=== PATIENT | male | born 1945 | race Caucasian/White ===

== ENCOUNTER → 2016-11-30 | Outpatient (CLI) | payer BC ==
[~2016-11-30] MED LIST: AMIT10TA6 PO; AMLO2.5T PO; AMOX875T PO; AMT10 PO; ASPI81TA21 PO; ASPI81TA28 PO; CIPR-255 PO; CRFL PO; CYCL10TA6 PO; DICL1GEL12 TP; FINA5TAB PO; FINA5TAB4 PO; LISI-729 PO; LISI2.5T5 PO; MELO15TA4 PO; MELO7.5T5 PO; METR-163 PO; METR500T PO; MULTTAB58 PO; NTRGSL/4 UT; NXM/40 PO; ONDA4TAB10 SL; OXYC1TAB3 PO; PSYL0.524; PSYL0.524 PO; RANO500T PO; RIZA10TA18 PO; RNXER500 PO; ROSU20TA PO; SERT50TA PO; SILO8CAP PO; SOLI5TAB2 PO; SUCR5SUS PO; renexa PO
--- NOTE | 2016-11-30 18:00 | DIAGNOSTIC IMAGING REPORT ---
CT pelvis PELVIS NO IV/ORAL CONT (CT) CLINICAL HISTORY: DIVERTICULITIS pain TECHNIQUE: Transaxial acquisition without contrast enhancement COMPARISON STUDY: None FINDINGS: Nonobstructive bowel pattern. Normal appendix. Chronic sigmoid diverticulosis. No evidence for acute diverticulitis. No significant pericolonic infiltrative change. No evidence for abscess collection or obstructive change. Bladder is midline. There are no contained calcifications. No acute abnormality of the osseous structures IMPRESSION: Chronic sigmoid diverticulosis. No evidence for acute diverticulitis. Otherwise negative study Electronically signed by: Matt Charles M.D. 11/30/2016 5:59 PM Dictated Date/Time: 11/30/2016 5:57 PM
== END | disposition home or self-care (01) ==
LOC: C.CTS 17:29
PROVIDERS: ATTEND Family Medicine
DX: K57.30 Diverticulosis of large intestine without perforation or abscess without bleeding (principal)

== ENCOUNTER 2016-12-24 11:34 | Emergency (ER) | payer BC ==
[~2016-12-24] VITALS: Ht 172.7 cm; Wt 90.2 kg
[~2016-12-24 11:34] MED LIST changes: -AMOX875T PO; -AMT10 PO; -ASPI81TA28 PO; -CIPR-255 PO; -CRFL PO; -DICL1GEL12 TP; -FINA5TAB PO; -LISI-729 PO; -MELO15TA4 PO; -METR-163 PO; -METR500T PO; -ONDA4TAB10 SL; -OXYC1TAB3 PO; -PSYL0.524 PO; -RANO500T PO; -RNXER500 PO
[2016-12-24 11:37] VITALS: TEMP 36.4; Ht 172.7 cm; Wt 90.2 kg
[2016-12-24] MEDS ORDERED: RANO500T PO (12:19)
--- NOTE | 2016-12-24 12:33 | EMERGENCY ROOM VISIT NOTE ---
History Report prepared by Ky: Paola Baum Under the Supervision of: Dr. John Edwards M.D. First contact with patient: 12:24 Chief Complaint: ABDOMINAL PAIN Stated Complaint: LOWER ABD. PAIN Nursing Triage Summary: "I've had this abdominal pain off and on for maybe a month. Twice I saw the walk in at [place]. I received a cat scan. I've had this lower abdominal pain. Yesterday it was all day and even to urinate it was bad. I called my doctors office and they sent me here.". Pain has moved from the right to the center of the abdomen. History of Present Illness The patient is a 71 year old male who presents to the Emergency Room with complaints of persistent mid abdominal pain that began one month ago. He currently rates his discomfort as a 9/10 in severity. The patient states that he had a normal CT scan one month ago. He states that his pain has persisted and notes that he is scheduled for a colonoscopy next Wednesday. The patient states that his pain intensified last evening. He states that he had loose stools on Wednesday, but denies any diarrhea. The patient additionally notes chills, but denies any fever, vomiting, rash, leg swelling, or urinary symptoms. The patient notes a history of diverticulitis several years ago. Source of History: patient Onset: one month ago Position: abdomen (mid) Symptom Intensity: 9/10 Timing: other (persistent) Associated Symptoms: + chills, No diarrhea, No fevers, No rash, No urinary symptoms, No vomiting Note: Associated Symptoms: loose stools. Review of Systems See HPI for pertinent positives & negatives. A total of 10 systems reviewed and were otherwise negative. Past Medical & Surgical Medical Problems: (1) Liriano's esophagus (2) Cardiac catheterization (3) Coronary artery disease (4) Gastroesophageal reflux disease (5) Heart disease (6) History of migraine (7) Hyperlipidemia Surgical Problems: (1) History of hemorrhoids Family History Diabetes mellitus FHx: cancer FHx: heart disease Social History Smoking Status: Never Smoker Alcohol Use: none Drug Use: none Marital Status: Housing Status: lives with family Occupation Status: retired Current/Historical Medications Scheduled Amitriptyline Hcl (Elavil), 20 MG PO HS Amlodipine (Norvasc), 2.5 MG PO DAILY Ciprofloxacin Hcl (Cipro), 500 MG PO BID Esomeprazole Magnesium (Nexium), 40 MG PO BID Finasteride (Proscar), 5 MG PO QPM Lisinopril (Lisinopril), 5 MG PO DAILY Meloxicam (Mobic), 15 MG PO DAILY Metronidazole (Flagyl), 500 MG PO TID Nitroglycerin (Nitrostat), 0.4 MG UT PRN Psyllium (Metamucil), DAILY Ranolazine (Ranexa), 1 TAB PO BID Rosuvastatin Calcium (Crestor), 20 MG PO HS Sertraline (Zoloft), 50 MG PO DAILY Silodosin (Rapaflo), 8 MG PO QPM Scheduled PRN Aspirin Enteric Coated (Ecotrin Or Generic), 81 MG PO DAILY PRN Cyclobenzaprine Hcl (Flexeril), 1 TAB PO TID PRN for Muscle Spasms Oxycodone Immediate Rel Tab (Roxicodone Ir), 1-2 TAB PO Q4H PRN for Severe Pain Rizatriptan Benzoate (Maxalt), 10 MG PO DAILY PRN Sucralfate (Carafate), 1 GM PO Q6H PRN Allergies Coded Allergies: Omeprazole (Verified Allergy, Unknown, unsure, 03/15/15) Pantoprazole (Verified Adverse Reaction, Unknown, HALLUCINATIONS, 03/15/15) Physical Exam Vital Signs Date Time Temp Pulse Resp B/P Pulse Ox O2 Delivery O2 Flow Rate FiO2 12/24/16 13:56 61 16 134/77 95 Room Air 12/24/16 11:37 36.4 78 20 138/90 96 Room Air Physical Exam GENERAL: Patient is uncomfortable appearing and in moderate distress. HEENT: No acute trauma, normocephalic atraumatic, mucous membranes moist, no nasal congestion, no scleral icterus. NECK: No stridor, no adenopathy, no meningismus, trachea is midline. LUNGS: No dyspnea. Clear to auscultation and equal bilaterally. No wheeze, no rhonchi. HEART: Regular rate and rhythm. No murmurs, rubs, gallops appreciated. ABDOMEN: Suprapubic tenderness to palpation. Soft, bowel sounds positive, no masses appreciated, no peritonitis. BACK: No midline tenderness, no CVA tenderness EXTREMITIES: Normal motion all extremities, no cyanosis, no edema. NEUROLOGIC: Alert and oriented, no acute motor or sensory deficits, no focal weakness, cranial nerves grossly intact. SKIN: No rash, no jaundice, no diaphoresis. Medical Decision & Procedures ER Provider Diagnostic Interpretation: Radiology results and stated below per my review and radiologist interpretation: CT ABD/PELVIS IV CONTRAST ONLY CLINICAL HISTORY: Lower abdominal and periumbilical pain. COMPARISON STUDY: CT scan the pelvis dated 11/30/2016 TECHNIQUE: Following the IV administration of 92 mL of Optiray-320, CT scan of the abdomen and pelvis was performed from the lung bases to the proximal femurs. Images are reviewed in the axial, sagittal, and coronal planes. IV contrast was administered without complication. CT DOSE: 695.75 mGy.cm FINDINGS: Lower chest: There is a moderate hiatal hernia. There are coronary artery calcifications. Liver: There is hepatic steatosis. No focal masses are visualized. The portal vein is patent. Gallbladder: Unremarkable. Spleen: Normal in size and attenuation. Pancreas: Unremarkable. Adrenal glands: Unremarkable. Kidneys: There is symmetric renal cortical enhancement. The kidneys are normal in size without hydronephrosis. Bowel: There are no transition zone to indicate bowel obstruction. The appendix is normal. There is extensive sigmoid diverticulosis. There is sigmoid wall thickening likely secondary to peridiverticular muscular hypertrophy. Minimal peridiverticular inflammatory changes cannot be excluded.. Peritoneum: There is no intraperitoneal free air or abdominal ascites. Vasculature: The abdominal aorta is normal in course and caliber. Adenopathy: None. Pelvic viscera: The bladder, and pelvic viscera are unremarkable. There are small fat-containing umbilical hernias versus lipomatous inguinal canals Skeletal structures: No destructive osseous lesions are seen. IMPRESSION: 1. No evidence of bowel obstruction. No evidence of free air 2. Normal appendix 3. Extensive sigmoid diverticulosis with equivocal minimal peridiverticular inflammatory change 4. Hiatal hernia 5. Hepatic steatosis Electronically signed by: Agustín Carbajal M.D. 12/24/2016 2:06 PM Dictated Date/Time: 12/24/2016 1:56 PM Laboratory Results 12/24/16 11:49 Red Blood Count 4.98, Mean Corpuscular Volume 85.5, Mean Corpuscular Hemoglobin 29.5, Mean Corpuscular Hemoglobin Concent 34.5, Mean Platelet Volume 9.2, Neutrophils (%) (Auto) 63.1, Lymphocytes (%) (Auto) 21.3, Monocytes (%) (Auto) 9.0, Eosinophils (%) (Auto) 5.8, Basophils (%) (Auto) 0.5, Neutrophils # (Auto) 5.51, Lymphocytes # (Auto) 1.86, Monocytes # (Auto) 0.79, Eosinophils # (Auto) 0.51, Basophils # (Auto) 0.04 12/24/16 11:49 Test 12/24/16 11:47 12/24/16 11:49 Urine Color YELLOW Urine Appearance CLEAR (CLEAR) Urine pH 6.5 (4.5-7.5) Urine Specific Norman 1.008 (1.000-1.030) Urine Protein NEG (NEG) Urine Glucose (UA) NEG (NEG) Urine Ketones NEG (NEG) Urine Occult Blood NEG (NEG) Urine Nitrite NEG (NEG) Urine Bilirubin NEG (NEG) Urine Urobilinogen NEG (NEG) Urine Leukocyte Esterase NEG (NEG) Urine WBC (Auto) 0 /hpf (0-5) Urine RBC (Auto) 0-4 /hpf (0-4) Urine Hyaline Casts (Auto) 0 /lpf (0-5) Urine Epithelial Cells (Auto) 0-5 /lpf (0-5) Urine Bacteria (Auto) NEG (NEG) White Blood Count 8.74 K/uL (4.8-10.8) Red Blood Count 4.98 M/uL (4.7-6.1) Hemoglobin 14.7 g/dL (14.0-18.0) Hematocrit 42.6 % (42-52) Mean Corpuscular Volume 85.5 fL (80-100) Mean Corpuscular Hemoglobin 29.5 pg (25-34) Mean Corpuscular Hemoglobin Concent 34.5 g/dl (32-36) Platelet Count 315 K/uL (130-400) Mean Platelet Volume 9.2 fL (7.4-10.4) Neutrophils (%) (Auto) 63.1 % Lymphocytes (%) (Auto) 21.3 % Monocytes (%) (Auto) 9.0 % Eosinophils (%) (Auto) 5.8 % Basophils (%) (Auto) 0.5 % Neutrophils # (Auto) 5.51 K/uL (1.4-6.5) Lymphocytes # (Auto) 1.86 K/uL (1.2-3.4) Monocytes # (Auto) 0.79 K/uL (0.11-0.59) Eosinophils # (Auto) 0.51 K/uL (0-0.5) Basophils # (Auto) 0.04 K/uL (0-0.2) RDW Standard Deviation 40.0 fL (36.4-46.3) RDW Coefficient of Variation 13.0 % (11.5-14.5) Immature Granulocyte % (Auto) 0.3 % Immature Granulocyte # (Auto) 0.03 K/uL (0.00-0.02) Anion Gap 7.0 mmol/L (3-11) Est Creatinine Clear Calc Drug Dose 85.2 ml/min Estimated GFR () 100.9 Estimated GFR (Non- 87.0 BUN/Creatinine Ratio 16.6 (10-20) Calcium Level 9.0 mg/dl (8.5-10.1) Total Bilirubin 0.5 mg/dl (0.2-1) Direct Bilirubin 0.1 mg/dl (0-0.2) Aspartate Amino Transf (AST/SGOT) 23 U/L (15-37) Alanine Aminotransferase (ALT/SGPT) 39 U/L (12-78) Alkaline Phosphatase 121 U/L (45-117) Total Protein 7.4 gm/dl (6.4-8.2) Albumin 3.8 gm/dl (3.4-5.0) Lipase 268 U/L (73-393) Laboratory results as reviewed by me. Medications Administered Medications (Trade) Dose Ordered Sig/Pushpa Route Start Time Stop Time Status Last Admin Dose Admin Sodium Chloride (Nss 1000ml) 1,000 ml @ 999 mls/hr Q1H1M STAT IV 12/24/16 12:34 12/24/16 13:34 DC 12/24/16 12:44 999 MLS/HR Fentanyl Citrate (Fentanyl Inj) 50 mcg NOW STAT IV 12/24/16 12:34 12/24/16 12:35 DC 12/24/16 12:45 50 MCG Metronidazole (Flagyl Tab) 500 mg NOW STAT PO 12/24/16 14:30 12/24/16 14:31 DC 12/24/16 14:37 500 MG Ciprofloxacin (Cipro Tab) 500 mg NOW STAT PO 12/24/16 14:30 12/24/16 14:31 DC 12/24/16 14:38 500 MG ED Course 1227: The patient was evaluated in room B7. A complete history and physical exam was performed. 1234: Ordered Fentanyl Citrate 50 mcg IV, Sodium Chloride 1000 ml @ 999 mls/hr IV. 1423: I reevaluated the patient and he is feeling much better. He states that he will contact GI tomorrow to determine if his colonoscopy should be postponed. He states that he has been on Cipro and flagyl several years ago, but was on Augmentin last month for his symptoms. I discussed all the exam findings with him and I discussed the treatment plan. He verbalized complete understanding and agreement. He is ready to go home. 1430: Ordered Cipro Tab 500 mg PO, Flagyl Tab 500 mg PO. Medical Decision Differential: Appendicitis, Diverticulitis, PUD/Gastritis, Biliary Pathology, UTI, Pyelonephritis, Renal Colic, Bowel Obstruction, Aortic Pathology, Acute Coronary Syndrome, amongst other pathologies entertained. 71 yr old male arrives with suprapubic pain ongoing for the last month gradually worsening last day or so. Previous CT normal though had been on augmentin afterwards. Labs look good but given amount of pain patient in went ahead with repeat CT. Mild diverticulitis suspected and with history/exam suspect this is cause of pain. Given Cipro/Flagyl which he has tolerated well years past. Has GI follow up on Wednesday though I noted they may not be willing to do colonoscopy while under active treatment. Discussed symptoms requiring return. Impression Primary Impression: Diverticulitis Scribe Attestation The scribe's documentation has been prepared under my direction and personally reviewed by me in its entirety. I confirm that the note above accurately reflects all work, treatment, procedures, and medical decision making performed by me. Departure Information Dispostion Home / Self-Care Prescriptions Oxycodone Immediate Rel Tab (ROXICODONE IR) 5 Mg Tab 1-2 TAB PO Q4H Y for Severe Pain, #15 TAB Prov: John Edwards M.D. 12/24/16 Metronidazole (Flagyl) 500 Mg Tab 500 MG PO TID for 10 Days, #30 TAB Prov: John Edwards M.D. 12/24/16 Ciprofloxacin Hcl (CIPRO) 500 Mg Tab 500 MG PO BID, #20 TAB Prov: John Edwards M.D. 12/24/16 Referrals Celestino Vazquez D.O. (PCP) Forms HOME CARE DOCUMENTATION FORM, IMPORTANT VISIT INFORMATION Patient Instructions ED Diverticulitis, [facility] [place] Additional Instructions You have received a narcotic pain medication prescription. These medications may cause drowsiness and should not be used with other sedative medications. Do not drive, drink alcohol, perform dangerous activities, nor make important decisions after taking these medications. fabric pattern grader use or inappropriate use may lead to addiction. It is important to call your primary care provider and tutoring clinician to make them aware. Problem Qualifiers Primary Impression: Diverticulitis Diverticulitis site: large intestine Diverticulitis bleeding: without bleeding Diverticulitis complication: without perforation or abscess Qualified Codes: K57.32 - Diverticulitis of large intestine without perforation or abscess without bleeding
[2016-12-24] MEDS ORDERED: FENTANYL CITRATE INJ 50 MCG/1 ML 2 ML VIAL IV STA (12:34)
[2016-12-24] MEDS ORDERED: SODIUM CHLORIDE 0.9% 1000ML 1,000 ML IV STA (12:34)
[2016-12-24 12:43] LABS: BASO % 0.5 %; BASO ABS # 0.04 K/uL (0-0.2); COMPLETE YES; EOS % 5.8 %; HEMATOCRIT 42.6 % (42-52); IG% 0.3 %; LYMPH % 21.3 %; LYMPH ABS # 1.86 K/uL (1.2-3.4); MEAN CELL VOLUME 85.5 fL (80-100); MEAN CORPUSCULAR HEMOGLOBIN 29.5 pg (25-34); MEAN CORPUSCULAR HGB CONC 34.5 g/dl (32-36); MEAN PLATELET VOLUME 9.2 fL (7.4-10.4); NEUT % 63.1 %; PLATELET COUNT 315 K/uL (130-400); RED BLOOD COUNT 4.98 M/uL (4.7-6.1); WHITE BLOOD COUNT 8.74 K/uL (4.8-10.8)
[2016-12-24] MEDS ORDERED: OPTIRAY 320 IV PRN (12:45)
[2016-12-24 12:49] LABS: URINE APPEARANCE CLEAR (CLEAR); URINE BILIRUBIN NEG (NEG); URINE COLOR YELLOW; URINE EPITHELIAL CELL AUTO 0-5 /lpf (0-5); URINE NITRITE NEG (NEG); URINE PH 6.5 (4.5-7.5); URINE SPECIFIC GRAVITY 1.008 (1.000-1.030); UROBILINOGEN NEG (NEG); ZZUR CULT IF INDIC CLEAN CATCH NO
[2016-12-24 12:51] LABS: MANUAL MICROSCOPIC REQUIRED? NO; REVIEW REQ? NO
[2016-12-24 12:51] LABS: BUN/CREATININE RATIO 16.6 (10-20); CREATININE 0.88 mg/dl (0.60-1.40); POTASSIUM 3.9 mmol/L (3.5-5.1)
[2016-12-24 13:56] VITALS: BP 134/77; PULSE 61; O2SAT 95
--- NOTE | 2016-12-24 14:08 | DIAGNOSTIC IMAGING REPORT ---
CT ABD/PELVIS IV CONTRAST ONLY CLINICAL HISTORY: Lower abdominal and periumbilical pain. COMPARISON STUDY: CT scan the pelvis dated 11/30/2016 TECHNIQUE: Following the IV administration of 92 mL of Optiray-320, CT scan of the abdomen and pelvis was performed from the lung bases to the proximal femurs. Images are reviewed in the axial, sagittal, and coronal planes. IV contrast was administered without complication. CT DOSE: 695.75 mGy.cm FINDINGS: Lower chest: There is a moderate hiatal hernia. There are coronary artery calcifications. Liver: There is hepatic steatosis. No focal masses are visualized. The portal vein is patent. Gallbladder: Unremarkable. Spleen: Normal in size and attenuation. Pancreas: Unremarkable. Adrenal glands: Unremarkable. Kidneys: There is symmetric renal cortical enhancement. The kidneys are normal in size without hydronephrosis. Bowel: There are no transition zone to indicate bowel obstruction. The appendix is normal. There is extensive sigmoid diverticulosis. There is sigmoid wall thickening likely secondary to peridiverticular muscular hypertrophy. Minimal peridiverticular inflammatory changes cannot be excluded.. Peritoneum: There is no intraperitoneal free air or abdominal ascites. Vasculature: The abdominal aorta is normal in course and caliber. Adenopathy: None. Pelvic viscera: The bladder, and pelvic viscera are unremarkable. There are small fat-containing umbilical hernias versus lipomatous inguinal canals Skeletal structures: No destructive osseous lesions are seen. IMPRESSION: 1. No evidence of bowel obstruction. No evidence of free air 2. Normal appendix 3. Extensive sigmoid diverticulosis with equivocal minimal peridiverticular inflammatory change 4. Hiatal hernia 5. Hepatic steatosis Electronically signed by: Agustín Carbajal M.D. 12/24/2016 2:06 PM Dictated Date/Time: 12/24/2016 1:56 PM
[2016-12-24] MEDS ORDERED: METRONIDAZOLE 250 MG TAB PO STA (14:30)
[2016-12-24] MEDS ORDERED: CIPROFLOXACIN 500 MG TAB PO STA (14:30)
[2016-12-24] MEDS ORDERED: METR-163 PO (14:33)
[2016-12-24] MEDS ORDERED: CIPR-255 PO (14:33)
[2016-12-24] MEDS ORDERED: OXYC1TAB3 PO (14:33)
== END 2016-12-24 14:52 | disposition home or self-care (01) ==
LOC: C.EDB 11:36
DX: K57.92 Diverticulitis of intestine, part unspecified, without perforation or abscess without bleeding (principal); E78.5 Hyperlipidemia, unspecified; I25.10 Atherosclerotic heart disease of native coronary artery without angina pectoris; I51.9 Heart disease, unspecified; K21.9 Gastro-esophageal reflux disease without esophagitis; K22.70 Barrett's esophagus without dysplasia; Z79.899 Other long term (current) drug therapy; Z88.8 Allergy status to other drugs, medicaments and biological substances; Z83.3 Family history of diabetes mellitus; Z80.9 Family history of malignant neoplasm, unspecified; Z82.49 Family history of ischemic heart disease and other diseases of the circulatory system

== ENCOUNTER 2017-01-23 13:27 | Emergency (ER) | payer BC ==
[~2017-01-23] VITALS: Ht 172.7 cm; Wt 89.3 kg
[~2017-01-23 13:27] MED LIST changes: +CIPR-255 PO; -MULTTAB58 PO; +OXYC1TAB3 PO; +RANO500T PO; -SOLI5TAB2 PO; -renexa PO
[2017-01-23 13:31] VITALS: Ht 172.7 cm; Wt 89.3 kg
[2017-01-23] MEDS ORDERED: SODIUM CHLORIDE 0.9% 1000ML 1,000 ML IV STA (13:41)
[2017-01-23] MEDS ORDERED: HYDROmorphone INJ 1 MG/ML SYR IV PRN (14:00)
[2017-01-23] MEDS ORDERED: ONDANSETRON 8 MG/54 ML D5W IV STA (14:00)
[2017-01-23 14:09] LABS: BASO % 0.3 %; BASO ABS # 0.02 K/uL (0-0.2); COMPLETE YES; EOS % 4.1 %; HEMATOCRIT 41.8 % (42-52); IG% 0.4 %; LYMPH % 23.8 %; LYMPH ABS # 1.79 K/uL (1.2-3.4); MEAN CELL VOLUME 84.8 fL (80-100); MEAN CORPUSCULAR HEMOGLOBIN 28.6 pg (25-34); MEAN CORPUSCULAR HGB CONC 33.7 g/dl (32-36); MEAN PLATELET VOLUME 9.1 fL (7.4-10.4); MONO % 10.8 %; NEUT % 60.6 %; PLATELET COUNT 279 K/uL (130-400); RED BLOOD COUNT 4.93 M/uL (4.7-6.1); WHITE BLOOD COUNT 7.51 K/uL (4.8-10.8)
[2017-01-23 14:14] LABS: URINE APPEARANCE CLEAR (CLEAR); URINE BILIRUBIN NEG (NEG); URINE COLOR YELLOW; URINE NITRITE NEG (NEG); URINE SPECIFIC GRAVITY 1.008 (1.000-1.030); UROBILINOGEN NEG (NEG); ZZUR CULT IF INDIC CLEAN CATCH NO
[2017-01-23 14:16] LABS: MANUAL MICROSCOPIC REQUIRED? NO; REVIEW REQ? NO
[2017-01-23 14:25] LABS: BUN/CREATININE RATIO 15.8 (10-20); CALCIUM 8.9 mg/dl (8.5-10.1); CREATININE 0.72 mg/dl (0.60-1.40)
[2017-01-23] MEDS ORDERED: RIZA10TA18 PO (14:48)
[2017-01-23] MEDS ORDERED: NXM/40 PO (14:48)
[2017-01-23] MEDS ORDERED: PSYL0.524 PO (14:48)
[2017-01-23] MEDS ORDERED: DICL1GEL12 TP (14:48)
[2017-01-23] MEDS ORDERED: SERT50TA PO (14:48)
[2017-01-23] MEDS ORDERED: LISI-729 PO (14:48)
[2017-01-23] MEDS ORDERED: RNXER500 PO (14:48)
[2017-01-23] MEDS ORDERED: CRFL PO (14:48)
[2017-01-23] MEDS ORDERED: FINA5TAB PO (14:48)
[2017-01-23] MEDS ORDERED: ROSU20TA PO (14:48)
[2017-01-23] MEDS ORDERED: MELO15TA4 PO (14:48)
[2017-01-23] MEDS ORDERED: AMLO2.5T PO (14:48)
[2017-01-23] MEDS ORDERED: ASPI81TA28 PO (14:48)
[2017-01-23] MEDS ORDERED: SILO8CAP PO (14:48)
[2017-01-23] MEDS ORDERED: AMT10 PO (14:48)
[2017-01-23] MEDS ORDERED: OPTIRAY 320 IV PRN (17:00)
--- NOTE | 2017-01-23 17:34 | DIAGNOSTIC IMAGING REPORT ---
ABDOMEN AND PELVIS CT WITH IV AND ORAL CONTRAST CT DOSE: 838.90 mGy.cm HISTORY: Low pelvic pain lower abd pain, recent treatment for diverticulitis TECHNIQUE: Multiaxial CT images of the abdomen and pelvis were performed following the use of intravenous and oral contrast. COMPARISON STUDY: 12/24/2016 FINDINGS: Lung bases are clear. Mild fatty infiltration of liver. Gallbladder is negative for distention. Kidneys enhance uniformly. There is minimal cortical scarring of both kidneys. Pancreas is uniform. Spleen enhances appropriately. Bowel pattern within the abdomen is nonobstructive. The appendix is normal. Evaluation of the low pelvis demonstrates chronic sigmoid diverticulosis. There is no significant pericolonic infiltrative change. There is mild wall thickening. Bladder is midline. There is no free fluid within the pelvic cul-de-sac. The appendix is normal. IMPRESSION: 1. Chronic sigmoid diverticulosis. 2. No evidence for acute diverticulitis. 3. Mild fatty infiltration of the liver. 4. Fixed hiatal hernia. Electronically signed by: Matt Charles M.D. 01/23/2017 5:33 PM Dictated Date/Time: 01/23/2017 5:28 PM
[2017-01-23] MEDS ORDERED: AMOXICILLIN/CLAVULANATE TAB 875 MG TAB PO STA (17:49)
[2017-01-23] MEDS ORDERED: AMOX875T PO (17:52)
--- NOTE | 2017-01-23 18:04 | EMERGENCY ROOM VISIT NOTE ---
History Report prepared by Ky: Micheal Whiting Under the Supervision of: Dr. Cesar Atkins M.D. First contact with patient: 13:40 Chief Complaint: ABDOMINAL PAIN Stated Complaint: LOWER ABDOMINAL PAIN Nursing Triage Summary: Pt c/o abdominal pain. States hx diverticulitis. Last BM today, clear and jelly like. States abd pain in mid low abdomen. History of Present Illness The patient is a 71 year old male who presents to the Emergency Room with complaints of lower mid abdominal pain that began two days ago. He rates his pain a 10/10 in severity. He diagnosed with diverticulosis and mild diverticulitis recently and was placed on a Cipro regimen. He notes to have felt better after that. He is feeling similar to his last episode. When he had a bowel movement today, he states that it was "white jelly." His pain worsens with lying down. He is also nauseated. Patient denies LOC, headache, fevers, chills, diaphoresis, visual changes, neck pain, chest pain, breathing difficulties, vomiting, back pain, melena, hematochezia, urinary symptoms, numbness, weakness, lymphadenopathy, rash, or other complaints. His next colonoscopy is scheduled for February of this year. He still has his appendix. Source of History: patient Onset: two days ago Position: abdomen Symptom Intensity: 10/10 Quality: sharp Timing: constant Modifying Factors (Worsening): rest Associated Symptoms: + nausea Note: He had a white jelly-like bowel movement. Review of Systems See HPI for pertinent positives and negatives. A total of ten systems were reviewed and were otherwise negative. Past Medical & Surgical Medical Problems: (1) Liriano's esophagus (2) Cardiac catheterization (3) Coronary artery disease (4) Gastroesophageal reflux disease (5) Heart disease (6) History of migraine (7) Hyperlipidemia Surgical Problems: (1) History of hemorrhoids Family History Diabetes mellitus FHx: cancer FHx: heart disease Social History Smoking Status: Never Smoker Smokeless Tobacco Use: No Alcohol Use: none Drug Use: none Marital Status: Housing Status: lives with family Occupation Status: retired Current/Historical Medications Scheduled Amitriptyline HCl (Amitriptyline HCl), 20 MG PO HS Amlodipine (Norvasc), 2.5 MG PO DAILY Amoxicillin & Pot Clavulanate (Augmentin 875-125 mg), 875 MG PO BID Aspirin (Aspirin Ec), 81 MG PO DAILY Esomeprazole Magnesium (Nexium), 40 MG PO DAILY Finasteride (Proscar), 5 MG PO DAILY Lisinopril (Zestril), 5 MG PO DAILY Nitroglycerin (Nitrostat), 0.4 MG UT PRN Psyllium (Metamucil), 3.4 PO DAILY Ranolazine (Ranexa), 500 MG PO BID Rosuvastatin Calcium (Crestor), 20 MG PO DAILY Sertraline (Zoloft), 50 MG PO DAILY Silodosin (Rapaflo), 1 CAP PO DAILY Sucralfate (Carafate), 10 ML PO HS Scheduled PRN Diclofenac Sodium (Topical) (Voltaren 1% Top Gel), 1 APPLN TP UD PRN for Pain Meloxicam (Mobic), 15 MG PO DAILY PRN for Pain Rizatriptan Benzoate (Maxalt), 10 MG PO DAILY PRN for Migraine Allergies Coded Allergies: Omeprazole (Verified Allergy, Unknown, unsure, 03/15/15) Pantoprazole (Verified Adverse Reaction, Unknown, HALLUCINATIONS, 03/15/15) Physical Exam Vital Signs Date Time Temp Pulse Resp B/P Pulse Ox O2 Delivery O2 Flow Rate FiO2 01/23/17 17:30 61 14 123/72 95 Room Air 01/23/17 14:34 61 14 151/87 95 Room Air 01/23/17 13:31 36.3 69 18 147/78 98 Physical Exam GENERAL: Awake, alert, well-appearing, in no distress HENT: Normocephalic, atraumatic. Oropharynx unremarkable. EYES: Normal conjunctiva. Sclera non-icteric. NECK: Supple. No nuchal rigidity. FROM. No JVD. RESPIRATORY: Clear to auscultation. CARDIAC: Regular rate, normal rhythm. Extremities warm and well perfused. Pulses equal. ABDOMEN: Soft, non-distended. Mild tenderness to palpation of the RLQ, moderate tenderness to palpation in the suprapubic and LLQ. No rebound or guarding. No masses. RECTAL: Deferred. MUSCULOSKELETAL: Chest examination reveals no tenderness. The back is symmetrical on inspection without obvious abnormality. There is no CVA tenderness to palpation. No joint edema. LOWER EXTREMITIES: Calves are equal size bilaterally and non-tender. No edema. No discoloration. NEURO: Normal sensorium. No sensory or motor deficits noted. SKIN: No rash or jaundice noted. Medical Decision & Procedures ER Provider Diagnostic Interpretation: Radiology results as stated below per my review and radiologist interpretation: ABDOMEN AND PELVIS CT WITH IV AND ORAL CONTRAST CT DOSE: 838.90 mGy.cm HISTORY: Low pelvic pain lower abd pain, recent treatment for diverticulitis TECHNIQUE: Multiaxial CT images of the abdomen and pelvis were performed following the use of intravenous and oral contrast. COMPARISON STUDY: 12/24/2016 FINDINGS: Lung bases are clear. Mild fatty infiltration of liver. Gallbladder is negative for distention. Kidneys enhance uniformly. There is minimal cortical scarring of both kidneys. Pancreas is uniform. Spleen enhances appropriately. Bowel pattern within the abdomen is nonobstructive. The appendix is normal. Evaluation of the low pelvis demonstrates chronic sigmoid diverticulosis. There is no significant pericolonic infiltrative change. There is mild wall thickening. Bladder is midline. There is no free fluid within the pelvic cul-de-sac. The appendix is normal. IMPRESSION: 1. Chronic sigmoid diverticulosis. 2. No evidence for acute diverticulitis. 3. Mild fatty infiltration of the liver. 4. Fixed hiatal hernia. Electronically signed by: Matt Charles M.D. 01/23/2017 5:33 PM Dictated Date/Time: 01/23/2017 5:28 PM Laboratory Results 01/23/17 13:50 Red Blood Count 4.93, Mean Corpuscular Volume 84.8, Mean Corpuscular Hemoglobin 28.6, Mean Corpuscular Hemoglobin Concent 33.7, Mean Platelet Volume 9.1, Neutrophils (%) (Auto) 60.6, Lymphocytes (%) (Auto) 23.8, Monocytes (%) (Auto) 10.8, Eosinophils (%) (Auto) 4.1, Basophils (%) (Auto) 0.3, Neutrophils # (Auto ) 4.55, Lymphocytes # (Auto) 1.79, Monocytes # (Auto) 0.81, Eosinophils # (Auto ) 0.31, Basophils # (Auto) 0.02 01/23/17 13:50 Test 01/23/17 13:50 01/23/17 13:58 White Blood Count 7.51 K/uL (4.8-10.8) Red Blood Count 4.93 M/uL (4.7-6.1) Hemoglobin 14.1 g/dL (14.0-18.0) Hematocrit 41.8 % (42-52) Mean Corpuscular Volume 84.8 fL (80-100) Mean Corpuscular Hemoglobin 28.6 pg (25-34) Mean Corpuscular Hemoglobin Concent 33.7 g/dl (32-36) Platelet Count 279 K/uL (130-400) Mean Platelet Volume 9.1 fL (7.4-10.4) Neutrophils (%) (Auto) 60.6 % Lymphocytes (%) (Auto) 23.8 % Monocytes (%) (Auto) 10.8 % Eosinophils (%) (Auto) 4.1 % Basophils (%) (Auto) 0.3 % Neutrophils # (Auto) 4.55 K/uL (1.4-6.5) Lymphocytes # (Auto) 1.79 K/uL (1.2-3.4) Monocytes # (Auto) 0.81 K/uL (0.11-0.59) Eosinophils # (Auto) 0.31 K/uL (0-0.5) Basophils # (Auto) 0.02 K/uL (0-0.2) RDW Standard Deviation 39.2 fL (36.4-46.3) RDW Coefficient of Variation 12.9 % (11.5-14.5) Immature Granulocyte % (Auto) 0.4 % Immature Granulocyte # (Auto) 0.03 K/uL (0.00-0.02) Anion Gap 7.0 mmol/L (3-11) Est Creatinine Clear Calc Drug Dose 103.6 ml/min Estimated GFR () 109.5 Estimated GFR (Non- 94.5 BUN/Creatinine Ratio 15.8 (10-20) Calcium Level 8.9 mg/dl (8.5-10.1) Total Bilirubin 0.4 mg/dl (0.2-1) Direct Bilirubin 0.1 mg/dl (0-0.2) Aspartate Amino Transf (AST/SGOT) 24 U/L (15-37) Alanine Aminotransferase (ALT/SGPT) 41 U/L (12-78) Alkaline Phosphatase 107 U/L (45-117) Total Protein 7.0 gm/dl (6.4-8.2) Albumin 3.8 gm/dl (3.4-5.0) Lipase 236 U/L (73-393) Urine Color YELLOW Urine Appearance CLEAR (CLEAR) Urine pH 7.0 (4.5-7.5) Urine Specific [place] 1.008 (1.000-1.030) Urine Protein NEG (NEG) Urine Glucose (UA) NEG (NEG) Urine Ketones NEG (NEG) Urine Occult Blood NEG (NEG) Urine Nitrite NEG (NEG) Urine Bilirubin NEG (NEG) Urine Urobilinogen NEG (NEG) Urine Leukocyte Esterase NEG (NEG) Laboratory results reviewed by me Medications Administered Medications (Trade) Dose Ordered Sig/Pushpa Route Start Time Stop Time Status Last Admin Dose Admin Sodium Chloride (Nss 1000ml) 1,000 ml @ 125 mls/hr Q8H STAT IV 01/23/17 13:41 01/23/17 21:40 01/23/17 14:30 125 MLS/HR Ondansetron HCl (Zofran 8mg Iv) 8 mg NOW STAT IV 01/23/17 14:00 01/23/17 14:02 DC 01/23/17 14:28 8 MG Hydromorphone HCl (Dilaudid Inj) 0.5 mg Q15M PRN IV 01/23/17 14:00 02/06/17 13:59 01/23/17 14:29 0.5 MG Amoxicillin/ Clavulanate Potassium (Augmentin Tab) 875 mg NOW STAT PO 01/23/17 17:49 01/23/17 17:50 DC 01/23/17 17:55 875 MG ED Course 1340: The patient was evaluated in room B9. A complete history and physical exam was performed. 1341: Ordered Sodium Chloride 1000 ml @ 125 mls/hr IV 1400: Ordered Dilaudid Inj 0.5 mg IV, Ondansetron HCl 8 mg IV 1610: At this time, the patient is feeling better. 1747: After reevaluation, the patient remains well. 1749: Ordered Augmentin Tab 875 mg PO 1800: I reevaluated the patient. Discussed results and discharge instructions: He verbalized understanding and agreement. The patient is ready for discharge. Medical Decision Triage Nursing notes reviewed. The patient's presentation and history were concerning for lower abdominal pain and recent diverticulitis. Etiologies such as appendicitis, diverticulitis, obstruction, inflammatory bowel disease, renal colic, PUD, biliary pathology, pancreatitis, mesenteric ischemia, aortic pathology, infections, genitourinary, UTI, perforated viscus, as well as others were entertained. The patient was evaluated. He was uncomfortable. He was hydrated with normal saline. He was given Zofran and Dilaudid. On reassessment he was feeling much better. His blood work was unremarkable. No leukocytosis. Urinalysis was unremarkable as well. The patient was prepped for a CT. He underwent full CT imaging. There is no evidence of perforation or abscess. He has significant diverticulosis but no obvious diverticulitis. He notes mucousy stools and pain similar to his last episode. He may have mild diverticulitis that is not showing on his CT given his extensive diverticulosis and history. I discussed treating him conservatively with Augmentin and close outpatient follow-up. The patient feels very comfortable with this. If he worsens in any way he will be back. The patient states that he does have some oxycodone at home and I told him to use this sparingly. He will use Tylenol. He will use oxycodone if he has any breakthrough pain. I gave my usual and customary discussion regarding this issue. By The evaluation outlined above other emergent etiologies such as those listed in the differential, as well as others, were deemed relatively unlikely. The patient and for informed about the findings as listed above. All questions were answered and they were pleased with the treatment. Return instructions were outlined and the patient was discharged in stable condition. The patient was referred to his PCP for follow-up first thing this week for a recheck of the current condition. The chart was completed utilizing [employer] Speech voice recognition software. Grammatical errors, random word insertions, pronoun errors, and incomplete sentences are an occasional consequence of this system due to software limitations, ambient noise, and hardware issues. Any formal questions or concerns about the content, text, or information contained within the body of this dictation should be directly addressed to the physician for clarification. Impression Primary Impression: Lower abdominal pain Scribe Attestation The scribe's documentation has been prepared under my direction and personally reviewed by me in its entirety. I confirm that the note above accurately reflects all work, treatment, procedures, and medical decision making performed by me. Departure Information Dispostion Home / Self-Care Prescriptions Amoxicillin & Pot Clavulanate (Augmentin 875-125 mg) 1 Tab Tab 875 MG PO BID for 9 Days, #18 TAB Prov: Cesar Atkins MD 01/23/17 Referrals Celestino Vazquez D.O. (PCP) Forms HOME CARE DOCUMENTATION FORM, IMPORTANT VISIT INFORMATION Patient Instructions [facility] Additional Instructions DO NOT drive, drink alcohol, operate machinery, or perform dangerous activities today. You were given medications in the ER that can affect your ability to safely function or operate a vehicle. Amoxicillin Clavulanate (Augmentin) 875mg: Take one pill twice daily for 10 days for your bowel infection. All antibiotics can cause diarrhea. If this occurs and you feel worse or it does not resolve in 1-2 days follow up with your doctor or return to the Emergency Department as this could be signs of serious underlying problems. Any medication can cause an allergic reaction, stop the pills immediately and return to the ER for rash, hives, breathing difficulties, or swelling. Use your Oxycodone (OxyIR) 5mg: Take 1 pills every four hours for breakthrough pain. Avoid alcohol, operating machinery or dangerous equipment, working on ladders or roofs, DRIVING, or situations where being under the influence may be dangerous. It is recommended to use an [id number] stool softener such as Colace, 100mg twice daily while taking this medication to avoid constipation. Acetaminophen(Tylenol) may be used for fever or pain. Use 1000mg every six hours as needed. Avoid using more than 4000mg in a 24 hour period. Rest and drink plenty of fluids as tolerated. Slow sips of water or sports drinks are recommended instead of large amounts all at once. Continue current medications. Return to the ER immediately for worsening or persistent abdominal pain, vomiting, fevers, chest pains, difficulty breathing, black or bloody stools, worsening of your condition, or as needed. Follow up with your primary physician in 2-3 days for a recheck of your current condition.
[2017-01-23 18:27] VITALS: BP 129/83; PULSE 56; TEMP 36.3; O2SAT 96
== END 2017-01-23 18:28 | disposition home or self-care (01) ==
LOC: C.EDB 13:28
DX: R10.30 Lower abdominal pain, unspecified (principal); E78.5 Hyperlipidemia, unspecified; I25.10 Atherosclerotic heart disease of native coronary artery without angina pectoris; K21.9 Gastro-esophageal reflux disease without esophagitis; I51.9 Heart disease, unspecified; K22.70 Barrett's esophagus without dysplasia; Z79.82 Long term (current) use of aspirin; Z79.899 Other long term (current) drug therapy; Z88.8 Allergy status to other drugs, medicaments and biological substances; Z83.3 Family history of diabetes mellitus; Z80.9 Family history of malignant neoplasm, unspecified; Z82.49 Family history of ischemic heart disease and other diseases of the circulatory system

== ENCOUNTER 2017-06-08 13:25 | Emergency (ER) | payer BC ==
[~2017-06-08] VITALS: Ht 172.7 cm; Wt 82.0 kg
[~2017-06-08 13:25] MED LIST changes: -AMIT10TA6 PO; +AMT10 PO; -ASPI81TA21 PO; +ASPI81TA28 PO; -CIPR-255 PO; +CRFL PO; -CYCL10TA6 PO; +DICL1GEL12 TP; +FINA5TAB PO; -FINA5TAB4 PO; +LISI-729 PO; -LISI2.5T5 PO; +MELO15TA4 PO; -MELO7.5T5 PO; -OXYC1TAB3 PO; -PSYL0.524; +PSYL0.524 PO; -RANO500T PO; +RNXER500 PO; -SUCR5SUS PO
[2017-06-08 13:28] VITALS: Ht 172.7 cm; Wt 82.0 kg
[2017-06-08] MEDS ORDERED: ONDANSETRON INJ 2 MG/ML 2 ML VIAL IV STA ×2 (14:28→17:40)
[2017-06-08] MEDS ORDERED: SODIUM CHLORIDE 0.9% 1000ML 1,000 ML IV STA (14:28)
--- NOTE | 2017-06-08 14:31 | EMERGENCY ROOM VISIT NOTE ---
History Report prepared by Ky: Juan Hanson Under the Supervision of: Dr. Milind Pete M.D. First contact with patient: 14:01 Chief Complaint: CONSTIPATION Stated Complaint: CONSTIPATION History of Present Illness The patient is a 71 year old white male with a past medical history of hemorrhoids, hemorrhoid surgery, HLD, GERD, CAD, Heart disease, and a cardiac stent placement who presents to the ED with a cc of persistent constipation beginning two days ago. Positive nausea, and urinary retention since 10 this morning. Negative chest pain, shortness of breath, and history of heart failure. He states that he had a BM recently, and he had a fleet enema this morning. He takes aspirin and Crestor, and he states that he drinks alcohol occasionally. Source of History: patient Onset: two days ago Position: other (global) Quality: other (constipation) Timing: constant Associated Symptoms: + nausea, No chest pain, No SOB Review of Systems See HPI for pertinent positives and negatives. A total of ten systems were reviewed and were otherwise negative. Past Medical & Surgical Medical Problems: (1) Liriano's esophagus (2) Cardiac catheterization (3) Coronary artery disease (4) Gastroesophageal reflux disease (5) Heart disease (6) History of migraine (7) Hyperlipidemia Surgical Problems: (1) History of hemorrhoids Family History Diabetes mellitus FHx: cancer FHx: heart disease Social History Smoking Status: Never Smoker Alcohol Use: none Drug Use: none Marital Status: Housing Status: lives with family Occupation Status: retired Current/Historical Medications Scheduled Amitriptyline HCl (Amitriptyline HCl), 20 MG PO HS Amlodipine (Norvasc), 2.5 MG PO DAILY Aspirin (Aspirin Ec), 81 MG PO DAILY Ciprofloxacin Hcl (Cipro), 500 MG PO BID Esomeprazole Magnesium (Nexium), 40 MG PO DAILY Finasteride (Proscar), 5 MG PO DAILY Lisinopril (Zestril), 5 MG PO DAILY Metronidazole (Flagyl), 500 MG PO TID Nitroglycerin (Nitrostat), 0.4 MG UT PRN Ondasetron Odt (Zofran Odt), 4 MG SL Q6H Psyllium (Metamucil), 3.4 PO DAILY Ranolazine (Ranexa), 500 MG PO BID Rosuvastatin Calcium (Crestor), 20 MG PO DAILY Sertraline (Zoloft), 50 MG PO DAILY Silodosin (Rapaflo), 1 CAP PO DAILY Sucralfate (Carafate), 10 ML PO HS Scheduled PRN Rizatriptan Benzoate (Maxalt), 10 MG PO DAILY PRN for Migraine Allergies Coded Allergies: Beta Adrenergic Blockers (Unverified Allergy, Severe, "SHOOK UP FEELING", 06/08/17) Omeprazole (Verified Allergy, Unknown, unsure, 06/08/17) Pantoprazole (Verified Adverse Reaction, Unknown, HALLUCINATIONS, 06/08/17) Physical Exam Vital Signs Date Time Temp Pulse Resp B/P (MAP) Pulse Ox O2 Delivery O2 Flow Rate FiO2 06/08/17 19:54 81 18 120/84 96 06/08/17 18:25 83 17 124/93 95 06/08/17 17:37 36.6 79 16 158/88 96 Room Air 06/08/17 16:02 77 18 154/85 98 Room Air 06/08/17 15:05 70 16 133/73 100 Room Air 06/08/17 14:55 72 135/90 97 06/08/17 14:25 68 22 99 06/08/17 14:23 70 06/08/17 14:20 140/78 06/08/17 13:28 36.4 85 20 130/80 100 Room Air Physical Exam GENERAL: Awake, alert, well-appearing, NAD HENT: Normocephalic, atraumatic. EYES: Normal conjunctiva. Sclera non-icteric. NECK: Supple. No nuchal rigidity. FROM. RESPIRATORY: CTAB, no rhonchi, wheezing, crackles CARDIAC: RRR, no MRG ABDOMEN: Soft, NTND, BS+ MSK: No chest wall TTP, no LE edema NEURO: GCS 15, CN 2-12 intact, moves all 4s on command SKIN: No rash or jaundice noted. Medical Decision & Procedures ER Provider Diagnostic Interpretation: Radiology results as stated below per my review and radiologist interpretation: PA CHEST WITH ABDOMINAL SERIES CLINICAL HISTORY: Generalized abdominal pain. Constipation. FINDINGS: A PA chest radiograph is compared to study dated 01/21/2013. The cardiomediastinal silhouette is unremarkable. A large hiatal hernia is identified. Chronic interstitial thickening is similar to previous. There is bibasilar atelectasis. No airspace consolidation is seen typical for pneumonia and there is no pleural effusion. No pneumothorax is seen. The skeletal structures are osteopenic. The bony thorax is grossly intact. Supine and erect abdominal radiographs are correlated with abdominal CT dated 01/23/2017. Enteric contrast is present within the stomach and small bowel. There is moderate colonic fecal retention. There is no clear radiographic evidence of bowel obstruction. No evidence of intraperitoneal free air is seen. There are no abnormal abdominal calcifications. The lumbosacral spine and bony pelvis appear intact. IMPRESSION: 1. No active disease in the chest. 2. There is no definitive radiographic evidence of bowel obstruction. Moderate constipation is observed. 3. Large hiatal hernia. Electronically signed by: Oscar Isbell M.D. 06/08/2017 3:57 PM Dictated Date/Time: 06/08/2017 3:[address] OF THE ABDOMEN AND PELVIS WITH CONTRAST CLINICAL HISTORY: Constipation, abdominal pain, nausea and leukocytosis. COMPARISON STUDY: CT of the abdomen and pelvis January 23, 2017 and abdominal series performed earlier today. TECHNIQUE: Following IV administration of 116 mL of Optiray-320, axial images of the abdomen and pelvis were obtained from the lung bases to the proximal femurs. Images were reviewed in the axial, sagittal, and coronal planes. IV contrast was administered without complication. A dose lowering technique was utilized adhering to the principles of ALARA. Oral contrast was administered. CT DOSE: 799.02 mGy.cm FINDINGS: A moderate sized hiatal hernia is noted. There is probable fatty infiltration of the liver. The spleen, adrenal glands, kidneys and pancreas are normal. No pneumatosis, free air or portal venous gas is present. There is no abdominal or pelvic lymphadenopathy. No suspicious osseous lesions are present. Mild bladder wall thickening is noted. This extensive sigmoid diverticulosis without evidence for acute diverticulitis. The appendix is normal. Note is made of moderate rectal wall thickening with moderate perirectal infiltration. There is no free air or abscess. This finding is new since exam of January 23, 2017. IMPRESSION: 1. Moderate rectal wall thickening and perirectal infiltration consistent with proctitis. No free air or abscess. A follow-up colonoscopy, if not recently performed, once symptoms resolve is recommended to exclude the unlikely possibility of an underlying mass. 2. Extensive sigmoid diverticulosis without evidence for acute diverticulitis. 3. Moderate amount of stool within the descending colon and transverse colon. No bowel obstruction. Electronically signed by: Last Hughes M.D. 06/08/2017 6:00 PM Dictated Date/Time: 06/08/2017 5:49 PM Laboratory Results 06/08/17 14:56 Red Blood Count 4.85, Mean Corpuscular Volume 82.1, Mean Corpuscular Hemoglobin 27.4, Mean Corpuscular Hemoglobin Concent 33.4, Mean Platelet Volume 9.2, Neutrophils (%) (Auto) 89.6, Lymphocytes (%) (Auto) 4.7, Monocytes (%) (Auto) 4.9, Eosinophils (%) (Auto) 0.2, Basophils (%) (Auto) 0.1, Neutrophils # (Auto) 19.46, Lymphocytes # (Auto) 1.02, Monocytes # (Auto) 1.06, Eosinophils # (Auto) 0.04, Basophils # (Auto) 0.02 06/08/17 14:56 Test 06/08/17 14:56 06/08/17 15:03 06/08/17 15:23 White Blood Count 21.71 K/uL (4.8-10.8) Red Blood Count 4.85 M/uL (4.7-6.1) Hemoglobin 13.3 g/dL (14.0-18.0) Hematocrit 39.8 % (42-52) Mean Corpuscular Volume 82.1 fL (80-100) Mean Corpuscular Hemoglobin 27.4 pg (25-34) Mean Corpuscular Hemoglobin Concent 33.4 g/dl (32-36) Platelet Count 318 K/uL (130-400) Mean Platelet Volume 9.2 fL (7.4-10.4) Neutrophils (%) (Auto) 89.6 % Lymphocytes (%) (Auto) 4.7 % Monocytes (%) (Auto) 4.9 % Eosinophils (%) (Auto) 0.2 % Basophils (%) (Auto) 0.1 % Neutrophils # (Auto) 19.46 K/uL (1.4-6.5) Lymphocytes # (Auto) 1.02 K/uL (1.2-3.4) Monocytes # (Auto) 1.06 K/uL (0.11-0.59) Eosinophils # (Auto) 0.04 K/uL (0-0.5) Basophils # (Auto) 0.02 K/uL (0-0.2) RDW Standard Deviation 40.3 fL (36.4-46.3) RDW Coefficient of Variation 13.5 % (11.5-14.5) Immature Granulocyte % (Auto) 0.5 % Immature Granulocyte # (Auto) 0.11 K/uL (0.00-0.02) Anion Gap 12.0 mmol/L (3-11) Est Creatinine Clear Calc Drug Dose 81.1 ml/min Estimated GFR () 103.8 Estimated GFR (Non- 89.6 BUN/Creatinine Ratio 18.9 (10-20) Calcium Level 9.2 mg/dl (8.5-10.1) Total Bilirubin 0.4 mg/dl (0.2-1) Direct Bilirubin 0.1 mg/dl (0-0.2) Aspartate Amino Transf (AST/SGOT) 27 U/L (15-37) Alanine Aminotransferase (ALT/SGPT) 41 U/L (12-78) Alkaline Phosphatase 121 U/L (45-117) Total Protein 7.4 gm/dl (6.4-8.2) Albumin 3.5 gm/dl (3.4-5.0) Lipase 192 U/L (73-393) Bedside Troponin I < 0.030 ng/ml (0-0.045) Urine Color DK YELLOW Urine Appearance CLEAR (CLEAR) Urine pH 7.0 (4.5-7.5) Urine Specific [place] 1.021 (1.000-1.030) Urine Protein NEG (NEG) Urine Glucose (UA) NEG (NEG) Urine Ketones 1+ (NEG) Urine Occult Blood NEG (NEG) Urine Nitrite NEG (NEG) Urine Bilirubin NEG (NEG) Urine Urobilinogen NEG (NEG) Urine Leukocyte Esterase TRACE (NEG) Urine WBC (Auto) 1-5 /hpf (0-5) Urine RBC (Auto) 0-4 /hpf (0-4) Urine Hyaline Casts (Auto) 0 /lpf (0-5) Urine Epithelial Cells (Auto) 5-10 /lpf (0-5) Urine Bacteria (Auto) NEG (NEG) Laboratory results reviewed by me Medications Administered Medications (Trade) Dose Ordered Sig/Pushpa Route Start Time Stop Time Status Last Admin Dose Admin Sodium Chloride 1,000 ml @ 999 mls/hr Q1H1M STAT IV 06/08/17 14:28 06/08/17 15:28 DC 06/08/17 15:01 999 MLS/HR Ondansetron HCl (Zofran Inj) 4 mg NOW STAT IV 06/08/17 14:28 06/08/17 14:30 DC 06/08/17 15:01 4 MG Morphine Sulfate (MoRPHine SULFATE INJ) 4 mg NOW STAT IV 06/08/17 17:40 06/08/17 17:41 DC 06/08/17 17:59 4 MG Ondansetron HCl (Zofran Inj) 4 mg NOW STAT IV 06/08/17 17:40 06/08/17 17:41 DC 06/08/17 17:59 4 MG Ciprofloxacin (Cipro Tab) 500 mg NOW STAT PO 06/08/17 18:19 06/08/17 18:21 DC 06/08/17 18:27 500 MG Metronidazole (Flagyl Tab) 500 mg BID PO 06/08/17 21:00 06/08/17 21:00 DC 06/08/17 18:30 500 MG Miscellaneous (Soap Suds Enema) 1 ea ONE STAT VT 06/08/17 18:19 06/08/17 18:21 DC 06/08/17 18:19 1 EA Lactulose (Chronulac Syrup) 30 gm NOW STAT PO 06/08/17 18:19 06/08/17 18:21 DC 06/08/17 18:26 30 GM Ciprofloxacin (Cipro 500MG Home Pack) 1 homepack UD ONCE PO 06/08/17 19:45 06/08/17 19:46 DC 06/08/17 19:45 1 HOMEPACK Ondansetron HCl (ZOFRAN ODT 4MG Home Pack) 1 homepack UD ONCE PO 06/08/17 19:45 06/08/17 19:46 DC 06/08/17 19:45 1 HOMEPACK ECG Indication: other (constipation) Rate (beats per minute): 68 Rhythm: normal sinus Findings: no ectopy, other (Normal intervals, normal axis, T-wave flattening in lead 3. No STS changes or TWI) ED Course 1405: The patient was evaluated in room A4. A complete history and physical exam was performed. 1620: I reevaluated the patient, and he was doing well. 183: I reevaluated the patient. Discussed results and discharge instructions: He verbalized understanding and agreement. The patient is ready for discharge. Medical Decision The patient is a 71 year old white male with a past medical history of hemorrhoids, hemorrhoid surgery, HLD, GERD, CAD, Heart disease, and a cardiac stent placement who presents to the ED with a cc of persistent constipation beginning two days ago. Positive nausea, and urinary retention since 10 this morning. Negative chest pain, shortness of breath, and history of heart failure. Triage Nursing notes reviewed. The patient's presentation and history were concerning for appendicitis, diverticulitis, PUD, biliary pathology, UTI, pancreatitis, obstruction, mesenteric ischemia, aortic pathology, infections, inflammatory bowel disease, renal colic, as well as others were entertained. Patient was seen and evaluated the bedside. Patient had been complaining of some constipation beginning Wednesday. Patient had tried a fleets enema and self disimpaction without much relief. Patient did have bowel movement prior to being seen at the bedside. Patient has complained of some nausea without any chest pain or shortness of breath. Patient does have a history of CAD and stent placement. EKG unchanged and trop unremarkable. Patient did have a recent colonoscopy that was completed within the last year as he has a family history of colon cancer. Patient states that this study was negative at this time. Patient also has a history of hemorrhoids. Patient did have blood work completed. Patient was also complaining of some urinary retention had a bladder scan which showed that he had one 20 mL in the bladder. Patient was given IV fluids. Patient was able to void. UA neg. Patient's white count concerning for greater than 21,000. A CT scan of the abdomen pelvis ordered. CT scan did show proctitis with some mild wall thickening. It was recommended to further evaluate with a colonoscopy. 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 Patient was treated with antibiotics, and given lactulose in an enema. Patient did have another bowel movement. Patient was feeling well enough to go home. Patient was told to continue stool softeners as well as a high-fiber and beefy green diet. Patient was told to increase his hydration as well. Patient was told he may continue to try things like lactulose as well as enemas. She was given strict follow-up, discharge, and return precautions. Patient agreed with plan of care patient was safely discharged home. Medication Reconcilliation Current Medication List: was personally reviewed by me Blood Pressure Screening Patient's blood pressure: Normal blood pressure Impression Primary Impression: Constipation Additional Impressions: Nausea Abdominal pain Proctitis Scribe Attestation The scribe's documentation has been prepared under my direction and personally reviewed by me in its entirety. I confirm that the note above accurately reflects all work, treatment, procedures, and medical decision making performed by me. Departure Information Dispostion Home / Self-Care Prescriptions Ondasetron Odt (ZOFRAN ODT) 4 Mg Tab 4 MG SL Q6H for Nausea, #6 TAB Prov: Milind Pete M.D. 06/08/17 Metronidazole (FLAGYL) 500 Mg Tab 500 MG PO TID for 7 Days, #21 TAB Prov: Milind Pete M.D. 06/08/17 Ciprofloxacin Hcl (CIPRO) 500 Mg Tab 500 MG PO BID for 7 Days, #14 TAB Prov: Milind Pete M.D. 06/08/17 Referrals Celestino Vazquez D.O. (PCP) Forms HOME CARE DOCUMENTATION FORM, IMPORTANT VISIT INFORMATION Patient Instructions My [facility] Additional Instructions Please return to the emergency department if you have worsening or recurrent symptoms not amenable to at-home treatment. Please call for a follow-up appointment with her primary care physician. Please take your medications as prescribed. If you have other concerns and/or complaints please feel free to also call your primary care physician's office or return the ED for further evaluation, management, and treatment. You received narcotic or benzodiazepene medication while in the emergency room today. This is an addictive medication that may cause drowziness as well as constipation. Do not drive, operate heavy machinery, or drink alcohol under the influence of this medication. Avoid benadryl or narcotic medications. Consider stool softeners like docusate and senna. Also consider leafy greens, high fiber diet, and increase hydration. You may continue w/ enemas and suppositories as well. Take antibiotics as prescribed. Avoid alcohol while taking them. You have been examined and treated today on an emergency basis only. This is not a substitute for, or an effort to provide, complete comprehensive medical care. It is impossible to recognize and treat all injuries or illnesses in a single emergency department visit. It is therefore important that you follow up closely with [facility]. Call as soon as possible for an appointment. Thank you for your time and consideration. I look forward to speaking with you again soon. Please don't hesitate to call us if you have any questions. Problem Qualifiers Primary Impression: Constipation Constipation type: unspecified constipation type Qualified Codes: K59.00 - Constipation, unspecified Additional Impressions: Abdominal pain Abdominal location: unspecified location Qualified Codes: R10.9 - Unspecified abdominal pain
[2017-06-08 15:10] LABS: BASO % 0.1 %; BASO ABS # 0.02 K/uL (0-0.2); COMPLETE YES; EOS % 0.2 %; HEMATOCRIT 39.8 % (42-52); IG% 0.5 %; LYMPH % 4.7 %; LYMPH ABS # 1.02 K/uL (1.2-3.4); MEAN CELL VOLUME 82.1 fL (80-100); MEAN CORPUSCULAR HEMOGLOBIN 27.4 pg (25-34); MEAN CORPUSCULAR HGB CONC 33.4 g/dl (32-36); MEAN PLATELET VOLUME 9.2 fL (7.4-10.4); MONO % 4.9 %; NEUT % 89.6 %; PLATELET COUNT 318 K/uL (130-400); RED BLOOD COUNT 4.85 M/uL (4.7-6.1); WHITE BLOOD COUNT 21.71 K/uL (4.8-10.8)
[2017-06-08] MEDS ORDERED: OPTIRAY 320 IV PRN (15:30)
[2017-06-08 15:42] LABS: URINE APPEARANCE CLEAR (CLEAR); URINE BILIRUBIN NEG (NEG); URINE COLOR DK YELLOW; URINE NITRITE NEG (NEG); URINE SPECIFIC GRAVITY 1.021 (1.000-1.030); UROBILINOGEN NEG (NEG); ZZUR CULT IF INDIC CLEAN CATCH NO
[2017-06-08 15:49] LABS: BUN/CREATININE RATIO 18.9 (10-20); CALCIUM 9.2 mg/dl (8.5-10.1); CREATININE 0.82 mg/dl (0.60-1.40)
[2017-06-08 15:51] LABS: MANUAL MICROSCOPIC REQUIRED? NO; REVIEW REQ? NO
[2017-06-08 15:56] LABS: POTASSIUM 3.6 mmol/L (3.5-5.1)
--- NOTE | 2017-06-08 15:58 | DIAGNOSTIC IMAGING REPORT ---
PA CHEST WITH ABDOMINAL SERIES CLINICAL HISTORY: Generalized abdominal pain. Constipation. FINDINGS: A PA chest radiograph is compared to study dated 01/21/2013. The cardiomediastinal silhouette is unremarkable. A large hiatal hernia is identified. Chronic interstitial thickening is similar to previous. There is bibasilar atelectasis. No airspace consolidation is seen typical for pneumonia and there is no pleural effusion. No pneumothorax is seen. The skeletal structures are osteopenic. The bony thorax is grossly intact. Supine and erect abdominal radiographs are correlated with abdominal CT dated 01/23/2017. Enteric contrast is present within the stomach and small bowel. There is moderate colonic fecal retention. There is no clear radiographic evidence of bowel obstruction. No evidence of intraperitoneal free air is seen. There are no abnormal abdominal calcifications. The lumbosacral spine and bony pelvis appear intact. IMPRESSION: 1. No active disease in the chest. 2. There is no definitive radiographic evidence of bowel obstruction. Moderate constipation is observed. 3. Large hiatal hernia. Electronically signed by: Oscar Isbell M.D. 06/08/2017 3:57 PM Dictated Date/Time: 06/08/2017 3:54 PM
[2017-06-08 17:37] VITALS: TEMP 36.6
[2017-06-08] MEDS ORDERED: MoRPHine SULFATE 4 MG/ML 1 ML CARP\\VIAL IV STA (17:40)
--- NOTE | 2017-06-08 18:01 | DIAGNOSTIC IMAGING REPORT ---
CT OF THE ABDOMEN AND PELVIS WITH CONTRAST CLINICAL HISTORY: Constipation, abdominal pain, nausea and leukocytosis. COMPARISON STUDY: CT of the abdomen and pelvis January 23, 2017 and abdominal series performed earlier today. TECHNIQUE: Following IV administration of 116 mL of Optiray-320, axial images of the abdomen and pelvis were obtained from the lung bases to the proximal femurs. Images were reviewed in the axial, sagittal, and coronal planes. IV contrast was administered without complication. A dose lowering technique was utilized adhering to the principles of ALARA. Oral contrast was administered. CT DOSE: 799.02 mGy.cm FINDINGS: A moderate sized hiatal hernia is noted. There is probable fatty infiltration of the liver. The spleen, adrenal glands, kidneys and pancreas are normal. No pneumatosis, free air or portal venous gas is present. There is no abdominal or pelvic lymphadenopathy. No suspicious osseous lesions are present. Mild bladder wall thickening is noted. This extensive sigmoid diverticulosis without evidence for acute diverticulitis. The appendix is normal. Note is made of moderate rectal wall thickening with moderate perirectal infiltration. There is no free air or abscess. This finding is new since exam of January 23, 2017. IMPRESSION: 1. Moderate rectal wall thickening and perirectal infiltration consistent with proctitis. No free air or abscess. A follow-up colonoscopy, if not recently performed, once symptoms resolve is recommended to exclude the unlikely possibility of an underlying mass. 2. Extensive sigmoid diverticulosis without evidence for acute diverticulitis. 3. Moderate amount of stool within the descending colon and transverse colon. No bowel obstruction. Electronically signed by: Last Hughes M.D. 06/08/2017 6:00 PM Dictated Date/Time: 06/08/2017 5:49 PM
[2017-06-08] MEDS ORDERED: CIPROFLOXACIN 500 MG TAB PO STA (18:19)
[2017-06-08] MEDS ORDERED: SOAP SUDS ENEMA PR STA (18:19)
[2017-06-08] MEDS ORDERED: LACTULOSE SYRUP 20 GM/30 ML UDC PO STA (18:19)
[2017-06-08] MEDS ORDERED: METRONIDAZOLE 250 MG TAB ONE (18:29)
[2017-06-08] MEDS ORDERED: ONDA4TAB10 SL (19:34)
[2017-06-08] MEDS ORDERED: CIPR-255 PO (19:34)
[2017-06-08] MEDS ORDERED: METR500T PO (19:34)
[2017-06-08] MEDS ORDERED: ONDANSETRON HOME PACK 4MG OD TAB PO ONE (19:45)
[2017-06-08] MEDS ORDERED: CIPROFLOXACIN 500MG HOME PACK PO ONE (19:45)
[2017-06-08 19:54] VITALS: BP 120/84; PULSE 81; O2SAT 96
[2017-06-08] MEDS ORDERED: METRONIDAZOLE 500 MG TAB PO SCH (21:00)
== END 2017-06-08 19:54 | disposition home or self-care (01) ==
LOC: C.EDB 13:27 → C.EDA 19:54
DX: K59.00 Constipation, unspecified (principal); R11.0 Nausea; K62.89 Other specified diseases of anus and rectum; K21.9 Gastro-esophageal reflux disease without esophagitis; I25.10 Atherosclerotic heart disease of native coronary artery without angina pectoris; Z95.5 Presence of coronary angioplasty implant and graft; Z79.82 Long term (current) use of aspirin; Z79.899 Other long term (current) drug therapy; K22.70 Barrett's esophagus without dysplasia; E78.5 Hyperlipidemia, unspecified; Z83.3 Family history of diabetes mellitus; Z80.0 Family history of malignant neoplasm of digestive organs

== ENCOUNTER 2018-03-12 10:15 | Observation (INO) | payer BC ==
[~2018-03-12] VITALS: Ht 172.7 cm; Wt 86.7 kg
[~2018-03-12 10:15] MED LIST changes: +CIPR-255 PO; -DICL1GEL12 TP; -MELO15TA4 PO
[2018-03-12] MEDS ORDERED: SODIUM CHLORIDE 0.9% 500ML 500 ML IV STA (11:18)
[2018-03-12 11:32] LABS: ALBUMIN 3.2 gm/dl (3.4-5.0); CALCIUM 8.9 mg/dl (8.5-10.1); CREATININE 0.9 mg/dl (0.60-1.40); POTASSIUM 3.1 mmol/L (3.5-5.1); TOTAL PROTEIN 7.6 gm/dl (6.4-8.2)
[2018-03-12 11:34] LABS: BASO % 0.1 %; BASO ABS # 0.01 K/uL (0-0.2); EOS % 2.7 %; EOS ABS # 0.26 K/uL (0-0.5); HEMOGLOBIN 12.5 g/dL (14.0-18.0); IG# 0.03 K/uL (0.00-0.02); LYMPH % 9.9 %; LYMPH ABS # 0.97 K/uL (1.2-3.4); MEAN CELL VOLUME 77.4 fL (80-100); MEAN CORPUSCULAR HEMOGLOBIN 26.2 pg (25-34); MEAN CORPUSCULAR HGB CONC 33.8 g/dl (32-36); MEAN PLATELET VOLUME 9.2 fL (7.4-10.4); MONO ABS # 0.78 K/uL (0.11-0.59); NEUT ABS # 7.74 K/uL (1.4-6.5); PLATELET COUNT 303 K/uL (130-400); RED CELL DISTRIBUTION WIDTH CV 15.5 % (11.5-14.5); RED CELL DISTRIBUTION WIDTH SD 43.5 fL (36.4-46.3); WHITE BLOOD COUNT 9.79 K/uL (4.8-10.8)
[2018-03-12 11:40] LABS: INR 1.1 (0.9-1.1); PTT PATIENT 38.4 SECONDS (21.0-31.0)
--- NOTE | 2018-03-12 12:13 | DIAGNOSTIC IMAGING REPORT ---
PA CHEST WITH ABDOMINAL SERIES CLINICAL HISTORY: Generalized abdominal pain. FINDINGS: A PA chest radiograph is compared to study dated 06/08/2017. The examination is degraded by patient rotation. The cardiomediastinal silhouette is unremarkable. There is a small hiatal hernia. Chronic interstitial thickening and mild elevation of the right hemidiaphragm are similar to previous. There is bibasilar atelectasis. No airspace consolidation is seen typical for pneumonia and there is no pleural effusion. No pneumothorax is seen. The skeletal structures are osteopenic. The bony thorax is grossly intact. Supine and erect abdominal radiographs are compared to abdominal radiographs and CT dated 06/08/2017. There is no radiographic evidence of bowel obstruction. There is moderate colonic fecal retention. Scattered air-fluid levels are noted. No evidence of intraperitoneal free air is seen. There are no abnormal abdominal calcifications. The lumbosacral spine and bony pelvis appear intact. IMPRESSION: 1. No active disease in the chest. 2. There is no radiographic evidence of bowel obstruction. Moderate constipation is observed. 3. Scattered air-fluid levels are noted throughout the small bowel on the upright view. This is nonspecific and can be seen in the setting of an enteritis. Clinical correlation will be required. Electronically signed by: Oscar Isbell M.D. 03/12/2018 12:12 PM Dictated Date/Time: 03/12/2018 12:08 PM
[2018-03-12] MEDS ORDERED: ONDANSETRON INJ 2 MG/ML 2 ML VIAL IV STA (12:23)
[2018-03-12] MEDS ORDERED: FENTANYL CITRATE INJ 50 MCG/1 ML 2 ML VIAL IV STA (12:23)
[2018-03-12] MEDS ORDERED: DICY10CA55 PO (12:35)
[2018-03-12] MEDS ORDERED: SOLI5TAB2 PO (12:35)
[2018-03-12] MEDS ORDERED: METFTAB PO (12:35)
[2018-03-12] MEDS ORDERED: FERR1TAB62 PO (12:35)
[2018-03-12] MEDS ORDERED: PNT500 PO (12:35)
--- NOTE | 2018-03-12 13:07 | DIAGNOSTIC IMAGING REPORT ---
ULTRASOUND RIGHT UPPER QUADRANT ABDOMEN CLINICAL HISTORY: Right upper quadrant abdominal pain. COMPARISON STUDY: Abdominal CT dated 06/08/2017. Abdominal radiographs dated 03/12/2018. TECHNIQUE: Real-time, grayscale, and color flow sonography of the right upper quadrant of the abdomen was performed. Images are reviewed in the transverse and longitudinal planes. FINDINGS: Liver: The liver is normal in size and demonstrates heterogeneously increased echotexture indicating steatosis. There is no intrahepatic biliary ductal dilatation. The main portal vein is patent. Gallbladder: The gallbladder appears distended but is otherwise normal in appearance. No gallstones are identified. There is no gallbladder wall thickening or pericholecystic fluid. A sonographic Quintanilla's sign is reportedly absent. The common bile duct measures up to 0.6 cm in diameter. Pancreas: Visualized portions of the pancreatic head and body are normal in appearance. The splenic vein is patent. Right kidney: Survey images of the right kidney demonstrate normal size and echotexture. There is no hydronephrosis. Ascites: None. IMPRESSION: 1. The gallbladder appears distended but is otherwise normal in appearance. No shadowing gallstones are seen and there is no sonographic evidence of acute cholecystitis. 2. Hepatic steatosis. Electronically signed by: Oscar Isbell M.D. 03/12/2018 1:06 PM Dictated Date/Time: 03/12/2018 1:04 PM
[2018-03-12 13:17] VITALS: O2SAT 98; Ht 172.7 cm; Wt 86.7 kg
[2018-03-12] MEDS ORDERED: POLYETHYLENE (MIRALAX) 17 GM PACK PO PRN (14:45)
[2018-03-12] MEDS ORDERED: NITROGLYCERIN 0.4 MG SL PER TAB CHARGE SL PRN (14:45)
[2018-03-12] MEDS ORDERED: ONDANSETRON INJ 2 MG/ML 2 ML VIAL IV PRN (14:45)
[2018-03-12] MEDS ORDERED: ACETAMINOPHEN 325 MG TAB PO PRN (14:45)
[2018-03-12] MEDS ORDERED: MoRPHine SULFATE 4 MG/ML 1 ML CARP\\VIAL IV PRN (14:45)
[2018-03-12] MEDS ORDERED: ALUMINUM/MAGNESIUM/SIMETH (MAALOX MAX) 30 ML UDC PO PRN (14:45)
[2018-03-12] MEDS ORDERED: MAGNESIUM HYDROXIDE SUSP 30 ML UDC PO PRN (14:45)
[2018-03-12] MEDS ORDERED: LISI-1116 PO (14:58)
[2018-03-12] MEDS ORDERED: MESA1TAB4 PO (15:06)
[2018-03-12] MEDS ORDERED: DICYCLOMINE HCL 10 MG CAP PO PRN (15:15)
[2018-03-12] MEDS ORDERED: GLUCOSE 40% GEL 15 GM TUBE PO PRN (15:15)
[2018-03-12] MEDS ORDERED: CARBOHYDRATES FOR HYPOGLYCEMIA PO PRN (15:15)
[2018-03-12] MEDS ORDERED: GLUCOSE 10 TABS/TUBE PO PRN (15:15)
[2018-03-12] MEDS ORDERED: DEXTROSE 50% 50 ML SYR IV PRN (15:15)
[2018-03-12] MEDS ORDERED: GLUCAGON FOR INJ 1 MG VIAL SQ PRN (15:15)
--- NOTE | 2018-03-12 15:26 | History and Physical ---
History & Physical Date & Time of Service: Mar 12, 2018 at 14:59 Chief Complaint: Chills, Pain, Lose Of Leg Movement And More Primary Care Physician: Celestino Vazquez D.O. History of Present Illness Source: patient, spouse, clinic records, hospital records This is a 72 y/o male with a history of CAD s/p stent 2011, angina, HTN, HLD, DM II, Liriano's esophagus, BPH, and migraines who presented to the ED on 03/12 with chest pain, weakness, fatigue, nausea, and vomiting. The patient presents with several non-specific complaints. He states he has been very weak and fatigued for the last month. He denies shortness of breath at rest but states he has wheezing at times. The patient reports dyspnea on exertion. He states he has an intermittent pressure over his left chest for the last week, which has been concerning for him. He denies associated symptoms with that pain. The patient has also had intermittent chills, but denies fevers or sweats. He has had intermittent nausea, vomiting and diarrhea for the last month. He was evaluated by Dr. Whaley with a sigmoidoscopy and EGD about 2 weeks ago. The patient is unsure what the findings were, but he was started on mesalamine at that time. The patient currently denies diarrhea, however, as he took an Imodium on Wednesday and has not had a BM since. He denies abdominal pain currently, but notes that his belly was tender when palpated by the ED physician. The patient denies fevers, sweats, palpitations, claudication, cough , dysuria, hematuria, urinary retention, paralysis, focal motor weakness, numbness and tingling. Past Medical/Surgical History Medical Problems: (1) Abdominal pain (2) Liriano's esophagus (3) Cardiac catheterization (4) Chest pain (5) Constipation (6) Coronary artery disease (7) Diverticulitis (8) Gastroesophageal reflux disease (9) Gastrointestinal distress (10) Heart disease (11) History of migraine (12) Hyperlipidemia (13) Lower abdominal pain (14) Nausea (15) Proctitis Surgical Problems: (1) History of hemorrhoids CAD s/p stent to LAD 2011 Angina HTN HLD DM II Liriano's esophagus BPH Migraines Surgical history: Hemorrhoidectomy 2013 Remote h/o foot surgery Family History Diabetes mellitus FHx: cancer (liver, esophagus, colon) FHx: heart disease Stroke Social History Smoking Status: Never Smoker Smokeless Tobacco Use: No Alcohol Use: occasionally (rarely beer) Drug Use: none Marital Status: Housing status: lives with significant other Occupational Status: retired Immunizations History of Influenza Vaccine: Yes Influenza Vaccine Date: May 18, 2012 History of Tetanus Vaccine?: Yes Tetanus Immunization Date: Nov 06, 2007 History of Pneumococcal: Yes Pneumococcal Date: Nov 14, 2010 History of Hepatitis B Vaccine: No Allergies Coded Allergies: Beta Adrenergic Blockers (Unverified Allergy, Severe, "SHOOK UP FEELING", 03/12/18) Omeprazole (Verified Allergy, Unknown, unsure, 03/12/18) Pantoprazole (Verified Adverse Reaction, Unknown, HALLUCINATIONS, 03/12/18) Home Medications Scheduled Amitriptyline HCl (Amitriptyline HCl), 20 MG PO HS Amlodipine (Norvasc), 2.5 MG PO DAILY Aspirin (Aspirin Ec), 81 MG PO DAILY Esomeprazole Magnesium (Nexium), 40 MG PO BID Ferrous Sulfate (Ferrous Sulfate), 325 MG PO BID Finasteride (Proscar), 5 MG PO DAILY Lisinopril (Lisinopril), 1 TAB PO DAILY Mesalamine (Asacol Hd), 1,600 MG PO BID Metformin Ext Rel (Glucophage Ext Rel), 500 MG PO DAILY Nitroglycerin (Nitrostat), 0.4 MG UT PRN Psyllium (Metamucil), 3.4 PO DAILY Ranolazine (Ranexa), 500 MG PO BID Rosuvastatin Calcium (Crestor), 20 MG PO DAILY Sertraline (Zoloft), 50 MG PO DAILY Silodosin (Rapaflo), 1 CAP PO DAILY Solifenacin Succinate (Vesicare), 5 MG PO Q2D Scheduled PRN Dicyclomine Hcl (Bentyl), 10 MG PO DAILY PRN for abdominal cramping Rizatriptan Benzoate (Maxalt), 10 MG PO DAILY PRN for Migraine Review of Systems Constitutional: +Generalized weakness, fatigue, chills. No fever, No sweats Eyes: No worsening of vision, No eye pain, No diplopia ENT: No hearing loss, No nasal symptoms, No trouble swallowing Respiratory: +Intermittent wheezing. No cough, No shortness of breath at rest Cardiovascular: +Left chest pressure, MENDOZA. No claudication, No palpitations Abdomen: +Intermittent nausea, vomiting, diarrhea. No pain Musculoskeletal: No joint pain, No muscle pain, No swelling Genitourinary - Male: No dysuria, No urinary retention, No hematuria Neurologic: No paralysis, No weakness, No numbness/tingling Integumentary: No rash, No itch, No color change Physical Exam Vital Signs Date Time Temp Pulse Resp B/P (MAP) Pulse Ox O2 Delivery O2 Flow Rate FiO2 03/12/18 14:41 71 18 108/72 98 Room Air 03/12/18 13:17 98 Room Air 03/12/18 12:35 75 18 112/62 98 Room Air 03/12/18 12:01 73 18 118/68 100 Room Air 03/12/18 11:38 75 03/12/18 11:34 98 Room Air 03/12/18 10:18 36.8 54 18 101/65 99 Room Air General appearance: Well-developed, well-nourished, no apparent distress Head: Normocephalic, atraumatic Eyes: Normal inspection, PERRL, EOMI ENT: +Dry oral mucosa. Normal ENT inspection, hearing grossly normal, pharynx normal Neck: Supple, no JVD, trachea midline Respiratory/Chest: Lungs clear to auscultation, normal breath sounds, no respiratory distress Cardiovascular: Regular rate & rhythm, no gallop, no murmur Abdomen/GI: +RUQ TTP. Normal bowel sounds, soft Extremities/Musculoskeletal: Normal inspection, no calf tenderness, no pedal edema Neurological/Psych: Alert, normal mood/affect, oriented x 3 Skin: Normal color, warm/dry, no rash Diagnostics Laboratory Results Results Past 24 Hours Test 03/12/18 10:40 03/12/18 11:24 03/12/18 14:42 Range/Units White Blood Count 9.79 4.8-10.8 K/uL Red Blood Count 4.78 4.7-6.1 M/uL Hemoglobin 12.5 14.0-18.0 g/dL Hematocrit 37.0 42-52 % Mean Corpuscular Volume 77.4 80-100 fL Mean Corpuscular Hemoglobin 26.2 25-34 pg Mean Corpuscular Hemoglobin Concent 33.8 32-36 g/dl Platelet Count 303 130-400 K/uL Mean Platelet Volume 9.2 7.4-10.4 fL Neutrophils (%) (Auto) 79.0 % Lymphocytes (%) (Auto) 9.9 % Monocytes (%) (Auto) 8.0 % Eosinophils (%) (Auto) 2.7 % Basophils (%) (Auto) 0.1 % Neutrophils # (Auto) 7.74 1.4-6.5 K/uL Lymphocytes # (Auto) 0.97 1.2-3.4 K/uL Monocytes # (Auto) 0.78 0.11-0.59 K/uL Eosinophils # (Auto) 0.26 0-0.5 K/uL Basophils # (Auto) 0.01 0-0.2 K/uL RDW Standard Deviation 43.5 36.4-46.3 fL RDW Coefficient of Variation 15.5 11.5-14.5 % Immature Granulocyte % (Auto) 0.3 % Immature Granulocyte # (Auto) 0.03 0.00-0.02 K/uL Prothrombin Time 11.3 9.0-12.0 SECONDS Prothromb Time International Ratio 1.1 0.9-1.1 Activated Partial Thromboplast Time 38.4 21.0-31.0 SECONDS Partial Thromboplastin Ratio 1.5 Sodium Level 128 136-145 mmol/L Potassium Level 3.1 3.5-5.1 mmol/L Chloride Level 92 98-107 mmol/L Carbon Dioxide Level 27 21-32 mmol/L Anion Gap 9.0 3-11 mmol/L Blood Urea Nitrogen 9 7-18 mg/dl Creatinine 0.90 0.60-1.40 mg/dl Est Creatinine Clear Calc Drug Dose 80.4 ml/min Estimated GFR () 99.2 Estimated GFR (Non- 85.6 BUN/Creatinine Ratio 9.9 10-20 Random Glucose 142 70-99 mg/dl Calcium Level 8.9 8.5-10.1 mg/dl Total Bilirubin 0.8 0.2-1 mg/dl Direct Bilirubin 0.3 0-0.2 mg/dl Aspartate Amino Transf (AST/SGOT) 146 15-37 U/L Alanine Aminotransferase (ALT/SGPT) 142 12-78 U/L Alkaline Phosphatase 82 45-117 U/L Troponin I 0.595 0-0.045 ng/ml Total Protein 7.6 6.4-8.2 gm/dl Albumin 3.2 3.4-5.0 gm/dl Lipase 312 73-393 U/L Urine Color DK YELLOW Urine Appearance CLEAR CLEAR Urine pH 6.5 4.5-7.5 Urine Specific [place] 1.021 1.000-1.030 Urine Protein TRACE NEG Urine Glucose (UA) NEG NEG Urine Ketones 2+ NEG Urine Occult Blood NEG NEG Urine Nitrite NEG NEG Urine Bilirubin NEG NEG Urine Urobilinogen NEG NEG Urine Leukocyte Esterase TRACE NEG Urine WBC (Auto) 1-5 0-5 /hpf Urine RBC (Auto) 5-10 0-4 /hpf Urine Hyaline Casts (Auto) 0 0-5 /lpf Urine Epithelial Cells (Auto) 10-20 0-5 /lpf Urine Bacteria (Auto) NEG NEG Microbiology Results 03/12/18 Blood Culture, Received Pending 03/12/18 Blood Culture, Received Pending 03/12/18 Urine Culture, Received Pending Diagnostic Radiology Reviewed the following studies and agree with interpretation as follows: PA CHEST WITH ABDOMINAL SERIES CLINICAL HISTORY: Generalized abdominal pain. FINDINGS: A PA chest radiograph is compared to study dated 06/08/2017. The examination is degraded by patient rotation. The cardiomediastinal silhouette is unremarkable. There is a small hiatal hernia. Chronic interstitial thickening and mild elevation of the right hemidiaphragm are similar to previous. There is bibasilar atelectasis. No airspace consolidation is seen typical for pneumonia and there is no pleural effusion. No pneumothorax is seen. The skeletal structures are osteopenic. The bony thorax is grossly intact. Supine and erect abdominal radiographs are compared to abdominal radiographs and CT dated 06/08/2017. There is no radiographic evidence of bowel obstruction. There is moderate colonic fecal retention. Scattered air-fluid levels are noted. No evidence of intraperitoneal free air is seen. There are no abnormal abdominal calcifications. The lumbosacral spine and bony pelvis appear intact. IMPRESSION: 1. No active disease in the chest. 2. There is no radiographic evidence of bowel obstruction. Moderate constipation is observed. 3. Scattered air-fluid levels are noted throughout the small bowel on the upright view. This is nonspecific and can be seen in the setting of an enteritis. Clinical correlation will be required. ULTRASOUND RIGHT UPPER QUADRANT ABDOMEN CLINICAL HISTORY: Right upper quadrant abdominal pain. COMPARISON STUDY: Abdominal CT dated 06/08/2017. Abdominal radiographs dated 03/12/2018. TECHNIQUE: Real-time, grayscale, and color flow sonography of the right upper quadrant of the abdomen was performed. Images are reviewed in the transverse and longitudinal planes. FINDINGS: Liver: The liver is normal in size and demonstrates heterogeneously increased echotexture indicating steatosis. There is no intrahepatic biliary ductal dilatation. The main portal vein is patent. Gallbladder: The gallbladder appears distended but is otherwise normal in appearance. No gallstones are identified. There is no gallbladder wall thickening or pericholecystic fluid. A sonographic Quintanilla's sign is reportedly absent. The common bile duct measures up to 0.6 cm in diameter. Pancreas: Visualized portions of the pancreatic head and body are normal in appearance. The splenic vein is patent. Right kidney: Survey images of the right kidney demonstrate normal size and echotexture. There is no hydronephrosis. Ascites: None. IMPRESSION: 1. The gallbladder appears distended but is otherwise normal in appearance. No shadowing gallstones are seen and there is no sonographic evidence of acute cholecystitis. 2. Hepatic steatosis. EKG Reviewed EKG and agree with interpretation as follows: 75 bpm, NSR Impression Assessment and Plan 72 y/o male with a history of CAD s/p stent 2011, angina, HTN, HLD, DM II, Liriano's esophagus, BPH, migraines, anxiety and depression who presented to the ED on 03/12 with chest pain, weakness, fatigue, nausea, and vomiting. Pt afebrile, VSS on arrival. Chest/abdomen x-ray shows moderate constipation and air fluid levels in small bowel. Gall bladder ultrasound shows distended gallbladder, but appearance otherwise unremarkable and no gallstones or acute cholecystitis. Does show hepatic steatosis. EKG no acute ischemic changes. Troponin elevated at 0.595. Chest pain, ACS r/o -Admit to telemetry for observation -Trend cardiac enzymes q8h x 3 sets -Obtain echocardiogram -Nitro SL prn -Morphine prn chest pain -EKG q am and prn chest pain -Consult cardiology, appreciate recs Elevated LFTs--unclear etiology -Continue to monitor -Check hepatitis panel Dehydration--appears clinically dry, renal function WNL -NSS + 20 mEq KCl at 100 cc/hr x 2L, encourage oral intake Fatigue, weakness -Check CK for possible rhabdo -Check TSH -Unclear if related to possible underlying GI disease Intermittent N/V/D--last several ED visits GI related, may have underlying GI disease but does not appear to have formal diagnosis -Consult GI, appreciate recs. Pt would like to see Dr. Whaley while admitted if possible -Continue mesalamine 1600 mg PO BID and Bentyl 10 mg PO qd prn -Check stool cultures -Check lactic acid -Blood and urine cultures pending, no clear evidence of acute infection so will hold off abx for now CAD s/p stent, HTN, HLD, angina--BP stable -Continue ASA, Norvasc 2.5 mg PO qd, lisinopril 2.5 mg PO qd, Ranexa 500 mg PO BID, Crestor 20 mg PO qd DM II--unknown A1c -Hold metformin -Insulin sliding scale -Check BSGs q ac and qhs -Check HgbA1c Liriano's esophagus, family h/o esophageal cancer -Continue Nexium 40 mg PO BID. Pt can bring from home, does not tolerate Protonix or Prilosec BPH -Continue Proscar 5 mg PO qd, Rapaflo 8 mg PO qd, and Vesicare 5 mg PO q2d Migraines -Continue amitriptyline 20 mg PO hs Anxiety/depression -Continue Zoloft 50 mg PO qd DVT prophylaxis -Enoxaparin 40 mg SC q24h -DECLAN Keenes Code Status -Level V, DO NOT RESUSCITATE Advanced Directives Existing Living Will: Yes Existing Power of Content Specialist: Yes Resuscitation Status VTE Prophylaxis Will order VTE Prophylaxis: Yes Reviewed: Pt Seen/Exam by Me History Physician Supervision Note: I interviewed and examined the patient. Discussed with BARTOLO Wagner and agree with findings and plan as documented in the note. Any exceptions or clarifications are listed here: Patient presents with nonspecific nausea vomiting diarrhea, chills and sweats off and on for a month, along with progressive generalized weakness. He started mesalamine about a month ago for nonspecific colitis. Also with intermittent left-sided chest pressure at rest and with exertion, along with shortness of breath for the last week. He had a positive troponin in the ER. ECG without ischemic changes. Vitals reviewed Gen: AAOx3, NAD HEENT: anicteric sclerae, EOMI CV: RRR no mgr nl S1S2 Pulm: CTAB no wcr Abd: +BS soft NT ND no masses or hernias Ext: no edema, 2+ DP pulses Skin: no rashes, warm/dry Neuro: full strength throughout This patient is a 72-year-old male with history as above here with multiple vague systemic symptoms, along with elevated LFTs, positive troponin, and intermittent left-sided chest pain 1 week. -Suspect could be drug reaction to mesalamine-we will hold and follow LFTs, see if symptoms improve -Trend troponins, check echocardiogram, admit to telemetry -Given history of CAD and possible unstable angina, consult cardiology in case of need for further ischemic evaluation -Continue aspirin, hold statin for elevated LFTs, not on beta-bridgett presumably for sinus bradycardia -If troponin trended upward, would start heparin drip Documented By: Ryanne Mejia
[2018-03-12] MEDS ORDERED: IV FLUIDS COMPLETED PRN (15:45)
[2018-03-12 16:05] LABS: HEP C IGG 13 YRS+OLDER_RFLX NEG (NEG)
[2018-03-12] MEDS ORDERED: POTASSIUM CHLORIDE 10 MEQ TABCR PO ONE (16:30)
--- NOTE | 2018-03-12 17:02 | Gastrointestinal Consultation ---
Gastrointestinal Consultation Date of Consultation: Mar 12, 2018 Attending Physician: DR Ryanne Mejia Consulting Physician: Dr Neftali Thorpe Reason for Consultation: n/v, diarrhea, weakness History of Present Illness CC n/v, diarrhea, weakness. HPI with patient for H and P. Reviewed [facility] EMR in additon to [facility] EMR. Pt sees DR Whaley in the office. He had EGD for f/u Barretts and diarrhea. EGD showed Barretts with path Barretts, random bx of 2nd duod blunting and increased epithelial lymphs but TTG nl in setting of normal IGA level. Pt states had full colo about 3 months ago I did not look for. Most recent exam of colon 02/04/18 was Flex sig to 40 cm with normal mucosa noted but nonspecific inflammation seen. Pt was complaining as outpt on intermittent diarrhea alternating with no BMs 2-3 day and lower abd pain. Dr Whaley at 02/04/18 started patient on trial of mesalamin 800 mg bid then 1600 mg bid after one week. Pt since that OV has been having intermittent n /v, intermittent chills, weakness, fatigue, inability to move extremities. Also noted on admit is elevated LFTS and these were normal 06/2017. Pt also had CP and troponins elevated. NO stools for several days and Abd series showed fecal retention and air fluid levels in SB. Some abd pain on exam in ER otherwise no complaint of that at present. GB u/s in ER GB distension. NO N/v for few days. He has some anemia with low normal Fe sat as outpt and started on Fe for that. Past Medical/Surgical History Medical Problems: (1) Abdominal pain Status: Acute (2) Constipation Status: Acute (3) Diverticulitis Status: Acute (4) Lower abdominal pain Status: Acute (5) Nausea Status: Acute (6) Proctitis Status: Acute Family History Diabetes mellitus FHx: cancer (liver, esophagus, colon) FHx: heart disease Stroke Social History Smoking Status: Never Smoker Alcohol Use: none Drug Use: none Marital Status: Housing Status: lives with family Occupation Status: retired Allergies Coded Allergies: Beta Adrenergic Blockers (Unverified Allergy, Severe, "SHOOK UP FEELING", 03/12/18) Omeprazole (Verified Allergy, Unknown, unsure, 03/12/18) Pantoprazole (Verified Adverse Reaction, Unknown, HALLUCINATIONS, 03/12/18) Current Medications Home Meds and Scripts Medications Dose Route/Sig Max Daily Dose Days Date Category Dose Instructions Asacol Hd (Mesalamine) 800 Mg Tab 1,600 Mg PO BID 03/12/18 Reported Lisinopril 2.5 Mg Tab 1 Tab PO DAILY 30 03/12/18 Reported Glucophage Ext Rel (Metformin HCl) 500 Mg Tab 500 Mg PO DAILY 03/12/18 Reported Bentyl (Dicyclomine Hcl) 10 Mg Cap 10 Mg PO DAILY PRN 03/12/18 Reported Vesicare (Solifenacin Succinate) 5 Mg Tab 5 Mg PO Q2D 03/12/18 Reported Ferrous Sulfate 325 Mg Tab 325 Mg PO BID 03/12/18 Reported Zoloft (Sertraline HCl) 50 Mg Tab 50 Mg PO DAILY 01/23/17 Reported Ranexa (Ranolazine) 500 Mg Tabcr 500 Mg PO BID 01/23/17 Reported Rapaflo (Silodosin) 8 Mg Cap 1 Cap PO DAILY 01/23/17 Reported Proscar (Finasteride) 5 Mg Tab 5 Mg PO DAILY 01/23/17 Reported Nexium (Esomeprazole Magnesium) 40 Mg Capcr 40 Mg PO BID 01/23/17 Reported Metamucil (Psyllium) 0.52 Gm Cap 3.4 PO DAILY 01/23/17 Reported Maxalt (Rizatriptan Benzoate) 10 Mg Tab 10 Mg PO DAILY PRN 01/23/17 Reported Crestor (Rosuvastatin Calcium) 20 Mg Tab 20 Mg PO DAILY 01/23/17 Reported Aspirin Ec (Aspirin) 81 Mg Tab 81 Mg PO DAILY 01/23/17 Reported Norvasc (Amlodipine Besylate) 2.5 Mg Tab 2.5 Mg PO DAILY 01/23/17 Reported Amitriptyline HCl 10 Mg Tab 20 Mg PO HS 01/23/17 Reported Nitrostat (Nitroglycerin) 0.4 Mg Tab 0.4 Mg UT PRN 01/21/13 Reported NEEDED FOR CHEST PAIN. ONE TABLET UNDER THE TONGUE EVERY FIVE MINUTES UP TO 3 DOSES. Review of Systems see HPI, Otherwise 10 ROS negative. Physical Exam Date Time Temp Pulse Resp B/P (MAP) Pulse Ox O2 Delivery O2 Flow Rate FiO2 03/12/18 15:57 75 16 103/86 98 Room Air 03/12/18 14:41 71 18 108/72 98 Room Air 03/12/18 13:17 98 Room Air 03/12/18 12:35 75 18 112/62 98 Room Air 03/12/18 12:01 73 18 118/68 100 Room Air 03/12/18 11:38 75 03/12/18 11:34 98 Room Air 03/12/18 10:18 36.8 54 18 101/65 99 Room Air General Appearance: WD/WN, no apparent distress Eyes: normal inspection, PERRL ENT: hearing grossly normal, pharynx normal Neck: supple, trachea midline Respiratory/Chest: lungs clear, no respiratory distress Cardiovascular: regular rate, rhythm, no edema Abdomen: normal bowel sounds, non tender, soft, no organomegaly Extremities: normal range of motion Neurologic/Psych: see wheeler II-XII nml as tested, normal mood/affect, oriented x 3 Skin: normal color, no jaundice Laboratory Results Last 24 Hours Test 03/12/18 10:40 03/12/18 11:24 03/12/18 15:36 White Blood Count 9.79 K/uL Red Blood Count 4.78 M/uL Hemoglobin 12.5 g/dL Hematocrit 37.0 % Mean Corpuscular Volume 77.4 fL Mean Corpuscular Hemoglobin 26.2 pg Mean Corpuscular Hemoglobin Concent 33.8 g/dl Platelet Count 303 K/uL Mean Platelet Volume 9.2 fL Neutrophils (%) (Auto) 79.0 % Lymphocytes (%) (Auto) 9.9 % Monocytes (%) (Auto) 8.0 % Eosinophils (%) (Auto) 2.7 % Basophils (%) (Auto) 0.1 % Neutrophils # (Auto) 7.74 K/uL Lymphocytes # (Auto) 0.97 K/uL Monocytes # (Auto) 0.78 K/uL Eosinophils # (Auto) 0.26 K/uL Basophils # (Auto) 0.01 K/uL RDW Standard Deviation 43.5 fL RDW Coefficient of Variation 15.5 % Immature Granulocyte % (Auto) 0.3 % Immature Granulocyte # (Auto) 0.03 K/uL Prothrombin Time 11.3 SECONDS Prothromb Time International Ratio 1.1 Activated Partial Thromboplast Time 38.4 SECONDS Partial Thromboplastin Ratio 1.5 Sodium Level 128 mmol/L Potassium Level 3.1 mmol/L Chloride Level 92 mmol/L Carbon Dioxide Level 27 mmol/L Anion Gap 9.0 mmol/L Blood Urea Nitrogen 9 mg/dl Creatinine 0.90 mg/dl Est Creatinine Clear Calc Drug Dose 80.4 ml/min Estimated GFR () 99.2 Estimated GFR (Non- 85.6 BUN/Creatinine Ratio 9.9 Random Glucose 142 mg/dl Calcium Level 8.9 mg/dl Magnesium Level 1.9 mg/dl Total Bilirubin 0.8 mg/dl Direct Bilirubin 0.3 mg/dl Aspartate Amino Transf (AST/SGOT) 146 U/L Alanine Aminotransferase (ALT/SGPT) 142 U/L Alkaline Phosphatase 82 U/L Total Creatine Kinase 217 U/L Troponin I 0.595 ng/ml Total Protein 7.6 gm/dl Albumin 3.2 gm/dl Lipase 312 U/L Thyroid Stimulating Hormone (TSH) 2.050 uIu/ml Hepatitis B Surface Antigen NEG Hepatitis B Surface Antibody NEG Hepatitis C Antibody NEG Urine Color DK YELLOW Urine Appearance CLEAR Urine pH 6.5 Urine Specific [place] 1.021 Urine Protein TRACE Urine Glucose (UA) NEG Urine Ketones 2+ Urine Occult Blood NEG Urine Nitrite NEG Urine Bilirubin NEG Urine Urobilinogen NEG Urine Leukocyte Esterase TRACE Urine WBC (Auto) 1-5 /hpf Urine RBC (Auto) 5-10 /hpf Urine Hyaline Casts (Auto) 0 /lpf Urine Epithelial Cells (Auto) 10-20 /lpf Urine Bacteria (Auto) NEG Lactic Acid Level 1.0 mmol/L Impression n/v--started coincident with mesalamine start so may be side effect and I am stopping it intermittent diarrhea--from my standpoint this seems to alternate with constipation so more consistent with irritable bowel syndrome. NO difference on mesalamine lower abd pain--intermittent--no difference on mesalamine chills--may be side effect of mesalamine so stop weakness--could be side effect of mesalamine so stop that and see if improves. elevated LFTS--acute hep panel pending but can be side effect of mesalamine so stop it elevated troponins per hospitalist Maria Luisa--nothing acute to do, continue PPI.
--- NOTE | 2018-03-12 17:15 | EMERGENCY ROOM VISIT NOTE ---
History Report prepared by Timibcody: Cinda Canada Under the Supervision of: Dr. Derrick John M.D. First contact with patient: 11:00 Chief Complaint: ILLNESS Stated Complaint: CHILLS, PAIN, LOSE OF LEG MOVEMENT AND MORE History of Present Illness The patient is a 72 year old male who presents to the Emergency Room with complaints of a persistent illness. He describes feeling "sluggish" and weak for the past 1 month. Last week, he was on vacation in [place], [place], but states "I wasn't very much fun". 2 days ago, he started experiencing "mobility issues" and complains of difficulty moving his legs. He denies any fevers but complains of intermittent chills, nausea, vomiting and diarrhea for the past 1 month. He has a history of Liriano's Esophagus and states he had an endoscopy [address] Whaley of [facility], but no known etiology was found. 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 He last vomited 2 days ago. He denies any abdominal distension but admits to some lower abdominal pain, but states that he has had abdominal pain for about a month as well. He admits to dark colored urine for the past 1 week. He complains of upper chest pain for the past 1 week that feels like "pressure". He has experienced intermittent shortness of breath. The patient has 1 cardiac stent that was placed in 2011. He does take a daily Aspirin and took it this morning. He also complains of a non-productive cough for the past 1 week as well as congestion. He denies any pain or swelling in his legs. He has been trying to keep up with his fluids. He states the chest pain has been coming and going but seems to have been constant since yesterday. 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 A total of 10 systems reviewed and were otherwise negative. Past Medical & Surgical Medical Problems: (1) Liriano's esophagus (2) Cardiac catheterization (3) Chest pain (4) Coronary artery disease (5) Gastroesophageal reflux disease (6) Gastrointestinal distress (7) Heart disease (8) History of migraine (9) Hyperlipidemia Surgical Problems: (1) History of hemorrhoids Family History Diabetes mellitus FHx: cancer FHx: heart disease Social History Smoking Status: Never Smoker Alcohol Use: none Drug Use: none Marital Status: Housing Status: lives with family Occupation Status: retired Current/Historical Medications Scheduled Amitriptyline HCl (Amitriptyline HCl), 20 MG PO HS Amlodipine (Norvasc), 2.5 MG PO DAILY Aspirin (Aspirin Ec), 81 MG PO DAILY Esomeprazole Magnesium (Nexium), 40 MG PO BID Ferrous Sulfate (Ferrous Sulfate), 325 MG PO BID Finasteride (Proscar), 5 MG PO DAILY Lisinopril (Lisinopril), 1 TAB PO DAILY Mesalamine (Asacol Hd), 1,600 MG PO BID Metformin Ext Rel (Glucophage Ext Rel), 500 MG PO DAILY Nitroglycerin (Nitrostat), 0.4 MG UT PRN Psyllium (Metamucil), 3.4 PO DAILY Ranolazine (Ranexa), 500 MG PO BID Rosuvastatin Calcium (Crestor), 20 MG PO DAILY Sertraline (Zoloft), 50 MG PO DAILY Silodosin (Rapaflo), 1 CAP PO DAILY Solifenacin Succinate (Vesicare), 5 MG PO Q2D Scheduled PRN Dicyclomine Hcl (Bentyl), 10 MG PO DAILY PRN for abdominal cramping Rizatriptan Benzoate (Maxalt), 10 MG PO DAILY PRN for Migraine Allergies Coded Allergies: Beta Adrenergic Blockers (Unverified Allergy, Severe, "SHOOK UP FEELING", 03/12/18) Omeprazole (Verified Allergy, Unknown, unsure, 03/12/18) Pantoprazole (Verified Adverse Reaction, Unknown, HALLUCINATIONS, 03/12/18) Physical Exam Vital Signs Date Time Temp Pulse Resp B/P (MAP) Pulse Ox O2 Delivery O2 Flow Rate FiO2 03/12/18 14:41 71 18 108/72 98 Room Air 03/12/18 13:17 98 Room Air 03/12/18 12:35 75 18 112/62 98 Room Air 03/12/18 12:01 73 18 118/68 100 Room Air 03/12/18 11:38 75 03/12/18 11:34 98 Room Air 03/12/18 10:18 36.8 54 18 101/65 99 Room Air Physical Exam Constitutional: Vital signs reviewed. Eyes: Pupils are equal round reactive to light. Conjunctiva are noninjected. ENT: Pharynx is clear without erythema or exudate. Mucous membranes are moist. Neck supple without meningeal signs. Respiratory: Clear to auscultation bilaterally. Breath sounds are equal bilaterally. Cardiovascular: Regular rate and rhythm. No rubs or gallops. GI: Soft, nondistended, some mild LLQ tenderness, no guarding. Bowel sounds are present. Musculoskeletal: No CVA tenderness. No peripheral edema. No lower extremity tenderness. Integumentary: No cyanosis. Neurological: The patient is awake and alert. No focal deficits. Psychiatric: Normal affect. Medical Decision & Procedures ER Provider Diagnostic Interpretation: Radiology results as stated below per my review and the radiologist's interpretation: PA CHEST WITH ABDOMINAL SERIES CLINICAL HISTORY: Generalized abdominal pain. FINDINGS: A PA chest radiograph is compared to study dated 06/08/2017. The examination is degraded by patient rotation. The cardiomediastinal silhouette is unremarkable. There is a small hiatal hernia. Chronic interstitial thickening and mild elevation of the right hemidiaphragm are similar to previous. There is bibasilar atelectasis. No airspace consolidation is seen typical for pneumonia and there is no pleural effusion. No pneumothorax is seen. The skeletal structures are osteopenic. The bony thorax is grossly intact. Supine and erect abdominal radiographs are compared to abdominal radiographs and CT dated 06/08/2017. There is no radiographic evidence of bowel obstruction. There is moderate colonic fecal retention. Scattered air-fluid levels are noted. No evidence of intraperitoneal free air is seen. There are no abnormal abdominal calcifications. The lumbosacral spine and bony pelvis appear intact. IMPRESSION: 1. No active disease in the chest. 2. There is no radiographic evidence of bowel obstruction. Moderate constipation is observed. 3. Scattered air-fluid levels are noted throughout the small bowel on the upright view. This is nonspecific and can be seen in the setting of an enteritis. Clinical correlation will be required. Electronically signed by: Oscar Isbell M.D. 03/12/2018 12:12 PM ULTRASOUND RIGHT UPPER QUADRANT ABDOMEN CLINICAL HISTORY: Right upper quadrant abdominal pain. COMPARISON STUDY: Abdominal CT dated 06/08/2017. Abdominal radiographs dated 03/12/2018. TECHNIQUE: Real-time, grayscale, and color flow sonography of the right upper quadrant of the abdomen was performed. Images are reviewed in the transverse and longitudinal planes. FINDINGS: Liver: The liver is normal in size and demonstrates heterogeneously increased echotexture indicating steatosis. There is no intrahepatic biliary ductal dilatation. The main portal vein is patent. Gallbladder: The gallbladder appears distended but is otherwise normal in appearance. No gallstones are identified. There is no gallbladder wall thickening or pericholecystic fluid. A sonographic Quintanilla's sign is reportedly absent. The common bile duct measures up to 0.6 cm in diameter. Pancreas: Visualized portions of the pancreatic head and body are normal in appearance. The splenic vein is patent. Right kidney: Survey images of the right kidney demonstrate normal size and echotexture. There is no hydronephrosis. Ascites: None. IMPRESSION: 1. The gallbladder appears distended but is otherwise normal in appearance. No shadowing gallstones are seen and there is no sonographic evidence of acute cholecystitis. 2. Hepatic steatosis. Electronically signed by: Oscar Isbell M.D. 03/12/2018 1:06 PM Laboratory Results 03/12/18 10:40 Red Blood Count 4.78, Mean Corpuscular Volume 77.4, Mean Corpuscular Hemoglobin 26.2, Mean Corpuscular Hemoglobin Concent 33.8, Mean Platelet Volume 9.2, Neutrophils (%) (Auto) 79.0, Lymphocytes (%) (Auto) 9.9, Monocytes (%) (Auto) 8.0, Eosinophils (%) (Auto) 2.7, Basophils (%) (Auto) 0.1, Neutrophils # (Auto) 7.74, Lymphocytes # (Auto) 0.97, Monocytes # (Auto) 0.78, Eosinophils # (Auto) 0.26, Basophils # (Auto) 0.01 03/12/18 10:40 Test 03/12/18 10:40 03/12/18 11:24 White Blood Count 9.79 K/uL (4.8-10.8) Red Blood Count 4.78 M/uL (4.7-6.1) Hemoglobin 12.5 g/dL (14.0-18.0) Hematocrit 37.0 % (42-52) Mean Corpuscular Volume 77.4 fL (80-100) Mean Corpuscular Hemoglobin 26.2 pg (25-34) Mean Corpuscular Hemoglobin Concent 33.8 g/dl (32-36) Platelet Count 303 K/uL (130-400) Mean Platelet Volume 9.2 fL (7.4-10.4) Neutrophils (%) (Auto) 79.0 % Lymphocytes (%) (Auto) 9.9 % Monocytes (%) (Auto) 8.0 % Eosinophils (%) (Auto) 2.7 % Basophils (%) (Auto) 0.1 % Neutrophils # (Auto) 7.74 K/uL (1.4-6.5) Lymphocytes # (Auto) 0.97 K/uL (1.2-3.4) Monocytes # (Auto) 0.78 K/uL (0.11-0.59) Eosinophils # (Auto) 0.26 K/uL (0-0.5) Basophils # (Auto) 0.01 K/uL (0-0.2) RDW Standard Deviation 43.5 fL (36.4-46.3) RDW Coefficient of Variation 15.5 % (11.5-14.5) Immature Granulocyte % (Auto) 0.3 % Immature Granulocyte # (Auto) 0.03 K/uL (0.00-0.02) Prothrombin Time 11.3 SECONDS (9.0-12.0) Prothromb Time International Ratio 1.1 (0.9-1.1) Activated Partial Thromboplast Time 38.4 SECONDS (21.0-31.0) Partial Thromboplastin Ratio 1.5 Anion Gap 9.0 mmol/L (3-11) Est Creatinine Clear Calc Drug Dose 80.4 ml/min Estimated GFR () 99.2 Estimated GFR (Non- 85.6 BUN/Creatinine Ratio 9.9 (10-20) Calcium Level 8.9 mg/dl (8.5-10.1) Magnesium Level 1.9 mg/dl (1.8-2.4) Total Bilirubin 0.8 mg/dl (0.2-1) Direct Bilirubin 0.3 mg/dl (0-0.2) Aspartate Amino Transf (AST/SGOT) 146 U/L (15-37) Alanine Aminotransferase (ALT/SGPT) 142 U/L (12-78) Alkaline Phosphatase 82 U/L (45-117) Total Creatine Kinase 217 U/L (39-308) Troponin I 0.595 ng/ml (0-0.045) Total Protein 7.6 gm/dl (6.4-8.2) Albumin 3.2 gm/dl (3.4-5.0) Lipase 312 U/L (73-393) Thyroid Stimulating Hormone (TSH) 2.050 uIu/ml (0.300-4.500) Hepatitis B Surface Antigen NEG (NEG) Hepatitis B Surface Antibody NEG Hepatitis C Antibody NEG (NEG) Urine Color DK YELLOW Urine Appearance CLEAR (CLEAR) Urine pH 6.5 (4.5-7.5) Urine Specific Souris 1.021 (1.000-1.030) Urine Protein TRACE (NEG) Urine Glucose (UA) NEG (NEG) Urine Ketones 2+ (NEG) Urine Occult Blood NEG (NEG) Urine Nitrite NEG (NEG) Urine Bilirubin NEG (NEG) Urine Urobilinogen NEG (NEG) Urine Leukocyte Esterase TRACE (NEG) Urine WBC (Auto) 1-5 /hpf (0-5) Urine RBC (Auto) 5-10 /hpf (0-4) Urine Hyaline Casts (Auto) 0 /lpf (0-5) Urine Epithelial Cells (Auto) 10-20 /lpf (0-5) Urine Bacteria (Auto) NEG (NEG) Laboratory results as reviewed by me. Medications Administered Medications (Trade) Dose Ordered Sig/Pushpa Route Start Time Stop Time Status Last Admin Dose Admin Sodium Chloride 500 ml @ 999 mls/hr Q31M STAT IV 03/12/18 11:18 03/12/18 11:48 DC 03/12/18 11:18 999 MLS/HR Fentanyl Citrate (Fentanyl Inj) 50 mcg NOW STAT IV 03/12/18 12:23 03/12/18 12:25 DC 03/12/18 12:36 50 MCG Ondansetron HCl (Zofran Inj) 4 mg NOW STAT IV 03/12/18 12:23 03/12/18 12:25 DC 03/12/18 12:37 4 MG ECG Per My Interpretation Indication: chest pain Rate (beats per minute): 75 Rhythm: normal sinus Findings: other (No PVC, no ST elevations) Change: 2nd EKG on 03/12/18: Normal sinus rhythm, rate of 75, no ST elevation, no PVC's ED Course 1101: The patient was evaluated in room A2. A complete history and physical exam was performed. 1118: NSS 500 ml @ 999 mls/hr IV. 1222: I reevaluated the patient. He states he doesn't have chest pain but feels a little bit of tightness. On reexamination he has tenderness in RUQ without Quintanilla's sign. He no longer has any LLQ tenderness. I discussed my recommendation he remain in the hospital for further evaluation and management and he verbalized complete understanding and agreement. 1223: Zofran 4 mg IV, Fentanyl 50 mcg IV. 1235: I discussed the patients case with Dr. Franco, [facility] Hospitalist. The patient will be further evaluated. 1315: I reevaluated the patient. He does not have any chest discomfort at this time. I discussed his test results and my recommendation he remain in the hospital for further evaluation and management. He is agreeable with the plan. Medical Decision This is a 72-year-old male who presents with malaise, cough, abdominal pain, vomiting and diarrhea and chest discomfort. Differential diagnosis includes unstable angina, [place], cholecystitis, gastroenteritis, foodborne illness, dehydration, pneumonia. I did perform a limited focused review of portions of the patient's old chart on the electronic medical record. The patient has had no recent pertinent visits to this hospital. I did evaluate the patient as noted above. The patient has multiple complaints today. Some of them have been going on for over a month. Symptoms started about a week ago. Most concerning on his list was the chest discomfort he described. He has a prior history of cardiac disease. He has been really fatigued over the past week as well while on vacation at [place]. IV access was established. The patient was placed on a continuous site monitor. I did order and personally review the patient's 12-lead EKG and chest and abdominal x-ray as described above. Patient does not have any acute ischemia on twelve-lead EKG. His x-rays do not show any evidence of pneumonia or obstruction. I did order and review the patient's blood work as noted in the electronic medical record. His troponin is elevated. He also has hyponatremia, hypokalemia and elevated LFTs. On reexamination the patient has tenderness in the right upper quadrant without a Quintanilla sign. He is also still having some chest discomfort for which he was given IV fentanyl and Zofran. He was also given normal saline IV. A repeat 12-lead EKG was obtained which did not show any acute ischemia. I did a right upper quadrant ultrasound. I did review the images myself as well as the radiology report as described above. There is no evidence of gallstones or acute abnormality. I did reassess the patient. He is no longer having any chest discomfort. I did discuss the test results with him. I did recommend hospitalization for further evaluation of his symptoms. I did discuss case with the hospitalist and director case. Medication Reconcilliation Current Medication List: was personally reviewed by me Blood Pressure Screening Patient's blood pressure: Normal blood pressure Blood pressure disposition: Did not require urgent referral Consults Time Called: 1220 Consulting Physician: Dr. Franco [facility] Hospitalist Returned Call: 1235 I discussed the patients case with Dr. Franco [facility] Hospitalist. The patient will be further evaluated. Impression Primary Impression: Precordial chest pain Additional Impressions: Elevated troponin Hyponatremia Hypokalemia Abnormal LFTs Scribe Attestation The scribe's documentation has been prepared under my direct and personally reviewed by me in its entirety. I confirm that the note above accurately reflects all work, treatment, procedures, and medical decision making performed by me. Departure Information Dispostion Being Evaluated By Hospitalist Referrals Celestino Vazquez D.O. (PCP) Patient Instructions My [facility] Problem Qualifiers
[2018-03-12] MEDS: NSS + 20MEQ KCL 1000ML 1,000 ML IV SCH (17:35)
[2018-03-12] MEDS: FERROUS SULFATE 325 MG TAB PO SCH (17:36)
[2018-03-12] MEDS: INSULIN ASPART 100 UNITS/ML 3 ML PEN SC SCH ×2 (17:41→22:23)
[2018-03-12 18:57] VITALS: BP 116/73; PULSE 77; TEMP 36.8; O2SAT 95
[2018-03-12 19:18] LABS: CKMB 2.5 ng/ml (0.5-3.6)
[2018-03-12] MEDS ORDERED: AMITRIPTYLINE HCL 10 MG TAB PO SCH (21:00)
[2018-03-12] MEDS ORDERED: MESALAMINE 400 MG CAPDR PO SCH (21:00)
[2018-03-12] MEDS ORDERED: ENOXAPARIN 40 MG/0.4 ML SYR SC SCH (21:00)
[2018-03-12] MEDS: RANOLAZINE 500 MG ER TAB PO SCH (22:07)
[2018-03-12 23:36] VITALS: BP 115/72; PULSE 91; TEMP 36.8; O2SAT 91
[2018-03-13 00:01] VITALS: O2SAT 95
[2018-03-13] MEDS: NSS + 20MEQ KCL 1000ML 1,000 ML IV SCH (02:27)
[2018-03-13 02:39] LABS: HEMATOCRIT 32.2 % (42-52); HEMOGLOBIN 10.5 g/dL (14.0-18.0); MEAN CELL VOLUME 78.2 fL (80-100); MEAN CORPUSCULAR HEMOGLOBIN 25.5 pg (25-34); MEAN CORPUSCULAR HGB CONC 32.6 g/dl (32-36); MEAN PLATELET VOLUME 8.4 fL (7.4-10.4); PLATELET COUNT 259 K/uL (130-400); RED CELL DISTRIBUTION WIDTH CV 15.5 % (11.5-14.5); RED CELL DISTRIBUTION WIDTH SD 44.7 fL (36.4-46.3); WHITE BLOOD COUNT 9.72 K/uL (4.8-10.8)
[2018-03-13 03:10] LABS: ALBUMIN 2.4 gm/dl (3.4-5.0); CALCIUM 7.4 mg/dl (8.5-10.1); CREATININE 0.76 mg/dl (0.60-1.40); POTASSIUM 3.5 mmol/L (3.5-5.1)
[2018-03-13 03:21] LABS: CKMB 2.1 ng/ml (0.5-3.6)
[2018-03-13 03:40] VITALS: O2SAT 95
[2018-03-13 03:50] VITALS: BP 133/78; PULSE 98; TEMP 37.1; O2SAT 95
[2018-03-13 07:08] VITALS: BP 109/68; PULSE 87; TEMP 37.3; O2SAT 95
[2018-03-13] MEDS ORDERED: PNEUMOCOCCAL POLYSACCHARIDES 25 MCG/0.5 ML VIAL/SYR IM. ONE (08:00)
[2018-03-13] MEDS ORDERED: PNEUMOCOCCAL ADMINISTRATION CHARGE ONE (08:00)
[2018-03-13] MEDS: RANOLAZINE 500 MG ER TAB PO SCH (08:40)
[2018-03-13] MEDS: FERROUS SULFATE 325 MG TAB PO SCH (08:40)
[2018-03-13] MEDS: INSULIN ASPART 100 UNITS/ML 3 ML PEN SC SCH ×2 (08:47→12:04)
[2018-03-13] MEDS ORDERED: PERFLUTREN LIPID MICROSPHERE (DEFINITY) IV ONE (08:48)
[2018-03-13] MEDS ORDERED: AMLODIPINE BESYLATE 5 MG TAB PO SCH (09:00)
[2018-03-13] MEDS ORDERED: ASPIRIN 81 MG ECTAB PO SCH (09:00)
[2018-03-13] MEDS ORDERED: SERTRALINE HCL 50 MG TAB PO SCH (09:00)
[2018-03-13] MEDS ORDERED: FINASTERIDE 5 MG TAB PO SCH (09:00)
[2018-03-13] MEDS ORDERED: ROSUVASTATIN CALCIUM 20 MG TAB PO SCH (09:00)
[2018-03-13] MEDS ORDERED: PSYLLIUM 58.6% PWD PACK PO SCH (09:00)
[2018-03-13] MEDS ORDERED: LISINOPRIL 2.5 MG TAB PO SCH (09:00)
--- NOTE | 2018-03-13 09:37 | ECHOCARDIOGRAM REPORT ---
*NOTICE TO RECEIVING LIBERTARIAN AGENCY This information is strictly Confidential and protected under [place] law. [place] law prohibits you from making any further disclosure of this information unless further disclosure is expressly permitted by the written consent of the person to whom it pertains or is authorized by law. A general authorization for the release of medical or other information is not sufficient for this purpose. Hospital accepts no responsibility if the information is made available to any other person, INCLUDING THE PATIENT. Interpretation Summary * Name: JEREMIAH ARTEAGA Study Date: 03/13/2018 06:47 AM BP: 109/68 mmHg * Patient Location: C.2T\S\S230\S\2 HR: 87 * : 1945 (M/d/yyy) Gender: Male Height: 68 in * Age: 72 yrs Ethnicity: CA Weight: 189 lb * Ordering Physician: Thelma Wagner * Performed By: Rosie Sequeira RDCS * * Reason For Study: CHEST PAIN * BSA: 2.0 m2 * -- Conclusions -- * Limited study even with definity echo contrast: * Normal LV size and fxn. * No obvious regional wall motion abnormalities. * LVEF 65% * Dilated RV with Hypokinesis of the RV Free Wall. * TAPSE 1.2 cm * Normal LA Pressures. Procedure Details * A complete two-dimensional transthoracic echocardiogram was performed (2D, M-mode, Doppler and color flow Doppler). * There were technical limitations due to patient'sPoor acoustic windows secondary to severe lung disease. * A contrast injection of Definity was performed to improve assessment of LV function. * Contrast was injected into an intravenous site in the right arm. * One vial of Definity ultrasound contrast was diluted in normal saline to a total volume of 10 ml. A total of '2' ml of solution was administered during imaging. * Lot # [id number] of Definity utilized for procedure. * Expiration date 01/22. * The attending nurse who injected the contrast agent was ABHAY TUBBS RN. Left Ventricle * Limited study even with definity echo contrast: Normal LV size and fxn. No obvious regional wall motion abnormalities. LVEF 65% Right Ventricle * Dilated RV with Hypokinesis of the RV Free Wall. TAPSE 1.2 cm Atria * The left atrial size is normal. * Right atrial size is normal. Mitral Valve * The mitral valve is grossly normal. * There is mild mitral regurgitation. Tricuspid Valve * The tricuspid valve is not well visualized, but is grossly normal. * There is trace tricuspid regurgitation. Aortic Valve * The aortic valve opens well. Pulmonic Valve * The pulmonic valve is not well visualized. Pericardium/Pleural * There is no pericardial effusion. Great Vessels * Normal inferior vena cava diameter and respiratory variation suggests normal central venous pressure. Left Ventricular Diastolic Function * Normal LA Pressures. MMode 2D Measurements and Calculations IVSd 0.75 cm IVSs 1.2 cm LVIDd 3.9 cm LVIDs 2.6 cm LVPWd 1.1 cm LVPWs 1.2 cm IVS/LVPW 0.69 FS 33.6 % EDV(Teich) 67.8 ml ESV(Teich) 25.1 ml EF(Teich) 63.0 % EDV(cubed) 61.5 ml ESV(cubed) 18.0 ml EF(cubed) 70.7 % % IVS thick 60.8 % % LVPW thick 11.2 % LV mass(C)d 109.6 grams LV mass(C)dI 54.9 grams/m\S\2 LV mass(C)s 91.0 grams LV mass(C)sI 45.6 grams/m\S\2 SV(Teich) 42.7 ml SI(Teich) 21.4 ml/m\S\2 SV(cubed) 43.5 ml SI(cubed) 21.8 ml/m\S\2 ACS 1.2 cm LVOT diam 1.5 cm LVOT area 1.7 cm\S\2 LVAd ap4 31.6 cm\S\2 LVLd ap4 8.5 cm EDV(MOD-sp4) 99.7 ml EDV(sp4-el) 99.9 ml LVAs ap4 15.9 cm\S\2 LVLs ap4 6.7 cm ESV(MOD-sp4) 31.5 ml ESV(sp4-el) 32.0 ml EF(MOD-sp4) 68.4 % EF(sp4-el) 68.0 % LVAd ap2 30.7 cm\S\2 LVLd ap2 8.5 cm EDV(MOD-sp2) 92.2 ml EDV(sp2-el) 94.4 ml LVAs ap2 17.5 cm\S\2 LVLs ap2 7.7 cm ESV(MOD-sp2) 32.7 ml ESV(sp2-el) 33.7 ml EF(MOD-sp2) 64.6 % EF(sp2-el) 64.3 % LVLd %diff -0.25 % EDV(MOD-bp) 95.7 ml LVLs %diff 13.2 % ESV(MOD-bp) 33.8 ml EF(MOD-bp) 64.7 % SV(MOD-sp4) 68.2 ml SI(MOD-sp4) 34.2 ml/m\S\2 SV(MOD-sp2) 59.6 ml SI(MOD-sp2) 29.9 ml/m\S\2 SV(MOD-bp) 61.9 ml SI(MOD-bp) 31.0 ml/m\S\2 SV(sp4-el) 67.9 ml SI(sp4-el) 34.0 ml/m\S\2 SV(sp2-el) 60.7 ml SI(sp2-el) 30.4 ml/m\S\2 Doppler Measurements and Calculations MV E max jean 83.4 cm/sec MV A max jean 83.8 cm/sec MV E/A 0.99 MV dec time 0.25 sec Ao V2 max 120.4 cm/sec Ao max PG 5.8 mmHg Ao max PG (full) 2.9 mmHg ECHO(V,A) 1.2 cm\S\2 ECHO(V,D) 1.2 cm\S\2 LV V1 max PG 2.9 mmHg LV V1 max 84.9 cm/sec MR max jean 435.4 cm/sec MR max PG 75.8 mmHg PA V2 max 58.8 cm/sec PA max PG 1.4 mmHg
[2018-03-13 11:17] VITALS: BP 113/73; PULSE 106; TEMP 36.8; O2SAT 94
[2018-03-13 11:47] LABS: SODIUM RANDOM URINE 16 mEq/L
[2018-03-13 11:56] LABS: OSMOLALITY,URINE 143 mOms/kg (500-800)
[2018-03-13] MEDS ORDERED: ALBUTEROL 0.083% NEBU SOLN 3 ML VIAL INH STA (13:37)
--- NOTE | 2018-03-13 14:08 | CARDIOLOGY CONSULTATION ---
DATE OF CONSULTATION: 03/13/2018 REQUESTING PHYSICIAN: Ryanne Mejia MD CHANGE MANAGEMENT: Trell Leyva D.O., [facility] Cardiology. REASON FOR CONSULTATION: Minimally elevated troponin. HISTORY OF PRESENT ILLNESS: Mr. Gena Gill is away last week. He notes he just did not feel well when they were at the beach in [place]. He had mobility issues with difficulty moving his legs. He has also had issues related to constipation and then loose stools. He has had intermittent chills and nausea and vomiting and diarrhea. He did undergo endoscopy [address] 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 He has had multiple episodes of diarrhea along with vomiting 2 days ago. He denies any abdominal distention. He denies any chest pain or chest pressure outside of what he felt in the Emergency Room. His notes that if he has chest pressure and he belches, it goes away. His daughter and son-in-law are here. They note a couple of weeks ago, he was shoveling mulch without any chest tightness or chest pressure. At home, he can climb a flight of stairs with some mild dyspnea, but denies any tightness, pressure or other cardiac symptoms. At about 25 feet to the mailbox, he is able to do that without any issues. He denies any palpitations, fluttering, skips, feeling his heart racing. Denies any lower extremity edema, bleeding, bruising, dark stools or black stools. He is feeling slightly better today. He was seen by [facility] gastroenterology who recommended to be continuing his mesalamine as it may have been causing many of his symptoms. PAST MEDICAL HISTORY: 1. Coronary artery disease, status post angioplasty and stenting 11/2011. 2. 50% lesion in the LAD just beyond the stent with a negative FFR at [facility] 05/13/2012. 3. 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 4. 30% lesion in the mid RCA. 5. Normal stress echo 12/2017 at 81% of maximal predicted heart rate. He did complain of 5/10 shortness of breath with no ischemic changes. 6. Liriano's esophagus. 7. GERD. 8. Hyperlipidemia. 9. Hypertension. 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 He is . Denies any tobacco or alcohol. ALLERGIES: OMEPRAZOLE AND PROTONIX AND BETA BLOCKERS WHICH CAUSED FATIGUE. MEDICATIONS: Reviewed in electronic medical record. FAMILY HISTORY: Noncontributory. PHYSICAL EXAMINATION: GENERAL: He is awake, alert, oriented x3. He is in no acute distress. He is a well-appearing male. He does appear anxious. VITAL SIGNS: Heart rate of 106, blood pressure of 113/73, respirations 18, his sats 94% on room air. HEENT: 2+ carotid upstrokes. No carotid bruits. Jugular venous pressure appeared normal. Sclerae is anicteric. Hearing is normal. LUNGS: Clear to auscultation bilateral. No rales, rhonchi or wheezing. HEART: Regular rate and rhythm. No appreciable murmurs, rubs or gallops. ABDOMEN: Soft, nontender, nondistended. Positive bowel sounds. EXTREMITIES: No clubbing, cyanosis or edema. PSYCHIATRIC: He appeared anxious. LABORATORY STUDIES: Hemoglobin 12.5, platelet count of 303. His troponin initially was 0.595 and has trended down to 0.432. Albumin is 2.4. His iron sat is low. Sodium 130, potassium 3.5, creatinine 0.76. DIAGNOSTIC STUDIES: EKG, normal sinus rhythm. Normal ECG. Echocardiogram: Normal LV size and function, EF 65%. The right ventricle appears dilated and RV free wall appears hypokinetic. IMPRESSION: 1. Constipation and diarrhea. 2. Chronic gastroesophageal reflux disease. 3. Chest discomfort, which sounds noncardiac in etiology. 4. Negative stress echo for ischemia, 12/2017 with associated 5/10 shortness of breath. 5. Normal echocardiogram and EKG. 6. Coronary artery disease, status post angioplasty and stenting of the LAD with additional disease as discussed above. From my standpoint, I think his troponin is related to demand ischemia, likely related to the effects of his recent medications and associated vomiting. 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 I do not believe that his symptoms are cardiac in etiology and I do not believe that his troponin elevation is related to an acute coronary syndrome. I reassured them he has chronic shortness of breath. I recommended he increase his level of activity. Some of his weakness may be related to hyponatremia and looking back in his past labs approximately a year ago, his sodium was 137. One may want to consider restricting his fluids to improve his sodium and closely following it as an outpatient. He has scheduled followup with me in the next 6 weeks or so. He can keep that appointment. I discussed if he has any worsening signs or symptoms that might be cardiac in etiology, to let us know. All this was discussed with Dr. Mejia.
[2018-03-13] MEDS ORDERED: CZR25 PO (14:48)
--- NOTE | 2018-03-13 14:52 | Discharge Instructions ---
Discharge Instructions Date of Service Mar 13, 2018. Admission Reason for Admission: Chest Pain,Gastrointestinal Distress Discharge Discharge Diagnosis / Problem: Chest pain, elevated troponin, elevated liver enzymes Discharge Goals Goal(s): Improve disease control, Diagnostic testing, Therapeutic intervention Activity Recommendations Activity Limitations: as noted below Exercise/Sports Limitations: gradually increase as tolerated Driving or Machine Use: No driving until after follow-up appointment . Instructions / Follow-Up Instructions / Follow-Up You admitted for chest pain and found to have an elevated cardiac marker called a troponin. This was mildly elevated and did not continue to increase and you did not have a heart attack. The ultrasound of your heart did not show any evidence of damage to the heart. The operations consultant thought that the chest pain was not related to your heart. Because of your chronic cough, your lisinopril was changed to losartan once daily. Because of your other symptoms you were having, along with your elevated liver enzymes, the intelligence applications suggested stopping your mesalamine. You should have your liver enzymes checked within the next week and follow-up with the intelligence applications within the next 1-2 weeks for your GI issues. Please do not take your rosuvastatin (Crestor) until your liver enzymes are back to normal. Please follow-up with your primary care physician within 1 week as well. Current Hospital Diet Patient's current hospital diet: AHA Diet (Heart Healthy), Diabetes Type 2 Diet Discharge Diet Recommended Diet: AHA Diet (Heart Healthy), Diabetes Type 2 Diet Procedures Procedures Performed: Echocardiogram Gallbladder ultrasound Chest x-ray and abdominal x-ray Pending Studies Studies pending at discharge: yes List of pending studies: Final blood cultures Laboratory Results Hemoglobin A1c Test 03/12/18 10:40 Range/Units Medical Emergencies . Who to Call and When: Medical Emergencies: If at any time you feel your situation is an emergency, please call 911 immediately. . Non-Emergent Contact Non-Emergency issues call your: Primary Care Provider, Tight Barrel Inspector, Dispatcher [employer] Trol[employer] Call Non-Emergent contact if: temperature is above 101, your pain is not controlled, your pain is worsening, your pain is unusual for you, your pain is concerning you, you have any medication questions . . "Provider Documentation" section prepared by Ryanne Mejia. .
--- NOTE | 2018-03-13 15:12 | Discharge Summary ---
Discharge Summary Date of Service Mar 13, 2018. Discharge Summary Admission Date: Mar 12, 2018 at 14:56 Discharge Date: Mar 13, 2018 Discharge Disposition: Home Principal Diagnosis: Chest pain, elevated troponin, elevated LFTs Problems/Secondary Diagnoses: Possible drug reaction to mesalamine Fatigue, generalized weakness Intermittent nausea/vomiting/diarrhea Suspected celiac disease Suspected colitis CAD s/p stent 2011 Chronic angina HTN HLD DM II not on long-term insulin GERD with Liriano's esophagus BPH Migraines Anxiety and depression Hepatic steatosis Myocardial demand ischemia Iron deficiency anemia Hyponatremia secondary to dehydration Chronic cough-suspected secondary to RAFAEL inhibitor use Immunizations: Have You Had Influenza Vaccine: Yes Influenza Vaccine Date: May 18, 2012 History of Tetanus Vaccine?: Yes Tetanus Immunization Date: Nov 06, 2007 History of Pneumococcal: Yes Pneumococcal Date: Nov 14, 2010 History of Hepatitis B Vaccine: No Procedures: Chest x-ray Abdomen x-ray Echocardiogram Gallbladder ultrasound Consultations: Cardiology Gastroenterology Medication Reconciliation New Medications: Losartan Potassium (Losartan Potassium) 25 Mg Tab 25 MG PO QAM for 30 Days, #30 TAB Continued Medications: Amitriptyline HCl (Amitriptyline HCl) 10 Mg Tab 20 MG PO HS Amlodipine (Norvasc) 2.5 Mg Tab 2.5 MG PO DAILY Aspirin (Aspirin Ec) 81 Mg Tab 81 MG PO DAILY Dicyclomine Hcl (Bentyl) 10 Mg Cap 10 MG PO DAILY PRN for abdominal cramping, CAP Esomeprazole Magnesium (Nexium) 40 Mg Capcr 40 MG PO BID Ferrous Sulfate (Ferrous Sulfate) 325 Mg Tab 325 MG PO BID Finasteride (Proscar) 5 Mg Tab 5 MG PO DAILY Metformin Ext Rel (Glucophage Ext Rel) 500 Mg Tab 500 MG PO DAILY, TAB Nitroglycerin (Nitrostat) 0.4 Mg Tab 0.4 MG UT PRN, BTL NEEDED FOR CHEST PAIN. ONE TABLET UNDER THE TONGUE EVERY FIVE MINUTES UP TO 3 DOSES. Psyllium (Metamucil) 0.52 Gm Cap 3.4 PO DAILY Ranolazine (Ranexa) 500 Mg Tabcr 500 MG PO BID Rizatriptan Benzoate (Maxalt) 10 Mg Tab 10 MG PO DAILY PRN for Migraine Sertraline (Zoloft) 50 Mg Tab 50 MG PO DAILY Silodosin (Rapaflo) 8 Mg Cap 1 CAP PO DAILY Solifenacin Succinate (Vesicare) 5 Mg Tab 5 MG PO Q2D, TAB Discontinued Medications: Lisinopril (Lisinopril) 2.5 Mg Tab 1 TAB PO DAILY for 30 Days, #30 TAB 5 Refills Mesalamine (Asacol Hd) 800 Mg Tab 1600 MG PO BID Rosuvastatin Calcium (Crestor) 20 Mg Tab 20 MG PO DAILY Discharge Exam Patient feeling much improved from admission. He feels stronger and is able to ambulate without difficulty. He denies any further chest pain. He still has not moved his bowels but feels like he is about to. No abdominal pain. No difficulty with his urine. Telemetry with normal sinus rhythm and PACs. He did feel little short of breath last night and his pulse ox was 91%-2 L nasal cannula oxygen was applied. Today the oxygen was removed and he ambulated and only dropped to 95% at the lowest. He has had a chronic cough his reports for several years and they are wondering if it is related to his lisinopril. I discussed the case with cardiology at length today. Vitals reviewed Gen: AAOx3, NAD HEENT: anicteric sclerae, EOMI CV: RRR no mgr nl S1S2 Pulm: CTAB no wcr Abd: +BS soft NT ND no masses or hernias Ext: no edema, 2+ DP pulses Skin: no rashes, warm/dry Neuro: full strength throughout Review of Systems: Constitutional: No fever, No chills Eyes: No problem reported ENT: No problem reported Respiratory: + cough Cardiovascular: No chest pain Abdomen: + constipation, No pain, No nausea, No vomiting, No diarrhea Musculoskeletal: No problem reported Genitourinary - Male: No problem reported Neurologic: No problem reported Psychiatric: No problem reported Endocrine: No problem reported Hematologic / Lymphatic: No problem reported Integumentary: No problem reported Hospital Course This patient is a 72 y/o male with a history of CAD s/p stent 2011, chronic angina, HTN, HLD, DM II, GERD with Liriano's esophagus, BPH, migraines, anxiety and depression who presented to the ED on 03/12 with chest pain, weakness, fatigue , nausea, and vomiting. He has been having intermittent nausea and vomiting along with diarrhea for over a month and has seen gastroenterology for this. He had a recent flexible sigmoidoscopy and EGD and a workup for possible colitis and celiac disease. He was started on mesalamine about a month ago and since that time, has developed chills, progressive weakness, and general malaise. He took Imodium 5 days prior to admission and had not had a bowel movement since. He then developed left-sided chest pain which brought him to the ER. Pt afebrile, VSS on arrival. Chest/abdomen x-ray shows moderate constipation and air fluid levels in small bowel. Gall bladder ultrasound shows distended gallbladder, but appearance otherwise unremarkable and no gallstones or acute cholecystitis. Does show hepatic steatosis. EKG no acute ischemic changes. Troponin elevated at 0.595 on admission Systemic symptoms of fatigue/generalized weakness/chills and elevated LFTs were thought to be due to a possible drug reaction to mesalamine as per GI consultation. -Stop mesalamine-he actually had improvement of the symptoms with holding the medication for over 24 hours -Needs follow-up on LFTs in 1 week with results sent to GI and PCP -Follow-up with GI for further treatment of your colitis Chest pain/elevated troponin-likely secondary to myocardial demand ischemia from stress of drug reaction? Troponins trended and remained mildly elevated but stable. Echocardiogram with no wall motion abnormalities noted Seen by cardiology and no further testing needed. Chest pain resolved Elevated LFTs--possibly due to mesalamine as above. Also with fatty liver but this is not likely to cause an acute elevation -Continue to monitor in 1 week as above -Check hepatitis panel-hep B and C negative, hep A pending at the time of discharge Dehydration/hyponatremia--appears clinically dry on admission possibly due to GI losses and improved with IV fluids, renal function WNL. Sodium improved 130 with administration normal saline. Had low urine sodium and urine osmolality which is appropriate Fatigue, weakness-TSH and CPK were normal. Likely due to mesalamine as above- improved at the time of discharge Intermittent N/V/D--follow-up as above with GI CAD s/p stent, HTN, HLD, chronic angina--blood pressures acceptable. Ruled out for ACS as above -Continue ASA, Norvasc 2.5 mg PO qd, Ranexa 500 mg PO BID -instructed to hold Crestor until LFTs improve -Stop lisinopril for possible chronic cough induced by RAFAEL inhibitor-replace with losartan 25 mg once daily DM II--unknown A1c, hemoglobin A1c pending at the time of discharge Resume metformin on discharge Liriano's esophagus, family h/o esophageal cancer -Continue Nexium 40 mill grams p.o. twice daily -Routine surveillance as an outpatient BPH-stable no acute issues -Continue Proscar 5 mg PO qd, Rapaflo 8 mg PO qd, and Vesicare 5 mg PO q2d Migraines-none while here -Continue amitriptyline 20 mg PO hs and Maxalt as needed Anxiety/depression-stay -Continue Zoloft 50 mg PO qd Iron deficiency anemia-hemoglobin actually mildly low here probably due to hemodilution. MCV is low. Iron studies here look more like a mixture of iron deficiency anemia plus anemia of chronic disease -Continue to follow-up with GI -Continue ferrous sulfate by mouth Had some occasional wheezing, chronic cough-with lung disease noted on report from the echocardiogram -Suggest PFTs as an outpatient -Chest x-ray here with chronic interstitial changes Stable for discharge to home Total Time Spent: Greater than 30 minutes This includes examination of the patient, discharge planning, medication reconciliation, and communication with other providers. Discharge Instructions Please refer to the electronic Patient Visit Report (Discharge Instructions) for additional information. Follow-Up With PCP within 1 week With GI within 2 weeks Additional Copies To Celestino Vazquez D.O.; Brent Whaley M.D.
[2018-03-13 15:18] VITALS: BP 113/73; PULSE 106; TEMP 36.8; O2SAT 94
[2018-03-14 06:11] LABS: HEMOGLOBIN A1C 6.7 % (4.5-5.6)
[2018-03-14] MEDS ORDERED: LOSARTAN POTASSIUM 25 MG TAB PO SCH (09:00)
== END 2018-03-13 15:46 | disposition home or self-care (01) ==
LOC: C.EDB 10:17 → C.2T 14:56 → ENRESERV 15:18
PROVIDERS: ADMIT Family Medicine; ATTEND Family Medicine
DX: R07.9 Chest pain, unspecified (principal); R79.89 Other specified abnormal findings of blood chemistry; R53.83 Other fatigue; R11.2 Nausea with vomiting, unspecified; R19.7 Diarrhea, unspecified; I25.119 Atherosclerotic heart disease of native coronary artery with unspecified angina pectoris; I10 Essential (primary) hypertension; E78.5 Hyperlipidemia, unspecified; E11.9 Type 2 diabetes mellitus without complications; K21.9 Gastro-esophageal reflux disease without esophagitis; K22.70 Barrett's esophagus without dysplasia; N40.0 Benign prostatic hyperplasia without lower urinary tract symptoms; G43.909 Migraine, unspecified, not intractable, without status migrainosus; F41.9 Anxiety disorder, unspecified; F32.9 Major depressive disorder, single episode, unspecified; K83.1 Obstruction of bile duct; D50.9 Iron deficiency anemia, unspecified; E87.1 Hypo-osmolality and hyponatremia; R05 Cough; Z79.82 Long term (current) use of aspirin; Z79.84 Long term (current) use of oral hypoglycemic drugs; Z79.899 Other long term (current) drug therapy

== ENCOUNTER → 2018-04-06 | Outpatient (CLI) | payer BC ==
[~2018-04-06] MED LIST changes: -CIPR-255 PO; -CRFL PO; +CZR25 PO; +DICY10CA55 PO; +FERR1TAB62 PO; -LISI-729 PO; +METFTAB PO; +OPTIRAY 320 IV PRN; -ROSU20TA PO; +SOLI5TAB2 PO
--- NOTE | 2018-04-06 09:19 | DIAGNOSTIC IMAGING REPORT ---
ABD/PELVIS COMBO CT DOSE: 1718.52 mGycm HISTORY: Pain. R35.0 Urinary [id number] [id number] VALID 7 TECHNIQUE: Multiaxial CT images of the abdomen and pelvis were performed pre and post intravenous contrast enhancement. A dose lowering technique was utilized adhering to the principles of ALARA. COMPARISON STUDY: 06/08/2017 FINDINGS: The lung bases are clear. The liver, spleen, gallbladder, pancreas, kidneys, and adrenal glands are within normal limits. No bowel wall thickening or obstruction. The pelvic organs are unremarkable. No suspicious lytic or blastic osseous lesions. There is a fixed lateral hernia. Kidneys enhance uniformly. The bowel pattern within the abdomen and pelvis is nonobstructive. Normal appendix. Chronic sigmoid diverticulosis. No evidence for acute diverticulitis. Perirectal and low pelvic infiltrative change on the prior study is no longer appreciated. IMPRESSION: 1. Chronic sigmoid diverticulosis. 2. No acute diverticulitis. 3. Improved previously described low pelvic infiltrative and pericolonic infiltrative change. The above report was generated using voice recognition software. It may contain grammatical, syntax or spelling errors. Electronically signed by: Matt Charles M.D. 04/06/2018 9:18 AM Dictated Date/Time: 04/06/2018 9:09 AM
== END | disposition home or self-care (01) ==
LOC: C.CTS 08:37
PROVIDERS: ATTEND Nurse Practitioner Family
DX: R35.0 Frequency of micturition (principal); R39.89 Other symptoms and signs involving the genitourinary system; K57.92 Diverticulitis of intestine, part unspecified, without perforation or abscess without bleeding

== ENCOUNTER 2021-08-30 15:42 | Inpatient (IN) ==
--- NOTE | 2021-08-30 15:50 | Emergency Department Note ---
Impression & Plan Sigmoid diverticulitis, Abdominal pain, lower, Nausea, Hyponatremia ED Provider Note Provider: Mesfin Alvares MD DATE OF SERVICE: 08/30/2021 CHIEF COMPLAINT: Abdominal pain, diverticulitis HISTORY OF PRESENT ILLNESS: Patient is a 76-year-old gentleman past medical history including Liriano's esophagus, gastroparesis, BPH, and hypertension presenting here today complaint of continued abdominal pain. Patient was seen here 3 days ago for similar complaints and found to have sigmoid diverticulitis was started on Augmentin. At that time additionally had some constipation with that was treated with an enema while here in the emergency department. States he has been taking his antibiotics in the "diverticulitis "pain seems to be improving. States he still having intermittent lower abdominal spasms as he describes them with some burning quality. Has been using some Tylenol 3 as well as heating pads at home without improvement. Discussed with his primary doctor yesterday and got some dicyclomine of which he is taken several doses without improvement. Has also been intermittently using some Reglan at home. States he has had some nausea and some episodes of vomiting but denies this currently. No chest pain, fevers, chills, or shortness of breath reported. No new trauma. Patient states has been urinating well and drinking fluids well. Patient states his lower abdominal pain has been present in some degree for several months. Has had extensive work-up with [facility] gastroenterology and is continue to follow with them. Had a recent gastric emptying study in the canceled due to his diverticulitis earlier this week. Patient states he has been having regular bowel movements not including this morning. Was feeling well this morning but after lunch since around 2:00 for the past 2 hours been having lower abdominal spasming discomfort. REVIEW OF SYSTEMS: A total of 10 review of systems was obtained and negative except as stated above in the HPI. PAST MEDICAL HISTORY: As noted above MEDICATIONS: Reviewed home medication list SOCIAL HISTORY: Non-smoker, PHYSICAL EXAM: GENERAL: alert and oriented in no acute distress on stretcher Head: normocephalic and atraumatic EYES: No injection, discharge or icterus. NECK: Trachea midline. LUNGS: Airway patent. No retractions. Breath sounds clear with good air entry bilaterally. HEART: Regular rate and rhythm. No chest wall tenderness ABDOMEN: Soft with no upper abdominal tenderness or peritonitis. Patient does report some lower abdominal tenderness to palpation without significant mass noted SKIN: Acyanotic, warm, dry, without rashes EXTREMITIES: Without swelling, tenderness or deformity NEUROLOGICAL: No focal deficits. No aphasia. No facial droop or slurred speech. Ambulatory. EK bpm sinus bradycardia. No PVC or PAC. No acute ST segment elevation or depression with a nonspecific T wave inversions noted. QTc 447. CONTINUOUS CARDIAC MONITORING: was ordered and showed a heart rate of 50s-70s bpm in normal sinus rhythm to sinus bradycardia Patient's laboratory studies and imaging reviewed. Differential includes Appendicitis, testicular torsion, infections, diverticulitis, UTI, obstruction, mesenteric ischemia, aortic pathology, inflammatory bowel disease, renal colic, PUD, pancreatitis, biliary pathology, hernia, volvulus, constipation, as well as other pathologies. IMPRESSION/MEDICAL DECISION MAKING: Patient with significant lower abdominal discomfort. Has been taking Augmentin at home. No fevers or chills reported. Has been using Tylenol #3 without significant effect for pain control at home. Not peritoneal take. White blood cell count is similar to previous. Some mild hyponatremia similar to previous is noted as well today. No significant renal dysfunction. Patient is afebrile and not hypotensive here. No evidence of acute hepatitis or pancreatitis based on labs. CT scan is completed today to look for change given recent diverticulitis. Per radiology report no evidence of perforation or abscess with continued sigmoid diverticulitis noted. No evidence of obstruction is noted per the report. Patient was given a small amount of morphine here for pain and some IV fluid. Some component of his symptoms probably are related to his underlying gastric emptying issues however, with continued pain with the diverticulitis findings persisting on the CT given a dose of Zosyn. Discussed further observation/care with IV antibiotics here at the hospital which the patient wished for. DIAGNOSIS: Diverticulitis, lower abdominal pain, hyponatremia DISPOSITION: Hospitalist will evaluate Patient was agreeable with this plan. Past Med/Surg History Medical History (Updated 08/30/21 @ 18:43 by Mesfin Alvares M.D.) Anemia Anxiety Barretts esophagus BPH (benign prostatic hyperplasia) Depression GERD (gastroesophageal reflux disease) Hearing deficit Hyperlipidemia Hypertension IBS (irritable bowel syndrome) Migraine Prediabetes Surgical History History of cardiac cath 11/2011 @ [facility], [place] [facility] [place] History of cataract extraction with lens replacement LEFT EYE, 01/03/19 History of colonoscopy History of esophagogastroduodenoscopy (EGD) History of flexible sigmoidoscopy History of foot surgery left History of heart artery stent 11/2011 x1 @ [facility] History of hemorrhoidectomy Family History Father Family history of esophageal cancer Mother Family hx of colon cancer Other No family history of adverse response to anesthesia Social History Smoking Status: Never smoker Second Hand Exposure: Yes (parents smoked); Hx Alcohol Use: Yes Alcohol type: beer Hx Substance Use: No Preferred Language: [place]ese Communication Ability: Effective Grain Drier Required: No Beliefs That Will Affect Care: None Current Living Situation: Spouse Feels Safe at Home: Yes Assistive Devices: Glasses and Hearing Aid - Bilateral Allergies Allergies Allergy/AdvReac Type Severity Reaction Status Date / Time Beta-Blockers Allergy Severe "SHOOK UP Verified 08/30/21 18:09 (Beta-Adrenergic Bloc FEELING" omeprazole Allergy Mild "made my Verified 08/30/21 18:09 head spin" levofloxacin Allergy Gastrointestinal Verified 08/30/21 18:09 Upset pantoprazole AdvReac Mild HALLUCINATI Verified 08/30/21 18:09 ONS Home Meds Home Medications Medication Instructions Recorded Confirmed amlodipine 2.5 mg tablet 2.5 mg PO QAM 11/23/18 08/30/21 esomeprazole magnesium 40 mg 40 mg PO BID 11/23/18 08/30/21 capsule,delayed release finasteride 5 mg tablet 5 mg PO HS 11/23/18 08/30/21 nitroglycerin 0.4 mg sublingual 1 dose SUBLINGUAL UD PRN 11/23/18 08/30/21 tablet nortriptyline 10 mg capsule 10 mg PO HS 11/23/18 08/30/21 ranolazine 500 mg tablet,extended 500 mg PO BID 11/23/18 08/30/21 release,12 hr (Ranexa) rosuvastatin 20 mg tablet (Crestor) 20 mg PO QPM 11/23/18 08/30/21 sertraline 50 mg tablet (Zoloft) 50 mg PO QAM 11/23/18 08/30/21 solifenacin 5 mg tablet (Vesicare) 5 mg PO HS 11/23/18 08/30/21 tamsulosin 0.4 mg capsule (Flomax) 0.4 mg PO PM 05/08/20 08/30/21 albuterol sulfate 90 mcg/actuation 2 puff INHALATION Q6H PRN 05/13/21 08/30/21 aerosol inhaler (Ventolin HFA) prucalopride 2 mg tablet 2 mg PO QAM 05/13/21 08/30/21 (Motegrity) carboxymethyl 0.5 %-glycerin 1 1 drp OPB BID 06/22/21 08/30/21 %-polysorb 80 0.5 %-PF eye dropperette (Refresh Optive Noman-3 (PF)) lifitegrast 5 % eye drops in a 1 drp OPB BID 06/22/21 08/30/21 dropperette (Xiidra) ondansetron HCl 4 mg tablet 4 mg PO Q6H PRN 06/22/21 08/30/21 (Zofran) polyethylene glycol 3350 17 gram 17 g PO BID PRN 08/30/21 08/30/21 oral powder packet Previous Rx's Medication Instructions Recorded umeclidinium 62.5 mcg-vilanterol 1 inh INHALATION DAILY 90 Days #90 05/13/21 25 mcg/actuation powdr for puff inhalation (Anoro Ellipta) dicyclomine 20 mg tablet 20 mg PO TID PRN #9 tab 06/22/21 lorazepam 0.5 mg tablet (Ativan) 0.5 mg PO TID PRN #20 tab 06/30/21 acetaminophen 300 mg-codeine 30 mg 1 tab PO BID PRN #6 tab 08/27/21 tablet amoxicillin 875 mg-potassium 1 tab PO TID 10 Days #30 tab 08/27/21 clavulanate 125 mg tablet (Augmentin) metoclopramide HCl 10 mg tablet 5 mg PO Q12H PRN #10 tab 08/27/21 (Reglan) Results & Data (ED) Vital Signs Vital Signs - 24 hr 08/30/21 15:44 08/30/21 16:04 08/30/21 16:18 Temperature 36.5 C Temperature Source Temporal Artery Scan Pulse Rate 70 98 H 59 L Pulse Rate from SpO2 Sensor 60 Respiratory Rate 18 20 16 Blood Pressure 112/70 Blood Pressure Mean 84 Blood Pressure Position Sitting Pulse Oximetry 100 96 98 Oxygen Delivery Method Room Air Room Air Sepsis Recent Fever Within 48 Hours No Sepsis New/Unexplained Change in Mental Status No Sepsis Action Taken by Nursing No Action Required 08/30/21 16:30 Temperature Temperature Source Pulse Rate 59 L Pulse Rate from SpO2 Sensor 60 Respiratory Rate 19 Blood Pressure 130/69 Blood Pressure Mean 89 Blood Pressure Position Pulse Oximetry 98 Oxygen Delivery Method Sepsis Recent Fever Within 48 Hours Sepsis New/Unexplained Change in Mental Status Sepsis Action Taken by Nursing Laboratory Data Result diagrams: 08/30/21 16:30 08/30/21 16:30 Lab Results 08/30/21 08/30/21 Range/Units 16:30 16:30 WBC 8.74 (4.8-10.8) K/uL RBC 4.42 L (4.7-6.1) M/uL Hgb 13.2 L (14.0-18.0) g/dL Hct 37.9 L (42-52) % MCV 85.7 (80-100) fL MCH 29.9 (25-34) pg MCHC 34.8 (32-36) g/dL RDW Std Deviation 41.3 (36.4-46.3) fL RDW Coeff of Mendoza 13.1 (11.5-14.5) % Plt Count 253 (130-400) K/uL MPV 8.3 (7.4-10.4) fL Immature Gran % (Auto) 0.2 % Neut % (Auto) 73.8 % Lymph % (Auto) 12.7 % Wilcox % (Auto) 10.0 % Eos % (Auto) 3.2 % Baso % (Auto) 0.1 % Neut # (Auto) 6.45 (1.4-6.5) K/uL Lymph # (Auto) 1.11 L (1.2-3.4) K/uL Wilcox # (Auto) 0.87 H (0.11-0.59) K/uL Eos # (Auto) 0.28 (0-0.5) K/uL Baso # (Auto) 0.01 (0-0.2) K/uL Immature Gran # (Auto) 0.02 (0.00-0.02) K/uL Sodium 130 L (136-145) mmol/L Potassium 3.7 (3.5-5.1) mmol/L Chloride 98 (98-107) mmol/L Carbon Dioxide 26 (21-32) mmol/L Anion Gap 6.0 (3-11) BUN 8 (7-18) mg/dl Creatinine 0.79 (0.6-1.4) mg/dl Est Cr Clr Drug Dosing 78.2 ml/min Est GFR ( Amer) 101.8 ml/min Est GFR (Non-Af Amer) 87.8 ml/min BUN/Creatinine Ratio 10.6 (10-20) Glucose 138 H (70-99) mg/dl Calcium 8.8 (8.5-10.1) mg/dl Total Bilirubin 0.7 (0.2-1) mg/dl AST 14 L (15-37) U/L ALT 16 (12-78) Alkaline Phosphatase 84 (45-117) U/L Troponin I < 0.015 (0-0.045) ng/ml Total Protein 6.7 (6.4-8.2) gm/dl Albumin 3.0 L (3.4-5.0) gm/dl Globulin 3.7 (2.5-4.0) gm/dl Albumin/Globulin Ratio 0.8 L (0.9-2) Lipase 86 (73-393) U/L Administered Medications Discontinued Medications Sodium Chloride (Nss) 500 mls @ 999 mls/hr IV .Q31M STA Stop: 08/30/21 16:33 Last Admin: 08/30/21 16:21 Dose: 999 mls/hr Documented by: [id number] Piperacillin Sod/Tazobactam Sod (Zosyn) 4.5 gm in 120 mls @ 240 mls/hr IV NOW ONE Stop: 08/30/21 18:08 Last Admin: 08/30/21 18:19 Dose: 240 mls/hr Documented by: [id number] Ioversol (Optiray 320 100ml) 94 ml IV ONCE ONE Stop: 08/30/21 17:07 Last Admin: 08/30/21 17:07 Dose: 94 ml Documented by: [id number] Morphine Sulfate (Morphine Sulfate 2 Mg/Ml Carp) 2 mg IV NOW STA Stop: 08/30/21 16:04 Last Admin: 08/30/21 16:21 Dose: 2 mg Documented by: [id number] Morphine Sulfate (Morphine Sulfate 2 Mg/Ml Carp) 2 mg IV NOW STA Stop: 08/30/21 17:46 Last Admin: 08/30/21 18:19 Dose: 2 mg Documented by: [id number] Imaging Data Radiologist's Impression: Abdomen/Pelvis CT 08/30/21 16:03 CT abd pelvis IV con only CLINICAL HISTORY: lower abdominal pain, nausea, recent diverticuliti TECHNIQUE: Helical axial images of the abdomen and pelvis were obtained and displayed. Automated dose lowering techniques and/or adjustment according to patient size were utilized for this exam. This exam was performed with intravenous contrast. COMPARISON: Comparison is made to CT abdomen pelvis 08/27/2021 FINDINGS: Lower chest: No acute abnormality Liver: Unremarkable. No focal lesions are seen. Gallbladder and biliary tree: The gallbladder is distended. No wall thickening or pericholecystic fluid is seen. No intra- or extrahepatic biliary ductal dilation. Pancreas: Unremarkable, no focal lesions. Spleen: Splenule is incidentally noted. Adrenals: Unremarkable. Kidneys and ureters: Unremarkable. Bladder: Unremarkable. Reproductive organs: Unremarkable. Bowel: Diverticulosis is again seen. There is continued fat stranding and wall thickening in the sigmoid colon. No adjacent fluid collections are seen. Copious solid and liquid stool is noted. Lymph nodes Retroperitoneal: Unremarkable. Mesenteric: Unremarkable. Pelvic: Unremarkable. Peritoneum: Normal Vessels: Unremarkable. Abdominal wall: A fat-containing umbilical hernia is seen. A fat-containing right inguinal hernia is seen. Bones: Unremarkable. IMPRESSION: Continued fat stranding and sigmoid bowel thickening compatible with acute diverticulitis. No evidence of perforation or abscess. Large solid and liquid stool burden. ACT 112: Negative or not required by law. Electronically signed by: Srini Caldera M.D. 08/30/2021 5:31 PM Discharge Plan Visit Data Chief Complaint: Illness Stated Complaint: DIVERTICULITIS,PAIN ED Provider: Mesfin Alvares Discharge Problem: Sigmoid diverticulitis, Abdominal pain, lower, Nausea, Hyponatremia Patient Disposition: Being Evaluated by Hospitalist Forms [facility] Prescriptions: No Action tamsulosin [Flomax] 0.4 mg capsule 0.4 mg PO PM RF: 0 Motegrity 2 mg tablet 2 mg PO QAM RF: 0 albuterol sulfate [Ventolin HFA] 90 mcg/actuation HFA aerosol inhaler 2 puff inhalation Q6H PRN (Reason: Shortness Of Breath Or Wheezing) RF: 0 Anoro Ellipta 62.5-25 mcg/actuation blister with device 1 inh inhalation DAILY 90 Days Qty: 90 RF: 3 nortriptyline 10 mg Capsule 10 mg PO HS RF: 0 rosuvastatin [Crestor] 20 mg Tablet 20 mg PO QPM RF: 0 amlodipine 2.5 mg Tablet 2.5 mg PO QAM RF: 0 esomeprazole magnesium 40 mg Capsule,Delayed Release(Dr/Ec) 40 mg PO BID RF: 0 nitroglycerin 0.4 mg Tablet, Sublingual 1 dose sublingual UD PRN (Reason: Angina) RF: 0 sertraline [Zoloft] 50 mg Tablet 50 mg PO QAM RF: 0 finasteride 5 mg Tablet 5 mg PO HS RF: 0 solifenacin [Vesicare] 5 mg Tablet 5 mg PO HS RF: 0 ranolazine [Ranexa] 500 mg Tablet Extended Release 12 Hr 500 mg PO BID RF: 0 amoxicillin-pot clavulanate [Augmentin] 875-125 mg tablet 1 tab PO TID 10 Days Qty: 30 RF: 0 metoclopramide HCl [Reglan] 10 mg tablet 5 mg PO Q12H PRN (Reason: nausea and vomiting) Qty: 10 RF: 0 acetaminophen-codeine 300-30 mg tablet 1 tab PO BID PRN (Reason: pain) Qty: 6 RF: 0 ondansetron HCl [Zofran] 4 mg tablet 4 mg PO Q6H PRN (Reason: Nausea) RF: 0 Refresh Optive Noman-3 (PF) 0.5-1-0.5 % Dropperette 1 drp OPB BID RF: 0 Xiidra 5 % dropperette 1 drp OPB BID RF: 0 dicyclomine 20 mg tablet 20 mg PO TID PRN (Reason: abdominal pain) Qty: 9 RF: 0 lorazepam [Ativan] 0.5 mg tablet 0.5 mg PO TID PRN (Reason: anxiety) Qty: 20 RF: 0 polyethylene glycol 3350 17 gram Powder In Packet 17 g PO BID PRN (Reason: Constipation) RF: 0 Referrals Referrals: Celestino Vazquez DO [Primary Care Provider] -
[2021-08-30] MEDS ORDERED: SODIUM CHLORIDE 0.9% 500 ML IV STA (16:03)
[2021-08-30] MEDS ORDERED: MoRPHine SULFATE 2 MG/ML CARP IV STA ×2 (16:03→17:45)
[2021-08-30 16:42] LABS: Basophils # (auto) 0.01 K/uL (0-0.2); Basophils % (auto) 0.1 %; Eosinophils # (auto) 0.28 K/uL (0-0.5); Eosinophils % (auto) 3.2 %; Hematocrit (blood only) 37.9 % (42-52); Hemoglobin 13.2 g/dL (14.0-18.0); Immature Granulocytes # (auto) 0.02 K/uL (0.00-0.02); Immature Granulocytes % (auto) 0.2 %; Lymphocytes # (auto) 1.11 K/uL (1.2-3.4); Lymphocytes % (auto) 12.7 %; Mean Corpuscular Hemoglobin 29.9 pg (25-34); Mean Corpuscular Hgb Conc 34.8 g/dL (32-36); Mean Corpuscular Volume 85.7 fL (80-100); Mean Platelet Volume 8.3 fL (7.4-10.4); Monocytes # (auto) 0.87 K/uL (0.11-0.59); Neutrophils # (auto) 6.45 K/uL (1.4-6.5); Neutrophils % (auto) 73.8 %; Platelet Count 253 K/uL (130-400); RDW Coefficient of Variation 13.1 % (11.5-14.5); RDW Standard Deviation 41.3 fL (36.4-46.3); Red Blood Count 4.42 M/uL (4.7-6.1); White Blood Count 8.74 K/uL (4.8-10.8)
[2021-08-30 16:58] LABS: Alanine Aminotransferase 16 (12-78); Aspartate Aminotransferase 14 U/L (15-37); BUN Creatinine Ratio 10.6 (10-20); Blood Urea Nitrogen 8 mg/dl (7-18); Calcium 8.8 mg/dl (8.5-10.1); Carbon Dioxide 26 mmol/L (21-32); Chloride 98 mmol/L (98-107); Creatinine Clr Calc Pharmacy 78.2 ml/min; Est GFR (African American) 101.8 ml/min; Est GFR (Non-African American) 87.8 ml/min; Glucose 138 mg/dl (70-99); Lipase 86 U/L (73-393); Potassium 3.7 mmol/L (3.5-5.1); Sodium 130 mmol/L (136-145)
[2021-08-30 17:03] LABS: Albumin Globulin Ratio 0.8 (0.9-2); Alkaline Phosphatase 84 U/L (45-117); Bilirubin,Total 0.7 mg/dl (0.2-1); Globulin 3.7 gm/dl (2.5-4.0); Total Protein 6.7 gm/dl (6.4-8.2); Troponin I < 0.015 ng/ml (0-0.045)
[2021-08-30] MEDS ORDERED: OPTIRAY 320 100ml IV ONE (17:06)
--- NOTE | 2021-08-30 17:32 | CT Scan Report ---
CT abd pelvis IV con only CLINICAL HISTORY: lower abdominal pain, nausea, recent diverticuliti TECHNIQUE: Helical axial images of the abdomen and pelvis were obtained and displayed. Automated dose lowering techniques and/or adjustment according to patient size were utilized for this exam. This e xam was performed with intravenous contrast. COMPARISON: Comparison is made to CT abdomen pelvis 08/27/2021 FINDINGS: Lower chest: No acute abnormality Liver: Unremarkable. No focal lesions are seen. Gallbladder and biliary tree: The gallbladder is distended. No wall thickening or pericholecystic flu id is seen. No intra- or extrahepatic biliary ductal dilation. Pancreas: Unremarkable, no focal lesions. Spleen: Splenule is incidentally noted. Adrenals: Unremarkable. Kidneys and ureters: Unremarkable. Bladder: Unremarkable. Reproductive organs: Unremarkable. Bowel: Diverticulosis is again seen. There is continued fat stranding and wall thickening in the sigm oid colon. No adjacent fluid collections are seen. Copious solid and liquid stool is noted. Lymph nodes Retroperitoneal: Unremarkable. Mesenteric: Unremarkable. Pelvic: Unremarkable. Peritoneum: Normal Vessels: Unremarkable. Abdominal wall: A fat-containing umbilical hernia is seen. A fat-containing right inguinal hernia is seen. Bones: Unremarkable. IMPRESSION: Continued fat stranding and sigmoid bowel thickening compatible with acute diverticulitis. No evidenc e of perforation or abscess. Large solid and liquid stool burden. ACT 112: Negative or not required by law. Electronically signed by: Srini Caldera M.D. 08/30/2021 5:31 PM
[2021-08-30] MEDS ORDERED: PIPERACILL/TAZOBAC CONSULT ACTIVE PRN (17:39)
[2021-08-30] MEDS ORDERED: PIPERACILLIN/TAZOBACTAM 4.5 GM/120 ML BAG IV ONE (17:39)
--- NOTE | 2021-08-30 17:59 | History & Physical Report ---
Date of Service August 30, 2021 Assessment & Plan (1) Sigmoid diverticulitis: Plan: Zosyn LR @ 100ml/hr NPO including PO medications Acetaminophen IV and morphine IV for pain relief however try to minimize morphine as much as possible given constipation Ondansetron for nausea, NG tube recommended if nausea intractable to ondansetron Needs colonoscopy 4-6 weeks after discharge (2) Constipation: Plan: NPO with LR currently Minimize opiates as much as possible (3) Acid reflux: Plan: Switch esomeprazole for famotidine 20mg IV BID Switch to pantoprazole when able to take PO meds (4) Hypertension: Plan: Holding all oral anti-hypertensives while NPO Hydralazine 5mg Q4H PRN for sBP > 180 (5) Depression: Plan: Restart sertraline once able to take PO meds (6) Hyperlipidemia: Plan: Restart rosuvastatin once able to take PO meds (7) BPH (benign prostatic hyperplasia): Plan: Restart finasteride and tamsulosin once able to take PO meds Monitor for urinary retention while off these medications Plan: VTE Prophylaxis - Lovenox 40mg SQ daily Diet - NPO Disposition - admit to med/surg Admission and Anticipated Discharge Date Admission Date: August 30, 2021 History of Present Illness Chief Complaint: Abdominal pain Primary Care Provider: DO Gena Smith is a 76 year old male who presents to the ER with right lower quadrant (now left lower quadrant) abdominal pain, nausea and vomiting. Pain ongoing for approximately 10 days. Progressively getting worse. Much worse in last 2-3 days. Associated constipation. He was seen in the ER 3 days ago for similar symptoms and diagnosed with acute diverticulitis. He was started on Unasyn and prescribed Augmentin on discharge for which he has been taking. Some chills but no objective fevers. He notes chronic problems with constipation and gastroparesis. Under Dr Tinsley at [place] for this. He reports having hiatal hernia surgery this summer. he has lost 30lb since Julydue to gastroparesis. Prior EGDs have had to be abandoned due to food in his stomach. He has not had a colonoscopy in many years and previous preps have been inadequate. Of note he reports recent diagnosis of UTI treated with Bactrim in 08/13 (subsequent culture resistant to this), then Ciprofloxacin 08/17 (caused nausea), then Levaquin 08/19 - recently finished this. In the ER CT confirmed continuation of diverticulitis without abscess or perforation. WBC was normal. He was referred to medicine for admission and ongoing management of this. Allergies Allergy/AdvReac Type Severity Reaction Status Date / Time Beta-Blockers Allergy Severe "SHOOK UP Verified 08/30/21 18:09 (Beta-Adrenergic Bloc FEELING" omeprazole Allergy Mild "made my Verified 08/30/21 18:09 head spin" levofloxacin Allergy Gastrointestinal Verified 08/30/21 18:09 Upset pantoprazole AdvReac Mild HALLUCINATI Verified 08/30/21 18:09 ONS Home Medications Medication Instructions Recorded Confirmed Type amlodipine 2.5 mg tablet 2.5 mg PO QAM 11/23/18 08/30/21 History esomeprazole magnesium 40 mg 40 mg PO BID 11/23/18 08/30/21 History capsule,delayed release finasteride 5 mg tablet 5 mg PO HS 11/23/18 08/30/21 History nitroglycerin 0.4 mg sublingual 1 dose SUBLINGUAL UD PRN 11/23/18 08/30/21 History tablet nortriptyline 10 mg capsule 10 mg PO HS 11/23/18 08/30/21 History ranolazine 500 mg tablet,extended 500 mg PO BID 11/23/18 08/30/21 History release,12 hr (Ranexa) rosuvastatin 20 mg tablet (Crestor) 20 mg PO QPM 11/23/18 08/30/21 History sertraline 50 mg tablet (Zoloft) 50 mg PO QAM 11/23/18 08/30/21 History solifenacin 5 mg tablet (Vesicare) 5 mg PO HS 11/23/18 08/30/21 History tamsulosin 0.4 mg capsule (Flomax) 0.4 mg PO PM 05/08/20 08/30/21 History albuterol sulfate 90 mcg/actuation 2 puff INHALATION Q6H PRN 05/13/21 08/30/21 History aerosol inhaler (Ventolin HFA) prucalopride 2 mg tablet 2 mg PO QAM 05/13/21 08/30/21 History (Motegrity) umeclidinium 62.5 mcg-vilanterol 1 inh INHALATION DAILY 90 Days #90 05/13/21 08/30/21 Rx 25 mcg/actuation powdr for puff inhalation (Anoro Ellipta) carboxymethyl 0.5 %-glycerin 1 1 drp OPB BID 06/22/21 08/30/21 History %-polysorb 80 0.5 %-PF eye dropperette (Refresh Optive Noman-3 (PF)) dicyclomine 20 mg tablet 20 mg PO TID PRN #9 tab 06/22/21 08/30/21 Rx lifitegrast 5 % eye drops in a 1 drp OPB BID 06/22/21 08/30/21 History dropperette (Xiidra) ondansetron HCl 4 mg tablet 4 mg PO Q6H PRN 06/22/21 08/30/21 History (Zofran) lorazepam 0.5 mg tablet (Ativan) 0.5 mg PO TID PRN #20 tab 06/30/21 08/30/21 Rx acetaminophen 300 mg-codeine 30 mg 1 tab PO BID PRN #6 tab 08/27/21 08/30/21 Rx tablet amoxicillin 875 mg-potassium 1 tab PO TID 10 Days #30 tab 08/27/21 08/30/21 Rx clavulanate 125 mg tablet (Augmentin) metoclopramide HCl 10 mg tablet 5 mg PO Q12H PRN #10 tab 08/27/21 08/30/21 Rx (Reglan) aspirin 81 mg capsule,delayed 81 mg PO QAM 08/30/21 08/30/21 History release polyethylene glycol 3350 17 gram 17 g PO BID PRN 08/30/21 08/30/21 History oral powder packet Past Med/Surg History Medical History (Updated 08/30/21 @ 18:43 by Mesfin Alvares M.D.) Anemia Anxiety Barretts esophagus BPH (benign prostatic hyperplasia) Depression GERD (gastroesophageal reflux disease) Hearing deficit Hyperlipidemia Hypertension IBS (irritable bowel syndrome) Migraine Prediabetes Surgical History History of cardiac cath 11/2011 @ [facility], 06/2012 @ [facility]--no stent History of cataract extraction with lens replacement LEFT EYE, 01/03/19 History of colonoscopy History of esophagogastroduodenoscopy (EGD) History of flexible sigmoidoscopy History of foot surgery left History of heart artery stent 11/2011 x1 @ [facility] History of hemorrhoidectomy Family History Father Family history of esophageal cancer Mother Family hx of colon cancer Other No family history of adverse response to anesthesia Social History Smoking Status: Never smoker Second Hand Exposure: Yes (parents smoked); Hx Alcohol Use: Yes Alcohol type: beer Hx Substance Use: No Preferred Language: Scottish Communication Ability: Effective Rug Washer Required: No Beliefs That Will Affect Care: None Current Living Situation: Spouse Feels Safe at Home: Yes Assistive Devices: Glasses and Hearing Aid - Bilateral Review of Systems Review of Systems: All systems reviewed & are unremarkable except as noted in HPI & below Physical Exam Constitutional: WD/WN, vitals as above Eyes: PERRL, conjunctivae normal, anicteric sclerae ENMT: external ear and nose normal, oropharynx normal Neck: trachea midline, no thyromegaly Respiratory: normal respiratory effort, lungs clear to auscultation Cardiovascular: RRR, no murmur, no edema Gastrointestinal (Abdomen): Inspection/Auscultation: normal bowel sounds Percussion/Palpation: + abdomen tender (LLQ) and abdomen soft; no guarding and abdomen not rigid Musculoskeletal: no cyanosis or clubbing, extremities motor strength 5/5 Skin: no rashes, warm and dry Neurologic: moves all extremities and awake; not confused Psychiatric: A+Ox3, euthymic affect Genitourinary: no CVA tenderness Results & Data Results & Data ([facility]) Vital Signs (Past 12 Hours) Vital Signs Temp Pulse Resp BP Pulse Ox 08/30/21 16:30 59 L 19 130/69 98 08/30/21 16:18 59 L 16 98 08/30/21 16:04 98 H 20 96 08/30/21 15:44 36.5 C 70 18 112/70 100 Laboratory Results Abnormal lab results 08/30/21 08/30/21 Range/Units 16:30 16:30 RBC 4.42 L (4.7-6.1) M/uL Hgb 13.2 L (14.0-18.0) g/dL Hct 37.9 L (42-52) % Lymph # (Auto) 1.11 L (1.2-3.4) K/uL Lyman # (Auto) 0.87 H (0.11-0.59) K/uL Sodium 130 L (136-145) mmol/L Glucose 138 H (70-99) mg/dl AST 14 L (15-37) U/L Albumin 3.0 L (3.4-5.0) gm/dl Albumin/Globulin Ratio 0.8 L (0.9-2) Diagnostic Findings CT abd pelvis IV con only CLINICAL HISTORY: lower abdominal pain, nausea, recent diverticuliti TECHNIQUE: Helical axial images of the abdomen and pelvis were obtained and displayed. Automated dose lowering techniques and/or adjustment according to patient size were utilized for this exam. This exam was performed with intravenous contrast. COMPARISON: Comparison is made to CT abdomen pelvis 08/27/2021 FINDINGS: Lower chest: No acute abnormality Liver: Unremarkable. No focal lesions are seen. Gallbladder and biliary tree: The gallbladder is distended. No wall thickening or pericholecystic fluid is seen. No intra- or extrahepatic biliary ductal dilation. Pancreas: Unremarkable, no focal lesions. Spleen: Splenule is incidentally noted. Adrenals: Unremarkable. Kidneys and ureters: Unremarkable. Bladder: Unremarkable. Reproductive organs: Unremarkable. Bowel: Diverticulosis is again seen. There is continued fat stranding and wall thickening in the sigmoid colon. No adjacent fluid collections are seen. Copious solid and liquid stool is noted. Lymph nodes Retroperitoneal: Unremarkable. Mesenteric: Unremarkable. Pelvic: Unremarkable. Peritoneum: Normal Vessels: Unremarkable. Abdominal wall: A fat-containing umbilical hernia is seen. A fat-containing right inguinal hernia is seen. Bones: Unremarkable. IMPRESSION: Continued fat stranding and sigmoid bowel thickening compatible with acute diverticulitis. No evidence of perforation or abscess. Large solid and liquid stool burden. Medications Administered ER Medications Given: NSS 500ml bolus Morphine 2mg IV x2 Zosyn 4.5g IV ECG Indication: abdominal pain Rate (beats per minute): 59 Rhythm: sinus bradycardia Findings: no acute ischemic change Comparison ECG Date: from (Jul 02, 2021) Change: no significant change Code Status & VTE Plan Code Status DNR - All other treatment outside or a cardiac arrest VTE Prophylaxis Plan VTE Prophylaxis will be ordered: Yes PG Care Time/CCT Total # of Minutes Spent Total Time Spent with Patient: Total time spent is greater than 50% in coordination of care (as documented) at patient's floor/unit and/or counseling patient: Coding Level of Care Code 40152 Initial Inpt Care Lvl 2 Diagnoses Sigmoid diverticulitis K57.32 Constipation K59.00 Constipation type: unspecified constipation type Acid reflux K21.9 Hypertension I10 Depression F32.9 Hyperlipidemia E78.5 BPH (benign prostatic hyperplasia) N40.0 (1) Constipation Constipation type: unspecified constipation type Qualified Code(s): K59.00 - Constipation, unspecified
[2021-08-30] MEDS ORDERED: ONDANSETRON INJ 2 MG/ML 2 ML VIAL IV PRN (18:13)
[2021-08-30 20:33] LABS: Appearance Urine Clear (Clear); Bilirubin Urine Negative (Negative); Blood Urine Negative (Negative); Color Urine Yellow; Glucose Urine UA Negative (Negative); Ketones Urine Negative (Negative); Leukocyte Esterase Urine Negative (Negative); Nitrite Urine Negative (Negative); Protein Urine Negative (Negative); Specific Gravity Urine 1.016 (1.000-1.030); Urobilinogen Urine Negative (Negative)
[2021-08-30] MEDS ORDERED: hydrALAZINE HCL 20 MG/ML VIAL IV PRN (22:22)
[2021-08-30] MEDS: ACETAMINOPHEN 1,000 MG/100 ML VIAL IV PRN (22:38)
[2021-08-30] MEDS: FAMOTIDINE 20 MG in SYRINGE 3 ML IV SCH (22:38)
[2021-08-30] MEDS: LACTATED RINGER'S 1,000 ML IV SCH (22:38)
[2021-08-30] MEDS: ENOXAPARIN INJ 40 MG/0.4 ML SYR SQ SCH (23:33)
[2021-08-30] MEDS: PIPERACILLIN/TAZOBACTAM 3.375 GM in DEXTROSE 5% 100 ML IV SCH (23:33)
[2021-08-31] MEDS: ACETAMINOPHEN 1,000 MG/100 ML VIAL IV PRN ×2 (06:31→15:38)
[2021-08-31 06:47] LABS: Basophils # (auto) 0.02 K/uL (0-0.2); Basophils % (auto) 0.4 %; Eosinophils # (auto) 0.48 K/uL (0-0.5); Eosinophils % (auto) 8.5 %; Hematocrit (blood only) 35.4 % (42-52); Immature Granulocytes # (auto) 0.02 K/uL (0.00-0.02); Immature Granulocytes % (auto) 0.4 %; Lymphocytes # (auto) 1.35 K/uL (1.2-3.4); Lymphocytes % (auto) 23.9 %; Mean Corpuscular Hemoglobin 29.9 pg (25-34); Mean Corpuscular Hgb Conc 33.9 g/dL (32-36); Mean Corpuscular Volume 88.1 fL (80-100); Mean Platelet Volume 8.2 fL (7.4-10.4); Monocytes # (auto) 0.65 K/uL (0.11-0.59); Monocytes % (auto) 11.5 %; Neutrophils # (auto) 3.14 K/uL (1.4-6.5); Neutrophils % (auto) 55.3 %; Platelet Count 250 K/uL (130-400); RDW Coefficient of Variation 13.3 % (11.5-14.5); RDW Standard Deviation 42.8 fL (36.4-46.3); Red Blood Count 4.02 M/uL (4.7-6.1); White Blood Count 5.66 K/uL (4.8-10.8)
[2021-08-31 07:11] LABS: BUN Creatinine Ratio 9.9 (10-20); Calcium 8.4 mg/dl (8.5-10.1); Creatinine Clr Calc Pharmacy 99.6 ml/min; Est GFR (African American) 112.5 ml/min; Potassium 3.6 mmol/L (3.5-5.1)
--- NOTE | 2021-08-31 08:10 | Hospitalist Progress Note ---
Date of Service August 31, 2021 Assessment & Plan (1) Sigmoid diverticulitis: Plan: Hx of divertiular disease, previously managed in outpatient setting never requiring hospitalization. Also has gastroparesis and follows [facility] [place] [place] [facility], recently started on reglan (resumed after discussion with GI) Prior 2 c-scopes without good prep but stated given findings of fluid filled esophagus on EGD they felt he has gastroparesis and has been having significant weight loss since this year due to complications of such. Was recently in ER and found to have diverticulitis and given Unasyn IV and then sent home on Augmentin. Stated took several days worth and had developed worseni ng RLQ pain and concerned for appendicitis. Had tolerated Cipro/Flagyl for courses of diverticulitis in the past without issue (given recent issue w/ cipro for UTI and caused nausea) and could consider this in de-escalation given prior ineffectiveness of the Augmentin, however worsening pain could also be contributed by his constipation/gastroparesis CT on admission with continued fat stranding and sigmoid bowel thickening compatible with acute diverticulitis. No evidence of perforation or abscess. Large solid and liquid stool burden. Continued Zosyn (day 2) WBC wnl, afebrile Continue IVF, decreased to 75cc/hr this afternoon as starting on clear liquid diet. Discussed if any increased discomfort to stop Pain control, antiemetics prn GI on consult Restarted reglan 5mg QID for gastroparesis ASking patient to bring in his Motegrity as he is on 2mg daily as well (non- formulary) Clear liquids for now --> advance slowly as tolerated to full --> low fiber. Was provided information by nutrition regarding gastroparesis and low fiber diet No NGT at this time Will need outpt c-scope 4-6 weeks after discharge Monitor labs/electrolyte replacement as needed (2) Constipation: Plan: Did have large BM this morning, formed, brown Limit opiates as much as possible IVF as above Started reglan -- recently placed on this while his GI provider looking into other agents as he stated "she hates reglan" but was cleared by one of the nurses apparently Given recent abx use for UTI, also will check cdiff Continue to monitor and will need outpt f/u with [facility] [place] [place] [facility] as already scheduled for September (3) Acid reflux: Plan: Switch esomeprazole for famotidine 20mg IV BID Switch to pantoprazole when able to take PO meds --> LISTED ON ALLERGIES FOR HALLUCINATIONS. would continue famotidine BID while inpatient, consider having patient bring in esomeprazole (4) CAD (coronary atherosclerotic disease): Plan: Hx of stent to mid LAD with mild-moderate residual CAD. Follows cardiology, Dr Leyva. Negative dobutamine stress echo April 2020. Normal LV size and systolic function with no regional wma. EF 65%. No LVH. Type I diastolic dysfunction. Normal LA pressures. Resume ASA in AM, resumed ranexa BID, not on BB but resumed amlodipine in AM. Plans to resume crestor tomorrow if continues to tolerate PO intake EKG w/ CP No chest pain/sob reported. Chronic exertional sob. (5) Hypertension: Plan: BP stable 130/76 Holding amlodipine 2.5mg while NPO, could resume in AM if continues to tolerate PO intake Hydralazine 5mg Q4H PRN for sBP > 180 (6) Depression: Plan: Restart sertraline once able to take PO meds, possible tomorrow will resume ativan prn -- takes 0.5 tid prn (7) Hyperlipidemia: Plan: Restart rosuvastatin once able to take PO meds, possible tomorrow (8) BPH (benign prostatic hyperplasia): Plan: Restart finasteride and tamsulosin once able to take PO meds Monitor for urinary retention while off these medications (9) Elevated LFTs: Plan: mildly elevated LFTs, waxing/waning per PCP note May. Had RUQ US in years past. GB thickening on CT on admission but no stones/acute boogie. No RUQ discomfort/negative Quintanilla's. On dicyclomine BID prn [employer] --? biliary colic. Elevated during last admission but now normal. Discussed if persistent issue/RUQ pain returns would obtain RUQ vs HIDA for further investigation (10) Gastroparesis: Plan: reglan as above f/u [facility] [place] [place] [facility] outpatient need c-scope 4-6 weeks (11) Hiatal hernia: Plan: recent surgical correction earlier this year famotidine BID while NPO --> takes esomeprazole BID at home -- would ask to bring in given issues with protonix and hallucinations in the past Plan: VTE Prophylaxis - Lovenox 40mg SQ daily Advanced to clear liquids, restarted reglan GI on consult Continue IV ZOsyn for now Continued inpatient stay Admission and Anticipated Discharge Date Admission Date: August 30, 2021 Supervising Physician Co-Signing Physician Notes Attending Attestation - Chart reviewed in detail, care plan d/w BARTOLO Hinojosa. I agree w/ the corcoran components of her documentation. 76yo male w/ sigmoid diverticulitis. Cont zosyn. Appreciate GI consultation & recs. Cont supportive care. Quinn Llamas MD Subjective patient evaluated this morning. pain improving but still present across lower abdomen, worse on LLQ. Initially he thought was his appendix that ruptured and prompted being brought to ER. Had large brown BM this morning and feeling better. Hx gastroparesis and recently started on reglan -- resuming to help with GI motility. Will see if able to bring in his motegrity. Eval by GI this morning but follows with [place], most recently switched to new doc there as last had left niall. He has known diverticular disease with bouts of diverticulitis in the past typically managed [facility] outpatient with Cipro and "the other one" being Flagyl. Had tolerated Cipro in past but recently did give him nausea when treated for UTI. Of note, he had been in ER the other day and was given Unasyn and discharged on Augmentin which he notes he took "half the bottle" and states he completed at least 3-4 days of treatment but not sure how long the course was supposed to be. No fever, chills. No chest pain or shortness of breath. Occasional nausea but none currently. Pain controlled with tylenol. No vomiting. No diarrhea or dysuria reported. Discussed he had epigastric discomfort couple days ago (working on diet, takes dicyclomine prn at home) and did discuss prior elevations in ALP and Tbili and if recurrance of pain would look into RUQ/HIDA scan for further evaluation but holding off at this time given lack of discomfort/negative quintanilla on examinat ion. Review of Systems Review of Systems: All systems reviewed & are unremarkable except as noted in HPI & below Physical Exam Constitutional: WD/WN, vitals as above cooperative and comfortable; no acute distress Eyes: PERRL, conjunctivae normal, anicteric sclerae ENMT: external ear and nose normal, oropharynx normal Neck: trachea midline, no thyromegaly Respiratory: normal respiratory effort, lungs clear to auscultation Cardiovascular: RRR, no murmur, no edema Gastrointestinal (Abdomen): Inspection/Auscultation: normal bowel sounds (slightly hypoactive LLQ) Percussion/Palpation: + abdomen tender (LLQ/RLQ) and abdomen soft; no guarding and abdomen not rigid Musculoskeletal: no cyanosis or clubbing, extremities motor strength 5/5 Skin: no rashes, warm and dry Neurologic: moves all extremities and awake; not confused Psychiatric: A+Ox3, euthymic affect Genitourinary: no CVA tenderness Results & Data Results & Data ([facility]) Vital Signs (Past 12 Hours) Vital Signs Temp Pulse Pulse Resp BP BP Pulse Ox 08/31/21 08:07 36.5 C 58 L 16 130/76 94 08/30/21 22:23 36.6 C 61 20 162/77 H 97 08/30/21 21:00 71 18 08/30/21 20:30 57 L 16 147/72 H 100 Laboratory Results 08/31/21 08/31/21 08/30/21 Range/Units 06:23 06:23 Unknown WBC 5.66 (4.8-10.8) K/uL RBC 4.02 L (4.7-6.1) M/uL Hgb 12.0 L (14.0-18.0) g/dL Hct 35.4 L (42-52) % MCV 88.1 (80-100) fL MCH 29.9 (25-34) pg MCHC 33.9 (32-36) g/dL RDW Std Deviation 42.8 (36.4-46.3) fL RDW Coeff of Mendoza 13.3 (11.5-14.5) % Plt Count 250 (130-400) K/uL MPV 8.2 (7.4-10.4) fL Immature Gran % (Auto) 0.4 % Neut % (Auto) 55.3 % Lymph % (Auto) 23.9 % Marion % (Auto) 11.5 % Eos % (Auto) 8.5 % Baso % (Auto) 0.4 % Neut # (Auto) 3.14 (1.4-6.5) K/uL Lymph # (Auto) 1.35 (1.2-3.4) K/uL Marion # (Auto) 0.65 H (0.11-0.59) K/uL Eos # (Auto) 0.48 (0-0.5) K/uL Baso # (Auto) 0.02 (0-0.2) K/uL Immature Gran # (Auto) 0.02 (0.00-0.02) K/uL Sodium 135 L (136-145) mmol/L Potassium 3.6 (3.5-5.1) mmol/L Chloride 105 (98-107) mmol/L Carbon Dioxide 25 (21-32) mmol/L Anion Gap 5.0 (3-11) BUN 6 L (7-18) mg/dl Creatinine 0.62 (0.6-1.4) mg/dl Est Cr Clr Drug Dosing 99.6 ml/min Est GFR ( Amer) 112.5 ml/min Est GFR (Non-Af Amer) 97.0 ml/min BUN/Creatinine Ratio 9.9 L (10-20) Glucose 104 H (70-99) mg/dl Calcium 8.4 L (8.5-10.1) mg/dl Total Bilirubin (0.2-1) mg/dl AST (15-37) U/L ALT (12-78) Alkaline Phosphatase (45-117) U/L Troponin I (0-0.045) ng/ml Total Protein (6.4-8.2) gm/dl Albumin (3.4-5.0) gm/dl Globulin (2.5-4.0) gm/dl Albumin/Globulin Ratio (0.9-2) Lipase (73-393) U/L Urine Color Yellow Urine Appearance Clear (Clear) Urine pH 7.0 (4.5-7.5) Ur Specific [place] 1.016 (1.000-1.030) Urine Protein Negative (Negative) Urine Glucose (UA) Negative (Negative) Urine Ketones Negative (Negative) Urine Blood Negative (Negative) Urine Nitrite Negative (Negative) Urine Bilirubin Negative (Negative) Urine Urobilinogen Negative (Negative) Ur Leukocyte Esterase Negative (Negative) SARS-CoV-2, RNA, NAAT (NEGATIVE) 08/30/21 08/30/21 08/30/21 Range/Units 18:13 16:30 16:30 WBC 8.74 (4.8-10.8) K/uL RBC 4.42 L (4.7-6.1) M/uL Hgb 13.2 L (14.0-18.0) g/dL Hct 37.9 L (42-52) % MCV 85.7 (80-100) fL MCH 29.9 (25-34) pg MCHC 34.8 (32-36) g/dL RDW Std Deviation 41.3 (36.4-46.3) fL RDW Coeff of Mendoza 13.1 (11.5-14.5) % Plt Count 253 (130-400) K/uL MPV 8.3 (7.4-10.4) fL Immature Gran % (Auto) 0.2 % Neut % (Auto) 73.8 % Lymph % (Auto) 12.7 % Marion % (Auto) 10.0 % Eos % (Auto) 3.2 % Baso % (Auto) 0.1 % Neut # (Auto) 6.45 (1.4-6.5) K/uL Lymph # (Auto) 1.11 L (1.2-3.4) K/uL Marion # (Auto) 0.87 H (0.11-0.59) K/uL Eos # (Auto) 0.28 (0-0.5) K/uL Baso # (Auto) 0.01 (0-0.2) K/uL Immature Gran # (Auto) 0.02 (0.00-0.02) K/uL Sodium 130 L (136-145) mmol/L Potassium 3.7 (3.5-5.1) mmol/L Chloride 98 (98-107) mmol/L Carbon Dioxide 26 (21-32) mmol/L Anion Gap 6.0 (3-11) BUN 8 (7-18) mg/dl Creatinine 0.79 (0.6-1.4) mg/dl Est Cr Clr Drug Dosing 78.2 ml/min Est GFR ( Amer) 101.8 ml/min Est GFR (Non-Af Amer) 87.8 ml/min BUN/Creatinine Ratio 10.6 (10-20) Glucose 138 H (70-99) mg/dl Calcium 8.8 (8.5-10.1) mg/dl Total Bilirubin 0.7 (0.2-1) mg/dl AST 14 L (15-37) U/L ALT 16 (12-78) Alkaline Phosphatase 84 (45-117) U/L Troponin I < 0.015 (0-0.045) ng/ml Total Protein 6.7 (6.4-8.2) gm/dl Albumin 3.0 L (3.4-5.0) gm/dl Globulin 3.7 (2.5-4.0) gm/dl Albumin/Globulin Ratio 0.8 L (0.9-2) Lipase 86 (73-393) U/L Urine Color Urine Appearance (Clear) Urine pH (4.5-7.5) Ur Specific [place] (1.000-1.030) Urine Protein (Negative) Urine Glucose (UA) (Negative) Urine Ketones (Negative) Urine Blood (Negative) Urine Nitrite (Negative) Urine Bilirubin (Negative) Urine Urobilinogen (Negative) Ur Leukocyte Esterase (Negative) SARS-CoV-2, RNA, NAAT NEGATIVE (NEGATIVE) Diagnostic Findings Abdomen/Pelvis CT 08/30/21 16:03 CT abd pelvis IV con only CLINICAL HISTORY: lower abdominal pain, nausea, recent diverticuliti TECHNIQUE: Helical axial images of the abdomen and pelvis were obtained and displayed. Automated dose lowering techniques and/or adjustment according to patient size were utilized for this exam. This exam was performed with intravenous contrast. COMPARISON: Comparison is made to CT abdomen pelvis 08/27/2021 FINDINGS: Lower chest: No acute abnormality Liver: Unremarkable. No focal lesions are seen. Gallbladder and biliary tree: The gallbladder is distended. No wall thickening or pericholecystic fluid is seen. No intra- or extrahepatic biliary ductal dilation. Pancreas: Unremarkable, no focal lesions. Spleen: Splenule is incidentally noted. Adrenals: Unremarkable. Kidneys and ureters: Unremarkable. Bladder: Unremarkable. Reproductive organs: Unremarkable. Bowel: Diverticulosis is again seen. There is continued fat stranding and wall thickening in the sigmoid colon. No adjacent fluid collections are seen. Copious solid and liquid stool is noted. Lymph nodes Retroperitoneal: Unremarkable. Mesenteric: Unremarkable. Pelvic: Unremarkable. Peritoneum: Normal Vessels: Unremarkable. Abdominal wall: A fat-containing umbilical hernia is seen. A fat-containing right inguinal hernia is seen. Bones: Unremarkable. IMPRESSION: Continued fat stranding and sigmoid bowel thickening compatible with acute diverticulitis. No evidence of perforation or abscess. Large solid and liquid stool burden. ACT 112: Negative or not required by law. Electronically signed by: Srini Caldera M.D. 08/30/2021 5:31 PM PG Care Time/CCT Total # of Minutes Spent Total Time Spent with Patient: Total time spent is greater than 50% in coordination of care (as documented) at patient's floor/unit and/or counseling patient: Coding Level of Care Code 08718 Subseq Hosp Care Lvl 3 Diagnoses Sigmoid diverticulitis K57.32 Constipation K59.00 Constipation type: unspecified constipation type Acid reflux K21.9 Hypertension I10 Depression F32.9 Hyperlipidemia E78.5 BPH (benign prostatic hyperplasia) N40.0 CAD (coronary atherosclerotic disease) I25.10 Elevated LFTs R79.89 Gastroparesis K31.84 Hiatal hernia K44.9 (1) Constipation Constipation type: unspecified constipation type Qualified Code(s): K59.00 - Constipation, unspecified
[2021-08-31] MEDS: PIPERACILLIN/TAZOBACTAM 3.375 GM in DEXTROSE 5% 100 ML IV SCH ×3 (08:34→23:34)
[2021-08-31] MEDS: LACTATED RINGER'S 1,000 ML IV SCH ×2 (08:57→21:26)
[2021-08-31] MEDS: FAMOTIDINE 20 MG in SYRINGE 3 ML IV SCH ×2 (09:56→20:24)
[2021-08-31] MEDS: UMECLIDINIUM/VILANTEROL 62.5/25MCG 7 PUFFS/INHALER INH SCH (09:56)
--- NOTE | 2021-08-31 11:41 | Electrocardiogram Report ---
Test Reason : Blood Pressure : / mmHG Vent. Rate : 059 BPM Atrial Rate : 059 BPM P-R Int : 172 ms QRS Dur : 092 ms QT Int : 452 ms P-R-T Axes : 012 002 022 degrees QTc Int : 447 ms Sinus bradycardia Otherwise normal ECG When compared with ECG of 02-JUL-2021 18:51, No significant change was found Confirmed by Judah Brunson ([id number]) on 08/31/2021 11:40:46 AM Referred By: Confirmed By:Judah Brunson
[2021-08-31] MEDS ORDERED: [UNRECOGNIZED DRUG - OTHER] PO SCH (12:30)
--- NOTE | 2021-08-31 12:48 | Gastrointestinal Consultation ---
Date of Consultation August 31, 2021 Assessment & Plan (1) Sigmoid diverticulitis: (2) Constipation: (3) Abdominal pain, lower: (4) Gastroparesis: multifactorial etiology for his pain between his diverticulitis and constipation recs: --complete 7-10 day course of abx for his diverticulitis, take daily probiotic while on abx --restart home motegrity 2 mg daily for constipation in the setting of gastroparesis --stop zofran and restart reglan 5 mg QID (prior to meals and hs) --clear liquid diet for now, then advance as tolerated to low fat,low fiber diet --supportive care Thank you for allowing me to participate in the care of this patient History of Present Illness Attending Physician: Quinn Llamas History of Present Illness 76 year old male who presented to the ER with right lower quadrant (now left lower quadrant) abdominal pain, nausea and vomiting. He was was found to have diverticulitis earlier in the week and has been on abx for that. He also has hx gastroparesis and recently just started on reglan. Also noted to have significant constipation on his imaging. He had a medium sized bowel movement today and he does feel significantly better. He is on motegrity 2 mg daily at home for his constipation. Has not had a colonoscopy in several years and prior preps were inadequate. labs reviewed. Allergies Allergy/AdvReac Type Severity Reaction Status Date / Time Beta-Blockers Allergy Severe "SHOOK UP Verified 08/30/21 18:09 (Beta-Adrenergic Bloc FEELING" omeprazole Allergy Mild "made my Verified 08/30/21 18:09 head spin" levofloxacin Allergy Gastrointestinal Verified 08/30/21 18:09 Upset pantoprazole AdvReac Mild HALLUCINATI Verified 08/30/21 18:09 ONS Home Medications Medication Instructions Recorded Confirmed Type amlodipine 2.5 mg tablet 2.5 mg PO QAM 11/23/18 08/30/21 History esomeprazole magnesium 40 mg 40 mg PO BID 11/23/18 08/30/21 History capsule,delayed release finasteride 5 mg tablet 5 mg PO HS 11/23/18 08/30/21 History nitroglycerin 0.4 mg sublingual 1 dose SUBLINGUAL UD PRN 11/23/18 08/30/21 History tablet nortriptyline 10 mg capsule 10 mg PO HS 11/23/18 08/30/21 History ranolazine 500 mg tablet,extended 500 mg PO BID 11/23/18 08/30/21 History release,12 hr (Ranexa) rosuvastatin 20 mg tablet (Crestor) 20 mg PO QPM 11/23/18 08/30/21 History sertraline 50 mg tablet (Zoloft) 50 mg PO QAM 11/23/18 08/30/21 History solifenacin 5 mg tablet (Vesicare) 5 mg PO HS 11/23/18 08/30/21 History tamsulosin 0.4 mg capsule (Flomax) 0.4 mg PO PM 05/08/20 08/30/21 History albuterol sulfate 90 mcg/actuation 2 puff INHALATION Q6H PRN 05/13/21 08/30/21 History aerosol inhaler (Ventolin HFA) prucalopride 2 mg tablet 2 mg PO QAM 05/13/21 08/30/21 History (Motegrity) umeclidinium 62.5 mcg-vilanterol 1 inh INHALATION DAILY 90 Days #90 05/13/21 08/30/21 Rx 25 mcg/actuation powdr for puff inhalation (Anoro Ellipta) carboxymethyl 0.5 %-glycerin 1 1 drp OPB BID 06/22/21 08/30/21 History %-polysorb 80 0.5 %-PF eye dropperette (Refresh Optive Noman-3 (PF)) dicyclomine 20 mg tablet 20 mg PO TID PRN #9 tab 06/22/21 08/30/21 Rx lifitegrast 5 % eye drops in a 1 drp OPB BID 06/22/21 08/30/21 History dropperette (Xiidra) ondansetron HCl 4 mg tablet 4 mg PO Q6H PRN 06/22/21 08/30/21 History (Zofran) lorazepam 0.5 mg tablet (Ativan) 0.5 mg PO TID PRN #20 tab 06/30/21 08/30/21 Rx acetaminophen 300 mg-codeine 30 mg 1 tab PO BID PRN #6 tab 08/27/21 08/30/21 Rx tablet amoxicillin 875 mg-potassium 1 tab PO TID 10 Days #30 tab 08/27/21 08/30/21 Rx clavulanate 125 mg tablet (Augmentin) metoclopramide HCl 10 mg tablet 5 mg PO Q12H PRN #10 tab 08/27/21 08/30/21 Rx (Reglan) aspirin 81 mg capsule,delayed 81 mg PO QAM 08/30/21 08/30/21 History release polyethylene glycol 3350 17 gram 17 g PO BID PRN 08/30/21 08/30/21 History oral powder packet Patient History Medical History Anemia Anxiety Barretts esophagus BPH (benign prostatic hyperplasia) Depression GERD (gastroesophageal reflux disease) Hearing deficit Hyperlipidemia Hypertension IBS (irritable bowel syndrome) Migraine Prediabetes Surgical History History of cardiac cath 11/2011 @ [facility], 06/2012 @ [facility]--no stent History of cataract extraction with lens replacement LEFT EYE, 01/03/19 History of colonoscopy History of esophagogastroduodenoscopy (EGD) History of flexible sigmoidoscopy History of foot surgery left History of heart artery stent 11/2011 x1 @ [facility] History of hemorrhoidectomy Family History Father Family history of esophageal cancer Mother Family hx of colon cancer Other No family history of adverse response to anesthesia Social History Smoking Status: Never smoker Second Hand Exposure: Yes (parents smoked); Hx Alcohol Use: Yes Alcohol type: wine Hx Substance Use: No Preferred Language: Slovenian Communication Ability: Effective Net Developer Contract Required: No Beliefs That Will Affect Care: None Current Living Situation: Spouse Other Information That Helps Us Care for You: No Feels Safe at Home: Yes Safety Concerns: Feels Safe At This Time Assistive Devices: Glasses Review of Systems Constitutional: no fever, no chills and no weight loss Eyes: as per Subjective / HPI Ear, Nose, Mouth, Throat: as per Subjective / HPI Respiratory: no dyspnea and no dyspnea on exertion Cardiovascular: no chest pain and no palpitations Gastrointestinal: as per Subjective / HPI Musculoskeletal: no joint pain and no swelling Integumentary: no rash and no lesions Neurologic: no numbness and no paresthesia Psychiatric: no depression and no anxiety Endocrine: no fatigue Hematologic / Lymphatic: no easy bleeding and no easy bruising Physical Exam Constitutional: WD/WN, vitals as above Eyes: EOM intact bilaterally Neck: normal visual inspection Respiratory: normal respiratory effort, lungs clear to auscultation Cardiovascular: RRR, no murmur, no edema Gastrointestinal (Abdomen): Inspection/Auscultation: abdomen normal to inspection; abdomen not distended Percussion/Palpation: abdomen soft; abdomen nontender and no hepatosplenomegaly Musculoskeletal: Extremities: no cyanosis Gait: normal gait Skin: no rashes, warm and dry Neurologic: moves all extremities Psychiatric: A+Ox3, euthymic affect Results & Data ([facility]) Vital Signs (Past 12 Hours) Vital Signs Temp Pulse Resp BP Pulse Ox 08/31/21 08:07 36.5 C 58 L 16 130/76 94 PG Care Time/CCT Total # of Minutes Spent Total Time Spent with Patient: Total time spent is greater than 50% in coordination of care (as documented) at patient's floor/unit and/or counseling patient: Coding Level of Care Code 35731 Initial Inpt Care Lvl 3 Diagnoses Sigmoid diverticulitis K57.32 Constipation K59.00 Constipation type: unspecified constipation type Abdominal pain, lower R10.30 Gastroparesis K31.84 (1) Constipation Constipation type: unspecified constipation type Qualified Code(s): K59.00 - Constipation, unspecified
[2021-08-31] MEDS: MoRPHine SULFATE 2 MG/ML CARP IV PRN (13:10)
[2021-08-31] MEDS ORDERED: LORazepam 0.5 MG TAB PO PRN (13:26)
[2021-08-31] MEDS: METOCLOPRAMIDE HCL 5 MG TABLET PO SCH ×3 (13:38→20:22)
[2021-08-31] MEDS: TAMSULOSIN HCL 0.4 MG CAP PO SCH (15:42)
[2021-08-31] MEDS: LACTOBACILLUS ACIDOPHILUS 1 GM PACK PO SCH (17:12)
[2021-08-31] MEDS: FINASTERIDE 5 MG TAB PO SCH (20:22)
[2021-08-31] MEDS: ENOXAPARIN INJ 40 MG/0.4 ML SYR SQ SCH (20:22)
[2021-08-31] MEDS: RANOLAZINE 500 MG ER TAB PO SCH (20:22)
[2021-09-01] MEDS: ACETAMINOPHEN 1,000 MG/100 ML VIAL IV PRN ×2 (00:14→08:50)
--- NOTE | 2021-09-01 07:55 | Gastroenterology Progress Note ---
Date of Service September 01, 2021 Assessment & Plan (1) Sigmoid diverticulitis: Plan: The patient is a pleasant 76 year old male with known history of chronic constipation, colonic diverticulosis, GERD, Liriano's esophagus, and gastroparesis. Admitted 08/30/2021 due to outpatient treatment failure with acute diverticulitis. Currently on IV Zosyn and feeling better. Recommend supportive care. Will obtain a KUB today to assess stool burden as patient is tympanic on exam today with liquid stools and minimal gas. Continue clear liquids at this time until imaging reviewed. Continue Reglan use for short- term, patient has follow-up with GI motility clinic in a few weeks. Please refer to supervising physician addendum for further recommendations. (2) Constipation: Admission and Anticipated Discharge Date Admission Date: August 30, 2021 Supervising Physician Co-Signing Physician Notes I have seen and examined the patient. I agree with note above by SANTOS Rhodes except as noted below. HPI with patient for H and P. Pt states abd pain much improved vs admit. Having diarrhea. Some abdominal bloating at present. KUB much improved stool burden. PE Abdomen pos bs, soft, mildly distended and tympanitic, no guarding nor rebound A/P constipaiton--improved. On DC recommend adding miralax up to 4 scoops bid to the Motegrity diverticulitis--improved on abx gastroparesis--pt no willing to risk tardive dyskinesia on bow machine operator reglan use so would suggest stopping that on DC. Discussed he needs to eat small meals every 2 hours and avoid high fiber foods unless in pudding or liquid consistency. Subjective Patient is a 76-year-old male with a past medical history to include chronic constipation, anemia, anxiety, BPH, Liriano's esophagus, CAD, migraine, diabetes, diverticulosis, emphysema of the lung, GERD, gastroparesis, hemorrhoids, hiatal hernia, hyperlipidemia, major depression who presented to the emergency department 08/30/2021 due to abdominal pain and nausea diagnosed with sigmoid diverticulitis on Augmentin 08/27/2021. He was subsequently admitted for outpatient treatment failure due to diverticulitis with large stool burden noted on CT abdomen and pelvis. GI was consulted due to findings. Prior records are reviewed: 07/22/2021: GI motility office visit notes are reviewed from [facility] (Dr. Vieyra). The patient has had a thorough work up includin) EGD 02/2018- Liriano's esophagus, no evidence of dysplasia 2) Colonoscopy 02/2017: Normal 3) EGD (Oct 2020, Dr Sanchez): Large segment BE (8cm) and a large hiatal hernia. 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 Stool in the entire examined colon. Nonbleeding internal hemorrhoids. Diverticulosis in the rectosigmoid colon and in the descending colon. Examined portion of the ileum was normal. No specimens were collected. 4) Esophageal manometry 01/2021: absent contractility 5) 03/2021 operative notes are reviewed from [facility] Dr. Briceno hiatal hernia repair with mesh and Srinivasan partial fundoplication 6) 07/2021 EGD notes are reviewed performed due to personal history of Liriano's esophagus which demonstrated esophageal mucosal changes secondary to established long segment Liriano's disease. There was food in the middle third of the esophagus in the lower third of the esophagus. A large amount of food (residue) in the stomach. No specimens collected. On exam/interview today, the patient reports that he is feeling better. He states his abdomen overall feels pretty good. He still has some left-sided lower abdominal discomfort but not pain as he had previously. He notes that he has a warm reddened area on his right forearm that the nurses are watching. He reports he had some diarrhea approximately 4 AM. He reports he is not passing a lot in the way of gas. Denies any nausea or vomiting at the present time. He has been on Reglan since just prior to his admission. Denies any fever while inpatient. Denies melena or hematochezia in stools. Tolerating liquid diet. He reports he is on Motegrity at home but even with the Motegrity he only has a bowel movement approximately every 5 to 7 days. Follows with the [facility] with pertinent records summary as noted above. Review of Systems Review of Systems: All systems reviewed & are unremarkable except as noted in Subjective Physical Exam Constitutional: WD/WN, vitals as above Respiratory: normal respiratory effort, lungs clear to auscultation Cardiovascular: RRR, no murmur, no edema Gastrointestinal (Abdomen): Inspection/Auscultation: abdomen normal to inspection and + abdomen distended; + abnormal bowel sounds (decreased) Percussion/Palpation: abdomen soft and + tympanic to percussion; abdomen nontender, no guarding and abdomen not rigid Skin: warm, red area noted right anterior forearm Psychiatric: A+Ox3, euthymic affect Results & Data ([facility]) Vital Signs (Past 12 Hours) Vital Signs Temp Pulse Resp BP Pulse Ox 08/31/21 21:51 36.3 C L 60 16 131/72 99 Laboratory Results Laboratory Results - last 24 hr 08/31/21 08/31/21 09/01/21 06:23 10:54 05:10 Magnesium 2.4 Stl C. diff Tox B Gene TNP Pending Diagnostic Findings Abdomen/Pelvis CT 08/30/21 16:03 CT abd pelvis IV con only CLINICAL HISTORY: lower abdominal pain, nausea, recent diverticuliti TECHNIQUE: Helical axial images of the abdomen and pelvis were obtained and displayed. Automated dose lowering techniques and/or adjustment according to patient size were utilized for this exam. This exam was performed with intravenous contrast. COMPARISON: Comparison is made to CT abdomen pelvis 08/27/2021 FINDINGS: Lower chest: No acute abnormality Liver: Unremarkable. No focal lesions are seen. Gallbladder and biliary tree: The gallbladder is distended. No wall thickening or pericholecystic fluid is seen. No intra- or extrahepatic biliary ductal dilation. Pancreas: Unremarkable, no focal lesions. Spleen: Splenule is incidentally noted. Adrenals: Unremarkable. Kidneys and ureters: Unremarkable. Bladder: Unremarkable. Reproductive organs: Unremarkable. Bowel: Diverticulosis is again seen. There is continued fat stranding and wall thickening in the sigmoid colon. No adjacent fluid collections are seen. Copious solid and liquid stool is noted. Lymph nodes Retroperitoneal: Unremarkable. Mesenteric: Unremarkable. Pelvic: Unremarkable. Peritoneum: Normal Vessels: Unremarkable. Abdominal wall: A fat-containing umbilical hernia is seen. A fat-containing right inguinal hernia is seen. Bones: Unremarkable. IMPRESSION: Continued fat stranding and sigmoid bowel thickening compatible with acute diverticulitis. No evidence of perforation or abscess. Large solid and liquid stool burden. ACT 112: Negative or not required by law. Electronically signed by: Srini Caldera M.D. 08/30/2021 5:31 PM (1) Constipation Constipation type: unspecified constipation type Qualified Code(s): K59.00 - Constipation, unspecified
[2021-09-01 08:05] LABS: Hemoglobin 11.7 g/dL (14.0-18.0); Mean Corpuscular Hemoglobin 29.4 pg (25-34); Mean Corpuscular Hgb Conc 33.4 g/dL (32-36); Mean Corpuscular Volume 87.9 fL (80-100); Mean Platelet Volume 8.1 fL (7.4-10.4); Platelet Count 235 K/uL (130-400); RDW Coefficient of Variation 13.4 % (11.5-14.5); RDW Standard Deviation 43.4 fL (36.4-46.3); Red Blood Count 3.98 M/uL (4.7-6.1); White Blood Count 5.39 K/uL (4.8-10.8)
[2021-09-01] MEDS: RANOLAZINE 500 MG ER TAB PO SCH ×2 (08:32→21:59)
[2021-09-01] MEDS: METOCLOPRAMIDE HCL 5 MG TABLET PO SCH ×4 (08:32→21:59)
--- NOTE | 2021-09-01 08:32 | Hospitalist Progress Note ---
Date of Service September 01, 2021 Assessment & Plan (1) Sigmoid diverticulitis: Plan: Hx of divertiular disease, previously managed in outpatient setting never requiring hospitalization. Also has gastroparesis and follows [facility], recently started on reglan (resumed after discussion with GI) Prior 2 c-scopes without good prep but stated given findings of fluid filled esophagus on EGD they felt he has gastroparesis and has been having significant weight loss since this year due to complications of such. Was recently in ER and found to have diverticulitis and given Unasyn IV and then sent home on Augmentin. Stated took several days worth and had developed worseni ng RLQ pain and concerned for appendicitis. Had tolerated Cipro/Flagyl for courses of diverticulitis in the past without issue (given recent issue w/ cipro for UTI and caused nausea) and could consider this in de-escalation given prior ineffectiveness of the Augmentin, however worsening pain could also be contributed by his constipation/gastroparesis CT on admission with continued fat stranding and sigmoid bowel thickening compatible with acute diverticulitis. No evidence of perforation or abscess. Large solid and liquid stool burden. Continued Zosyn (day 3), with lactobacillus. Considering Cipro/Flagyl for PO given prior effectiveness when prescribed by PCP and failure of Augmentin from d/c from ER, however worsening abd pain could have been from constipation/gastroparesis as well WBC wnl, afebrile GI on consult Continue reglan-- > 5mg QID for gastroparesis, motegrity 2mg if able to bring in Clear liquid diet with toleration 08/31, continues to move bowels and KUB with improvement Will advance to full liquid diet, continue to monitor. Possible low fiber in AM. Was provided information by nutrition regarding gastroparesis and low fiber diet Continue IVF, decreased to 75cc/hr this afternoon as starting on clear liquid diet. Discussed if any increased discomfort to stop Pain control, antiemetics prn Monitor labs/electrolyte replacement as needed --> hypokalemia K 3.2, ordered 40meq PO supplementation. Mag wnl. Continue to monitor Will need outpt c-scope 4-6 weeks after discharge (2) Constipation: Plan: Did have large BM, formed, brown 08/31. Several liquid BMs. IVF, now to be d/c'd Limit opiates Continue reglan 5mg QID Cdiff negative as on recent abx for UTI Continue to monitor and will need outpt f/u with [facility] as already scheduled for September (3) Acid reflux: Plan: Switch esomeprazole for famotidine 20mg IV BID Switch to pantoprazole when able to take PO meds --> LISTED ON ALLERGIES FOR HALLUCINATIONS. would continue famotidine BID while inpatient, consider having patient bring in esomeprazole if needed No increased reflux symptoms (4) CAD (coronary atherosclerotic disease): Plan: Hx of stent to mid LAD with mild-moderate residual CAD. Follows cardiology, Dr Leyva. Negative dobutamine stress echo April 2020. Normal LV size and systolic function with no regional wma. EF 65%. No LVH. Type I diastolic dysfunction. Normal LA pressures. Resumed ASA, ranexa. Resumed amlodipine for this morning, crestor for the evening EKG w/ CP No chest pain/sob reported. Chronic exertional sob. (5) Hypertension: Plan: BP stable elevated but stable 153/75 Resumed amlodipine 2.5mg Hydralazine available prn Monitor (6) Depression: Plan: Resumed sertraline, atrivan prn (7) Hyperlipidemia: Plan: Resumed crestor for this evening (8) BPH (benign prostatic hyperplasia): Plan: Restarted flomax/finasteride due to decreased output 08/31 with 200cc on BS Improvement in UO Monitor (9) Elevated LFTs: Plan: mildly elevated LFTs, waxing/waning per PCP note May. Had RUQ US in years past. GB thickening on CT on admission but no stones/acute boogie. No RUQ discomfort/negative Quintanilla's. On dicyclomine BID prn [employer] --? biliary colic. Elevated during last admission but now normal. Discussed if persistent issue/RUQ pain returns would obtain RUQ vs HIDA for further investigation (10) Gastroparesis: Plan: reglan as above f/u [facility] outpatient need c-scope 4-6 weeks (11) Hiatal hernia: Plan: recent surgical correction earlier this year famotidine BID while NPO --> takes esomeprazole BID at home -- would ask to bring in given issues with protonix and hallucinations in the past Plan: VTE Prophylaxis - Lovenox 40mg SQ daily Advanced to full liquids, continue reglan. GI on consult Continue IV ZOsyn for now --> possible transition to PO tomorrow, consider Cipro/Flagyl given failure of Augmentin however increased discomfort could have also been from constipation from his gastroparesis Possible d/c tomorrow if able to advance to low fiber/tolerates without issue Admission and Anticipated Discharge Date Admission Date: August 30, 2021 Supervising Physician Co-Signing Physician Notes Attending Attestation - Chart reviewed in detail, care plan d/w PA Munira Hinojosa. I agree w/ the corcoran components of her documentation. 76yo male w/ sigmoid diverticulitis - improving with diet restriction and zosyn. Cont supportive care. Quinn Llamas MD Subjective Patient evaluated this morning. Feeling much better. Passing gas, liquid stool then some formed and again diarrhea this morning. Continues on Reglan and seen by GI this morning with recs to continue. Will advance to full liquid diet and to alert nursing of any increased discomfort, which he states is almost completely resolved. No fever, chills, chest pain, shortness of breath, nausea, vomiting or dysuria at this time. Review of Systems Review of Systems: All systems reviewed & are unremarkable except as noted in HPI & below Physical Exam Constitutional: WD/WN, vitals as above cooperative and comfortable; no acute distress Eyes: PERRL, conjunctivae normal, anicteric sclerae ENMT: external ear and nose normal, oropharynx normal Neck: trachea midline, no thyromegaly Respiratory: normal respiratory effort, lungs clear to auscultation Cardiovascular: RRR, no murmur, no edema Gastrointestinal (Abdomen): Inspection/Auscultation: normal bowel sounds Percussion/Palpation: + abdomen tender (minimal discomfort LLQ) and abdomen soft; no guarding and abdomen not rigid Musculoskeletal: no cyanosis or clubbing, extremities motor strength 5/5 Skin: no rashes, warm and dry Neurologic: moves all extremities and awake; not confused Psychiatric: A+Ox3, euthymic affect Genitourinary: no CVA tenderness Results & Data Results & Data ([facility]) Vital Signs (Past 12 Hours) Vital Signs Temp Pulse Resp BP Pulse Ox 08/31/21 21:51 36.3 C L 60 16 131/72 99 Laboratory Results 09/01/21 09/01/21 09/01/21 Range/Units 07:45 07:45 05:10 WBC 5.39 (4.8-10.8) K/uL RBC 3.98 L (4.7-6.1) M/uL Hgb 11.7 L (14.0-18.0) g/dL Hct 35.0 L (42-52) % MCV 87.9 (80-100) fL MCH 29.4 (25-34) pg MCHC 33.4 (32-36) g/dL RDW Std Deviation 43.4 (36.4-46.3) fL RDW Coeff of Mendoaz 13.4 (11.5-14.5) % Plt Count 235 (130-400) K/uL MPV 8.1 (7.4-10.4) fL Sodium 138 (136-145) mmol/L Potassium 3.2 L (3.5-5.1) mmol/L Chloride 107 (98-107) mmol/L Carbon Dioxide 23 (21-32) mmol/L Anion Gap 8.0 (3-11) BUN 4 L (7-18) mg/dl Creatinine 0.61 (0.6-1.4) mg/dl Est Cr Clr Drug Dosing 101.2 ml/min Est GFR ( Amer) 113.2 ml/min Est GFR (Non-Af Amer) 97.7 ml/min BUN/Creatinine Ratio 6.9 L (10-20) Glucose 109 H (70-99) mg/dl Calcium 8.0 L (8.5-10.1) mg/dl Magnesium 2.3 (1.8-2.4) mg/dl Total Bilirubin 0.4 (0.2-1) mg/dl Direct Bilirubin 0.2 (0-0.2) mg/dl AST 15 (15-37) U/L ALT 12 (12-78) Alkaline Phosphatase 67 (45-117) U/L Total Protein 5.5 L (6.4-8.2) gm/dl Albumin 2.2 L (3.4-5.0) gm/dl TSH 1.860 (0.300-4.500) uIu/ml Stl C. diff Tox B Gene Negative Cdiff Gene 08/31/21 08/31/21 Range/Units 10:54 06:23 WBC (4.8-10.8) K/uL RBC (4.7-6.1) M/uL Hgb (14.0-18.0) g/dL Hct (42-52) % MCV (80-100) fL MCH (25-34) pg MCHC (32-36) g/dL RDW Std Deviation (36.4-46.3) fL RDW Coeff of Mendoza (11.5-14.5) % Plt Count (130-400) K/uL MPV (7.4-10.4) fL Sodium (136-145) mmol/L Potassium (3.5-5.1) mmol/L Chloride (98-107) mmol/L Carbon Dioxide (21-32) mmol/L Anion Gap (3-11) BUN (7-18) mg/dl Creatinine (0.6-1.4) mg/dl Est Cr Clr Drug Dosing ml/min Est GFR ( Amer) ml/min Est GFR (Non-Af Amer) ml/min BUN/Creatinine Ratio (10-20) Glucose (70-99) mg/dl Calcium (8.5-10.1) mg/dl Magnesium 2.4 (1.8-2.4) mg/dl Total Bilirubin (0.2-1) mg/dl Direct Bilirubin (0-0.2) mg/dl AST (15-37) U/L ALT (12-78) Alkaline Phosphatase (45-117) U/L Total Protein (6.4-8.2) gm/dl Albumin (3.4-5.0) gm/dl TSH (0.300-4.500) uIu/ml Stl C. diff Tox B Gene TNP Diagnostic Findings KUB X-Ray 09/01/21 09:09 KUB HISTORY: constipation COMPARISON: Abdomen and pelvis CT 08/30/2021. FINDINGS: Mildly dilated gas-filled colon. The stool burden has improved in the interval. No dilated loops of small bowel to suggest a small bowel obstruction. No renal calculi. No ureteral calculi. No pneumoperitoneum or pneumatosis. IMPRESSION: Interval improvement in the stool burden. Mildly dilated gas-filled colon without evidence for bowel obstruction. ACT 112: Negative or not required by law. Electronically signed by: Rex Braswell M.D. 09/01/2021 10:12 AM PG Care Time/CCT Total # of Minutes Spent Total Time Spent with Patient: Total time spent is greater than 50% in coordination of care (as documented) at patient's floor/unit and/or counseling patient: Coding Level of Care Code 07446 Subseq Hosp Care Lvl 3 Diagnoses Sigmoid diverticulitis K57.32 Constipation K59.00 Constipation type: unspecified constipation type Acid reflux K21.9 CAD (coronary atherosclerotic disease) I25.10 Hypertension I10 Depression F32.9 Hyperlipidemia E78.5 BPH (benign prostatic hyperplasia) N40.0 Elevated LFTs R79.89 Gastroparesis K31.84 Hiatal hernia K44.9 (1) Constipation Constipation type: unspecified constipation type Qualified Code(s): K59.00 - Constipation, unspecified
[2021-09-01] MEDS: ASPIRIN 81 MG ECTAB PO SCH (08:33)
[2021-09-01] MEDS: SERTRALINE HCL 50 MG TABLET PO SCH (08:33)
[2021-09-01] MEDS: PRUCALOPRIDE SUCCINATE 2 MG PO SCH (08:33)
[2021-09-01] MEDS: PIPERACILLIN/TAZOBACTAM 3.375 GM in DEXTROSE 5% 100 ML IV SCH ×3 (08:33→23:56)
[2021-09-01] MEDS: LACTOBACILLUS ACIDOPHILUS 1 GM PACK PO SCH ×4 (08:33→16:27)
[2021-09-01] MEDS: FAMOTIDINE 20 MG in SYRINGE 3 ML IV SCH ×2 (08:34→21:59)
[2021-09-01] MEDS: UMECLIDINIUM/VILANTEROL 62.5/25MCG 7 PUFFS/INHALER INH SCH (08:34)
[2021-09-01 08:40] LABS: Albumin Level 2.2 gm/dl (3.4-5.0); BUN Creatinine Ratio 6.9 (10-20); Bilirubin Direct 0.2 mg/dl (0-0.2); Creatinine Clr Calc Pharmacy 101.2 ml/min; Est GFR (African American) 113.2 ml/min; Est GFR (Non-African American) 97.7 ml/min; Magnesium 2.3 mg/dl (1.8-2.4); Potassium 3.2 mmol/L (3.5-5.1)
[2021-09-01] MEDS ORDERED: POTASSIUM CHLORIDE CRTAB 20 MEQ TABCR PO STA (08:47)
[2021-09-01 08:59] LABS: Thyroid Stimulating Hormone 1.86 uIu/ml (0.300-4.500); Total Protein 5.5 gm/dl (6.4-8.2)
--- NOTE | 2021-09-01 10:14 | XRay Report ---
KUB HISTORY: constipation COMPARISON: Abdomen and pelvis CT 08/30/2021. FINDINGS: Mildly dilated gas-filled colon. The stool burden has improved in the interval. No dilated loops of small bowel to suggest a small bowel obstruction. No renal calculi. No ureteral calculi. No pneumoperitoneum or pneumatosis. IMPRESSION: Interval improvement in the stool burden. Mildly dilated gas-filled colon without evidence for bowel obstruction. ACT 112: Negative or not required by law. Electronically signed by: Rex Braswell M.D. 09/01/2021 10:12 AM
[2021-09-01] MEDS: LACTATED RINGER'S 1,000 ML IV SCH (10:15)
[2021-09-01 10:25] LABS: Bilirubin,Total 0.4 mg/dl (0.2-1)
[2021-09-01] MEDS: amLODIPine BESYLATE 5 MG TAB PO SCH (11:37)
[2021-09-01] MEDS: ENOXAPARIN INJ 40 MG/0.4 ML SYR SQ SCH (21:59)
[2021-09-01] MEDS: TAMSULOSIN HCL 0.4 MG CAP PO SCH (21:59)
[2021-09-01] MEDS: ROSUVASTATIN CALCIUM 20 MG TAB PO SCH (21:59)
[2021-09-01] MEDS: FINASTERIDE 5 MG TAB PO SCH (21:59)
[2021-09-02] MEDS: MoRPHine SULFATE 2 MG/ML CARP IV PRN ×4 (00:01→20:18)
[2021-09-02] MEDS: ACETAMINOPHEN 1,000 MG/100 ML VIAL IV PRN ×2 (03:58→13:15)
[2021-09-02 06:59] LABS: Basophils # (auto) 0.02 K/uL (0-0.2); Basophils % (auto) 0.3 %; Eosinophils # (auto) 0.22 K/uL (0-0.5); Eosinophils % (auto) 3.1 %; Hemoglobin 12.6 g/dL (14.0-18.0); Immature Granulocytes # (auto) 0.02 K/uL (0.00-0.02); Immature Granulocytes % (auto) 0.3 %; Lymphocytes % (auto) 16.6 %; Mean Corpuscular Hemoglobin 29.3 pg (25-34); Mean Corpuscular Hgb Conc 34.1 g/dL (32-36); Mean Platelet Volume 8.2 fL (7.4-10.4); Monocytes # (auto) 0.98 K/uL (0.11-0.59); Monocytes % (auto) 13.6 %; Neutrophils # (auto) 4.77 K/uL (1.4-6.5); Neutrophils % (auto) 66.1 %; Platelet Count 247 K/uL (130-400); RDW Coefficient of Variation 13.3 % (11.5-14.5); RDW Standard Deviation 41.7 fL (36.4-46.3); White Blood Count 7.21 K/uL (4.8-10.8)
[2021-09-02 07:30] LABS: BUN Creatinine Ratio 5.6 (10-20); Calcium 8.4 mg/dl (8.5-10.1); Creatinine Clr Calc Pharmacy 112.3 ml/min; Est GFR (African American) 118.1 ml/min; Est GFR (Non-African American) 101.9 ml/min; Magnesium 2.3 mg/dl (1.8-2.4); Potassium 3.1 mmol/L (3.5-5.1)
[2021-09-02] MEDS: PRUCALOPRIDE SUCCINATE 2 MG PO SCH (07:37)
[2021-09-02] MEDS: UMECLIDINIUM/VILANTEROL 62.5/25MCG 7 PUFFS/INHALER INH SCH (07:38)
[2021-09-02] MEDS: METOCLOPRAMIDE HCL 5 MG TABLET PO SCH ×2 (07:38→12:33)
[2021-09-02] MEDS: SERTRALINE HCL 50 MG TABLET PO SCH (07:39)
[2021-09-02] MEDS: RANOLAZINE 500 MG ER TAB PO SCH ×2 (07:39→20:22)
[2021-09-02] MEDS: amLODIPine BESYLATE 5 MG TAB PO SCH (07:40)
[2021-09-02] MEDS: ASPIRIN 81 MG ECTAB PO SCH (07:40)
[2021-09-02] MEDS: LACTOBACILLUS ACIDOPHILUS 1 GM PACK PO SCH ×3 (07:40→16:45)
[2021-09-02] MEDS: FAMOTIDINE 20 MG in SYRINGE 3 ML IV SCH ×2 (07:41→20:24)
--- NOTE | 2021-09-02 07:49 | Gastroenterology Progress Note ---
Date of Service September 02, 2021 Assessment & Plan (1) Sigmoid diverticulitis: Plan: The patient is a pleasant 76 year old male with known history of chronic constipation, colonic diverticulosis, GERD, Liriano's esophagus, and gastroparesis. Admitted 08/30/2021 due to outpatient treatment failure with acute diverticulitis. Currently on IV Zosyn and feeling better. Recommend supportive care. KUB obtained 09/01/2021 demonstrated improved stool burden.Cautiously advance diet as tolerated - low fat, low residue. Potential risk of Reglan use reviewed with patient by Dr. Thorpe yesterday - patient has follow-up with GI motility clinic in a few weeks. Please refer to supervising physician addendum for further recommendations. Admission and Anticipated Discharge Date Admission Date: August 30, 2021 Supervising Physician Co-Signing Physician Notes I have seen and examined the patient. I agree with note above by SANTOS Rhodes except as noted below. HPI Pt complained of worse LLQ and mid pelvic pain last evening and this am. Just had pain meds and pain manageable at present. Review of studies today abd us distended gb, hetereogenous liver, KUB neg. CT a/p progression of sigmoid diverticulitis. Pt states had 6 loose stools today. Pt states frequent bouts of diverticulitis througout many years as outpt. PE Abdomen pos bs, soft, no guardin nor rebound A/P diverticulitis--worsening clinically and on CT--recommend ID consult regarding our abx, surgery consult (they have seen patient) for them to follow in case he needs surgery while inpatient. If this resolves without needing surgery as inpatient then would recommend outpt surgical resection sigmoid diverticula. Discussed with Munira Hinojosa constipation--would cut back on some of laxattive at present while not really eating. Discussed if patient ultimately will be getting surgery for diverticulitis then consider extended colon removal to improve constipation. Subjective Patient is off the nursing unit this morning in ultrasound for liver US. Nursing notes and EMR are reviewed. Patient continuing to have some diarrhea stools. Medicated for bilateral lower abdominal pain through the night. No nausea or vomiting. Tolerating full liquid diet. Results & Data ([facility]) Vital Signs (Past 12 Hours) Vital Signs Temp Pulse Resp BP Pulse Ox 09/02/21 07:00 36.4 C L 61 16 145/76 H 98 09/01/21 22:25 36.5 C 57 L 16 152/70 H 98 Laboratory Results Laboratory Results - last 24 hr 09/01/21 09/01/21 09/01/21 05:10 07:45 07:45 WBC 5.39 RBC 3.98 L Hgb 11.7 L Hct 35.0 L MCV 87.9 MCH 29.4 MCHC 33.4 RDW Std Deviation 43.4 RDW Coeff of Mendoza 13.4 Plt Count 235 MPV 8.1 Immature Gran % (Auto) Neut % (Auto) Lymph % (Auto) [place] % (Auto) Eos % (Auto) Baso % (Auto) Neut # (Auto) Lymph # (Auto) [place] # (Auto) Eos # (Auto) Baso # (Auto) Immature Gran # (Auto) Sodium 138 Potassium 3.2 L Chloride 107 Carbon Dioxide 23 Anion Gap 8.0 BUN 4 L Creatinine 0.61 Est Cr Clr Drug Dosing 101.2 Est GFR ( Amer) 113.2 Est GFR (Non-Af Amer) 97.7 BUN/Creatinine Ratio 6.9 L Glucose 109 H Calcium 8.0 L Magnesium 2.3 Total Bilirubin 0.4 Direct Bilirubin 0.2 AST 15 ALT 12 Alkaline Phosphatase 67 Total Protein 5.5 L Albumin 2.2 L TSH 1.860 Cortisol AM Sample Stl C. diff Tox B Gene Negative Cdiff Gene 09/02/21 09/02/21 09/02/21 06:48 06:48 06:48 WBC 7.21 RBC 4.30 L Hgb 12.6 L Hct 37.0 L MCV 86.0 MCH 29.3 MCHC 34.1 RDW Std Deviation 41.7 RDW Coeff of Mendoza 13.3 Plt Count 247 MPV 8.2 Immature Gran % (Auto) 0.3 Neut % (Auto) 66.1 Lymph % (Auto) 16.6 [place] % (Auto) 13.6 Eos % (Auto) 3.1 Baso % (Auto) 0.3 Neut # (Auto) 4.77 Lymph # (Auto) 1.20 [place] # (Auto) 0.98 H Eos # (Auto) 0.22 Baso # (Auto) 0.02 Immature Gran # (Auto) 0.02 Sodium 138 Potassium 3.1 L Chloride 107 Carbon Dioxide 23 Anion Gap 8.0 BUN 3 L Creatinine 0.55 L Est Cr Clr Drug Dosing 112.3 Est GFR ( Amer) 118.1 Est GFR (Non-Af Amer) 101.9 BUN/Creatinine Ratio 5.6 L Glucose 127 H Calcium 8.4 L Magnesium 2.3 Total Bilirubin Direct Bilirubin AST ALT Alkaline Phosphatase Total Protein Albumin TSH Cortisol AM Sample Pending Stl C. diff Tox B Gene Diagnostic Findings KUB X-Ray 09/01/21 09:09 KUB HISTORY: constipation COMPARISON: Abdomen and pelvis CT 08/30/2021. FINDINGS: Mildly dilated gas-filled colon. The stool burden has improved in the interval. No dilated loops of small bowel to suggest a small bowel obstruction. No renal calculi. No ureteral calculi. No pneumoperitoneum or pneumatosis. IMPRESSION: Interval improvement in the stool burden. Mildly dilated gas-filled colon without evidence for bowel obstruction. ACT 112: Negative or not required by law. Electronically signed by: Rex Braswell M.D. 09/01/2021 10:12 AM
--- NOTE | 2021-09-02 08:07 | XRay Report ---
XR KUB/Abdomen 1 view CLINICAL HISTORY: Follow-up in a patient with recent diagnosis of diverticulitis. COMPARISON STUDY: 09/01/2021 TECHNIQUE: Single view of the abdomen. FINDINGS: The bowel gas pattern is within normal limits without evidence for dilatation or obstruction. There a re air-filled loops of both large and small bowel without disproportionate dilatation. There is no ev idence for organomegaly or gross intra-abdominal mass. No abnormal calcifications are seen along the course of the urinary tracts bilaterally. No acute osseous pathology. IMPRESSION: 1.No acute intra-abdominal abnormality. ACT 112: Negative or not required by law. Electronically signed by: Prosper Metzger M.D. 09/02/2021 8:06 AM
[2021-09-02] MEDS ORDERED: POTASSIUM CHLORIDE CRTAB 20 MEQ TABCR PO STA (08:28)
[2021-09-02] MEDS: PIPERACILLIN/TAZOBACTAM 3.375 GM in DEXTROSE 5% 100 ML IV SCH ×3 (08:29→23:55)
--- NOTE | 2021-09-02 08:29 | Hospitalist Progress Note ---
Date of Service September 02, 2021 Assessment & Plan (1) Sigmoid diverticulitis: Plan: Hx of divertiular disease, previously managed in outpatient setting never requiring hospitalization. Also has gastroparesis and follows [facility], recently started on reglan (resumed after discussion with GI) Prior 2 c-scopes without good prep but stated given findings of fluid filled esophagus on EGD they felt he has gastroparesis and has been having significant weight loss since this year due to complications of such. Was recently in ER and found to have diverticulitis and given Unasyn IV and then sent home on Augmentin. Stated took several days worth and had developed worseni ng RLQ pain and concerned for appendicitis. Had tolerated Cipro/Flagyl for courses of diverticulitis in the past without issue (given recent issue w/ cipro for UTI and caused nausea) and could consider this in de-escalation given prior ineffectiveness of the Augmentin, however worsening pain could also be contributed by his constipation/gastroparesis CT on admission with continued fat stranding and sigmoid bowel thickening compatible with acute diverticulitis. No evidence of perforation or abscess. Large solid and liquid stool burden. Continued Zosyn (day 4), with lactobacillus. --> Considering Cipro/Flagyl for PO given prior effectiveness when prescribed by PCP and failure of Augmentin from d/c from ER, however worsening abd pain could have been from constipation/gastroparesis as well WBC wnl, afebrile GI on consult Continue reglan-- > 5mg QID for gastroparesis, motegrity 2mg. TO d/c reglan at d/c and utilize miralax up to 4 scoops BID and f/u [facility] next month Advanced to full liquid diet and had been tolerating but increased abdominal discomfort and rated 9/10. Given morphine last evening 09/01 and tylenol IV this morning Per discussion with GI, rec to repeat CTAP --> Of note, patient also with BPH and possible urinary retention. Takes 0.8mg flomax daily (ordered 0.4mg) and changed for this evening. Asking RN to bladder scan and alert of results in meantime. also to bring in his vesicare from home which he takes as well Will make NPO x sips/chips until CTAP able to be performed. Pain control, antiemetics prn Monitor labs/electrolyte replacement as needed --> hypokalemia K 3.1, ordered 40meq PO supplementation. Continue to monitor Check AM cortisol but suspect 2nd to PO intake. Mag wnl Will need outpt c-scope 4-6 weeks after discharge (2) Constipation: Plan: Did have large BM, formed, brown 08/31. Several liquid BMs. IVF, now to be d/c'd Limit opiates -- got dose last evening, tylenol this morning Continue reglan 5mg QID, miralax BID scheduled Cdiff negative as on recent abx for UTI (UA on admission negative) Continue to monitor and will need outpt f/u with [facility] as already scheduled for September (3) Acid reflux: Plan: Switch esomeprazole for famotidine 20mg IV BID Switch to pantoprazole when able to take PO meds --> LISTED ON ALLERGIES FOR HALLUCINATIONS. would continue famotidine BID while inpatient, consider having patient bring in esomeprazole if needed --> to bring in today as having some epigastric discomfort (4) CAD (coronary atherosclerotic disease): Plan: Hx of stent to mid LAD with mild-moderate residual CAD. Follows cardiology, Dr Leyva. Negative dobutamine stress echo April 2020. Normal LV size and systolic function with no regional wma. EF 65%. No LVH. Type I diastolic dysfunction. Normal LA pressures. Resumed ASA, ranexa. Resumed amlodipine , crestor for the evening EKG w/ CP No chest pain/sob reported. Chronic exertional sob. (5) Hypertension: Plan: BP stable 145/76 amlodipine 2.5mg Hydralazine available prn Monitor (6) Depression: Plan: sertraline, atrivan prn (7) Hyperlipidemia: Plan: crestor (8) BPH (benign prostatic hyperplasia): Plan: Restarted flomax/finasteride due to decreased output 08/31 with 200cc on BS Improvement in UO Monitor Having some suprapubic discomfort --> takes flomax 0.8mg HS -- changed for this evening Bladder scan now -- alert of results. may need to give extra dose flomax now (9) Elevated LFTs: Plan: mildly elevated LFTs, waxing/waning per PCP note May. Had RUQ US in years past. GB thickening on CT on admission but no stones/acute boogie. No RUQ discomfort/negative Quintanilla's. On dicyclomine BID prn [employer] --? biliary colic. Elevated during last admission but now normal. Discussed if persistent issue/RUQ pain returns would obtain RUQ vs HIDA for further investigation --> RUQ NEGATIVE (10) Gastroparesis: Plan: reglan as above f/u [facility] outpatient need c-scope 4-6 weeks (11) Hiatal hernia: Plan: recent surgical correction earlier this year famotidine BID while NPO --> takes esomeprazole BID at home -- asked patient to have bring in given protonix and hallucinations in the past Plan: VTE Prophylaxis - Lovenox 40mg SQ daily Advanced to full liquids 09/01, continued reglan. GI on consult However, patient with increased discomfort today. GI rec repeating CTAP, ordered NPO x meds/sips until completed If no evidence of worsening, but rather from urinary retention, could consider extra flomax now vs placement of domínguez with voiding trial? Continue IV ZOsyn for now --> possible transition to PO tomorrow, consider Cipro/Flagyl given failure of Augmentin however increased discomfort could have also been from constipation from his gastroparesis Continue to monitor Admission and Anticipated Discharge Date Admission Date: August 30, 2021 Subjective patient evaluated this morning. went down for KUB without evidence of obstruction, RUQ without evidence for acute boogie. Had 9/10 pain overnight medicated with morphine. Tylenol this morning with better improvement and requesting additional dose. Will ask RN about administering slightly early. Abdominal pain is suprapubic and RLQ in location and does not endorse any nausea following liquid breakfast this morning. Had been moving bowels yesterday and passing gas this morning. He is concerned pain right back where he started on admission. Discussed urinary symptoms -- chronic BPH and not sure if emptying bladder completely. Discussed and he actually takes 0.8mg Flomax daily. Will have RN bladder scan, and change Flomax to 0.8mg. Discussed holding off on advancing diet or repeat imaging until this is addressed. To alert RN for any increased discomfort. Questions/concerns addressed at this time. Does have some epigastric discomfort and on nexium at home, cannot take protonix. --> asked to have bring in his nexium along with vesicare and his eye drops which he did not get yesterday. --> Repeat CTAP recommended by GI, will order. Review of Systems Review of Systems: All systems reviewed & are unremarkable except as noted in HPI & below Physical Exam Constitutional: WD/WN, vitals as above cooperative and comfortable; no acute distress Eyes: pupils equal, reactive to light. some erythema to R eye (missed dose eye drops, to bring in) ENMT: external ear and nose normal, oropharynx normal Neck: trachea midline, no thyromegaly Respiratory: normal respiratory effort, lungs clear to auscultation Cardiovascular: RRR, no murmur, no edema Gastrointestinal (Abdomen): Inspection/Auscultation: normal bowel sounds Percussion/Palpation: + abdomen tender (discomfort epigastric, moderate-severe tenderness suprapubic/LLQ) and abdomen soft; no guarding and abdomen not rigid Musculoskeletal: no cyanosis or clubbing, extremities motor strength 5/5 Skin: no rashes, warm and dry Neurologic: moves all extremities and awake; not confused Psychiatric: A+Ox3, euthymic affect Genitourinary: no CVA tenderness Results & Data Results & Data ([facility]) Vital Signs (Past 12 Hours) Vital Signs Temp Pulse Resp BP Pulse Ox 09/02/21 07:00 36.4 C L 61 16 145/76 H 98 09/01/21 22:25 36.5 C 57 L 16 152/70 H 98 Laboratory Results 09/02/21 09/02/21 09/02/21 Range/Units 06:48 06:48 06:48 WBC 7.21 (4.8-10.8) K/uL RBC 4.30 L (4.7-6.1) M/uL Hgb 12.6 L (14.0-18.0) g/dL Hct 37.0 L (42-52) % MCV 86.0 (80-100) fL MCH 29.3 (25-34) pg MCHC 34.1 (32-36) g/dL RDW Std Deviation 41.7 (36.4-46.3) fL RDW Coeff of Mendoza 13.3 (11.5-14.5) % Plt Count 247 (130-400) K/uL MPV 8.2 (7.4-10.4) fL Immature Gran % (Auto) 0.3 % Neut % (Auto) 66.1 % Lymph % (Auto) 16.6 % Kidder % (Auto) 13.6 % Eos % (Auto) 3.1 % Baso % (Auto) 0.3 % Neut # (Auto) 4.77 (1.4-6.5) K/uL Lymph # (Auto) 1.20 (1.2-3.4) K/uL Kidder # (Auto) 0.98 H (0.11-0.59) K/uL Eos # (Auto) 0.22 (0-0.5) K/uL Baso # (Auto) 0.02 (0-0.2) K/uL Immature Gran # (Auto) 0.02 (0.00-0.02) K/uL Sodium 138 (136-145) mmol/L Potassium 3.1 L (3.5-5.1) mmol/L Chloride 107 (98-107) mmol/L Carbon Dioxide 23 (21-32) mmol/L Anion Gap 8.0 (3-11) BUN 3 L (7-18) mg/dl Creatinine 0.55 L (0.6-1.4) mg/dl Est Cr Clr Drug Dosing 112.3 ml/min Est GFR ( Amer) 118.1 ml/min Est GFR (Non-Af Amer) 101.9 ml/min BUN/Creatinine Ratio 5.6 L (10-20) Glucose 127 H (70-99) mg/dl Calcium 8.4 L (8.5-10.1) mg/dl Magnesium 2.3 (1.8-2.4) mg/dl Total Bilirubin (0.2-1) mg/dl Direct Bilirubin (0-0.2) mg/dl AST (15-37) U/L ALT (12-78) Alkaline Phosphatase (45-117) U/L Total Protein (6.4-8.2) gm/dl Albumin (3.4-5.0) gm/dl TSH (0.300-4.500) uIu/ml Cortisol AM Sample Pending 09/01/21 Range/Units 07:45 WBC (4.8-10.8) K/uL RBC (4.7-6.1) M/uL Hgb (14.0-18.0) g/dL Hct (42-52) % MCV (80-100) fL MCH (25-34) pg MCHC (32-36) g/dL RDW Std Deviation (36.4-46.3) fL RDW Coeff of Mendoza (11.5-14.5) % Plt Count (130-400) K/uL MPV (7.4-10.4) fL Immature Gran % (Auto) % Neut % (Auto) % Lymph % (Auto) % Kidder % (Auto) % Eos % (Auto) % Baso % (Auto) % Neut # (Auto) (1.4-6.5) K/uL Lymph # (Auto) (1.2-3.4) K/uL Kidder # (Auto) (0.11-0.59) K/uL Eos # (Auto) (0-0.5) K/uL Baso # (Auto) (0-0.2) K/uL Immature Gran # (Auto) (0.00-0.02) K/uL Sodium 138 (136-145) mmol/L Potassium 3.2 L (3.5-5.1) mmol/L Chloride 107 (98-107) mmol/L Carbon Dioxide 23 (21-32) mmol/L Anion Gap 8.0 (3-11) BUN 4 L (7-18) mg/dl Creatinine 0.61 (0.6-1.4) mg/dl Est Cr Clr Drug Dosing 101.2 ml/min Est GFR ( Amer) 113.2 ml/min Est GFR (Non-Af Amer) 97.7 ml/min BUN/Creatinine Ratio 6.9 L (10-20) Glucose 109 H (70-99) mg/dl Calcium 8.0 L (8.5-10.1) mg/dl Magnesium 2.3 (1.8-2.4) mg/dl Total Bilirubin 0.4 (0.2-1) mg/dl Direct Bilirubin 0.2 (0-0.2) mg/dl AST 15 (15-37) U/L ALT 12 (12-78) Alkaline Phosphatase 67 (45-117) U/L Total Protein 5.5 L (6.4-8.2) gm/dl Albumin 2.2 L (3.4-5.0) gm/dl TSH 1.860 (0.300-4.500) uIu/ml Cortisol AM Sample Diagnostic Findings KUB X-Ray 09/01/21 09:09 KUB HISTORY: constipation COMPARISON: Abdomen and pelvis CT 08/30/2021. FINDINGS: Mildly dilated gas-filled colon. The stool burden has improved in the interval. No dilated loops of small bowel to suggest a small bowel obstruction. No renal calculi. No ureteral calculi. No pneumoperitoneum or pneumatosis. IMPRESSION: Interval improvement in the stool burden. Mildly dilated gas-filled colon without evidence for bowel obstruction. ACT 112: Negative or not required by law. Electronically signed by: Rex Braswell M.D. 09/01/2021 10:12 AM KUB X-Ray 09/02/21 07:00 XR KUB/Abdomen 1 view CLINICAL HISTORY: Follow-up in a patient with recent diagnosis of diverticulitis. COMPARISON STUDY: 09/01/2021 TECHNIQUE: Single view of the abdomen. FINDINGS: The bowel gas pattern is within normal limits without evidence for dilatation or obstruction. There are air-filled loops of both large and small bowel without disproportionate dilatation. There is no evidence for organomegaly or gross intra-abdominal mass. No abnormal calcifications are seen along the course of the urinary tracts bilaterally. No acute osseous pathology. IMPRESSION: 1.No acute intra-abdominal abnormality. ACT 112: Negative or not required by law. Electronically signed by: Prosper Metzger M.D. 09/02/2021 8:06 AM PG Care Time/CCT Total # of Minutes Spent Total Time Spent with Patient: Total time spent is greater than 50% in coordination of care (as documented) at patient's floor/unit and/or counseling patient: Coding Level of Care Code 79593 Subseq Hosp Care Lvl 3 Diagnoses Sigmoid diverticulitis K57.32 Constipation K59.00 Constipation type: unspecified constipation type Acid reflux K21.9 CAD (coronary atherosclerotic disease) I25.10 Hypertension I10 Depression F32.9 Hyperlipidemia E78.5 BPH (benign prostatic hyperplasia) N40.0 Elevated LFTs R79.89 Gastroparesis K31.84 Hiatal hernia K44.9 (1) Constipation Constipation type: unspecified constipation type Qualified Code(s): K59.00 - Constipation, unspecified
--- NOTE | 2021-09-02 08:34 | Ultrasound Report ---
ULTRASOUND RIGHT UPPER QUADRANT ABDOMEN CLINICAL HISTORY: Right upper quadrant abdominal pain. COMPARISON STUDY: Abdominal CT dated 08/30/2021. TECHNIQUE: Real-time, grayscale, and color flow sonography of the right upper quadrant of the abdomen was performed. Images are reviewed in the transverse and longitudinal planes. FINDINGS: Liver: The liver is normal in size and heterogeneous in echotexture. There is no intrahepatic biliary ductal dilatation. The main portal vein is patent. Gallbladder: The gallbladder is distended measuring 11 cm in length. No shadowing gallstones are iden tified. There is no gallbladder wall thickening or pericholecystic fluid. A sonographic Quintanilla's sign is reportedly absent. The common bile duct measures up to 0.8 cm in diameter. Pancreas: Visualized portions of the pancreatic head and body are normal in appearance. The splenic v ein is patent. Right kidney: Survey images of the right kidney demonstrate normal size and echotexture. There is no hydronephrosis. Ascites: None. IMPRESSION: 1. Distended gallbladder with no shadowing gallstones identified and no sonographic evidence of acute cholecystitis. 2. Heterogeneous liver. ACT 112: Negative or not required by law. Electronically signed by: Oscar Isbell M.D. 09/02/2021 8:33 AM
[2021-09-02] MEDS: POLYETHYLENE (MIRALAX) 17 GM PACK PO SCH ×2 (10:59→15:19)
[2021-09-02] MEDS ORDERED: OPTIRAY 320 100ml IV ONE (11:28)
[2021-09-02] MEDS: NSS + 20MEQ KCL 20 MEQ/1,000 ML BAG IV SCH ×2 (11:42→23:55)
--- NOTE | 2021-09-02 11:59 | CT Scan Report ---
ABDOMEN AND PELVIS CT WITH IV CONTRAST CT DOSE: 777.49 mGycm HISTORY: Generalized abdominal pain, worsening, diverticulitis TECHNIQUE: Multiaxial CT images of the abdomen and pelvis were performed following the use of intrave nous contrast. A dose lowering technique was utilized adhering to the principles of ALARA. COMPARISON STUDY: Abdomen and pelvis CT 08/30/2021. FINDINGS: The lung bases are clear. No pneumoperitoneum. No pneumatosis. No fractures within the visu alized osseous structures. The gallbladder is mildly distended. No gallbladder wall thickening. Multi ple duodenal diverticula are again noted. No hepatic or splenic masses. The adrenal glands, kidneys, and pancreas are unremarkable. No retroperitoneal lymphadenopathy. Normal caliber abdominal aorta. Th e bladder is unremarkable. Thickening of the proximal to mid sigmoid colon with pericolonic fat stran ding and multiple diverticula are again noted. Findings likely represent an acute diverticulitis. A c olitis could also have a similar appearance. No abscess or perforation identified at this time. This has slightly progressed in the interval. Fluid-filled mildly distended proximal colon, unchanged. Nor mal appendix. IMPRESSION: 1. Slight progression of the pericolonic fat stranding and bowel wall thickening involving the mid si gmoid colon. This favors an acute diverticulitis. A colitis could also have a similar appearance. 2. No perforation or abscess identified at this time. 3. Normal appendix. 4. Mildly distended fluid-filled proximal colon, unchanged. ACT 112: Negative or not required by law. Electronically signed by: Rex Braswell M.D. 09/02/2021 11:57 AM
[2021-09-02] MEDS ORDERED: NON-FORMULARY MEDICATION SCH (12:15)
[2021-09-02] MEDS: PREDNISOLONE ACETATE 1% OPL SCH ×3 (15:15→20:21)
--- NOTE | 2021-09-02 15:51 | Surgery Consultation ---
Date of Consultation September 02, 2021 Assessment & Plan (1) Gastroparesis: (2) Sigmoid diverticulitis: (3) Constipation: 76 year-old male with history of gastroparesis, chronic constipation, GERD, luna's esophagus, diverticulosis and diverticulitis usually treated with po cipro/flagyl who presented to ER on 08/30/21 after evaluation in ED on 08/27/21 for mild sigmoid diverticulitis and constipation. Was placed on oral Augmentin and pain increased. CT scan's are showing slight progression of sigmoid diverticulitis however no abscess or perforation. Still has moderate stool burden on imaging. Abdomen is soft, tender in lower quadrants but no peritonitis , rigidity, or guarding. Afebrile and no leukocytosis. Plan: No acute surgical intervention required at this time. Patient's progression of sigmoid fat stranding is likely secondary to his stool burden, decreased motilit y. Continue bowel regimen Continue IV Zosyn, was going to add double anaerobic coverage with Flagyl but pharmacy has very limited dose of IV flagyl will need to follow with motility specialist to ensure his motility issues are managed as his severe constipation is likely cause of his diverticulitis. when diet is advanced, advance to low fiber diet while in acute phase will follow along Dr. Pinzon has seen and examined pt, agrees with above. History of Present Illness Reason for Consultation: Progression of Sigmoid diverticulitis on IV Zosyn Requesting Physician: Munira Hinojosa PA-C Attending Physician: Jj Pinzon MD History of Present Illness Mr. Troy is a pleasant 76 year-old male with history of gastroparesis, chronic constipation, GERD, barretts esophagus, HTN, hyperlipidemia, diverticulitis (treated with oral cipro/flagyl) who presented to emergency room on 08/27/21 due to RLQ abdominal pain and severe constipation. Was found to have mild sigmoid diverticulitis at that time and was given an enema and dose of IV Unasyn and sent home on oral Augmentin. He presented back to ER on 08/30/21 due to increasing abdominal pain. He had repeat CT scan on 08/30/21 which showed continued fat stranding of the sigmoid colon consistent with acute diverticulitis and was started on IV zosyn. His pain was improving and has been afebrile since admission but pain increased last evening. He has been put on bowel regimen and now having loose stools. Repeat CT scan obtained today due to increase in abdominal pain last evening which showed slight progression of fat stranding of the sigmoid colon. Our services consulted due to progression of diverticulitis while on IV Zosyn. Gena states he was feeling better up until last evening and had severe lower abdominal pain. Having liquid bowel movements now given Miralax. Has issues with motility and follows with motility specialist in [place], next appointment is mid September. Also history of recent laparoscopic hiatal hernia repair in [place]. No nausea or vomiting. No fevers but mild chills last night. Allergies Allergy/AdvReac Type Severity Reaction Status Date / Time Beta-Blockers Allergy Severe "SHOOK UP Verified 08/30/21 18:09 (Beta-Adrenergic Bloc FEELING" omeprazole Allergy Mild "made my Verified 08/30/21 18:09 head spin" levofloxacin Allergy Gastrointestinal Verified 08/30/21 18:09 Upset pantoprazole AdvReac Mild HALLUCINATI Verified 08/30/21 18:09 ONS Home Medications Medication Instructions Recorded Confirmed Type amlodipine 2.5 mg tablet 2.5 mg PO QAM 11/23/18 08/30/21 History esomeprazole magnesium 40 mg 40 mg PO BID 11/23/18 08/30/21 History capsule,delayed release finasteride 5 mg tablet 5 mg PO HS 11/23/18 08/30/21 History nitroglycerin 0.4 mg sublingual 1 dose SUBLINGUAL UD PRN 11/23/18 08/30/21 History tablet nortriptyline 10 mg capsule 10 mg PO HS 11/23/18 08/30/21 History ranolazine 500 mg tablet,extended 500 mg PO BID 11/23/18 08/30/21 History release,12 hr (Ranexa) rosuvastatin 20 mg tablet (Crestor) 20 mg PO QPM 11/23/18 08/30/21 History sertraline 50 mg tablet (Zoloft) 50 mg PO QAM 11/23/18 08/30/21 History solifenacin 5 mg tablet (Vesicare) 5 mg PO HS 11/23/18 08/30/21 History tamsulosin 0.4 mg capsule (Flomax) 0.4 mg PO PM 05/08/20 08/30/21 History albuterol sulfate 90 mcg/actuation 2 puff INHALATION Q6H PRN 05/13/21 08/30/21 History aerosol inhaler (Ventolin HFA) prucalopride 2 mg tablet 2 mg PO QAM 05/13/21 08/30/21 History (Motegrity) umeclidinium 62.5 mcg-vilanterol 1 inh INHALATION DAILY 90 Days #90 05/13/21 08/30/21 Rx 25 mcg/actuation powdr for puff inhalation (Anoro Ellipta) carboxymethyl 0.5 %-glycerin 1 1 drp OPB BID 06/22/21 08/30/21 History %-polysorb 80 0.5 %-PF eye dropperette (Refresh Optive Noman-3 (PF)) dicyclomine 20 mg tablet 20 mg PO TID PRN #9 tab 06/22/21 08/30/21 Rx lifitegrast 5 % eye drops in a 1 drp OPB BID 06/22/21 08/30/21 History dropperette (Xiidra) ondansetron HCl 4 mg tablet 4 mg PO Q6H PRN 06/22/21 08/30/21 History (Zofran) lorazepam 0.5 mg tablet (Ativan) 0.5 mg PO TID PRN #20 tab 06/30/21 08/30/21 Rx acetaminophen 300 mg-codeine 30 mg 1 tab PO BID PRN #6 tab 08/27/21 08/30/21 Rx tablet amoxicillin 875 mg-potassium 1 tab PO TID 10 Days #30 tab 08/27/21 08/30/21 Rx clavulanate 125 mg tablet (Augmentin) metoclopramide HCl 10 mg tablet 5 mg PO Q12H PRN #10 tab 08/27/21 08/30/21 Rx (Reglan) aspirin 81 mg capsule,delayed 81 mg PO QAM 08/30/21 08/30/21 History release polyethylene glycol 3350 17 gram 17 g PO BID PRN 08/30/21 08/30/21 History oral powder packet bacitracin-polymyxin B 500 09/02/21 History unit-10,000 unit/gram eye ointment brimonidine 09/02/21 History prednisolone acetate 1 % eye drp 09/02/21 History drops,suspension Patient History Medical History Anemia Anxiety Barretts esophagus BPH (benign prostatic hyperplasia) Depression GERD (gastroesophageal reflux disease) Hearing deficit Hyperlipidemia Hypertension IBS (irritable bowel syndrome) Migraine Prediabetes Surgical History History of cardiac cath 11/[address] [facility], [place] [facility] [place] History of cataract extraction with lens replacement LEFT EYE, 01/03/19 History of colonoscopy History of esophagogastroduodenoscopy (EGD) History of flexible sigmoidoscopy History of foot surgery left History of heart artery stent 11/[address] [facility] History of hemorrhoidectomy Family History Father Family history of esophageal cancer Mother Family hx of colon cancer Other No family history of adverse response to anesthesia Social History Smoking Status: Never smoker Second Hand Exposure: Yes (parents smoked); Hx Alcohol Use: Yes Alcohol type: wine Hx Substance Use: No Preferred Language: Peruvian Communication Ability: Effective Brake Reliner Required: No Beliefs That Will Affect Care: None Current Living Situation: Spouse Other Information That Helps Us Care for You: No Feels Safe at Home: Yes Safety Concerns: Feels Safe At This Time Assistive Devices: None Review of Systems Review of Systems: All systems reviewed & are unremarkable except as noted in HPI & below Physical Exam Constitutional: WD/WN, vitals as above no acute distress and not ill appearing Respiratory: normal respiratory effort Gastrointestinal (Abdomen): Inspection/Auscultation: abdomen normal to inspection and + abdominal surgical scar (laparoscopic scars present); abdomen not distended Percussion/Palpation: + abdomen tender (bilateral lower abdomen more so on right lower abdomen) and abdomen soft; no guarding and abdomen not rigid Skin: no rashes, warm and dry Psychiatric: Orientation: alert and oriented x 3 Results & Data ([facility]) Vital Signs (Past 12 Hours) Vital Signs Temp Pulse Resp BP Pulse Ox 09/02/21 15:20 36.4 C L 58 L 18 146/77 H 99 09/02/21 07:00 36.4 C L 61 16 145/76 H 98 Laboratory Results 09/02/21 09/02/2121 Range/Units 06:48 06:48 06:48 WBC 7.21 (4.8-10.8) K/uL RBC 4.30 L (4.7-6.1) M/uL Hgb 12.6 L (14.0-18.0) g/dL Hct 37.0 L (42-52) % MCV 86.0 (80-100) fL MCH 29.3 (25-34) pg MCHC 34.1 (32-36) g/dL RDW Std Deviation 41.7 (36.4-46.3) fL RDW Coeff of Mendoza 13.3 (11.5-14.5) % Plt Count 247 (130-400) K/uL MPV 8.2 (7.4-10.4) fL Immature Gran % (Auto) 0.3 % Neut % (Auto) 66.1 % Lymph % (Auto) 16.6 % [facility] % (Auto) 13.6 % Eos % (Auto) 3.1 % Baso % (Auto) 0.3 % Neut # (Auto) 4.77 (1.4-6.5) K/uL Lymph # (Auto) 1.20 (1.2-3.4) K/uL [facility] # (Auto) 0.98 H (0.11-0.59) K/uL Eos # (Auto) 0.22 (0-0.5) K/uL Baso # (Auto) 0.02 (0-0.2) K/uL Immature Gran # (Auto) 0.02 (0.00-0.02) K/uL Sodium 138 (136-145) mmol/L Potassium 3.1 L (3.5-5.1) mmol/L Chloride 107 (98-107) mmol/L Carbon Dioxide 23 (21-32) mmol/L Anion Gap 8.0 (3-11) BUN 3 L (7-18) mg/dl Creatinine 0.55 L (0.6-1.4) mg/dl Est Cr Clr Drug Dosing 112.3 ml/min Est GFR ( Amer) 118.1 ml/min Est GFR (Non-Af Amer) 101.9 ml/min BUN/Creatinine Ratio 5.6 L (10-20) Glucose 127 H (70-99) mg/dl Calcium 8.4 L (8.5-10.1) mg/dl Magnesium 2.3 (1.8-2.4) mg/dl Cortisol AM Sample 6.52 (4.3-22.4) mcg/dl Diagnostic Findings ABDOMEN AND PELVIS CT WITH IV CONTRAST CT DOSE: 777.49 mGycm HISTORY: Generalized abdominal pain, worsening, diverticulitis TECHNIQUE: Multiaxial CT images of the abdomen and pelvis were performed following the use of intravenous contrast. A dose lowering technique was utilized adhering to the principles of ALARA. COMPARISON STUDY: Abdomen and pelvis CT 08/30/2021. FINDINGS: The lung bases are clear. No pneumoperitoneum. No pneumatosis. No fractures within the visualized osseous structures. The gallbladder is mildly distended. No gallbladder wall thickening. Multiple duodenal diverticula are again noted. No hepatic or splenic masses. The adrenal glands, kidneys, and pancreas are unremarkable. No retroperitoneal lymphadenopathy. Normal caliber abdominal aorta. The bladder is unremarkable. Thickening of the proximal to mid sigmoid colon with pericolonic fat stranding and multiple diverticula are again noted. Findings likely represent an acute diverticulitis. A colitis could also have a similar appearance. No abscess or perforation identified at this time. This has slightly progressed in the interval. Fluid-filled mildly distended proximal colon, unchanged. Normal appendix. IMPRESSION: 1. Slight progression of the pericolonic fat stranding and bowel wall thickening involving the mid sigmoid colon. This favors an acute diverticulitis. A colitis could also have a similar appearance. 2. No perforation or abscess identified at this time. 3. Normal appendix. 4. Mildly distended fluid-filled proximal colon, unchanged. CT abd pelvis IV con only 08/30/2021 CLINICAL HISTORY: lower abdominal pain, nausea, recent diverticuliti TECHNIQUE: Helical axial images of the abdomen and pelvis were obtained and displayed. Automated dose lowering techniques and/or adjustment according to patient size were utilized for this exam. This exam was performed with intravenous contrast. COMPARISON: Comparison is made to CT abdomen pelvis 08/27/2021 FINDINGS: Lower chest: No acute abnormality Liver: Unremarkable. No focal lesions are seen. Gallbladder and biliary tree: The gallbladder is distended. No wall thickening or pericholecystic fluid is seen. No intra- or extrahepatic biliary ductal dilation. Pancreas: Unremarkable, no focal lesions. Spleen: Splenule is incidentally noted. Adrenals: Unremarkable. Kidneys and ureters: Unremarkable. Bladder: Unremarkable. Reproductive organs: Unremarkable. Bowel: Diverticulosis is again seen. There is continued fat stranding and wall thickening in the sigmoid colon. No adjacent fluid collections are seen. Copious solid and liquid stool is noted. Lymph nodes Retroperitoneal: Unremarkable. Mesenteric: Unremarkable. Pelvic: Unremarkable. Peritoneum: Normal Vessels: Unremarkable. Abdominal wall: A fat-containing umbilical hernia is seen. A fat-containing right inguinal hernia is seen. Bones: Unremarkable. IMPRESSION: Continued fat stranding and sigmoid bowel thickening compatible with acute diverticulitis. No evidence of perforation or abscess. Large solid and liquid stool burden. (1) Constipation Constipation type: unspecified constipation type Qualified Code(s): K59.00 - Constipation, unspecified
[2021-09-02] MEDS: METOCLOPRAMIDE HCL INJ 5 MG/ML 2 ML VIAL IV SCH ×2 (16:50→23:56)
[2021-09-02] MEDS: BRIMONIDINE OPL SCH (20:19)
[2021-09-02] MEDS: BACITRACIN OPL SCH (20:19)
[2021-09-02] MEDS: [UNRECOGNIZED DRUG - OTHER] OPL SCH (20:19)
[2021-09-02] MEDS: [UNRECOGNIZED DRUG - OTHER] OPL SCH (20:19)
[2021-09-02] MEDS: ENOXAPARIN INJ 40 MG/0.4 ML SYR SQ SCH (20:20)
[2021-09-02] MEDS: FINASTERIDE 5 MG TAB PO SCH (20:20)
[2021-09-02] MEDS: ESOMEPRAZOLE 40 MG PO SCH (20:21)
[2021-09-02] MEDS: SOLIFENACIN SUCCINATE 5 MG PO SCH (20:22)
[2021-09-02] MEDS: TAMSULOSIN HCL 0.4 MG CAP PO SCH (20:23)
[2021-09-02] MEDS ORDERED: ACETAMINOPHEN 1,000 MG/100 ML VIAL IV STA (23:30)
[2021-09-03] MEDS: MoRPHine SULFATE 2 MG/ML CARP IV PRN ×3 (04:50→22:44)
[2021-09-03] MEDS: METOCLOPRAMIDE HCL INJ 5 MG/ML 2 ML VIAL IV SCH ×3 (04:50→16:35)
[2021-09-03] MEDS: LACTOBACILLUS ACIDOPHILUS 1 GM PACK PO SCH ×3 (07:23→16:35)
[2021-09-03] MEDS: [UNRECOGNIZED DRUG - OTHER] OPL SCH ×2 (07:31→20:54)
[2021-09-03] MEDS: PREDNISOLONE ACETATE 1% OPL SCH ×4 (07:31→20:57)
[2021-09-03] MEDS: BACITRACIN OPL SCH ×2 (07:31→20:54)
[2021-09-03] MEDS: UMECLIDINIUM/VILANTEROL 62.5/25MCG 7 PUFFS/INHALER INH SCH (07:33)
[2021-09-03] MEDS: PRUCALOPRIDE SUCCINATE 2 MG PO SCH (07:34)
[2021-09-03] MEDS: ASPIRIN 81 MG ECTAB PO SCH (07:34)
[2021-09-03] MEDS: FAMOTIDINE 20 MG in SYRINGE 3 ML IV SCH (07:34)
[2021-09-03] MEDS: RANOLAZINE 500 MG ER TAB PO SCH ×2 (07:34→20:57)
[2021-09-03] MEDS: ESOMEPRAZOLE 40 MG PO SCH ×2 (07:34→20:56)
[2021-09-03] MEDS: PIPERACILLIN/TAZOBACTAM 3.375 GM in DEXTROSE 5% 100 ML IV SCH (07:35)
[2021-09-03 07:40] LABS: Basophils # (auto) 0.01 K/uL (0-0.2); Basophils % (auto) 0.1 %; Eosinophils # (auto) 0.28 K/uL (0-0.5); Eosinophils % (auto) 3.8 %; Hematocrit (blood only) 38.2 % (42-52); Hemoglobin 13.1 g/dL (14.0-18.0); Immature Granulocytes # (auto) 0.03 K/uL (0.00-0.02); Immature Granulocytes % (auto) 0.4 %; Lymphocytes # (auto) 1.37 K/uL (1.2-3.4); Lymphocytes % (auto) 18.7 %; Mean Corpuscular Hemoglobin 29.4 pg (25-34); Mean Corpuscular Hgb Conc 34.3 g/dL (32-36); Mean Corpuscular Volume 85.8 fL (80-100); Mean Platelet Volume 8.4 fL (7.4-10.4); Monocytes # (auto) 0.86 K/uL (0.11-0.59); Monocytes % (auto) 11.7 %; Neutrophils # (auto) 4.77 K/uL (1.4-6.5); Neutrophils % (auto) 65.3 %; Platelet Count 256 K/uL (130-400); RDW Coefficient of Variation 13.3 % (11.5-14.5); RDW Standard Deviation 41.5 fL (36.4-46.3); Red Blood Count 4.45 M/uL (4.7-6.1); White Blood Count 7.32 K/uL (4.8-10.8)
[2021-09-03] MEDS: BRIMONIDINE OPL SCH ×2 (07:40→20:55)
[2021-09-03] MEDS: [UNRECOGNIZED DRUG - OTHER] OPL SCH ×2 (07:40→20:55)
--- NOTE | 2021-09-03 08:14 | Hospitalist Progress Note ---
Date of Service September 03, 2021 Assessment & Plan (1) Sigmoid diverticulitis: Plan: Hx of diverticular disease, previously managed in outpatient setting never requiring hospitalization. Typically with Cipro/Flagyl. In ER earlier in week, found to have diverticulitis and given Unasyn IV and then sent home on Augmentin. Stated took several days worth and had developed worsening RLQ pain and concerned for appendicitis which prompted him to return to ER Hx gastroparesis and follows [facility] GI Recently started on reglan (resumed after discussion with GI) Past 2 c-scopes without good prep, but stated given findings of fluid filled esophagus on EGD they felt he has gastroparesis and has been having significant weight loss since this year due to complications of such, although given 30lb weight loss and mother with hx colon ca, raises suspicion for underlying malignancy CT on admission with continued fat stranding and sigmoid bowel thickening compatible with acute diverticulitis. -->No evidence of perforation or abscess. Large solid and liquid stool burden. Increased pain --> repeated CTAP 09/02 with progressive sigmoid diverticulitis given reported increased discomfort although had been moving bowels and did not appear overly uncomfortable but was backed down to NPO GI on consult --> reglan while inpatient, continue motegrity 2mg daily, will need to stop reglan at d/c and GI rec miralax 4 scoops BID Zosyn (day 4), with lactobacillus. --> ID consulted and felt given recently on Bactrim/Cipro/Levaquin for Pseudomonas UTI, would recommend 7 days IV ZOsyn for treatment. Dose increased by pharmacy for higher end in case. Of note, with weight loss, suspicion for underlying malignancy masquerading as gastroparesis and would rec f/u GI [facility] motility specialist (has appt Marty and provided info to CM to reach out to office for additional recs) and will need c-scope for further evaluation 4-6wks post- d/c Feeling better today 09/03 --> of note, did have RIGHT inguinal HERNIA on exam, no evidence for strangulation/herniation but does appear to be related to the pain that brought him in Will advance to low fiber diet, continue miralax/reglan and encouraged ambulation. Will need f/u for inguinal hernia and instructed straining can worsen discomfort once recovered from diverticulitis Monitor labs/electrolyte replacement as needed. Pain control, antiemetics (2) Constipation: Plan: Did have large BM, formed, brown 08/31. Several liquid BMs. One BM today, continue reglan and miralax cdiff negative Needs f/u [facility] GI for c-scope for eval underlying malignancy Per GI, can use miralax up to 4 scoops BID at home to help as to d/c reglan at discharge (3) Acid reflux: Plan: Switch esomeprazole for famotidine 20mg IV BID Switch to pantoprazole when able to take PO meds --> LISTED ON ALLERGIES FOR HALLUCINATIONS. brought in esomeprazole --> to continue 40mg BID and will d/c famotidine No increased reflux symptoms (4) CAD (coronary atherosclerotic disease): Plan: Hx of stent to mid LAD with mild-moderate residual CAD. Follows cardiology, Dr Leyva. Negative dobutamine stress echo April 2020. Normal LV size and systolic function with no regional wma. EF 65%. No LVH. Type I diastolic dysfunction. Normal LA pressures. Resumed ASA, ranexa. Resume amlodipine in AM --> could worsen constipation?, crestor for evening Resumed amlodipine for this morning, crestor for evening EKG w/ CP No chest pain/sob reported. Chronic exertional sob. (5) Hypertension: Plan: BP stable elevated but stable 135/79 Resumed amlodipine 2.5mg but placed on hold as NPO but will plan to resume in AM Hydralazine available prn Monitor (6) Depression: Plan: Resumed sertraline, atrivan prn (7) Hyperlipidemia: Plan: Resumed crestor (8) BPH (benign prostatic hyperplasia): Plan: Restarted flomax/finasteride due to decreased output 08/31 with 200cc on BS Improvement in UO He takes 0.8mg flomax daily Monitor (9) Elevated LFTs: Plan: mildly elevated LFTs, waxing/waning per PCP note May. Had RUQ US in years past. GB thickening on CT on admission but no stones/acute boogie. No RUQ discomfort/negative Quintanilla's. On dicyclomine BID prn [employer] --? biliary colic. Elevated during last admission but now normal. Discussed if persistent issue/RUQ pain returns would obtain RUQ vs HIDA for further investigation RUQ negative (10) Gastroparesis: Plan: reglan as above f/u [facility] GI outpatient need c-scope 4-6 weeks (11) Hiatal hernia: Plan: recent surgical correction earlier this year famotidine BID while NPO --> takes esomeprazole BID at home -- would ask to bring in given issues with protonix and hallucinations in the past --> brought in and ordered home med Plan: VTE Prophylaxis - Lovenox 40mg SQ daily Advanced to full liquids, continue reglan. GI on consult Continue IV ZOsyn x 7 days per ID Will need f/u [facility] for c-scope for further eval underlying malignancy ALso, will need f/u for R fat containing inguinal hernia as causing increased discomfort 2nd straining and essentially what brought him in as he stated today with RLQ pain that he thought was appendicitis (none on imaging appreciated) Admission and Anticipated Discharge Date Admission Date: August 30, 2021 Subjective patient evaluated this afternoon. Seen by ID this morning and said something about levaquin? Did increase dose of Zosyn. He believes ID stated half problem mechanical and should start with food. Denies pain at this time but when asked/examined, RLQ pain that brought him in could possibly be related to right inguinal hernia -- he states he is always straining for a BM. Also would like his [facility] GI contacted/alerted to see if any additional recs. Working on getting contact info. No fever, chills, chest pain, shortness of breath, nausea or vomiting at this time. Improvement in urine output. Per Dr Wong, continue ZOsyn IV x 7 days given already on bactrim/cipro/levaquin as outpatient for UTI, would not need to cover for psuedomonas and would continue on zosyn. also feels need to have f/u [facility] for c-scope/eval of underlying malignancy given weight loss and issues with constipation as lesion could be causing ileitis and possibly not due to a gastroparesis? Review of Systems Review of Systems: All systems reviewed & are unremarkable except as noted in HPI & below Physical Exam Constitutional: WD/WN, vitals as above cooperative and comfortable; no acute distress Eyes: PERRL, conjunctivae normal, anicteric sclerae ENMT: external ear and nose normal, oropharynx normal Neck: trachea midline, no thyromegaly Respiratory: normal respiratory effort, lungs clear to auscultation Cardiovascular: RRR, no murmur, no edema Gastrointestinal (Abdomen): Inspection/Auscultation: normal bowel sounds Percussion/Palpation: + abdomen tender (RLQ/suprapubic region) and abdomen soft; no guarding and abdomen not rigid Musculoskeletal: no cyanosis or clubbing, extremities motor strength 5/5 RIGHT INGUINAL HERNIA, REDUCIBLE, RECREATED PAIN ON pALPATION THAT REPORTEDLY BROUGHT HIM IN Skin: no rashes, warm and dry Neurologic: moves all extremities and awake; not confused Psychiatric: A+Ox3, euthymic affect Genitourinary: no CVA tenderness Results & Data Results & Data ([facility]) Vital Signs (Past 12 Hours) Vital Signs Temp Pulse Resp BP BP Pulse Ox 09/03/21 07:08 36.4 C L 62 16 114/65 97 09/02/21 22:49 36.9 C 61 16 165/77 H 96 Laboratory Results 09/03/21 09/03/21 09/03/21 Range/Units Unknown Unknown Unknown WBC (4.8-10.8) K/uL RBC (4.7-6.1) M/uL Hgb (14.0-18.0) g/dL Hct (42-52) % MCV (80-100) fL MCH (25-34) pg MCHC (32-36) g/dL RDW Std Deviation (36.4-46.3) fL RDW Coeff of Mendoza (11.5-14.5) % Plt Count (130-400) K/uL MPV (7.4-10.4) fL Immature Gran % (Auto) % Neut % (Auto) % Lymph % (Auto) % [place] % (Auto) % Eos % (Auto) % Baso % (Auto) % Neut # (Auto) (1.4-6.5) K/uL Lymph # (Auto) (1.2-3.4) K/uL [place] # (Auto) (0.11-0.59) K/uL Eos # (Auto) (0-0.5) K/uL Baso # (Auto) (0-0.2) K/uL Immature Gran # (Auto) (0.00-0.02) K/uL Sodium (136-145) mmol/L Potassium (3.5-5.1) mmol/L Chloride (98-107) mmol/L Carbon Dioxide (21-32) mmol/L Anion Gap (3-11) BUN (7-18) mg/dl Creatinine (0.6-1.4) mg/dl Est Cr Clr Drug Dosing ml/min Est GFR ( Amer) ml/min Est GFR (Non-Af Amer) ml/min BUN/Creatinine Ratio (10-20) Glucose (70-99) mg/dl Calcium (8.5-10.1) mg/dl Magnesium (1.8-2.4) mg/dl Carcinoembryonic Ag (0-2.5) ng/ml Stl C. diff Tox B Gene Negative Cdiff Gene (Neg) Stool H. pylori Ag Pending Giardia Antigen Pending 09/03/21 09/03/21 09/03/21 Range/Units 12:36 07:15 07:15 WBC 7.32 (4.8-10.8) K/uL RBC 4.45 L (4.7-6.1) M/uL Hgb 13.1 L (14.0-18.0) g/dL Hct 38.2 L (42-52) % MCV 85.8 (80-100) fL MCH 29.4 (25-34) pg MCHC 34.3 (32-36) g/dL RDW Std Deviation 41.5 (36.4-46.3) fL RDW Coeff of Mendoza 13.3 (11.5-14.5) % Plt Count 256 (130-400) K/uL MPV 8.4 (7.4-10.4) fL Immature Gran % (Auto) 0.4 % Neut % (Auto) 65.3 % Lymph % (Auto) 18.7 % [place] % (Auto) 11.7 % Eos % (Auto) 3.8 % Baso % (Auto) 0.1 % Neut # (Auto) 4.77 (1.4-6.5) K/uL Lymph # (Auto) 1.37 (1.2-3.4) K/uL [place] # (Auto) 0.86 H (0.11-0.59) K/uL Eos # (Auto) 0.28 (0-0.5) K/uL Baso # (Auto) 0.01 (0-0.2) K/uL Immature Gran # (Auto) 0.03 H (0.00-0.02) K/uL Sodium 138 (136-145) mmol/L Potassium 4.0 D (3.5-5.1) mmol/L Chloride 109 H (98-107) mmol/L Carbon Dioxide 22 (21-32) mmol/L Anion Gap 7.0 (3-11) BUN 4 L (7-18) mg/dl Creatinine 0.51 L (0.6-1.4) mg/dl Est Cr Clr Drug Dosing 121.1 ml/min Est GFR ( Amer) 121.9 ml/min Est GFR (Non-Af Amer) 105.2 ml/min BUN/Creatinine Ratio 7.1 L (10-20) Glucose 114 H (70-99) mg/dl Calcium 8.6 (8.5-10.1) mg/dl Magnesium 2.4 (1.8-2.4) mg/dl Carcinoembryonic Ag 2.4 (0-2.5) ng/ml Stl C. diff Tox B Gene (Neg) Stool H. pylori Ag Giardia Antigen Diagnostic Findings Liver Ultrasound 09/02/21 06:03 ULTRASOUND RIGHT UPPER QUADRANT ABDOMEN CLINICAL HISTORY: Right upper quadrant abdominal pain. COMPARISON STUDY: Abdominal CT dated 08/30/2021. TECHNIQUE: Real-time, grayscale, and color flow sonography of the right upper quadrant of the abdomen was performed. Images are reviewed in the transverse and longitudinal planes. FINDINGS: Liver: The liver is normal in size and heterogeneous in echotexture. There is no intrahepatic biliary ductal dilatation. The main portal vein is patent. Gallbladder: The gallbladder is distended measuring 11 cm in length. No shadowing gallstones are identified. There is no gallbladder wall thickening or pericholecystic fluid. A sonographic Quintanilla's sign is reportedly absent. The common bile duct measures up to 0.8 cm in diameter. Pancreas: Visualized portions of the pancreatic head and body are normal in appearance. The splenic vein is patent. Right kidney: Survey images of the right kidney demonstrate normal size and echotexture. There is no hydronephrosis. Ascites: None. IMPRESSION: 1. Distended gallbladder with no shadowing gallstones identified and no sonographic evidence of acute cholecystitis. 2. Heterogeneous liver. ACT 112: Negative or not required by law. Electronically signed by: Oscar Isbell M.D. 09/02/2021 8:33 AM Abdomen/Pelvis CT 09/02/21 10:[address] WITH IV CONTRAST CT DOSE: 777.49 mGycm HISTORY: Generalized abdominal pain, worsening, diverticulitis TECHNIQUE: Multiaxial CT images of the abdomen and pelvis were performed following the use of intravenous contrast. A dose lowering technique was utilized adhering to the principles of ALARA. COMPARISON STUDY: Abdomen and pelvis CT 08/30/2021. FINDINGS: The lung bases are clear. No pneumoperitoneum. No pneumatosis. No fractures within the visualized osseous structures. The gallbladder is mildly distended. No gallbladder wall thickening. Multiple duodenal diverticula are again noted. No hepatic or splenic masses. The adrenal glands, kidneys, and pancreas are unremarkable. No retroperitoneal lymphadenopathy. Normal caliber abdominal aorta. The bladder is unremarkable. Thickening of the proximal to mid sigmoid colon with pericolonic fat stranding and multiple diverticula are again noted. Findings likely represent an acute diverticulitis. A colitis could also have a similar appearance. No abscess or perforation identified at this time. This has slightly progressed in the interval. Fluid-filled mildly distended proximal colon, unchanged. Normal appendix. IMPRESSION: 1. Slight progression of the pericolonic fat stranding and bowel wall thickening involving the mid sigmoid colon. This favors an acute diverticulitis. A colitis could also have a similar appearance. 2. No perforation or abscess identified at this time. 3. Normal appendix. 4. Mildly distended fluid-filled proximal colon, unchanged. ACT 112: Negative or not required by law. Electronically signed by: Rex Braswell M.D. 09/02/2021 11:57 AM PG Care Time/CCT Total # of Minutes Spent Total Time Spent with Patient: Total time spent is greater than 50% in coordination of care (as documented) at patient's floor/unit and/or counseling patient: Coding Level of Care Code 07429 Subseq Hosp Care Lvl 3 Diagnoses Sigmoid diverticulitis K57.32 Constipation K59.00 Constipation type: unspecified constipation type Acid reflux K21.9 CAD (coronary atherosclerotic disease) I25.10 Hypertension I10 Depression F32.9 Hyperlipidemia E78.5 BPH (benign prostatic hyperplasia) N40.0 Elevated LFTs R79.89 Gastroparesis K31.84 Hiatal hernia K44.9 (1) Constipation Constipation type: unspecified constipation type Qualified Code(s): K59.00 - Constipation, unspecified
--- NOTE | 2021-09-03 08:18 | Gastroenterology Progress Note ---
Date of Service September 03, 2021 Assessment & Plan (1) Sigmoid diverticulitis: Plan: Diverticulitis--worsening clinically and on CT--recommend ID consult regarding antibiotics, surgery following in case he needs surgery while inpatient. If this resolves without needing surgery as inpatient then would recommend outpatient surgical evaluation for resection of sigmoid diverticula.Patient would prefer this at [facility]. Please refer to supervising physician addendum for further recommendations. Admission and Anticipated Discharge Date Admission Date: August 30, 2021 Supervising Physician Co-Signing Physician Notes I have seen and examined the patient. I agree with note above by SANTOS Rhodes except as noted below. HPI with patient for H and P Pt states pain improved today. KUB stool in distal colon noted. ID consult reviewed PE Abdomen pos bs, soft, no guarding nor rebound A/P diverticulitis--continue Abx per ID rec constipation-Pts brought in miralax from home and he had 4 capfuls today at 2 pm. Recommend restarting Miralax 2 to 4 scoops bid since eating solids now and stool burden noted in colon hx of weight loss--CEA normal. colo attempt t [facility] inadequate prep. Would avoid colonoscopy during acute attack of diverticulits. Would have to wait about 6 weeks for colonoscopy. Not sure whether he would do that at [facility] with the GI motiltiy group or not. DR Gonzalez is on schedule to assume GI care at 0700 in am 09/04/21. Subjective The patient is awake, alert, and oriented this morning. Talking with roommate. States bilateral lower abdominal pain continues. Denies nausea or vomiting. No fever or chills. Diarrhea yesterday. Currently NPO. Passing minimal flatus. Review of Systems Review of Systems: All systems reviewed & are unremarkable except as noted in Subjective Physical Exam Constitutional: WD/WN, vitals as above Respiratory: normal respiratory effort, lungs clear to auscultation Cardiovascular: RRR, no murmur, no edema Gastrointestinal (Abdomen): Inspection/Auscultation: abdomen normal to inspection and + abdomen distended; + abnormal bowel sounds (decreased) Percussion/Palpation: + abdomen tender (bilateral lower abdomen), abdomen soft and + tympanic to percussion; no guarding and abdomen not rigid Skin: warm, red area noted right anterior forearm Psychiatric: A+Ox3, euthymic affect Results & Data ([facility]) Vital Signs (Past 12 Hours) Vital Signs Temp Pulse Resp BP BP Pulse Ox 09/03/21 07:08 36.4 C L 62 16 114/65 97 09/02/21 22:49 36.9 C 61 16 165/77 H 96 Laboratory Results Laboratory Results - last 24 hr Laboratory Results - last 24 hr 09/02/21 09/03/21 09/03/21 06:48 07:15 07:15 WBC 7.32 RBC 4.45 L Hgb 13.1 L Hct 38.2 L MCV 85.8 MCH 29.4 MCHC 34.3 RDW Std Deviation 41.5 RDW Coeff of Mendoza 13.3 Plt Count 256 MPV 8.4 Immature Gran % (Auto) 0.4 Neut % (Auto) 65.3 Lymph % (Auto) 18.7 [place] % (Auto) 11.7 Eos % (Auto) 3.8 Baso % (Auto) 0.1 Neut # (Auto) 4.77 Lymph # (Auto) 1.37 [place] # (Auto) 0.86 H Eos # (Auto) 0.28 Baso # (Auto) 0.01 Immature Gran # (Auto) 0.03 H Sodium 138 Potassium 4.0 D Chloride 109 H Carbon Dioxide 22 Anion Gap 7.0 BUN 4 L Creatinine 0.51 L Est Cr Clr Drug Dosing 121.1 Est GFR ( Amer) 121.9 Est GFR (Non-Af Amer) 105.2 BUN/Creatinine Ratio 7.1 L Glucose 114 H Calcium 8.6 Magnesium 2.4 Cortisol AM Sample 6.52 Diagnostic Findings Liver Ultrasound 09/02/21 06:03 ULTRASOUND RIGHT UPPER QUADRANT ABDOMEN CLINICAL HISTORY: Right upper quadrant abdominal pain. COMPARISON STUDY: Abdominal CT dated 08/30/2021. TECHNIQUE: Real-time, grayscale, and color flow sonography of the right upper quadrant of the abdomen was performed. Images are reviewed in the transverse and longitudinal planes. FINDINGS: Liver: The liver is normal in size and heterogeneous in echotexture. There is no intrahepatic biliary ductal dilatation. The main portal vein is patent. Gallbladder: The gallbladder is distended measuring 11 cm in length. No shadowing gallstones are identified. There is no gallbladder wall thickening or pericholecystic fluid. A sonographic Quintanilla's sign is reportedly absent. The common bile duct measures up to 0.8 cm in diameter. Pancreas: Visualized portions of the pancreatic head and body are normal in appearance. The splenic vein is patent. Right kidney: Survey images of the right kidney demonstrate normal size and echotexture. There is no hydronephrosis. Ascites: None. IMPRESSION: 1. Distended gallbladder with no shadowing gallstones identified and no sonographic evidence of acute cholecystitis. 2. Heterogeneous liver. ACT 112: Negative or not required by law. Electronically signed by: Oscar Isbell M.D. 09/02/2021 8:33 AM Abdomen/Pelvis CT 09/02/21 10:[address] WITH IV CONTRAST CT DOSE: 777.49 mGycm HISTORY: Generalized abdominal pain, worsening, diverticulitis TECHNIQUE: Multiaxial CT images of the abdomen and pelvis were performed following the use of intravenous contrast. A dose lowering technique was utilized adhering to the principles of ALARA. COMPARISON STUDY: Abdomen and pelvis CT 08/30/2021. FINDINGS: The lung bases are clear. No pneumoperitoneum. No pneumatosis. No fractures within the visualized osseous structures. The gallbladder is mildly distended. No gallbladder wall thickening. Multiple duodenal diverticula are again noted. No hepatic or splenic masses. The adrenal glands, kidneys, and pancreas are unremarkable. No retroperitoneal lymphadenopathy. Normal caliber abdominal aorta. The bladder is unremarkable. Thickening of the proximal to mid sigmoid colon with pericolonic fat stranding and multiple diverticula are again noted. Findings likely represent an acute diverticulitis. A colitis could also have a similar appearance. No abscess or perforation identified at this time. This has slightly progressed in the interval. Fluid-filled mildly distended proximal colon, unchanged. Normal appendix. IMPRESSION: 1. Slight progression of the pericolonic fat stranding and bowel wall thickening involving the mid sigmoid colon. This favors an acute diverticulitis. A colitis could also have a similar appearance. 2. No perforation or abscess identified at this time. 3. Normal appendix. 4. Mildly distended fluid-filled proximal colon, unchanged. ACT 112: Negative or not required by law. Electronically signed by: Rex Braswell M.D. 09/02/2021 11:57 AM
[2021-09-03 08:24] LABS: BUN Creatinine Ratio 7.1 (10-20); Calcium 8.6 mg/dl (8.5-10.1); Creatinine Clr Calc Pharmacy 121.1 ml/min; Est GFR (African American) 121.9 ml/min; Est GFR (Non-African American) 105.2 ml/min; Magnesium 2.4 mg/dl (1.8-2.4)
--- NOTE | 2021-09-03 10:54 | XRay Report ---
KUB HISTORY: Generalized abdominal pain. Acute diverticulitis. COMPARISON: KUB 09/02/2021. FINDINGS: Mildly dilated gas-filled loops of large and small bowel are again seen throughout the abdo men. Moderate stool within the distal colon. No renal calculi. No ureteral calculi. No pneumoperiton eum or pneumatosis. IMPRESSION: Mildly dilated gas-filled loops of large and small bowel are again seen throughout the abdomen. This favors a mild ileus. ACT 112: Negative or not required by law. Electronically signed by: Rex Braswell M.D. 09/03/2021 10:53 AM
[2021-09-03] MEDS: NSS + 20MEQ KCL 20 MEQ/1,000 ML BAG IV SCH (12:33)
--- NOTE | 2021-09-03 14:16 | Surgery Progress Note ---
Date of Service September 03, 2021 Assessment & Plan (1) Gastroparesis: (2) Sigmoid diverticulitis: (3) Constipation: Plan: 76 year-old male with history of gastroparesis, chronic constipation, GERD, luna's esophagus, diverticulosis and diverticulitis usually treated with po cipro/flagyl who presented to ER on 08/30/21 after evaluation in ED on 08/27/21 for mild sigmoid diverticulitis and constipation. Was placed on oral Augmentin and pain increased. CT scan's are showing slight progression of sigmoid diverticulitis however no abscess or perforation. Still has moderate stool burden on imaging. Abdomen is soft, tender in lower quadrants but no peritonitis , rigidity, or guarding. Afebrile and no leukocytosis. Plan: No acute surgical intervention required at this time. Patient's progression of sigmoid fat stranding is likely secondary to his stool burden, decreased motility. Continue bowel regimen Continue IV Zosyn, was going to add double anaerobic coverage with Flagyl but pharmacy has very limited dose of IV flagyl will need to follow with motility specialist to ensure his motility issues are managed as his severe constipation is likely cause of his diverticulitis. when diet is advanced, advance to low fiber diet while in acute phase will follow along Dr. Pinzon has seen and examined pt, agrees with above. 09/03/2021 2:17PM Dr. Grier F/U sigmoid diverticulitis, doing better, tolerated diet, no fever, continue iv antibiotic treatment. will F/U, Admission and Anticipated Discharge Date Admission Date: August 30, 2021 Supervising Physician Co-Signing Physician Notes I have seen and examined the patient. I agree with note above by SANTOS Rhodes except as noted below. HPI Pt complained of worse LLQ and mid pelvic pain last evening and this am. Just had pain meds and pain manageable at present. Review of studies today abd us distended gb, hetereogenous liver, KUB neg. CT a/p progression of sigmoid diverticulitis. Pt states had 6 loose stools today. Pt states frequent bouts of diverticulitis througout many years as outpt. PE Abdomen pos bs, soft, no guardin nor rebound A/P diverticulitis--worsening clinically and on CT--recommend ID consult regarding our abx, surgery consult (they have seen patient) for them to follow in case he needs surgery while inpatient. If this resolves without needing surgery as inpatient then would recommend outpt surgical resection sigmoid diverticula. Discussed with Munira Hinojosa constipation--would cut back on some of laxattive at present while not really eating. Discussed if patient ultimately will be getting surgery for diverticulitis then consider extended colon removal to improve constipation. Subjective patient evaluated this afternoon. Seen by ID this morning and said something about levaquin? Did increase dose of Zosyn. He believes ID stated half problem mechanical and should start with food. Denies pain at this time but when asked/examined, RLQ pain that brought him in could possibly be related to right inguinal hernia -- he states he is always straining for a BM. Also would like his [facility] contacted/alerted to see if any additional recs. Working on getting contact info. No fever, chills, chest pain, shortness of breath, nausea or vomiting at this time. Improvement in urine output. Per Dr Wong, continue ZOsyn IV x 7 days given already on bactrim/cipro/levaquin as outpatient for UTI, would not need to cover for psuedomonas and would continue on zosyn. also feels need to have f/u [facility] for c-scope/eval of underlying malignancy given weight loss and issues with constipation as lesion could be causing ileitis and possibly not due to a gastroparesis? 09/03/2021 2:13PM Dr. Grier F/U diverticulitis, pt is doing better, no abdominal pain, no fever, no diarrhea, tolerated diet, Physical Exam Constitutional: WD/WN, vitals as above Eyes: PERRL, conjunctivae normal, anicteric sclerae Neck: trachea midline, no thyromegaly Respiratory: normal respiratory effort, lungs clear to auscultation Cardiovascular: RRR, no murmur, no edema Gastrointestinal (Abdomen): normal bowel sounds, soft, nontender, no hepatosplenomegaly Neurologic: patellar DTR's 2+ bilat, sensation intact Psychiatric: A+Ox3, euthymic affect Results & Data ([facility]) Vital Signs (Past 12 Hours) Vital Signs Temp Pulse Resp BP Pulse Ox 09/03/21 07:08 36.4 C L 62 16 114/65 97 Laboratory Results Abnormal lab results 12/29/21 12/29/21 Range/Units 07:15 07:15 RBC 4.45 L (4.7-6.1) M/uL Hgb 13.1 L (14.0-18.0) g/dL Hct 38.2 L (42-52) % Elbert # (Auto) 0.86 H (0.11-0.59) K/uL Immature Gran # (Auto) 0.03 H (0.00-0.02) K/uL Chloride 109 H (98-107) mmol/L BUN 4 L (7-18) mg/dl Creatinine 0.51 L (0.6-1.4) mg/dl BUN/Creatinine Ratio 7.1 L (10-20) Glucose 114 H (70-99) mg/dl Diagnostic Findings ABDOMEN AND PELVIS CT WITH IV CONTRAST CT DOSE: 777.49 mGycm HISTORY: Generalized abdominal pain, worsening, diverticulitis TECHNIQUE: Multiaxial CT images of the abdomen and pelvis were performed following the use of intravenous contrast. A dose lowering technique was utilized adhering to the principles of ALARA. COMPARISON STUDY: Abdomen and pelvis CT 08/30/2021. FINDINGS: The lung bases are clear. No pneumoperitoneum. No pneumatosis. No fractures within the visualized osseous structures. The gallbladder is mildly distended. No gallbladder wall thickening. Multiple duodenal diverticula are again noted. No hepatic or splenic masses. The adrenal glands, kidneys, and pancreas are unremarkable. No retroperitoneal lymphadenopathy. Normal caliber abdominal aorta. The bladder is unremarkable. Thickening of the proximal to mid sigmoid colon with pericolonic fat stranding and multiple diverticula are again noted. Findings likely represent an acute diverticulitis. A colitis could also have a similar appearance. No abscess or perforation identified at this time. This has slightly progressed in the interval. Fluid-filled mildly distended proximal colon, unchanged. Normal appendix. IMPRESSION: 1. Slight progression of the pericolonic fat stranding and bowel wall thickening involving the mid sigmoid colon. This favors an acute diverticulitis. A colitis could also have a similar appearance. 2. No perforation or abscess identified at this time. 3. Normal appendix. 4. Mildly distended fluid-filled proximal colon, unchanged. KUB HISTORY: Generalized abdominal pain. Acute diverticulitis. COMPARISON: KUB 09/02/2021. FINDINGS: Mildly dilated gas-filled loops of large and small bowel are again seen throughout the abdomen. Moderate stool within the distal colon. No renal calculi. No ureteral calculi. No pneumoperitoneum or pneumatosis. IMPRESSION: Mildly dilated gas-filled loops of large and small bowel are again seen throughout the abdomen. This favors a mild ileus. (1) Constipation Constipation type: unspecified constipation type Qualified Code(s): K59.00 - Constipation, unspecified
[2021-09-03] MEDS: PIPERACILLIN/TAZOBACTAM 4.5 GM in DEXTROSE 5% 100 ML IV SCH ×2 (16:38→23:21)
[2021-09-03] MEDS: ACETAMINOPHEN 1,000 MG/100 ML VIAL IV PRN (16:52)
[2021-09-03] MEDS: METOCLOPRAMIDE HCL 5 MG TABLET PO SCH ×2 (16:56→21:06)
[2021-09-03] MEDS ORDERED: oxyCODONE/ACETAMINOPHEN 5mg/325mg TAB PO PRN (17:54)
[2021-09-03] MEDS: ENOXAPARIN INJ 40 MG/0.4 ML SYR SQ SCH (20:55)
[2021-09-03] MEDS: FINASTERIDE 5 MG TAB PO SCH (20:56)
[2021-09-03] MEDS: TAMSULOSIN HCL 0.4 MG CAP PO SCH (20:58)
[2021-09-03] MEDS: SOLIFENACIN SUCCINATE 5 MG PO SCH (20:58)
[2021-09-03] MEDS: POLYETHYLENE (MIRALAX) 17 GM PACK PO SCH (21:06)
[2021-09-03] MEDS: ONDANSETRON INJ 2 MG/ML 2 ML VIAL IV PRN (22:45)
[2021-09-04] MEDS: NSS + 20MEQ KCL 20 MEQ/1,000 ML BAG IV SCH (01:36)
[2021-09-04] MEDS: MoRPHine SULFATE 2 MG/ML CARP IV PRN (02:50)
[2021-09-04] MEDS: ACETAMINOPHEN 1,000 MG/100 ML VIAL IV PRN (06:21)
[2021-09-04 07:05] LABS: Basophils # (auto) 0.02 K/uL (0-0.2); Basophils % (auto) 0.3 %; Eosinophils # (auto) 0.29 K/uL (0-0.5); Eosinophils % (auto) 3.7 %; Hematocrit (blood only) 35.8 % (42-52); Hemoglobin 12.2 g/dL (14.0-18.0); Immature Granulocytes # (auto) 0.01 K/uL (0.00-0.02); Immature Granulocytes % (auto) 0.1 %; Lymphocytes # (auto) 1.23 K/uL (1.2-3.4); Lymphocytes % (auto) 15.7 %; Mean Corpuscular Hemoglobin 29.8 pg (25-34); Mean Corpuscular Hgb Conc 34.1 g/dL (32-36); Mean Corpuscular Volume 87.3 fL (80-100); Mean Platelet Volume 8.2 fL (7.4-10.4); Monocytes # (auto) 0.82 K/uL (0.11-0.59); Monocytes % (auto) 10.4 %; Neutrophils # (auto) 5.48 K/uL (1.4-6.5); Neutrophils % (auto) 69.8 %; Platelet Count 244 K/uL (130-400); RDW Coefficient of Variation 13.4 % (11.5-14.5); RDW Standard Deviation 42.8 fL (36.4-46.3); White Blood Count 7.85 K/uL (4.8-10.8)
[2021-09-04 07:34] LABS: Albumin Level 2.4 gm/dl (3.4-5.0); BUN Creatinine Ratio 8.1 (10-20); Calcium 8.5 mg/dl (8.5-10.1); Creatinine Clr Calc Pharmacy 110.3 ml/min; Est GFR (African American) 117.3 ml/min; Est GFR (Non-African American) 101.2 ml/min; Potassium 3.8 mmol/L (3.5-5.1)
[2021-09-04 07:36] LABS: Albumin Globulin Ratio 0.7 (0.9-2); Bilirubin,Total 0.5 mg/dl (0.2-1); Globulin 3.4 gm/dl (2.5-4.0); Total Protein 5.8 gm/dl (6.4-8.2)
--- NOTE | 2021-09-04 07:54 | Gastroenterology Progress Note ---
Date of Service September 04, 2021 Assessment & Plan (1) Sigmoid diverticulitis: Plan: Diverticulitis--Follow antibiotic recommendations from ID. Would consider colonoscopy 6 weeks after antibiotic completion. If surgical intervention is required, patient would prefer at [facility] if not emergent. Constipation--Chronic complaint. Follows at [facility] with motility clinic. Dr. Thorpe recommended restarting Miralax 2 to 4 scoops bid since eating solids now and stool burden noted in colon History of weight loss--Normal CEA. Colonoscopy attempted 10/2020 at [facility] with inadequate prep. Recommend colonoscopy as noted above. Follows with [facility] as noted. Please refer to supervising physician addendum for further recommendations. Admission and Anticipated Discharge Date Admission Date: August 30, 2021 Subjective Patient sleeping but awakes easily with verbal stimuli. Awake, alert, and oriented this morning. Reports some bilateral lower abdominal pain (L>R) through the night. Reports 8-9 liquid stools yesterday with only small formed stool noted. Was advanced to a regular diet yesterday but did not like food sent. Denies any nausea or vomiting. Review of Systems Review of Systems: All systems reviewed & are unremarkable except as noted in Subjective Physical Exam Constitutional: WD/WN, vitals as above Respiratory: normal respiratory effort, lungs clear to auscultation Cardiovascular: RRR, no murmur, no edema Gastrointestinal (Abdomen): Inspection/Auscultation: abdomen normal to inspection and normal bowel sounds Percussion/Palpation: + abdomen tender (lower abdomen), abdomen soft and + tympanic to percussion; no guarding and abd omen not rigid Skin: warm, red area noted right anterior forearm Psychiatric: A+Ox3, euthymic affect Results & Data ([facility]) Vital Signs (Past 12 Hours) Vital Signs Temp Pulse Resp BP Pulse Ox 09/04/21 07:14 36.8 C 60 16 133/62 96 09/03/21 22:26 36.7 C 62 16 160/74 H 99 Laboratory Results Laboratory Results - last 24 hr 09/03/21 09/03/21 09/03/21 07:15 12:36 Unknown WBC RBC Hgb Hct MCV MCH MCHC RDW Std Deviation RDW Coeff of Mendoza Plt Count MPV Immature Gran % (Auto) Neut % (Auto) Lymph % (Auto) [place] % (Auto) Eos % (Auto) Baso % (Auto) Neut # (Auto) Lymph # (Auto) [place] # (Auto) Eos # (Auto) Baso # (Auto) Immature Gran # (Auto) Sodium 138 Potassium 4.0 D Chloride 109 H Carbon Dioxide 22 Anion Gap 7.0 BUN 4 L Creatinine 0.51 L Est Cr Clr Drug Dosing 121.1 Est GFR ( Amer) 121.9 Est GFR (Non-Af Amer) 105.2 BUN/Creatinine Ratio 7.1 L Glucose 114 H Calcium 8.6 Magnesium 2.4 Total Bilirubin AST ALT Alkaline Phosphatase Total Protein Albumin Globulin Albumin/Globulin Ratio Carcinoembryonic Ag 2.4 Stl C. diff Tox B Gene Negative Cdiff Gene Stool H. pylori Ag Giardia Antigen 09/03/21 09/03/21 09/04/21 Unknown Unknown 06:41 WBC 7.85 RBC 4.10 L Hgb 12.2 L Hct 35.8 L MCV 87.3 MCH 29.8 MCHC 34.1 RDW Std Deviation 42.8 RDW Coeff of Mendoza 13.4 Plt Count 244 MPV 8.2 Immature Gran % (Auto) 0.1 Neut % (Auto) 69.8 Lymph % (Auto) 15.7 [place] % (Auto) 10.4 Eos % (Auto) 3.7 Baso % (Auto) 0.3 Neut # (Auto) 5.48 Lymph # (Auto) 1.23 [place] # (Auto) 0.82 H Eos # (Auto) 0.29 Baso # (Auto) 0.02 Immature Gran # (Auto) 0.01 Sodium Potassium Chloride Carbon Dioxide Anion Gap BUN Creatinine Est Cr Clr Drug Dosing Est GFR ( Amer) Est GFR (Non-Af Amer) BUN/Creatinine Ratio Glucose Calcium Magnesium Total Bilirubin AST ALT Alkaline Phosphatase Total Protein Albumin Globulin Albumin/Globulin Ratio Carcinoembryonic Ag Stl C. diff Tox B Gene Stool H. pylori Ag Pending Giardia Antigen Pending 09/04/21 06:41 WBC RBC Hgb Hct MCV MCH MCHC RDW Std Deviation RDW Coeff of Mendoza Plt Count MPV Immature Gran % (Auto) Neut % (Auto) Lymph % (Auto) [place] % (Auto) Eos % (Auto) Baso % (Auto) Neut # (Auto) Lymph # (Auto) [place] # (Auto) Eos # (Auto) Baso # (Auto) Immature Gran # (Auto) Sodium 135 L Potassium 3.8 Chloride 108 H Carbon Dioxide 22 Anion Gap 5.0 BUN 5 L Creatinine 0.56 L Est Cr Clr Drug Dosing 110.3 Est GFR ( Amer) 117.3 Est GFR (Non-Af Amer) 101.2 BUN/Creatinine Ratio 8.1 L Glucose 119 H Calcium 8.5 Magnesium Total Bilirubin 0.5 AST 14 L ALT 14 Alkaline Phosphatase 79 Total Protein 5.8 L Albumin 2.4 L Globulin 3.4 Albumin/Globulin Ratio 0.7 L Carcinoembryonic Ag Stl C. diff Tox B Gene Stool H. pylori Ag Giardia Antigen Diagnostic Findings KUB X-Ray 09/03/21 09:17 KUB HISTORY: Generalized abdominal pain. Acute diverticulitis. COMPARISON: KUB 09/02/2021. FINDINGS: Mildly dilated gas-filled loops of large and small bowel are again seen throughout the abdomen. Moderate stool within the distal colon. No renal calculi. No ureteral calculi. No pneumoperitoneum or pneumatosis. IMPRESSION: Mildly dilated gas-filled loops of large and small bowel are again seen throughout the abdomen. This favors a mild ileus. ACT 112: Negative or not required by law. Electronically signed by: Rex Braswell M.D. 09/03/2021 10:53 AM Addendum September 04, 2021 11:39I interviewed and examined the patient and reviewed the medical record, with the following observations: Subjective: Mr. Troy had diarrhea and one episode of vomiting last night, small formed bowel movements today. He conitnues to have lower abdominal pain, R>L, with sharp cramping episodes,unchanged over the past month. Physical Examination: Moderately distended and tympanitic abdomen, soft, without localized tenderness, guarding, rebound Chart Review: Hypoalbuminemia This case was reviewed with the advanced practice provider I agree with the assessment as outlined in this consultation, with the following observations: I would include adynamic ileus, gastroparesis, chronic GERD with nondysplastic Liriano's post hiatal hernia repair to the active problem list. I agree with the plan of care as outlined in this consultation, with the following changes and/or additions: Recommend continue current plan of care with IV Zosyn (per ID) and promotility and constipation management agents. Hopefully there will be gradual improvement and resolution of the acute inflammation and surgery for complicated diverticulitis can be avoided, then follow up EGD and Colonscopy exams in 6-8 weeks.
--- NOTE | 2021-09-04 08:52 | Hospitalist Progress Note ---
Date of Service September 04, 2021 Assessment & Plan (1) Sigmoid diverticulitis: Plan: Hx of diverticular disease, previously managed in outpatient setting never requiring hospitalization. Typically with Cipro/Flagyl. In ER earlier in week, found to have diverticulitis and given Unasyn IV and then sent home on Augmentin. Stated took several days worth and had developed worsening RLQ pain and concerned for appendicitis which prompted him to return to ER (also with R inguinal hernia) Hx gastroparesis and follows [facility] Recently started on reglan (resumed after discussion with GI) Past 2 c-scopes without good prep, but stated given findings of fluid filled esophagus on EGD they felt he has gastroparesis and has been having significant weight loss since this year due to complications of such, although given 30lb weight loss and mother with hx colon ca, raises suspicion for underlying malignancy, however CEA wnl on check CT on admission with continued fat stranding and sigmoid bowel thickening compatible with acute diverticulitis. -->No evidence of perforation or abscess. Large solid and liquid stool burden. Increased pain 09/02 --> repeated CTAP with progressive sigmoid diverticulitis given reported increased discomfort although had been moving bowels and did not appear overly uncomfortable but was backed down to NPO GI on consult --> reglan while inpatient, continue motegrity 2mg daily. will need to stop reglan at d/c and GI rec miralax 4 scoops BID (brought in and has been taking) KUB 09/04 with Interval improvement from the previous examination with decreased gaseous distention of large and small bowel. No significant fecal stasis. Checked US of R inguinal hernia given complaints of pain and suspected "appendicitis as what brought him in" --> IMPRESSION: Right inguinal hernia containing peritoneal fat with no bowel loop herniation as described. ID consulted -- continue Zosyn x 7 days along with lactobacillus, currently on day 5/7 (ID felt given recently on Bactrim/Cipro/Levaquin for Pseudomonas UTI, would recommend 7 days IV ZOsyn for treatment. Dose increased by pharmacy for higher end in case. Of note, with weight loss, suspicion for underlying malignancy masquerading as gastroparesis and would rec f/u GI [facility] motility specialist (has appt Marty and provided info to CM to reach out to office for additional recs) and will need c-scope for further evaluation 4-6wks post-d/c) 8-9 liquid BM 09/03. cdiff negative. Checked stool studies --> + Giardia antigen --> Could be reason for recent weight loss/bloating/cramping/diarrhea/constipation as well --> Will discuss with pharmacy as tinidazole and nitazoxanide non-formulary, and flagyl on short supply but could use oral --> If not able to obtain first line antiprotozoal agent, will utilize Flagyl for treatment, but does not have as good of eradication and would need to continue 5-7 days flagyl 500mg BID --> Messaged Melissa from GI who will forward to Dr Gonzalez taking over GI coverage for Darya at this time Changed diet to low fiber, lactose intolerant in case giardia causing lactose intolerance leading to bloating and if improvement could rec continue at d/c Monitor labs/electrolyte replacement as needed. Pain control, antiemetics (2) Constipation: Plan: Did have large BM, formed, brown 08/31. Several liquid BMs. Continued 8-9 liquid stools yesterday, some forming today cdiff negative checked stool studies --> + giardia antigen as above and tx 5-7 days flagyl if unable to obtain other antiprotozoal as above Needs f/u [facility] for c-scope for eval underlying malignancy Per GI, can use miralax up to 4 scoops BID at home to help as to d/c reglan at discharge (3) Acid reflux: Plan: Switch esomeprazole for famotidine 20mg IV BID Switch to pantoprazole when able to take PO meds --> LISTED ON ALLERGIES FOR HALLUCINATIONS. brought in esomeprazole --> to continue 40mg BID and will d/c famotidine No increased reflux symptoms (4) CAD (coronary atherosclerotic disease): Plan: Hx of stent to mid LAD with mild-moderate residual CAD. Follows cardiology, Dr Leyva. Negative dobutamine stress echo April 2020. Normal LV size and systolic function with no regional wma. EF 65%. No LVH. Type I diastolic dysfunction. Normal LA pressures. Resumed ASA, ranexa, amlodipine, crestor EKG w/ CP No chest pain/sob reported. Chronic exertional sob. (5) Hypertension: Plan: BP stable 133/62 2.5mg amlodipine daily Hydralazine available prn Monitor (6) Depression: Plan: Resumed sertraline (on hold while on reglan inpatient), atrivan prn (7) Hyperlipidemia: Plan: Resumed crestor (8) BPH (benign prostatic hyperplasia): Plan: Restarted flomax/finasteride due to decreased output 08/31 with 200cc on BS Improvement in UO He takes 0.8mg flomax daily Monitor (9) Elevated LFTs: Plan: mildly elevated LFTs, waxing/waning per PCP note May. Had RUQ US in years past. GB thickening on CT on admission but no stones/acute boogie. No RUQ discomfort/negative Quintanilla's. On dicyclomine BID prn [employer] --? biliary colic. Elevated during last admission but now normal. RUQ negative (10) Gastroparesis: Plan: reglan as above f/u [facility] outpatient need c-scope 4-6 weeks could also be from +giardia as above, treatment to follow further recs per GI when seen this afternoon (11) Hiatal hernia: Plan: recent surgical correction earlier this year famotidine BID while NPO --> takes esomeprazole BID at home -- would ask to bring in given issues with protonix and hallucinations in the past --> brought in and ordered home med Plan: VTE Prophylaxis - Lovenox 40mg SQ daily Continue Low fiber, lactose intolerant Continue Zosyn IV x 7 (on day 5) +Giardia --> Started metronidazole 500mg BID this afternoon and will need to continue discussion with patient Will need f/u [facility] for c-scope in next 4-6 wks Information sent to his motility specialists, not hear back yet. vice president process with info -- follow up to ensure f/u for 4-6 weeks. May need elective sigmoidectomy in future for recurrent diverticulitis as well Admission and Anticipated Discharge Date Admission Date: August 30, 2021 Subjective Patient evaluated this morning. Drinking metamucil in water. Had 8-9 liquid BM yesterday, some small forming of stool today. Lower abdominal pain, slight RLQ discomfort but more to inguinal area and did endorse straining. Discussed to limit straining with BM and continue small frequent meals for his gastroparesis. No fever, chills, chest pain, shortness of breath or nausea. No LE edema. No dysuria reported. Awaiting completion of IV abx and hopeful to be d/c on Wednesday after antibiotics to watch [employer] game but ok if not able to until after. Will check constantin ing for abx. Review of Systems Review of Systems: All systems reviewed & are unremarkable except as noted in HPI & below Physical Exam Constitutional: WD/WN, vitals as above cooperative and comfortable; no acute distress Eyes: PERRL, conjunctivae normal, anicteric sclerae ENMT: external ear and nose normal, oropharynx normal Neck: trachea midline, no thyromegaly Respiratory: normal respiratory effort, lungs clear to auscultation Cardiovascular: RRR, no murmur, no edema Gastrointestinal (Abdomen): Inspection/Auscultation: normal bowel sounds Percussion/Palpation: + abdomen tender (RLQ) and abdomen soft; no guarding and abdomen not rigid tympanic to percussion Musculoskeletal: no cyanosis or clubbing, extremities motor strength 5/5 RIGHT INGUINAL HERNIA, REDUCIBLE, RECREATED PAIN ON pALPATION THAT REPORTEDLY BROUGHT HIM IN Skin: no rashes, warm and dry Neurologic: moves all extremities and awake; not confused Psychiatric: A+Ox3, euthymic affect Genitourinary: no CVA tenderness Results & Data Results & Data ([facility]) Vital Signs (Past 12 Hours) Vital Signs Temp Pulse Resp BP Pulse Ox 09/04/21 07:14 36.8 C 60 16 133/62 96 09/03/21 22:26 36.7 C 62 16 160/74 H 99 Laboratory Results 09/04/21 09/04/21 09/03/21 Range/Units 06:41 06:41 Unknown WBC 7.85 (4.8-10.8) K/uL RBC 4.10 L (4.7-6.1) M/uL Hgb 12.2 L (14.0-18.0) g/dL Hct 35.8 L (42-52) % MCV 87.3 (80-100) fL MCH 29.8 (25-34) pg MCHC 34.1 (32-36) g/dL RDW Std Deviation 42.8 (36.4-46.3) fL RDW Coeff of Mendoza 13.4 (11.5-14.5) % Plt Count 244 (130-400) K/uL MPV 8.2 (7.4-10.4) fL Immature Gran % (Auto) 0.1 % Neut % (Auto) 69.8 % Lymph % (Auto) 15.7 % [place] % (Auto) 10.4 % Eos % (Auto) 3.7 % Baso % (Auto) 0.3 % Neut # (Auto) 5.48 (1.4-6.5) K/uL Lymph # (Auto) 1.23 (1.2-3.4) K/uL [place] # (Auto) 0.82 H (0.11-0.59) K/uL Eos # (Auto) 0.29 (0-0.5) K/uL Baso # (Auto) 0.02 (0-0.2) K/uL Immature Gran # (Auto) 0.01 (0.00-0.02) K/uL Sodium 135 L (136-145) mmol/L Potassium 3.8 (3.5-5.1) mmol/L Chloride 108 H (98-107) mmol/L Carbon Dioxide 22 (21-32) mmol/L Anion Gap 5.0 (3-11) BUN 5 L (7-18) mg/dl Creatinine 0.56 L (0.6-1.4) mg/dl Est Cr Clr Drug Dosing 110.3 ml/min Est GFR ( Amer) 117.3 ml/min Est GFR (Non-Af Amer) 101.2 ml/min BUN/Creatinine Ratio 8.1 L (10-20) Glucose 119 H (70-99) mg/dl Calcium 8.5 (8.5-10.1) mg/dl Total Bilirubin 0.5 (0.2-1) mg/dl AST 14 L (15-37) U/L ALT 14 (12-78) Alkaline Phosphatase 79 (45-117) U/L Total Protein 5.8 L (6.4-8.2) gm/dl Albumin 2.4 L (3.4-5.0) gm/dl Globulin 3.4 (2.5-4.0) gm/dl Albumin/Globulin Ratio 0.7 L (0.9-2) Carcinoembryonic Ag (0-2.5) ng/ml Stl C. diff Tox B Gene (Neg) Stool H. pylori Ag Pending Giardia Antigen 09/03/21 09/03/21 09/03/21 Range/Units Unknown Unknown 12:36 WBC (4.8-10.8) K/uL RBC (4.7-6.1) M/uL Hgb (14.0-18.0) g/dL Hct (42-52) % MCV (80-100) fL MCH (25-34) pg MCHC (32-36) g/dL RDW Std Deviation (36.4-46.3) fL RDW Coeff of Mendoza (11.5-14.5) % Plt Count (130-400) K/uL MPV (7.4-10.4) fL Immature Gran % (Auto) % Neut % (Auto) % Lymph % (Auto) % [place] % (Auto) % Eos % (Auto) % Baso % (Auto) % Neut # (Auto) (1.4-6.5) K/uL Lymph # (Auto) (1.2-3.4) K/uL [place] # (Auto) (0.11-0.59) K/uL Eos # (Auto) (0-0.5) K/uL Baso # (Auto) (0-0.2) K/uL Immature Gran # (Auto) (0.00-0.02) K/uL Sodium (136-145) mmol/L Potassium (3.5-5.1) mmol/L Chloride (98-107) mmol/L Carbon Dioxide (21-32) mmol/L Anion Gap (3-11) BUN (7-18) mg/dl Creatinine (0.6-1.4) mg/dl Est Cr Clr Drug Dosing ml/min Est GFR ( Amer) ml/min Est GFR (Non-Af Amer) ml/min BUN/Creatinine Ratio (10-20) Glucose (70-99) mg/dl Calcium (8.5-10.1) mg/dl Total Bilirubin (0.2-1) mg/dl AST (15-37) U/L ALT (12-78) Alkaline Phosphatase (45-117) U/L Total Protein (6.4-8.2) gm/dl Albumin (3.4-5.0) gm/dl Globulin (2.5-4.0) gm/dl Albumin/Globulin Ratio (0.9-2) Carcinoembryonic Ag 2.4 (0-2.5) ng/ml Stl C. diff Tox B Gene Negative Cdiff Gene (Neg) Stool H. pylori Ag Giardia Antigen Pending Diagnostic Findings 09/04/21 09/04/21 09/03/21 Range/Units 06:41 06:41 Unknown WBC 7.85 (4.8-10.8) K/uL RBC 4.10 L (4.7-6.1) M/uL Hgb 12.2 L (14.0-18.0) g/dL Hct 35.8 L (42-52) % MCV 87.3 (80-100) fL MCH 29.8 (25-34) pg MCHC 34.1 (32-36) g/dL RDW Std Deviation 42.8 (36.4-46.3) fL RDW Coeff of Mendoza 13.4 (11.5-14.5) % Plt Count 244 (130-400) K/uL MPV 8.2 (7.4-10.4) fL Immature Gran % (Auto) 0.1 % Neut % (Auto) 69.8 % Lymph % (Auto) 15.7 % [place] % (Auto) 10.4 % Eos % (Auto) 3.7 % Baso % (Auto) 0.3 % Neut # (Auto) 5.48 (1.4-6.5) K/uL Lymph # (Auto) 1.23 (1.2-3.4) K/uL [place] # (Auto) 0.82 H (0.11-0.59) K/uL Eos # (Auto) 0.29 (0-0.5) K/uL Baso # (Auto) 0.02 (0-0.2) K/uL Immature Gran # (Auto) 0.01 (0.00-0.02) K/uL Sodium 135 L (136-145) mmol/L Potassium 3.8 (3.5-5.1) mmol/L Chloride 108 H (98-107) mmol/L Carbon Dioxide 22 (21-32) mmol/L Anion Gap 5.0 (3-11) BUN 5 L (7-18) mg/dl Creatinine 0.56 L (0.6-1.4) mg/dl Est Cr Clr Drug Dosing 110.3 ml/min Est GFR ( Amer) 117.3 ml/min Est GFR (Non-Af Amer) 101.2 ml/min BUN/Creatinine Ratio 8.1 L (10-20) Glucose 119 H (70-99) mg/dl Calcium 8.5 (8.5-10.1) mg/dl Total Bilirubin 0.5 (0.2-1) mg/dl AST 14 L (15-37) U/L ALT 14 (12-78) Alkaline Phosphatase 79 (45-117) U/L Total Protein 5.8 L (6.4-8.2) gm/dl Albumin 2.4 L (3.4-5.0) gm/dl Globulin 3.4 (2.5-4.0) gm/dl Albumin/Globulin Ratio 0.7 L (0.9-2) Carcinoembryonic Ag (0-2.5) ng/ml Stl C. diff Tox B Gene (Neg) Stool H. pylori Ag Pending Giardia Antigen 09/03/21 09/03/21 09/03/21 Range/Units Unknown Unknown 12:36 WBC (4.8-10.8) K/uL RBC (4.7-6.1) M/uL Hgb (14.0-18.0) g/dL Hct (42-52) % MCV (80-100) fL MCH (25-34) pg MCHC (32-36) g/dL RDW Std Deviation (36.4-46.3) fL RDW Coeff of Mendoza (11.5-14.5) % Plt Count (130-400) K/uL MPV (7.4-10.4) fL Immature Gran % (Auto) % Neut % (Auto) % Lymph % (Auto) % [place] % (Auto) % Eos % (Auto) % Baso % (Auto) % Neut # (Auto) (1.4-6.5) K/uL Lymph # (Auto) (1.2-3.4) K/uL [place] # (Auto) (0.11-0.59) K/uL Eos # (Auto) (0-0.5) K/uL Baso # (Auto) (0-0.2) K/uL Immature Gran # (Auto) (0.00-0.02) K/uL Sodium (136-145) mmol/L Potassium (3.5-5.1) mmol/L Chloride (98-107) mmol/L Carbon Dioxide (21-32) mmol/L Anion Gap (3-11) BUN (7-18) mg/dl Creatinine (0.6-1.4) mg/dl Est Cr Clr Drug Dosing ml/min Est GFR ( Amer) ml/min Est GFR (Non-Af Amer) ml/min BUN/Creatinine Ratio (10-20) Glucose (70-99) mg/dl Calcium (8.5-10.1) mg/dl Total Bilirubin (0.2-1) mg/dl AST (15-37) U/L ALT (12-78) Alkaline Phosphatase (45-117) U/L Total Protein (6.4-8.2) gm/dl Albumin (3.4-5.0) gm/dl Globulin (2.5-4.0) gm/dl Albumin/Globulin Ratio (0.9-2) Carcinoembryonic Ag 2.4 (0-2.5) ng/ml Stl C. diff Tox B Gene Negative Cdiff Gene (Neg) Stool H. pylori Ag Giardia Antigen Pending PG Care Time/CCT Total # of Minutes Spent Total Time Spent with Patient: Total time spent is greater than 50% in coordination of care (as documented) at patient's floor/unit and/or counseling patient: Coding Level of Care Code 92082 Subseq Hosp Care Lvl 3 Diagnoses Sigmoid diverticulitis K57.32 Constipation K59.00 Constipation type: unspecified constipation type Acid reflux K21.9 CAD (coronary atherosclerotic disease) I25.10 Hypertension I10 Depression F32.9 Hyperlipidemia E78.5 BPH (benign prostatic hyperplasia) N40.0 Elevated LFTs R79.89 Gastroparesis K31.84 Hiatal hernia K44.9 (1) Constipation Constipation type: unspecified constipation type Qualified Code(s): K59.00 - Constipation, unspecified
[2021-09-04] MEDS: RANOLAZINE 500 MG ER TAB PO SCH ×2 (09:26→20:56)
[2021-09-04] MEDS: UMECLIDINIUM/VILANTEROL 62.5/25MCG 7 PUFFS/INHALER INH SCH (09:26)
[2021-09-04] MEDS: PIPERACILLIN/TAZOBACTAM 4.5 GM in DEXTROSE 5% 100 ML IV SCH ×2 (09:26→16:32)
[2021-09-04] MEDS: ASPIRIN 81 MG ECTAB PO SCH (09:27)
[2021-09-04] MEDS: [UNRECOGNIZED DRUG - OTHER] OPL SCH ×2 (09:27→20:52)
[2021-09-04] MEDS: LACTOBACILLUS ACIDOPHILUS 1 GM PACK PO SCH ×3 (09:27→16:32)
[2021-09-04] MEDS: BRIMONIDINE OPL SCH ×2 (09:27→20:52)
[2021-09-04] MEDS: PREDNISOLONE ACETATE 1% OPL SCH ×4 (09:27→20:52)
[2021-09-04] MEDS: BACITRACIN OPL SCH ×2 (09:27→20:52)
[2021-09-04] MEDS: [UNRECOGNIZED DRUG - OTHER] OPL SCH ×2 (09:27→20:52)
[2021-09-04] MEDS: METOCLOPRAMIDE HCL 5 MG TABLET PO SCH ×4 (09:27→20:54)
[2021-09-04] MEDS: ESOMEPRAZOLE 40 MG PO SCH ×2 (09:28→20:55)
[2021-09-04] MEDS: POLYETHYLENE (MIRALAX) 17 GM PACK PO SCH ×2 (09:28→20:55)
[2021-09-04] MEDS: PRUCALOPRIDE SUCCINATE 2 MG PO SCH (09:28)
--- NOTE | 2021-09-04 10:29 | XRay Report ---
XR KUB/Abdomen 1 view CLINICAL HISTORY: f/u stool burden, abd pain. COMPARISON STUDY: 09/03/2021 TECHNIQUE: Single view of the abdomen. FINDINGS: Compared to previous examination, there is interval decrease in gaseous distention of the large and s mall bowel. No significant fecal stasis without evidence for impaction or seen. There is no evidence for organomegaly or gross intra-abdominal mass. No abnormal calcifications are seen along the course of the urinary tracts bilaterally. No acute osseous pathology. IMPRESSION: 1.Interval improvement from the previous examination with decreased gaseous distention of large and s mall bowel. No significant fecal stasis. ACT 112: Negative or not required by law. Electronically signed by: Prosper Metzger M.D. 09/04/2021 10:27 AM
--- NOTE | 2021-09-04 11:15 | Ultrasound Report ---
US abdomen ltd hernia right CLINICAL HISTORY: R inguinal hernia TECHNIQUE: Real-time grayscale sonographic images of the right inguinal region were obtained. Comparison: None available at the time of this dictation. FINDINGS: There is evidence for a hernia seen within the right inguinal canal containing peritoneal f at. No bowel loop herniation is seen. The hernia almost fully reduces with palpation of the ultrasoun d probe. IMPRESSION: Right inguinal hernia containing peritoneal fat with no bowel loop herniation as describe d. ACT 112: Negative or not required by law. Electronically signed by: Prosper Metzger M.D. 09/04/2021 11:14 AM
[2021-09-04] MEDS: amLODIPine BESYLATE 5 MG TAB PO SCH (11:32)
--- NOTE | 2021-09-04 12:32 | Surgery Progress Note ---
Date of Service September 04, 2021 Assessment & Plan (1) Gastroparesis: (2) Sigmoid diverticulitis: (3) Constipation: Plan: 76 year-old male with history of gastroparesis, chronic constipation, GERD, luna's esophagus, diverticulosis and diverticulitis usually treated with po cipro/flagyl who presented to ER on 08/30/21 after evaluation in ED on 08/27/21 for mild sigmoid diverticulitis and constipation. Was placed on oral Augmentin and pain increased. CT scan's are showing slight progression of sigmoid diverticulitis however no abscess or perforation. Still has moderate stool burden on imaging. Abdomen is soft, tender in lower quadrants but no peritonitis , rigidity, or guarding. Afebrile and no leukocytosis. Plan: No acute surgical intervention required at this time. Patient's progression of sigmoid fat stranding is likely secondary to his stool burden, decreased motility. Continue bowel regimen Continue IV Zosyn, was going to add double anaerobic coverage with Flagyl but pharmacy has very limited dose of IV flagyl will need to follow with motility specialist to ensure his motility issues are managed as his severe constipation is likely cause of his diverticulitis. when diet is advanced, advance to low fiber diet while in acute phase will follow along Dr. Pinzon has seen and examined pt, agrees with above. 09/03/2021 2:17PM Dr. Hwang F/U sigmoid diverticulitis, doing better, tolerated diet, no fever, continue iv antibiotic treatment. will F/U, 09/04/2021 12:39PM Dr. Hwang F/U sigmoid diverticulitis, no surgery indication now, doing better, tolerated diet, no fever, continue iv antibiotic treatment. Awaiting completion of IV abx and hopeful to be d/c on Wednesday. sign off today, please call with questions, Thanks, Admission and Anticipated Discharge Date Admission Date: August 30, 2021 Supervising Physician Co-Signing Physician Notes I have seen and examined the patient. I agree with note above by SANTOS Rhodes except as noted below. HPI with patient for H and P Pt states pain improved today. KUB stool in distal colon noted. ID consult reviewed PE Abdomen pos bs, soft, no guarding nor rebound A/P diverticulitis--continue Abx per ID rec constipation-Pts brought in miralax from home and he had 4 capfuls today at 2 pm. Recommend restarting Miralax 2 to 4 scoops bid since eating solids now and stool burden noted in colon hx of weight loss--CEA normal. colo attempt t [facility] inadequate prep. Would avoid colonoscopy during acute attack of diverticulits. Would have to wait about 6 weeks for colonoscopy. Not sure whether he would do that at [facility] [place] with the GI motiltiy group or not. DR Gonzalez is on schedule to assume GI care at 0700 in am 09/04/21. Subjective Patient evaluated this morning. Drinking metamucil in water. Had 8-9 liquid BM yesterday, some small forming of stool today. Lower abdominal pain, slight RLQ discomfort but more to inguinal area and did endorse straining. Discussed to limit straining with BM and continue small frequent meals for his gastroparesis. No fever, chills, chest pain, shortness of breath or nausea. No LE edema. No dysuria reported. Awaiting completion of IV abx and hopeful to be d/c on Wednesday after antibiotics to watch [employer] game but ok if not able to until after. Will check timing for abx. 09/04/2021 12:27PM Dr. hwang, F/U diverticulitis, pt is doing fine, no fever, no significant abdominal pain, tolerated diet no nausea, no vomiting, Awaiting completion of IV abx and hopeful to be d/c on Wednesday Physical Exam Constitutional: WD/WN, vitals as above Eyes: PERRL, conjunctivae normal, anicteric sclerae Neck: trachea midline, no thyromegaly Respiratory: normal respiratory effort, lungs clear to auscultation Cardiovascular: RRR, no murmur, no edema Gastrointestinal (Abdomen): normal bowel sounds, soft, nontender, no hepatosplenomegaly Neurologic: patellar DTR's 2+ bilat, sensation intact Psychiatric: A+Ox3, euthymic affect Results & Data ([facility]) Vital Signs (Past 12 Hours) Vital Signs Temp Pulse Resp BP Pulse Ox 09/04/21 07:14 36.8 C 60 16 133/62 96 Laboratory Results Abnormal lab results 09/04/21 09/04/21 Range/Units 06:41 06:41 RBC 4.10 L (4.7-6.1) M/uL Hgb 12.2 L (14.0-18.0) g/dL Hct 35.8 L (42-52) % [place] # (Auto) 0.82 H (0.11-0.59) K/uL Sodium 135 L (136-145) mmol/L Chloride 108 H (98-107) mmol/L BUN 5 L (7-18) mg/dl Creatinine 0.56 L (0.6-1.4) mg/dl BUN/Creatinine Ratio 8.1 L (10-20) Glucose 119 H (70-99) mg/dl AST 14 L (15-37) U/L Total Protein 5.8 L (6.4-8.2) gm/dl Albumin 2.4 L (3.4-5.0) gm/dl Albumin/Globulin Ratio 0.7 L (0.9-2) (1) Constipation Constipation type: unspecified constipation type Qualified Code(s): K59.00 - Constipation, unspecified
[2021-09-04] MEDS: metroNIDAZOLE 500 MG TAB PO SCH ×2 (15:05→20:54)
[2021-09-04] MEDS: ENOXAPARIN INJ 40 MG/0.4 ML SYR SQ SCH (20:52)
[2021-09-04] MEDS: FINASTERIDE 5 MG TAB PO SCH (20:54)
[2021-09-04] MEDS: SOLIFENACIN SUCCINATE 5 MG PO SCH (20:56)
[2021-09-04] MEDS: TAMSULOSIN HCL 0.4 MG CAP PO SCH (20:56)
[2021-09-04] MEDS: ROSUVASTATIN CALCIUM 20 MG TAB PO SCH (20:56)
[2021-09-05] MEDS: ONDANSETRON INJ 2 MG/ML 2 ML VIAL IV PRN ×4 (00:27→21:25)
[2021-09-05] MEDS: ACETAMINOPHEN 1,000 MG/100 ML VIAL IV PRN ×2 (00:28→21:26)
[2021-09-05] MEDS: PIPERACILLIN/TAZOBACTAM 4.5 GM in DEXTROSE 5% 100 ML IV SCH ×3 (00:33→15:45)
[2021-09-05] MEDS: PROMETHAZINE HCL 6.25 MG in SODIUM CHLORIDE 0.9% 50 ML IV PRN (03:52)
[2021-09-05 07:37] LABS: Hematocrit (blood only) 37.8 % (42-52); Mean Corpuscular Hemoglobin 29.5 pg (25-34); Mean Corpuscular Hgb Conc 34.4 g/dL (32-36); Mean Corpuscular Volume 85.9 fL (80-100); Mean Platelet Volume 8.4 fL (7.4-10.4); Platelet Count 310 K/uL (130-400); RDW Coefficient of Variation 13.5 % (11.5-14.5); RDW Standard Deviation 42.4 fL (36.4-46.3); White Blood Count 9.93 K/uL (4.8-10.8)
--- NOTE | 2021-09-05 07:46 | Gastroenterology Progress Note ---
Date of Service September 05, 2021 Assessment & Plan (1) Abdominal pain, lower: Plan: Diverticulitis--Follow antibiotic recommendations from ID. Would consider colonoscopy 6 weeks after antibiotic completion. If surgical intervention is required, patient would prefer [place] [facility] [place] not emergent. Constipation--Chronic complaint. [place]s [place] [facility] [place].Continue Miralax History of weight loss--Normal CEA. Colonoscopy attempted 10/2020 at [facility] with inadequate prep. Recommend colonoscopy as noted above. Follows with [facility] as noted. Giardia--Stool testing positive for Giardia, reports consumed well water while travelling in [place]. Po Flagyl began 09/03/2021 by hospitalist service. Please refer to supervising physician addendum for further recommendations. Admission and Anticipated Discharge Date Admission Date: August 30, 2021 Subjective Patient sleeping soundly. Wakens with verbal stimuli. Struggled with lower abdominal pain through the night. States he had both nausea and vomiting, was medicated for both pain and nausea through the night. Very tired this morning. Reports about 8 diarrhea stools through the night. + Giardia testing yesterday, reports he did drink well water while travelling in [place]. Denies any fever, chills. Review of Systems Review of Systems: All systems reviewed & are unremarkable except as noted in HPI & below Physical Exam Constitutional: WD/WN, vitals as above Respiratory: normal respiratory effort, lungs clear to auscultation Cardiovascular: RRR, no murmur, no edema Gastrointestinal (Abdomen): Inspection/Auscultation: abdomen normal to inspection and normal bowel sounds Percussion/Palpation: + abdomen tender (lower abdomen), abdomen soft and + tympanic to percussion; no guarding and abdomen not rigid Skin: warm, red area noted right anterior forearm Psychiatric: A+Ox3, euthymic affect Results & Data ([facility]) Vital Signs (Past 12 Hours) Vital Signs Temp Pulse Resp BP Pulse Ox 09/04/21 22:18 37.1 C 71 19 151/76 H 97 Laboratory Results Laboratory Results - last 24 hr 09/03/21 09/03/21 09/05/21 Unknown Unknown 07:00 WBC RBC Hgb Hct MCV MCH MCHC RDW Std Deviation RDW Coeff of Mendoza Plt Count MPV Sodium 137 Potassium 3.5 Chloride 106 Carbon Dioxide 23 Anion Gap 8.0 BUN 6 L Creatinine 0.60 Est Cr Clr Drug Dosing 102.9 Est GFR ( Amer) 114.0 Est GFR (Non-Af Amer) 98.4 BUN/Creatinine Ratio 9.6 L Glucose 130 H Calcium 8.7 Magnesium 2.3 Vitamin B12 Folate Stool H. pylori Ag SEE NOTE Giardia Antigen SEE NOTE A 09/05/21 09/05/21 07:00 07:00 WBC 9.93 RBC 4.40 L Hgb 13.0 L Hct 37.8 L MCV 85.9 MCH 29.5 MCHC 34.4 RDW Std Deviation 42.4 RDW Coeff of Mendoza 13.5 Plt Count 310 MPV 8.4 Sodium Potassium Chloride Carbon Dioxide Anion Gap BUN Creatinine Est Cr Clr Drug Dosing Est GFR ( Amer) Est GFR (Non-Af Amer) BUN/Creatinine Ratio Glucose Calcium Magnesium Vitamin B12 Pending Folate Pending Stool H. pylori Ag Giardia Antigen Diagnostic Findings Abdomen Ultrasound 09/04/21 08:51 US abdomen ltd hernia right CLINICAL HISTORY: R inguinal hernia TECHNIQUE: Real-time grayscale sonographic images of the right inguinal region were obtained. Comparison: None available at the time of this dictation. FINDINGS: There is evidence for a hernia seen within the right inguinal canal containing peritoneal fat. No bowel loop herniation is seen. The hernia almost fully reduces with palpation of the ultrasound probe. IMPRESSION: Right inguinal hernia containing peritoneal fat with no bowel loop herniation as described. ACT 112: Negative or not required by law. Electronically signed by: Prosper Metzger M.D. 09/04/2021 11:14 AM KUB X-Ray 09/04/21 08:51 XR KUB/Abdomen 1 view CLINICAL HISTORY: f/u stool burden, abd pain. COMPARISON STUDY: 09/03/2021 TECHNIQUE: Single view of the abdomen. FINDINGS: Compared to previous examination, there is interval decrease in gaseous distention of the large and small bowel. No significant fecal stasis without evidence for impaction or seen. There is no evidence for organomegaly or gross intra-abdominal mass. No abnormal calcifications are seen along the course of the urinary tracts bilaterally. No acute osseous pathology. IMPRESSION: 1.Interval improvement from the previous examination with decreased gaseous distention of large and small bowel. No significant fecal stasis. ACT 112: Negative or not required by law. Electronically signed by: Prosper Metzger M.D. 09/04/2021 10:27 AM Addendum September 05, 2021 14:46I interviewed and examined the patient and reviewed the medical record, with the following observations: Subjective: He has had several episodes of vomiting, possibly related to the oral metronidazole. He is having formed spontaneous bowel movements. Abdominal pain and distension are unchanged from yesterday Physical Examination: Soft tympanitic distension without guarding or rebound Chart Review: He has lost 15 kg since June 2020, patient states that most of this weight loss occurred since June 2021. He is on a lactose restricted diet but states that he is not lactose intolerant and loves to eat dairy products. This case was reviewed with the advanced practice provider I agree with the assessment as outlined in this consultation, with the following observations: Current problems are sigmoid diverticulosis, adynamic ileus, gastroparesis, giardiasis, unintentional significant weight loss and malnutrition I agree with the plan of care as outlined in this consultation, with the following changes and/or additions: Agree with current plan to manage acute diverticulitis medically and avoid surgery if possible, medical management of giardiasis, nausea and vomiting, and constipation. Arrangements to be made for EGD and Colonoscopy in 6 weeks post discharge. Discussed the treatment plan with the patient and spouse and all questions answered.
[2021-09-05 08:07] LABS: BUN Creatinine Ratio 9.6 (10-20); Calcium 8.7 mg/dl (8.5-10.1); Creatinine Clr Calc Pharmacy 102.9 ml/min; Est GFR (Non-African American) 98.4 ml/min; Magnesium 2.3 mg/dl (1.8-2.4); Potassium 3.5 mmol/L (3.5-5.1)
[2021-09-05] MEDS: amLODIPine BESYLATE 5 MG TAB PO SCH (08:07)
[2021-09-05] MEDS: metroNIDAZOLE 500 MG TAB PO SCH ×2 (08:08→21:17)
[2021-09-05] MEDS: RANOLAZINE 500 MG ER TAB PO SCH ×2 (08:08→21:18)
[2021-09-05] MEDS: ASPIRIN 81 MG ECTAB PO SCH (08:08)
[2021-09-05] MEDS: METOCLOPRAMIDE HCL 5 MG TABLET PO SCH ×4 (08:09→21:16)
[2021-09-05] MEDS: ESOMEPRAZOLE 40 MG PO SCH ×2 (08:10→21:17)
[2021-09-05] MEDS: [UNRECOGNIZED DRUG - OTHER] OPL SCH ×2 (08:11→21:14)
[2021-09-05] MEDS: BACITRACIN OPL SCH ×2 (08:11→21:14)
[2021-09-05] MEDS: [UNRECOGNIZED DRUG - OTHER] OPL SCH ×2 (08:11→21:14)
[2021-09-05] MEDS: BRIMONIDINE OPL SCH ×2 (08:11→21:14)
[2021-09-05] MEDS: PREDNISOLONE ACETATE 1% OPL SCH ×4 (08:12→21:18)
[2021-09-05 08:49] LABS: Folate (Folic Acid) 2.7 ng/ml (>5.38)
[2021-09-05] MEDS: UMECLIDINIUM/VILANTEROL 62.5/25MCG 7 PUFFS/INHALER INH SCH (09:11)
[2021-09-05] MEDS: PRUCALOPRIDE SUCCINATE 2 MG PO SCH (09:11)
[2021-09-05] MEDS: POLYETHYLENE (MIRALAX) 17 GM PACK PO SCH ×2 (09:11→21:17)
[2021-09-05] MEDS: LACTOBACILLUS ACIDOPHILUS 1 GM PACK PO SCH ×3 (09:17→16:48)
--- NOTE | 2021-09-05 16:29 | Hospitalist Progress Note ---
Date of Service September 05, 2021 Assessment & Plan (1) Sigmoid diverticulitis: Plan: Hx of diverticular disease, previously managed in outpatient setting never requiring hospitalization. Typically with Cipro/Flagyl. In ER earlier in week, found to have diverticulitis and given Unasyn IV and then sent home on Augmentin. Stated took several days worth and had developed worsening RLQ pain and concerned for appendicitis which prompted him to return to ER (also with R inguinal hernia) Hx gastroparesis and follows [facility] Recently started on reglan (resumed after discussion with GI) Past 2 c-scopes without good prep, but stated given findings of fluid filled esophagus on EGD they felt he has gastroparesis and has been having significant weight loss since this year due to complications of such, although given 30lb weight loss and mother with hx colon ca, raises suspicion for underlying malignancy, however CEA wnl on check CT on admission with continued fat stranding and sigmoid bowel thickening compatible with acute diverticulitis. -->No evidence of perforation or abscess. Large solid and liquid stool burden. Increased pain 09/02 --> repeated CTAP with progressive sigmoid diverticulitis given reported increased discomfort although had been moving bowels and did not appear overly uncomfortable but was backed down to NPO GI on consult --> reglan while inpatient, continue motegrity 2mg daily. will need to stop reglan at d/c and GI rec miralax 4 scoops BID (brought in and has been taking) KUB 09/04 with Interval improvement from the previous examination with decreased gaseous distention of large and small bowel. No significant fecal stasis. Checked US of R inguinal hernia given complaints of pain and suspected "appendicitis as what brought him in" --> IMPRESSION: Right inguinal hernia containing peritoneal fat with no bowel loop herniation as described. ID consulted -- continue Zosyn x 7 days along with lactobacillus, currently on day 5/7 (ID felt given recently on Bactrim/Cipro/Levaquin for Pseudomonas UTI, would recommend 7 days IV ZOsyn for treatment. Dose increased by pharmacy for higher end in case. Of note, with weight loss, suspicion for underlying malignancy masquerading as gastroparesis and would rec f/u GI [facility] motility specialist (has appt Marty and provided info to CM to reach out to office for additional recs) and will need c-scope for further evaluation 4-6wks post-d/c) 8-9 liquid BM 09/03. cdiff negative. Checked stool studies --> + Giardia antigen --> Could be reason for recent weight loss/bloating/cramping/diarrhea/constipation as well --> Messaged Melissa from GI who will forward to Dr Gonzalez taking over GI coverage for Darya at this time On 09/04, changed diet to low fiber, lactose intolerant in case Giardia causing lactose intolerance leading to bloating. Patient however wanted lactose and this was changed back as he felt ice cream could provide needed calories. Monitor labs/electrolyte replacement as needed. Pain control, antiemetics (2) Constipation: Plan: Did have large BM, formed, brown 08/31. Several liquid BMs. Continued 8-9 liquid stools yesterday, some forming today cdiff negative checked stool studies --> + giardia antigen as above and tx 5-7 days flagyl if unable to obtain other antiprotozoal as above Needs f/u [facility] for c-scope for eval underlying malignancy Per GI, can use miralax up to 4 scoops BID at home to help as to d/c reglan at discharge (3) Acid reflux: Plan: Switch esomeprazole for famotidine 20mg IV BID Switch to pantoprazole when able to take PO meds --> LISTED ON ALLERGIES FOR HALLUCINATIONS. brought in esomeprazole --> to continue 40mg BID and will d/c famotidine No increased reflux symptoms (4) CAD (coronary atherosclerotic disease): Plan: Hx of stent to mid LAD with mild-moderate residual CAD. Follows cardiology, Dr Leyva. Negative dobutamine stress echo April 2020. Normal LV size and systolic function with no regional wma. EF 65%. No LVH. Type I diastolic dysfunction. Normal LA pressures. Resumed ASA, ranexa, amlodipine, crestor EKG w/ CP No chest pain/sob reported. Chronic exertional sob. (5) Hypertension: Plan: BP stable 133/62 2.5mg amlodipine daily Hydralazine available prn Monitor (6) Depression: Plan: Resumed sertraline (on hold while on reglan inpatient), atrivan prn (7) Hyperlipidemia: Plan: Resumed crestor (8) BPH (benign prostatic hyperplasia): Plan: Restarted flomax/finasteride due to decreased output 08/31 with 200cc on BS Improvement in UO He takes 0.8mg flomax daily Monitor (9) Elevated LFTs: Plan: mildly elevated LFTs, waxing/waning per PCP note May. Had RUQ US in years past. GB thickening on CT on admission but no stones/acute boogie. No RUQ discomfort/negative Quintanilla's. On dicyclomine BID prn [employer] --? biliary colic. Elevated during last admission but now normal. RUQ negative (10) Gastroparesis: Plan: reglan as above f/u [facility] GI outpatient need c-scope 4-6 weeks could also be from +giardia as above, treatment to follow further recs per GI when seen this afternoon (11) Hiatal hernia: Plan: recent surgical correction earlier this year famotidine BID while NPO --> takes esomeprazole BID at home -- would ask to bring in given issues with protonix and hallucinations in the past --> brought in and ordered home med Plan: VTE Prophylaxis - Lovenox 40mg SQ daily Continue Low fiber, lactose intolerant Continue Zosyn IV x 7 (on day 5) +Giardia --> Started metronidazole 500mg BID this afternoon and will need to continue discussion with patient Will need f/u [facility] for c-scope in next 4-6 wks Information sent to his motility specialists, not hear back yet. marketing pr intern with info -- follow up to ensure f/u for 4-6 weeks. May need elective sigmoidectomy in future for recurrent diverticulitis as well Admission and Anticipated Discharge Date Admission Date: August 30, 2021 Subjective Still having lots of dry heaving today with diarrhea. Reports no fevers/chills, chest pain, shortness of breath, abdominal pain. Physical Exam Constitutional: WD/WN, vitals as above Eyes: EOM intact bilaterally; no conjunctival abnormality ENMT: external ear and nose normal, oropharynx normal Neck: trachea midline, no thyromegaly normal visual inspection Respiratory: normal respiratory effort, lungs clear to auscultation no respiratory distress Cardiovascular: RRR, no murmur, no edema Gastrointestinal (Abdomen): Inspection/Auscultation: abdomen normal to inspection; abdomen not distended Percussion/Palpation: abdomen nontender, no guarding, abdomen not rigid and + abdomen not soft Musculoskeletal: no cyanosis or clubbing, extremities motor strength 5/5 Skin: no rashes, warm and dry Neurologic: moves all extremities and awake Psychiatric: Orientation: alert, oriented to person and cooperative Results & Data Results & Data ([facility]) Vital Signs (Past 12 Hours) Vital Signs Temp Pulse Resp BP Pulse Ox 09/05/21 15:10 36.8 C 69 18 134/77 98 09/05/21 07:21 36.6 C 70 16 110/72 96 PG Care Time/CCT Total # of Minutes Spent Total Time Spent with Patient: Total time spent is greater than 50% in coordination of care (as documented) at patient's floor/unit and/or counseling patient: Coding Level of Care Code 52586 Subseq Hosp Care Lvl 2 Diagnoses Sigmoid diverticulitis K57.32 Constipation K59.00 Constipation type: unspecified constipation type Acid reflux K21.9 CAD (coronary atherosclerotic disease) I25.10 Hypertension I10 Depression F32.9 Hyperlipidemia E78.5 BPH (benign prostatic hyperplasia) N40.0 Elevated LFTs R79.89 Gastroparesis K31.84 Hiatal hernia K44.9 (1) Constipation Constipation type: unspecified constipation type Qualified Code(s): K59.00 - Constipation, unspecified
[2021-09-05] MEDS: FINASTERIDE 5 MG TAB PO SCH (21:15)
[2021-09-05] MEDS: ENOXAPARIN INJ 40 MG/0.4 ML SYR SQ SCH (21:15)
[2021-09-05] MEDS: ROSUVASTATIN CALCIUM 20 MG TAB PO SCH (21:19)
[2021-09-05] MEDS: SOLIFENACIN SUCCINATE 5 MG PO SCH (21:19)
[2021-09-05] MEDS: TAMSULOSIN HCL 0.4 MG CAP PO SCH (21:20)
[2021-09-06] MEDS: PROMETHAZINE HCL 6.25 MG in SODIUM CHLORIDE 0.9% 50 ML IV PRN (00:35)
[2021-09-06] MEDS: PIPERACILLIN/TAZOBACTAM 4.5 GM in DEXTROSE 5% 100 ML IV SCH ×3 (00:35→17:23)
[2021-09-06] MEDS: MoRPHine SULFATE 2 MG/ML CARP IV PRN ×2 (00:36→04:51)
[2021-09-06] MEDS: ONDANSETRON INJ 2 MG/ML 2 ML VIAL IV PRN ×2 (04:50→21:41)
--- NOTE | 2021-09-06 05:23 | Communication Note ---
Date of Service: September 06, 2021 Notified by nursing that patient was experiencing "10/10" right lower abdominal/pelvic pain. Evaluated patient at bedside noting that his pain typically was on and off, but currently was a constant 10/10 and felt different. PE: Abdomen soft with tenderness to palpation diffusely, worse in the RLQ. Normogastric bowel sounds. -With patient's sudden change and worsening status, some concern for progression of his diverticulitis, though with soft abdomen do not suspect perforation at this time. -Also with R inguinal hernia, ? incarceration of bowel, though recent abdominal US on 09/04/21 negative for such. -Due to sudden change in patient's symptoms, will recheck Abdomen/Pelvis CT. -Will place on NPO status for now. Resident Activity Tracking Resident Involvement: Resident Care Provided and Car Manager Coverage Note Care Provided: Adult Hospital Medicine
[2021-09-06 06:14] LABS: Hematocrit (blood only) 37.8 % (42-52); Hemoglobin 12.8 g/dL (14.0-18.0); Mean Corpuscular Hemoglobin 29.4 pg (25-34); Mean Corpuscular Hgb Conc 33.9 g/dL (32-36); Mean Corpuscular Volume 86.7 fL (80-100); Mean Platelet Volume 8.2 fL (7.4-10.4); Platelet Count 319 K/uL (130-400); RDW Coefficient of Variation 13.7 % (11.5-14.5); RDW Standard Deviation 43.3 fL (36.4-46.3); Red Blood Count 4.36 M/uL (4.7-6.1); White Blood Count 9.61 K/uL (4.8-10.8)
[2021-09-06] MEDS ORDERED: OPTIRAY 320 100ml IV ONE (06:26)
[2021-09-06 06:46] LABS: BUN Creatinine Ratio 9.7 (10-20); Calcium 9.1 mg/dl (8.5-10.1); Creatinine Clr Calc Pharmacy 75.3 ml/min; Est GFR (African American) 100.3 ml/min; Est GFR (Non-African American) 86.5 ml/min; Magnesium 2.3 mg/dl (1.8-2.4); Phosphorus 2.7 mg/dl (2.5-4.9); Potassium 3.5 mmol/L (3.5-5.1)
[2021-09-06] MEDS: ACETAMINOPHEN 1,000 MG/100 ML VIAL IV PRN (08:03)
[2021-09-06] MEDS: LACTOBACILLUS ACIDOPHILUS 1 GM PACK PO SCH ×3 (08:36→17:11)
[2021-09-06] MEDS: amLODIPine BESYLATE 5 MG TAB PO SCH (08:38)
[2021-09-06] MEDS: ASPIRIN 81 MG ECTAB PO SCH (08:39)
[2021-09-06] MEDS: FOLIC ACID 1 MG TAB PO SCH (08:40)
[2021-09-06] MEDS: [UNRECOGNIZED DRUG - OTHER] OPL SCH ×2 (08:40→21:16)
[2021-09-06] MEDS: BACITRACIN OPL SCH ×2 (08:40→21:16)
[2021-09-06] MEDS: BRIMONIDINE OPL SCH ×2 (08:40→21:16)
[2021-09-06] MEDS: [UNRECOGNIZED DRUG - OTHER] OPL SCH ×2 (08:40→21:16)
[2021-09-06] MEDS: METOCLOPRAMIDE HCL 5 MG TABLET PO SCH ×4 (08:41→21:18)
[2021-09-06] MEDS: metroNIDAZOLE 500 MG TAB PO SCH ×2 (08:41→21:19)
[2021-09-06] MEDS: ESOMEPRAZOLE 40 MG PO SCH ×2 (08:42→21:19)
[2021-09-06] MEDS: PREDNISOLONE ACETATE 1% OPL SCH ×4 (08:44→21:20)
[2021-09-06] MEDS: PRUCALOPRIDE SUCCINATE 2 MG PO SCH (08:44)
[2021-09-06] MEDS: RANOLAZINE 500 MG ER TAB PO SCH ×2 (08:45→21:20)
[2021-09-06] MEDS: UMECLIDINIUM/VILANTEROL 62.5/25MCG 7 PUFFS/INHALER INH SCH (08:49)
[2021-09-06] MEDS: POLYETHYLENE (MIRALAX) 17 GM PACK PO SCH ×2 (08:59→21:19)
--- NOTE | 2021-09-06 09:37 | CT Scan Report ---
ABDOMEN AND PELVIS CT WITH IV CONTRAST CT DOSE: 391.70 mGy.cm HISTORY: Acute lower abdominal pain R lower abdominal pain, hx hernia, diverticulitis, TECHNIQUE: Multiaxial CT images of the abdomen and pelvis were performed following the IV administrat ion of 94 cc of Optiray, A dose lowering technique was utilized adhering to the principles of ALARA. COMPARISON STUDY: Abdominal ultrasound 09/04/2021, CT abdomen and pelvis 09/02/2021 FINDINGS: Mild subpleural reticulation of the right lung base suggestive of fibrosis. The lung bases are otherw ise generally clear. There is no pneumatosis or pneumoperitoneum identified. The spleen, moderately a trophic pancreas and adrenal glands are unremarkable. There are a few calcifications involving the pa ncreatic tail which may represent sequela of chronic pancreatitis. Moderately distended gallbladder i s unchanged. No cholelithiasis or gallbladder wall thickening identified. Unremarkable liver. Patent portal vein. The kidneys are within normal limits. There is no hydronephrosis. No large abdominal wall hernia iden tified. Unremarkable urinary bladder. The prostate is upper limits of normal in size. Atherosclerosis of the aorta without aneurysm. No adenopathy identified. Tiny hiatal hernia. Several duodenal diverticula are noted. Extensive colonic diverticulosis with per sistent findings of acute sigmoid diverticulitis. The degree of inflammation has not significantly ch anged from prior. No evidence of perforation or abscess. Ill-defined area of decreased attenuation in volving the sigmoid colon on image 340 of series 3 with question peripheral enhancement. Mild gaseous distention of the large and small bowel with scattered air-fluid levels redemonstrated. No discrete transition point identified. Noninflamed appendix. Tiny fat filled periumbilical hernia. Subcutaneous emphysema of the anterior abdominal wall is suggestive of an injection site. No acute fracture. Dege nerative changes of the spine, pelvis and hips. IMPRESSION: 1. Colonic diverticulosis. Wall thickening of the sigmoid colon with pericolonic inflammation has not significantly changed from the 09/02/2021 study which is again suggestive of acute diverticulitis. A nonspecific colitis considered less likely. 2. No perforation or drainable fluid collection. Ill-defined area of decreased attenuation involving the sigmoid colon as above is suggestive of intraluminal fluid. A developing intramural abscess howev er could appear similarly. Attention at follow-up recommended. 3. Mild large and small bowel distention with scattered air-fluid levels is similar to prior suggesti ve of ileus. No transition point identified to suggest obstruction. 4. Additional findings as above. ACT 112: Negative or not required by law. The above report was generated using voice recognition software. It may contain grammatical, syntax o r spelling errors. Electronically signed by: Bradly Arias M.D. 09/06/2021 9:36 AM
--- NOTE | 2021-09-06 13:00 | Gastroenterology Progress Note ---
Date of Service September 06, 2021 Assessment & Plan (1) Sigmoid diverticulitis: (2) Abdominal pain, RLQ: (3) Right inguinal hernia: (4) Abdominal pain, lower: Plan: Sudden, severe right inguinal pain episodes remain unexplained. Following episode last night, he is back to baseline with no findings on physical exam, lab, or imaging, other than a possible small intramural fluid collection in the sigmoid on the left side. No additional imaging has been recommended. Recommend continue current plan of care and observation, follow progress with imaging studies as needed. Admission and Anticipated Discharge Date Admission Date: August 30, 2021 Subjective Mr. Gill had another episode of sudden intense RLQ abdominal pain in the afternoon yesterday. The pain was continuous, disabling, lasting several hours radiating from the right inguinal area across the lower abdomen to the left inguinal area, requiring parenteral narcotics to control. No associated vomiting, fever, chills, change in bowel function, dysuria. CT with IV contrast repeated last night and was basically unchanged from 09/02/21, with the exception of a small sigmoid fluid collection which could be intramural. Images were reviewed with Dr. Arias today. There are no telltale signs of transient incarceration of fat, bowel, or bladder in the small right inguinal hernia area, such as fat stranding or fluid, or bladder or bowel wall thickening, nothing to explain the episodes of intense RLQ pain. Today, Mr. Gill is back to baseline, with mild RLQ and LLQ discomfort, he is having formed and watery bowel movements, able to eat although diet is limited. Review of Systems Review of Systems: All systems reviewed & are unremarkable except as noted in Subjective Physical Exam Gastrointestinal (Abdomen): The abdominal examination is unchanged. There is tympanitic distension with hypoactive rare bowel sounds, the abdomen is soft to palpation without any guarding, there is R inguinal and LLQ tenderness to deep palpation and no rebound tenderness. No palpable masses, no organomegaly. Neurologic: No focal neurologic signs Results & Data ([facility]) Vital Signs (Past 12 Hours) Vital Signs Temp Pulse Resp BP BP Pulse Ox 09/06/21 07:47 36.3 C L 68 16 115/71 100 09/06/21 05:10 36.4 C L 60 14 108/64 99
--- NOTE | 2021-09-06 13:07 | Hospitalist Progress Note ---
Date of Service September 06, 2021 Assessment & Plan (1) Sigmoid diverticulitis: Plan: Gena is a 76-year-old male who presents with abdominal pain, nausea, diarrhea and he was found to have diverticulitis and who is Giardia positive. Sigmoid diverticulitis Hx of diverticular disease, previously managed in outpatient setting never requiring hospitalization. Typically with Cipro/Flagyl. - In ER earlier in week, found to have diverticulitis and given Unasyn IV and t hen sent home on Augmentin. - Stated took several days worth and had developed worsening RLQ pain and concerned for appendicitis which prompted him to return to ER (also with R inguinal hernia) - Hx gastroparesis and follows [facility] - Recently started on reglan (resumed after discussion with GI) - Past 2 c-scopes without good prep, but stated given findings of fluid filled esophagus on EGD they felt he has gastroparesis and has been having significant weight loss since this year due to complications of such, although given 30lb weight loss and mother with hx colon ca, raises suspicion for underlying malignancy, however CEA wnl on check -CT on admission with continued fat stranding and sigmoid bowel thickening compatible with acute diverticulitis. -->No evidence of perforation or abscess. Large solid and liquid stool burden. Increased pain 09/02 --> repeated CTAP with progressive sigmoid diverticulitis given reported increased discomfort although had been moving bowels and did not appear overly uncomfortable but was backed down to NPO GI on consult --> reglan while inpatient, continue motegrity 2mg daily. will need to stop reglan at d/c and GI rec miralax 4 scoops BID (brought in and has been taking) KUB 09/04 with Interval improvement from the previous examination with decreased gaseous distention of large and small bowel. No significant fecal stasis. Checked US of R inguinal hernia given complaints of pain and suspected "appendicitis as what brought him in" --> IMPRESSION: Right inguinal hernia containing peritoneal fat with no bowel loop herniation as described. ID consulted -- continue Zosyn x 7 days along with lactobacillus, tx complete after 09/07/2021 (ID felt given recently on Bactrim/Cipro/Levaquin for Pseudomonas UTI, would recommend 7 days IV Zosyn for treatment. Dose increased by pharmacy for higher end in case. Of note, with weight loss, suspicion for underlying malignancy masquerading as gastroparesis and would rec f/u GI [facility] motility specialist (has appt Marty and provided info to CM to reach out to office for additional recs) and will need c-scope for further evaluation 4-6wks post-d/c) 8-9 liquid BM 09/03. cdiff negative. Stool studies --> + Giardia antigen - Could be reason for recent weight loss/bloating/cramping/diarrhea/constipation as well - Messaged Melissa from GI who will forward to Dr Gonzalez taking over GI coverage for Darya at this time - On 09/04, changed diet to low fiber, lactose intolerant in case Giardia causing lactose intolerance leading to bloating. Patient however wanted lactose and this was changed back as he felt ice cream could provide needed calories. Patient with increased pain overnight 09/05 and 2 09/06, CT of the abdomen was obtained. This shows ongoing diverticulitis, but did not show evidence of perforation/abscess. Zosyn course complete tomorrow Continue Flagyl (2) Constipation: Plan: Constipation improving patient had melena this morning, although had some distention and abdominal pain prompting CT 09/06 as noted above - cdiff negative Giardia positive, treating with Flagyl as above - Ne-eds f/u [facility] for c-scope for eval underlying malignancy -Per GI, can use miralax up to 4 scoops BID at home to help as to d/c reglan at discharge (3) Acid reflux: Plan: Initially placed on famotidine Intolerant to pantoprazole, hallucinations Has had his home esomeprazole brought in, [id number] BID - No increased reflux symptoms (4) CAD (coronary atherosclerotic disease): Plan: -Hx of stent to mid LAD with mild-moderate residual CAD. Follows cardiology, Dr Leyva. -Negative dobutamine stress echo April 2020. Normal LV size and systolic function with no regional wma. EF 65%. No LVH. Type I diastolic dysfunction. Normal LA pressures. - Continue ASA, ranexa, amlodipine, crestor -EKG PRN w/ CP - No chest pain/sob reported. Chronic exertional sob. (5) Hypertension: Plan: Blood pressure adequately controlled Continue amlodipine with hydralazine as needed (6) Depression: Plan: Resumed sertraline (on hold while on reglan inpatient), atrivan prn (7) Hyperlipidemia: Plan: Continue Crestor (8) BPH (benign prostatic hyperplasia): Plan: Continue Flomax and finasteride (9) Elevated LFTs: Plan: mildly elevated LFTs, waxing/waning per PCP note May. Had RUQ US in years past. GB thickening on CT on admission but no stones/acute boogie. No RUQ discomfort/negative Quintanilla's. 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 Elevated during last admission but now normal. RUQ negative (10) Gastroparesis: Plan: f/u [facility] outpatient need c-scope 4-6 weeks could also be from +giardia as above, treatment to follow further recs per GI when seen this afternoon (11) Hiatal hernia: Plan: recent surgical correction earlier this year famotidine BID while NPO --> takes eso can you just hold and treat these are all better BID at home -- would ask to bring in given issues with protonix and hallucinations in the past on PPI as above I think that is from a Plan: VTE Prophylaxis - Lovenox 40mg SQ daily Continue Low fiber, lactose intolerant Continue Zosyn IV x 7 (on day 5) +Giardia --> Started metronidazole 500mg BID this afternoon and will need to continue discussion with patient Will need f/u [facility] for c-scope in next 4-6 wks Information sent to his motility specialists, not hear back yet. 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 May need elective sigmoidectomy in future for recurrent diverticulitis as well Admission and Anticipated Discharge Date Admission Date: August 30, 2021 Subjective Patient seen the bedside this morning. He reports that he had an episode of severe pain very early this morning and was seen by the overnight on-call resident. CT of the abdomen and pelvis was obtained, this does not show any perforation but does show continued diverticulitis. Patient reports that his pain has actually improved by time of bedside assessment, and he feels like he is not in pain resting at time of subjective. No fever, chills, sweats this morning. No shortness of breath, cough, difficulty breathing. Loose/watery BM. Continues to have some abdominal cramping. No chest pain, chest pressure. Review of Systems Review of Systems: All systems reviewed & are unremarkable except as noted in Subjective Physical Exam Physical Exam: General: A&Ox3. NAD. Cooperative. HEENT: Atraumatic, normocephalic. Pulm: CTAB A&P. -wheezes, -rales, -rhonchi. Symmetrical chest rise. No increase work of breathing. No respiratory distress. Cardiac: RRR, -mrg. Radial pulses intact and symmetrical. Abdominal: Distended, bowel sounds diminished, abdomen soft, mildly tender on firm palpation without guarding. Extremities: Warm, dry Results & Data Results & Data ([facility]) Vital Signs (Past 12 Hours) Vital Signs Temp Pulse Resp BP BP Pulse Ox 09/06/21 07:47 36.3 C L 68 16 115/71 100 09/06/21 05:10 36.4 C L 60 14 108/64 99 PG Care Time/CCT Total # of Minutes Spent Total Time Spent with Patient: Total time spent is greater than 50% in coordination of care (as documented) at patient's floor/unit and/or counseling patient: Coding Level of Care Code 77495 Subseq Hosp Care Lvl 2 Diagnoses Sigmoid diverticulitis K57.32 Constipation K59.00 Constipation type: unspecified constipation type Acid reflux K21.9 CAD (coronary atherosclerotic disease) I25.10 Hypertension I10 Depression F32.9 Hyperlipidemia E78.5 BPH (benign prostatic hyperplasia) N40.0 Elevated LFTs R79.89 Gastroparesis K31.84 Hiatal hernia K44.9 (1) Constipation Constipation type: unspecified constipation type Qualified Code(s): K59.00 - Constipation, unspecified
[2021-09-06] MEDS: ENOXAPARIN INJ 40 MG/0.4 ML SYR SQ SCH (21:17)
[2021-09-06] MEDS: FINASTERIDE 5 MG TAB PO SCH (21:18)
[2021-09-06] MEDS: ROSUVASTATIN CALCIUM 20 MG TAB PO SCH (21:20)
[2021-09-06] MEDS: TAMSULOSIN HCL 0.4 MG CAP PO SCH (21:21)
[2021-09-06] MEDS: SOLIFENACIN SUCCINATE 5 MG PO SCH (21:21)
[2021-09-07 06:24] LABS: Basophils # (auto) 0.02 K/uL (0-0.2); Basophils % (auto) 0.2 %; Eosinophils # (auto) 0.25 K/uL (0-0.5); Eosinophils % (auto) 2.8 %; Hematocrit (blood only) 36.1 % (42-52); Hemoglobin 12.3 g/dL (14.0-18.0); Immature Granulocytes # (auto) 0.03 K/uL (0.00-0.02); Immature Granulocytes % (auto) 0.3 %; Lymphocytes # (auto) 1.24 K/uL (1.2-3.4); Mean Corpuscular Hemoglobin 29.5 pg (25-34); Mean Corpuscular Hgb Conc 34.1 g/dL (32-36); Mean Corpuscular Volume 86.6 fL (80-100); Mean Platelet Volume 8.3 fL (7.4-10.4); Monocytes # (auto) 1.02 K/uL (0.11-0.59); Monocytes % (auto) 11.5 %; Neutrophils # (auto) 6.28 K/uL (1.4-6.5); Neutrophils % (auto) 71.2 %; Platelet Count 293 K/uL (130-400); RDW Coefficient of Variation 13.7 % (11.5-14.5); RDW Standard Deviation 43.1 fL (36.4-46.3); Red Blood Count 4.17 M/uL (4.7-6.1); White Blood Count 8.84 K/uL (4.8-10.8)
[2021-09-07] MEDS: amLODIPine BESYLATE 5 MG TAB PO SCH (08:33)
[2021-09-07] MEDS: BRIMONIDINE OPL SCH (08:34)
[2021-09-07] MEDS: [UNRECOGNIZED DRUG - OTHER] OPL SCH (08:34)
[2021-09-07] MEDS: [UNRECOGNIZED DRUG - OTHER] OPL SCH (08:36)
[2021-09-07] MEDS: BACITRACIN OPL SCH (08:36)
[2021-09-07] MEDS: ASPIRIN 81 MG ECTAB PO SCH (08:36)
[2021-09-07] MEDS: FOLIC ACID 1 MG TAB PO SCH (08:37)
[2021-09-07] MEDS: metroNIDAZOLE 500 MG TAB PO SCH (08:38)
[2021-09-07] MEDS: METOCLOPRAMIDE HCL 5 MG TABLET PO SCH ×2 (08:38→13:09)
[2021-09-07] MEDS: POLYETHYLENE (MIRALAX) 17 GM PACK PO SCH (08:39)
[2021-09-07] MEDS: ESOMEPRAZOLE 40 MG PO SCH (08:39)
[2021-09-07] MEDS: PRUCALOPRIDE SUCCINATE 2 MG PO SCH (08:40)
[2021-09-07] MEDS: PREDNISOLONE ACETATE 1% OPL SCH ×2 (08:43→13:09)
[2021-09-07] MEDS: RANOLAZINE 500 MG ER TAB PO SCH (08:44)
[2021-09-07] MEDS: LACTOBACILLUS ACIDOPHILUS 1 GM PACK PO SCH ×2 (08:46→13:09)
[2021-09-07 10:37] LABS: BUN Creatinine Ratio 9.7 (10-20); Calcium 8.9 mg/dl (8.5-10.1); Creatinine Clr Calc Pharmacy 85.8 ml/min; Est GFR (African American) 105.8 ml/min; Est GFR (Non-African American) 91.3 ml/min; Potassium 3.4 mmol/L (3.5-5.1)
[2021-09-07] MEDS: UMECLIDINIUM/VILANTEROL 62.5/25MCG 7 PUFFS/INHALER INH SCH (10:40)
--- NOTE | 2021-09-07 12:40 | Discharge Summary ---
Date of Service September 07, 2021 Admission HPI Per Admitting Provider Gena Casillas is a 76 year old male who presents to the ER with right lower quadrant (now left lower quadrant) abdominal pain, nausea and vomiting. Pain ongoing for approximately 10 days. Progressively getting worse. Much worse in last 2-3 days. Associated constipation. He was seen in the ER 3 days ago for similar symptoms and diagnosed with acute diverticulitis. He was started on Unasyn and prescribed Augmentin on discharge for which he has been taking. Some chills but no objective fevers. He notes chronic problems with constipation and gastroparesis. Under Dr Laureano charlton [place] for this. He reports having hiatal hernia surgery this summer. he has lost 30lb since Julydue to gastroparesis. Prior EGDs have had to be abandoned due to food in his stomach. He has not had a colonoscopy in many years and previous preps have been inadequate. Of note he reports recent diagnosis of UTI treated with Bactrim in 08/13 (subsequent culture resistant to this), then Ciprofloxacin 08/17 (caused nausea), then Levaquin 08/19 - recently finished this. In the ER CT confirmed continuation of diverticulitis without abscess or perforation. WBC was normal. He was referred to medicine for admission and ongoing management of this. Admission Exam Per Admitting Provider Chief Complaint: Abdominal pain Primary Care Provider: Celestino Vazquez DO Gena Casillas is a 76 year old male who presents to the ER with right lower quadrant (now left lower quadrant) abdominal pain, nausea and vomiting. Pain ongoing for approximately 10 days. Progressively getting worse. Much worse in last 2-3 days. Associated constipation. He was seen in the ER 3 days ago for similar symptoms and diagnosed with acute diverticulitis. He was started on U nasyn and prescribed Augmentin on discharge for which he has been taking. Some chills but no objective fevers. He notes chronic problems with constipation and gastroparesis. Under Dr Laureano charlton [place] for this. He reports having hiatal hernia surgery this summer. he has lost 30lb since Julydue to gastroparesis. Prior EGDs have had to be abandoned due to food in his stomach. He has not had a colonoscopy in many years and previous preps have been inadequate. Of note he reports recent diagnosis of UTI treated with Bactrim in 12/8 (subsequent culture resistant to this), then Ciprofloxacin 08/17 (caused nausea), then Levaquin 08/19 - recently finished this. In the ER CT confirmed continuation of diverticulitis without abscess or perforation. WBC was normal. He was referred to medicine for admission and ongoing management of this. Principal Diagnosis Diverticulitis Giardiasis Discharge Exam General: A&Ox3. NAD. Cooperative. HEENT: Atraumatic, normocephalic. Pulm: CTAB A&P. -wheezes, -rales, -rhonchi. Symmetrical chest rise. No increase work of breathing. No respiratory distress. Cardiac: RRR, -mrg. Radial pulses intact and symmetrical. Abdominal: Soft with mild distension, nontender,no rebound, BS intact Extremities: Warm, dry Discharge Data Allergies Allergy/AdvReac Type Severity Reaction Status Date / Time Beta-Blockers Allergy Severe "SHOOK UP Verified 08/30/21 18:09 (Beta-Adrenergic Bloc FEELING" omeprazole Allergy Mild "made my Verified 08/30/21 18:09 head spin" levofloxacin Allergy Gastrointestinal Verified 08/30/21 18:09 Upset pantoprazole AdvReac Mild HALLUCINATI Verified 08/30/21 18:09 ONS Consultations 08/30/21 17:50 ED Decision to Admit Stat 08/31/21 08:07 Consult Gastroenterology Routine 09/02/21 12:49 Consult General Surgery Routine 09/02/21 16:21 Consult Infectious Diseases Routine Ordered Studies 08/30/21 16:03 CT abd pelvis IV con only Stat 09/02/21 06:03 US liver Routine 09/02/21 10:23 CT abd pelvis IV con only Urgent 09/04/21 08:51 US abdomen ltd hernia Routine 09/06/21 05:16 CT abd pelvis IV con only Urgent Hospital Course (1) Sigmoid diverticulitis: Gena is a 76-year-old male who presents with abdominal pain, nausea, diarrhea and he was found to have diverticulitis and who is Giardia positive. He was treated Zosyn for diverticulitis which was completed during inpatient, and discharged on additional Flagyl to cover for Giardia after ID consult. To do as outpatient: 1. Complete 6 additional days of Flagyl for Giardia infection 2. Continue to follow-up for diverticulitis 3. If clinically well, follow-up colonoscopy in 4-6 weeks for reevaluation, with additional concern for malignancy as noted below 4. Follow-up to PCP, GI as noted Sigmoid diverticulitis Hx of diverticular disease, previously managed in outpatient setting never requiring hospitalization. Typically with Cipro/Flagyl. - In ER earlier in week, found to have diverticulitis and given Unasyn IV and then sent home on Augmentin. - Stated took several days worth and had developed worsening RLQ pain and concerned for appendicitis which prompted him to return to ER (also with R inguinal hernia) - Hx gastroparesis and follows [facility] - Recently started on reglan (resumed after discussion with GI) - Past 2 c-scopes without good prep, but stated given findings of fluid filled esophagus on EGD they felt he has gastroparesis and has been having significant weight loss since this year due to complications of such, although given 30lb weight loss and mother with hx colon ca, raises suspicion for underlying malignancy, however CEA wnl on check -CT on admission with continued fat stranding and sigmoid bowel thickening compatible with acute diverticulitis. -->No evidence of perforation or abscess. Large solid and liquid stool burden. Repeat CT scan for pain unchanged. - KUB 09/04 with Interval improvement from the previous examination with decreased gaseous distention of large and small bowel. No significant fecal stasis. -Checked US of R inguinal hernia given complaints of pain and suspected "appendicitis as what brought him in" --> IMPRESSION: Right inguinal hernia containing peritoneal fat with no bowel loop herniation as described. ID consulted: Completed 7 days of Zosyn, patient discharged with 6 additional days of Flagyl to treat giardiasis (ID felt given recently on Bactrim/Cipro/Levaquin for Pseudomonas UTI, would recommend 7 days IV Zosyn for treatment. Dose increased by pharmacy for higher end in case. Of note, with weight loss, suspicion for underlying malignancy masquerading as gastroparesis and would rec f/u GI [facility] motility specialist (has appt Marty and provided info to CM to reach out to office for additional recs) and will need c-scope for further evaluation 4-6wks post-d/c) - cdiff negative. - Stool studies --> + Giardia antigen - Could be reason for recent weight loss/bloating/cramping/diarrhea/constipation as well - On 09/04, changed diet to low fiber, lactose intolerant in case Giardia causing lactose intolerance leading to bloating. Patient however wanted lactose and this was changed back as he felt ice cream could provide needed calories. Patient with increased pain overnight 09/05 and 2 09/06, CT of the abdomen was obtained. This shows ongoing diverticulitis, but did not show evidence of perforation/abscess. -Patient's pain had resolved 09/06, was having bowel movements, and he felt clinically well. "I feel like I could dance jig, and would like to go home.' Patient had just completed Zosyn, and given episode of abdominal pain night prior and discontinuation of his antibiotics additional observation was discussed, patient greatly preferred discharge home with close follow-up to his PCP within the week. Being that he was back to his normal baseline, without pain, tolerating meals well, and with bowel movements this was reasonable. Information sent to his motility specialists, not hear back yet. 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 May need elective sigmoidectomy in future for recurrent diverticulitis as well (2) Constipation: Constipation improving patient had melena this morning, although had some distention and abdominal pain prompting CT 09/06 as noted above - cdiff negative Giardia positive, treating with Flagyl as above - Ne-eds f/u [facility] for c-scope for eval underlying malignancy -Per GI, can use miralax up to 4 scoops BID at home to help as to d/c reglan at discharge (3) Acid reflux: Initially placed on famotidine Intolerant to pantoprazole, hallucinations had his home esomeprazole brought in, continued 40mg BID - No increased reflux symptoms (4) CAD (coronary atherosclerotic disease): -Hx of stent to mid LAD with mild-moderate residual CAD. Follows cardiology, Dr Leyva. -Negative dobutamine stress echo April 2020. Normal LV size and systolic function with no regional wma. EF 65%. No LVH. Type I diastolic dysfunction. Normal LA pressures. - Continue ASA, ranexa, amlodipine, crestor -EKG PRN w/ CP - No chest pain/sob reported. Chronic exertional sob. (5) Hypertension: Blood pressure adequately controlled Continue amlodipine with hydralazine as needed (6) Depression: Resumed sertraline (on hold while on reglan inpatient), atrivan prn (7) Hyperlipidemia: Continue Crestor (8) BPH (benign prostatic hyperplasia): Continue Flomax and finasteride (9) Elevated LFTs: mildly elevated LFTs, waxing/waning per PCP note May. Had RUQ US in years past. GB thickening on CT on admission but no stones/acute boogie. No RUQ discomfort/negative Quintanilla's. On dicyclomine BID prn [employer] --? biliary colic. Elevated during last admission but now normal. RUQ negative (10) Gastroparesis: f/u [facility] outpatient need c-scope 4-6 weeks could also be from +giardia as above, treatment to follow further recs per GI when seen this afternoon (11) Hiatal hernia: recent surgical correction earlier this year PPI as noted Total Time Total Time Spent Total Time Spent (In Minutes): Total time spent day of discharge including direct patient care, coordination of care, documentation, and review of labs and images 45 minutes Discharge Plan Discharge Items Patient Disposition: Home - Self-Care Reason For Visit: ACUTE DIVERTICULITIS Discharge Diagnosis: Diverticulitis Giardiasis Activity: Resume your previous activity Non-emergency contact: Primary Care Provider and Specialist Call non-emergency contact if: you have any medication questions, your symptoms worsen, your pain is not controlled, your pain is worsening and you have a fever Follow-up/Referrals: Celestino Vazquez, [Primary Care Provider] - Diet: Low Fiber Addtl Attending Provider Instructions: You are seen in the hospital for abdominal diverticulitis and were also found to have an infection with Giardia. You received a course of treatment with Zosyn for diverticulitis, and are continued on Flagyl as noted below for treatment of your Giardia infection. At day of discharge your symptoms had clinically improved, and you felt at your normal baseline, and were ambulating independently. Your Zosyn had recently been completed, observation for an additional day after this completion was discussed, and you are comfortable with and prefer discharge home with outpatient follow-up. You are tolerating a low fiber diet at time of discharge. You did not have abdominal pain at time of discharge. You completed a course of Zosyn for diverticulitis. Additional antibiotics for this were not indicated at discharge. You were placed on an antibiotic metronidazole (Flagyl) for Giardia infection. Please continue to take Flagyl 500 mg by mouth twice daily for 6 additional days. You have a follow-up appointment scheduled [facility] on 09/24/2021 at 11 AM please keep this appointment. You should have a follow-up colonoscopy in approximately 6 weeks. A follow-up appointment with your primary care provider Dr. Vazquez is being scheduled as above. You should be seen within 1 week. If you develop any new or worsening symptoms including fever, chills, sweats, chest pain, chest pressure, difficulty breathing, uncontrolled nausea/vomiting, rash, wheezing, passing out or nearly passing out, bleeding, black/bloody bowel movements, or other new or concerning symptoms please call your primary care physician, or call 911 for re-evaluation in the emergency department if you are very concerned. Addtl Hunter Provider Instructions: Please keep you appointment with [facility], Dr. Griffin Marina, on 09/24/21 at 11am. Pending Studies at Discharge: No Stand-Alone Forms: My [facility], Smoking Cessation Medications and DC Order Prescriptions: New metronidazole 500 mg Tablet 500 mg PO BID 6 Days Qty: 12 RF: 0 Continued tamsulosin [Flomax] 0.4 mg capsule 0.4 mg PO PM RF: 0 Motegrity 2 mg tablet 2 mg PO QAM RF: 0 albuterol sulfate [Ventolin HFA] 90 mcg/actuation HFA aerosol inhaler 2 puff inhalation Q6H PRN (Reason: Shortness Of Breath Or Wheezing) RF: 0 Anoro Ellipta 62.5-25 mcg/actuation blister with device 1 inh inhalation DAILY 90 Days Qty: 90 RF: 3 nortriptyline 10 mg Capsule 10 mg PO HS RF: 0 rosuvastatin [Crestor] 20 mg Tablet 20 mg PO QPM RF: 0 amlodipine 2.5 mg Tablet 2.5 mg PO QAM RF: 0 esomeprazole magnesium 40 mg Capsule,Delayed Release(Dr/Ec) 40 mg PO BID RF: 0 nitroglycerin 0.4 mg Tablet, Sublingual 1 dose sublingual UD PRN (Reason: Angina) RF: 0 sertraline [Zoloft] 50 mg Tablet 50 mg PO QAM RF: 0 finasteride 5 mg Tablet 5 mg PO HS RF: 0 solifenacin [Vesicare] 5 mg Tablet 5 mg PO HS RF: 0 ranolazine [Ranexa] 500 mg Tablet Extended Release 12 Hr 500 mg PO BID RF: 0 metoclopramide HCl [Reglan] 10 mg tablet 5 mg PO Q12H PRN (Reason: nausea and vomiting) Qty: 10 RF: 0 acetaminophen-codeine 300-30 mg tablet 1 tab PO BID PRN (Reason: pain) Qty: 6 RF: 0 ondansetron HCl [Zofran] 4 mg tablet 4 mg PO Q6H PRN (Reason: Nausea) RF: 0 Refresh Optive Noman-3 (PF) 0.5-1-0.5 % Dropperette 1 drp OPB BID RF: 0 Xiidra 5 % dropperette 1 drp OPB BID RF: 0 dicyclomine 20 mg tablet 20 mg PO TID PRN (Reason: abdominal pain) Qty: 9 RF: 0 lorazepam [Ativan] 0.5 mg tablet 0.5 mg PO TID PRN (Reason: anxiety) Qty: 20 RF: 0 polyethylene glycol 3350 17 gram Powder In Packet 17 g PO BID PRN (Reason: Constipation) RF: 0 aspirin 81 mg Capsule,Delayed Release(Dr/Ec) 81 mg PO QAM RF: 0 bacitracin-polymyxin B 500-10,000 unit/gram ointment RF: 0 prednisolone acetate 1 % drops,suspension RF: 0 brimonidine RF: 0 Discontinued amoxicillin-pot clavulanate [Augmentin] 875-125 mg tablet 1 tab PO TID 10 Days Qty: 30 RF: 0 Discharge Orders: Discharge Order (Routine); Ordered 09/07/21 Ordered By: Alex Crockett Admission Data Admit Date/Time: 08/30/21 18:09 Attending Provider: Alex Crockett Admit Provider: Quinn Ashton Primary Care Provider: Celestino Vazquez Other Providers: Adria Mukherjee ; Celeste Whitfield ; Aristides Cameron ; Coty Wong ; Varinder Freeman I. ; Jonnathan Dumont II ; Sandra Palacios ; Matt Winchester ; George Sanchez ; Alex Crockett Other Interventions: Discharge Summary Assessment (RN) Last Done: 09/07/21 15:37 Coding Level of Care Code D/C DAY MANAGEMENT >30 MINS Diagnoses Sigmoid diverticulitis K57.32 Constipation K59.00 Constipation type: unspecified constipation type Acid reflux K21.9 CAD (coronary atherosclerotic disease) I25.10 Hypertension I10 Depression F32.9 Hyperlipidemia E78.5 BPH (benign prostatic hyperplasia) N40.0 Elevated LFTs R79.89 Gastroparesis K31.84 Hiatal hernia K44.9
== END 2021-09-07 16:30 | disposition home or self-care (01) | DRG 392 ==
LOC: ED 15:42 → 3N 18:09 → SUATTDRO 18:09 → 3N 22:00 → 3W 09-06 20:25

== ENCOUNTER 2021-10-18 10:32 | Observation (INO) ==
[2021-10-18] MEDS ORDERED: SODIUM CHLORIDE 0.9% 1000ML 1,000 ML IV STA (11:01)
[2021-10-18] MEDS ORDERED: SODIUM CHLORIDE 0.9% 500 ML IV STA (11:01)
[2021-10-18] MEDS ORDERED: ONDANSETRON INJ 2 MG/ML 2 ML VIAL IV STA ×2 (11:13→13:31)
[2021-10-18] MEDS: HYDROmorphone INJ 0.5 MG/0.5 ML SYR IV PRN ×4 (11:24→20:14)
[2021-10-18 11:26] LABS: Basophils # (auto) 0.01 K/uL (0-0.2); Basophils % (auto) 0.1 %; Eosinophils # (auto) 0.28 K/uL (0-0.5); Eosinophils % (auto) 2.2 %; Immature Granulocytes # (auto) 0.02 K/uL (0.00-0.02); Immature Granulocytes % (auto) 0.2 %; Lymphocytes # (auto) 1.13 K/uL (1.2-3.4); Mean Corpuscular Hemoglobin 30.4 pg (25-34); Mean Corpuscular Hgb Conc 34.2 g/dL (32-36); Mean Corpuscular Volume 88.8 fL (80-100); Mean Platelet Volume 8.7 fL (7.4-10.4); Monocytes # (auto) 1.13 K/uL (0.11-0.59); Neutrophils # (auto) 10.04 K/uL (1.4-6.5); Neutrophils % (auto) 79.5 %; Platelet Count 251 K/uL (130-400); RDW Standard Deviation 48.6 fL (36.4-46.3); Red Blood Count 4.28 M/uL (4.7-6.1); White Blood Count 12.61 K/uL (4.8-10.8)
[2021-10-18 11:50] LABS: Troponin I < 0.03 ng/ml (0-0.04)
[2021-10-18 11:51] LABS: Alanine Aminotransferase 16 U/L (7-52); Albumin Globulin Ratio 1.3 (0.9-2); Albumin Level 3.6 gm/dl (3.4-5.0); Alkaline Phosphatase 110 U/L (34-104); Anion Gap 7 (3-11); Aspartate Aminotransferase 15 U/L (13-39); BUN Creatinine Ratio 15.1 (10-20); Blood Urea Nitrogen 11 mg/dl (6-23); Calcium 8.5 mg/dl (8.5-10.1); Carbon Dioxide 25 mmol/L (21-32); Chloride 98 mmol/L (98-107); Creatinine Clr Calc Pharmacy 84.6 ml/min; Est GFR (African American) 105.2 ml/min; Est GFR (Non-African American) 90.7 ml/min; Globulin 2.7 gm/dl (2.5-4.0); Glucose 150 mg/dl (70-99(Fasting)); Lipase 24 U/L (11-82); Potassium 3.9 mmol/L (3.5-5.1); Sodium 130 mmol/L (136-145); Total Protein 6.3 gm/dl (6.0-8.3)
--- NOTE | 2021-10-18 12:15 | CT Scan Report ---
ABDOMEN AND PELVIS CT WITHOUT CONTRAST CT DOSE: 500.21 mGy.cm HISTORY: Vomiting with left lower quadrant abd pain, low BP, hx of diverticulitis TECHNIQUE: Multiaxial CT images of the abdomen and pelvis were performed without contrast. A dose lo wering technique was utilized adhering to the principles of ALARA. COMPARISON STUDY: Abdomen and pelvis CT 09/06/2021. FINDINGS: Mild subpleural reticulation within the base of the right middle lobe, unchanged. This favo rs chronic fibrotic change. No pneumoperitoneum. No pneumatosis. No fractures within the visualized o sseous structures. Small fat-containing right inguinal hernia, unchanged. There is a small hiatus her alicia. Multiple duodenal diverticula are again noted. The unenhanced liver, gallbladder, pancreas, sple en, and adrenal glands are unremarkable. No renal or ureteral stones. No hydronephrosis. Bilateral pe rinephric edema is likely chronic. Mild calcified plaque within the normal caliber abdominal aorta. N o retroperitoneal or pelvic lymphadenopathy. The bladder is unremarkable. Mild bowel wall and pericol onic fat stranding within the majority of the descending colon, proximal sigmoid colon, and rectum. T his is new from the prior study. The sigmoid diverticulitis seen on the prior study has resolved in t he interval. No perforation or abscess identified. Large amount well-formed stool within the cecum, a scending colon, and transverse colon. No evidence for bowel obstruction. Tiny fat-containing umbilica l hernia. Normal appendix. IMPRESSION: 1. Interval development of mild bowel wall thickening and pericolonic fat stranding involving the tomer ority of the descending colon, proximal sigmoid colon, and rectum. This favors a nonspecific colitis and may be due to an infectious process such as C. difficile colitis. A diverticulitis is considered less likely but not entirely excluded. 2. The sigmoid diverticulitis seen on the prior study has resolved in the interval. 3. Large amount well-formed stool within the proximal to mid colon. 4. No evidence for bowel obstruction. 5. Normal appendix. 6. Additional findings as described above. ACT 112: Negative or not required by law. Electronically signed by: Rex Braswell M.D. 10/18/2021 12:14 PM
[2021-10-18] MEDS ORDERED: PIPERACILL/TAZOBAC CONSULT ACTIVE PRN ×2 (12:24→15:25)
[2021-10-18] MEDS ORDERED: SODIUM CHLORIDE 0.9% 1000ML 500 ML IV ONE (12:24)
[2021-10-18] MEDS ORDERED: PIPERACILLIN/TAZOBACTAM 4.5 GM/120 ML BAG IV ONE (12:24)
--- NOTE | 2021-10-18 13:19 | History & Physical Report ---
Date of Service October 18, 2021 Assessment & Plan (1) Abdominal pain, lower: Plan: Gena is a 76-year-old male with a past medical history of sigmoid diverticulitis, CAD, gastroparesis, BPH, depression, hyperlipidemia, hypertension, acid reflux, cough, chest pain, giardiasis was discharged 09/07/2021 following diverticulitis with giardiasis who represents with worsened abdominal pain and hypotension. Abdominal Pain ?diverticulitis Leukocytosis to 12.61 - BP improved after fluids/abx, normotensive with no tachycardia at time of hospitalist assessment Outpatient stool studies pending, will attempt to obtain from [facility] [place]. Hyponatremic to 130, serum osm/urine osm/urine NA pending. Pt with hx of intermittent hyponatremia, pending outpt colo as noted below Creatinine normal CTA/P without contrast: Interval mild bowel wall thickening and fat stranding of the descending colon, proximal sigmoid, and rectum. Favor nonspecific colitis suspect infectious. Acute diverticulosis not excluded. Previous sigmoid diverticulitis with interval resolution. No SBO. Normal appendix. Lactate 0.5, lower suspicion for bowel ischemia list cannot completely be excluded and admitting CT without contrast. Continue to follow. Troponin normal on admission Admitting EKG: Normal sinus rhythm, no ST changes/territorial changes This admission with discharge 09/07/2021: Patient was admitted with diverticulitis and abdominal pain, ID was consulted for continued GI complaints and giardiasis. Was recommended to complete 7 days of Zosyn. Also suspected that chronic constipation/motility issues may contribute to recurrent diverticulosis/diverticulitis. Was recommended for follow-up with GI and endoscopy to evaluate for structural contribution/mass. Constipation Use MiraLAX up to 4 scoops twice daily Reglan as needed Consider GI consult if not improving Giardia/c diff outpt studies pending results as above (2) BPH (benign prostatic hyperplasia): Plan: BPH Continue Flomax Continue finasteride (3) CAD (coronary atherosclerotic disease): Plan: CAD History of LAD stent, follows with Dr. 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 (5) Elevated LFTs: Plan: - Ast/ALT normal on this admission (6) Gastroparesis: Plan: Acid reflux/Baretts Continue PPI/H2 Convert PPI to formulary Protonix (7) Hyperlipidemia: Plan: HLD Continue Crestor (8) Hypertension: Plan: Hypertension Patient hypotensive on admission, amlodipine/hydralazine held (9) Hyponatremia: (10) Liriano's esophagus: Plan: Hiatal hernia Continue PPI, status post surgical correction previously Plan: diet: clears code status: DNR/DNI DVT PPx: lovenox History of Present Illness Primary Care Provider: Celestino VazquezDO Avery is a 76-year-old male with a past medical history of sigmoid diverticulitis, CAD, gastroparesis, BPH, depression, hyperlipidemia, hypertension, acid reflux, cough, chest pain, giardiasis was discharged 09/07/2021 following diverticulitis with giardiasis who represents with worsened abdominal pain and hypotension. After being d/c from the hospital in Sep felt improved, took 2-3 weeks to get back to full strength but feels he did well. Still had some gastroparesis. No pain at all until 2 weeks ago. Contacted PCP Dr. Vazquez who did a giardia repeat test which was negative and UA which wa snegative. 1 day ago 'massive throwing up, everything I put down came back up, a lot of dry heaving.' 6-7 episodes of emesis brownish/orange without blood. Had worsened constipation in the previous few days. 'By pushing so hard I was worried I pulled a muscle.' Pain worsened suddenly ~5am this morning. He has had a thin odorless white discharge from his rectum not always associated with stool for a few days. Last BM was 2 days very hard, dark brown, small. No melena/tarry appearance/blood. 'Not a bit' of fevers, chills, or sweats + some gerd this morning which improved with burping, otherwise No chest pain No chest pressure Endorses some baseline shortness of breath for which he takes Anoro, no recent change in shortness of breath At time of assessment +LLQ pain 7/10 up to 10/10 with pressure. No radiation. "Way off a ten and above a ten this morning." Home bowel regimen: Citrucel and miralax 2 capfuls in the morning to late morning. Had GI followup after discharge: Saw [facility] 2 weeks ago. Was scheduled for a nuclear gastric emptying study. Has used reglan every night x1 which helps. Has not had a colonoscopy followup yet, was pending the gastric study. Medical History: Reviewed Medications: Reviewed FHx: Reviewed Surgical History: Reviewed Allergies: Reviewed Social History: Reviewed Code Status: DNI/DNR Allergies Allergy/AdvReac Type Severity Reaction Status Date / Time Beta-Blockers Allergy Severe "SHOOK UP Verified 10/18/21 12:34 (Beta-Adrenergic Bloc FEELING" omeprazole Allergy Mild "made my Verified 10/18/21 12:34 head spin" levofloxacin Allergy Gastrointestinal Verified 10/18/21 12:34 Upset pantoprazole AdvReac Mild HALLUCINATI Verified 10/18/21 12:34 ONS Home Medications Medication Instructions Recorded Confirmed Type esomeprazole magnesium 40 mg 40 mg PO BID 11/23/18 10/18/21 History capsule,delayed release finasteride 5 mg tablet 5 mg PO HS 11/23/18 10/18/21 History nitroglycerin 0.4 mg sublingual 1 dose SUBLINGUAL UD PRN 11/23/18 10/18/21 History tablet nortriptyline 10 mg capsule 10 mg PO HS 11/23/18 10/18/21 History ranolazine 500 mg tablet,extended 500 mg PO BID 11/23/18 10/18/21 History release,12 hr (Ranexa) rosuvastatin 20 mg tablet (Crestor) 20 mg PO HS 11/23/18 10/18/21 History sertraline 50 mg tablet (Zoloft) 50 mg PO QAM 11/23/18 10/18/21 History solifenacin 5 mg tablet (Vesicare) 5 mg PO HS 11/23/18 10/18/21 History tamsulosin 0.4 mg capsule (Flomax) 0.4 mg PO HS 05/08/20 10/18/21 History albuterol sulfate 90 mcg/actuation 2 puff INHALATION Q6H PRN 05/13/21 10/18/21 History aerosol inhaler (Ventolin HFA) carboxymethyl 0.5 %-glycerin 1 1 drp OPB BID PRN 06/22/21 10/18/21 History %-polysorb 80 0.5 %-PF eye dropperette (Refresh Optive Noman-3 (PF)) dicyclomine 20 mg tablet 20 mg PO TID PRN #9 tab 06/22/21 10/18/21 Rx lifitegrast 5 % eye drops in a 1 drp OPB BID PRN 06/22/21 10/18/21 History dropperette (Xiidra) metoclopramide HCl 10 mg tablet 5 mg PO Q12H PRN #10 tab 08/27/21 10/18/21 Rx (Reglan) polyethylene glycol 3350 17 gram 17 g PO BID PRN 08/30/21 10/18/21 History oral powder packet prednisolone acetate 1 % eye 1 drp OPL 6XD 09/02/21 10/18/21 History drops,suspension Citrucel Powder 1 tbsp PO DAILY PRN 10/18/21 10/18/21 History aspirin 81 mg tablet,delayed 81 mg PO QAM 10/18/21 10/18/21 History release ondansetron 4 mg disintegrating 4 mg TRANSLINGUAL Q8H PRN 10/18/21 10/18/21 History tablet prucalopride 2 mg tablet 2 mg PO QAM 10/18/21 10/18/21 History (Motegrity) umeclidinium 62.5 mcg-vilanterol 1 inh INHALATION QAM 10/18/21 10/18/21 History 25 mcg/actuation powdr for inhalation (Anoro Ellipta) Past Med/Surg History Medical History Abdominal pain, RLQ Anemia Anxiety Barretts esophagus BPH (benign prostatic hyperplasia) Depression GERD (gastroesophageal reflux disease) Hearing deficit Hyperlipidemia Hypertension IBS (irritable bowel syndrome) Migraine Prediabetes Surgical History History of cardiac cath 11/2011 @ [facility], 06/2012 @ [facility]no stent History of cataract extraction with lens replacement LEFT EYE, 01/03/19 History of colonoscopy History of esophagogastroduodenoscopy (EGD) History of flexible sigmoidoscopy History of foot surgery left History of heart artery stent 11/2011 x1 @ [facility] History of hemorrhoidectomy Family History Father Family history of esophageal cancer Mother Family hx of colon cancer Other No family history of adverse response to anesthesia Social History Smoking Status: Never smoker Second Hand Exposure: Yes (parents smoked); Hx Alcohol Use: Yes Alcohol type: wine Hx Substance Use: No Preferred Language: Divehi Communication Ability: Effective Tableau Administrator Required: No Beliefs That Will Affect Care: None marital status: Current Living Situation: Spouse Feels Safe at Home: Yes Assistive Devices: Glasses Review of Systems Review of Systems: All systems reviewed & are unremarkable except as noted in HPI & below Physical Exam Physical Exam: General: A&Ox3. NAD. Cooperative. HEENT: Atraumatic, normocephalic. Visual acuity and hearing grossly intact. Pulm: CTAB A&P. -wheezes, -rales, -rhonchi. Symmetrical chest rise. No increased work of breathing. No respiratory distress. Cardiac: RRR, -mrg. Radial pulses intact and symmetrical. Abdominal: Left lower quadrant tenderness to palpation without radiation. No guarding. No rebound tenderness. Soft. Bowel sounds diminished Extremities: Warm, dry. Moves all extremities equally. Bunghole Borer strength in ankle dorsiflexion/plantarflexion intact and symmetrical. Soft touch intact in hands and feet. Radial and PT pulses intact and symmetrical. Results & Data Results & Data ([facility]) Vital Signs (Past 12 Hours) Vital Signs Temp Pulse Resp BP Pulse Ox 10/18/21 11:14 57 L 18 100 10/18/21 10:38 36.1 C L 78 20 96/65 L 100 PG Care Time/CCT Total # of Minutes Spent Total Time Spent with Patient: Total time spent is greater than 50% in coordination of care (as documented) at patient's floor/unit and/or counseling patient: Coding Level of Care Code INT OBSERVATION CARE 50M LVL 2 Diagnoses Abdominal pain, lower R10.30 BPH (benign prostatic hyperplasia) N40.0 CAD (coronary atherosclerotic disease) I25.10 Depression F32.9 Elevated LFTs R79.89 Gastroparesis K31.84 Hyperlipidemia E78.5 Hypertension I10 Hyponatremia E87.1 Liriano's esophagus K22.70
--- NOTE | 2021-10-18 13:30 | Emergency Department Note ---
Impression & Plan Left sided abdominal pain, Diverticulitis large intestine, Colitis ED Provider Note INFORMANT: Patient ED PROVIDER(S): Cesar Atkins MD CHIEF COMPLAINT: Abdominal pain PLAN: Disposition: Admitted Condition: Good Outpatient prescription management: none Referral: None MEDICAL DECISION MAKING: Patient presented because of abdominal pain. He underwent a work-up. He was found to be mildly hypotensive. He was given fluid boluses. IV medication was administered with Zofran and Dilaudid for symptom control. The patient's blood work showed a mild leukocytosis. Sodium was mildly low at 130. His troponin, LFTs, lipase, and ECG were unremarkable. The patient underwent CT imaging and there is findings consistent with colitis versus diverticulitis. Lactate was negative. Patient was given IV Zosyn. Patient's blood pressure did improve with the fluids to the 120s. Clinically felt well. He did have some recurrent nausea and was given a second dose of Zofran. I did consult with the [facility] service, Dr. Milton. Patient was evaluated in the ER for further man agement. Triage Nursing notes reviewed and agree them. Vital Signs: reviewed and remarkable for mild hypotension Differential diagnosis: diverticulitis, UTI, obstruction, mesenteric ischemia, aortic pathology, inflammatory bowel disease, renal colic, PUD, pancreatitis, biliary pathology, hernia, volvulus, constipation, Appendicitis, testicular torsion, infections,as well as other pathologies. Diagnostics interpreted by me: EC Lead ECG performed and revealed Normal sinus rhythym at 62, normal [place], QRS normal. No elevation or depression. No PACs or PVCs Cardiac Monitoring: Cardiac monitoring ordered by me: The patient was placed on continuous cardiac monitoring and observed. It revealed a normal sinus rhythm at 57 beats per minute without ectopy or evidence of dysrhythmia. Imaging studies: CT scan as above. I refer you to the EMR for further details. HPI: The patient is a 76 year old male who presents to the Emergency Room with complaints of abdominal pain. This started over the last week and is worsening. The patient also notes the following associated symptoms, nausea, vomiting. The patient has taken no medication for relieving factors. Current pain is rated as 8/10. Patient was treated for diverticulitis around . States that resolved. Was seen by his PCP this week and was tested for Giardia. He states that was negative. Patient also notes having some chest discomfort from time to time with the vomiting and felt like it was heartburn. He has a history of hiatal hernia repair. Pt denies LOC, headache, fevers, chills, diaphoresis, visual changes, neck pain, breathing difficulties, melena, hematochezia, urinary symptoms, numbness, weakness, lymphadenopathy, rash, or other complaints. ROS: See above HPI for pertinent positives & negatives. A total of 10 systems reviewed and were otherwise negative. PAST MEDICAL HISTORY:See Below , diverticulitis PAST SURGICAL HISTORY:See Below, FAMILY HISTORY:See Below SOCIAL HISTORY:See Below, HOME MEDICATIONS:See Below ALLERGIES:See Below VITALS:See Below PHYSICAL EXAMINATION: GENERAL: Awake, alert, nontoxic-appearing, in no distress HENT: Normocephalic, atraumatic. Oropharynx unremarkable. EYES: Normal conjunctiva. Sclera non-icteric. NECK: Inspection normal. Non-tender. Supple. No nuchal rigidity. FROM. No masses. RESPIRATORY: Clear to auscultation. No wheezes. No rales. Normal respiratory effort. CARDIAC: Normal rate. Normal rhythm. No murmurs. No rubs. Extremities warm and well perfused. Pulses equal. No JVD. GI: Soft, non-distended. Left side tenderness to palpation. No rebound or guarding. No masses. RECTAL: Deferred. MUSCULOSKELETAL: Atraumatic. Chest examination reveals no tenderness. The back is symmetrical on inspection without obvious abnormality. There is no CVA tenderness to palpation. No joint edema. LOWER EXTREMITIES: Calves are equal size bilaterally and non-tender. No edema. No discoloration. NEURO: Normal sensorium. No sensory or motor deficits noted. SKIN: No rash or jaundice noted. Cesar Atkins MD Past Med/Surg History Medical History Anemia Anxiety Barretts esophagus BPH (benign prostatic hyperplasia) Depression GERD (gastroesophageal reflux disease) Hearing deficit Hyperlipidemia Hypertension IBS (irritable bowel syndrome) Migraine Prediabetes Surgical History History of cardiac cath 11/2011 @ [facility], 06/2012 @ [facility] [place]--no stent History of cataract extraction with lens replacement LEFT EYE, 4/30/19 History of colonoscopy History of esophagogastroduodenoscopy (EGD) History of flexible sigmoidoscopy History of foot surgery left History of heart artery stent 11/2011 x1 @ [facility] History of hemorrhoidectomy Family History Father Family history of esophageal cancer Mother Family hx of colon cancer Other No family history of adverse response to anesthesia Social History Smoking Status: Never smoker Second Hand Exposure: Yes (parents smoked); Hx Alcohol Use: Yes Alcohol type: wine Hx Substance Use: No Preferred Language: Citizen Of [place] Communication Ability: Effective Provider Network Analyst Required: No Beliefs That Will Affect Care: None marital status: Current Living Situation: Spouse Feels Safe at Home: Yes Assistive Devices: Glasses Allergies Allergies Allergy/AdvReac Type Severity Reaction Status Date / Time Beta-Blockers Allergy Severe "SHOOK UP Verified 10/18/21 12:34 (Beta-Adrenergic Bloc FEELING" omeprazole Allergy Mild "made my Verified 10/18/21 12:34 head spin" levofloxacin Allergy Gastrointestinal Verified 10/18/21 12:34 Upset pantoprazole AdvReac Mild HALLUCINATI Verified 10/18/21 12:34 ONS Home Meds Home Medications Medication Instructions Recorded Confirmed esomeprazole magnesium 40 mg 40 mg PO BID 11/23/18 10/18/21 capsule,delayed release finasteride 5 mg tablet 5 mg PO HS 11/23/18 10/18/21 nitroglycerin 0.4 mg sublingual 1 dose SUBLINGUAL UD PRN 11/23/18 10/18/21 tablet nortriptyline 10 mg capsule 10 mg PO HS 11/23/18 10/18/21 ranolazine 500 mg tablet,extended 500 mg PO BID 11/23/18 10/18/21 release,12 hr (Ranexa) rosuvastatin 20 mg tablet (Crestor) 20 mg PO HS 11/23/18 10/18/21 sertraline 50 mg tablet (Zoloft) 50 mg PO [facility] 11/23/18 10/18/21 solifenacin 5 mg tablet (Vesicare) 5 mg PO HS 11/23/18 10/18/21 tamsulosin 0.4 mg capsule (Flomax) 0.4 mg PO HS 05/08/20 10/18/21 albuterol sulfate 90 mcg/actuation 2 puff INHALATION Q6H PRN 05/13/21 10/18/21 aerosol inhaler (Ventolin HFA) carboxymethyl 0.5 %-glycerin 1 1 drp OPB BID PRN 06/22/21 10/18/21 %-polysorb 80 0.5 %-PF eye dropperette (Refresh Optive Noman-3 (PF)) lifitegrast 5 % eye drops in a 1 drp OPB BID PRN 06/22/21 10/18/21 dropperette (Xiidra) polyethylene glycol 3350 17 gram 17 g PO BID PRN 08/30/21 10/18/21 oral powder packet prednisolone acetate 1 % eye 1 drp OPL 6XD 09/02/21 10/18/21 drops,suspension Citrucel Powder 1 tbsp PO DAILY PRN 10/18/21 10/18/21 aspirin 81 mg tablet,delayed 81 mg PO QAM 10/18/21 10/18/21 release ondansetron 4 mg disintegrating 4 mg TRANSLINGUAL Q8H PRN 10/18/21 10/18/21 tablet prucalopride 2 mg tablet 2 mg PO QAM 10/18/21 10/18/21 (Motegrity) umeclidinium 62.5 mcg-vilanterol 1 inh INHALATION QAM 10/18/21 10/18/21 25 mcg/actuation powdr for inhalation (Anoro Ellipta) Previous Rx's Medication Instructions Recorded dicyclomine 20 mg tablet 20 mg PO TID PRN #9 tab 06/22/21 metoclopramide HCl 10 mg tablet 5 mg PO Q12H PRN #10 tab 08/27/21 (Reglan) Results & Data (ED) Vital Signs Vital Signs - 24 hr 10/18/21 10:38 10/18/21 11:14 Temperature 36.1 C L Temperature Source Temporal Artery Scan Pulse Rate 78 57 L Pulse Rhythm Regular Respiratory Rate 20 18 Respiratory Effort / Characteristics Non-Labored Respiratory Depth Normal Blood Pressure 96/65 L Blood Pressure Mean 75 Pulse Oximetry 100 100 Oxygen Delivery Method Room Air Room Air Sepsis Recent Fever Within 48 Hours No Sepsis New/Unexplained Change in Mental Status N/A Sepsis Action Taken by Nursing No Action Required Laboratory Data Result diagrams: 10/18/21 11:15 10/18/21 11:15 Lab Results 10/18/21 10/18/21 10/18/21 Range/Units 11:15 11:15 11:28 WBC 12.61 H (4.8-10.8) K/uL RBC 4.28 L (4.7-6.1) M/uL Hgb 13.0 L (14.0-18.0) g/dL Hct 38.0 L (42-52) % MCV 88.8 (80-100) fL MCH 30.4 (25-34) pg MCHC 34.2 (32-36) g/dL RDW Std Deviation 48.6 H (36.4-46.3) fL RDW Coeff of Mendoza 15.0 H (11.5-14.5) % Plt Count 251 (130-400) K/uL MPV 8.7 (7.4-10.4) fL Immature Gran % (Auto) 0.2 % Neut % (Auto) 79.5 % Lymph % (Auto) 9.0 % [place] % (Auto) 9.0 % Eos % (Auto) 2.2 % Baso % (Auto) 0.1 % Neut # (Auto) 10.04 H (1.4-6.5) K/uL Lymph # (Auto) 1.13 L (1.2-3.4) K/uL [place] # (Auto) 1.13 H (0.11-0.59) K/uL Eos # (Auto) 0.28 (0-0.5) K/uL Baso # (Auto) 0.01 (0-0.2) K/uL Immature Gran # (Auto) 0.02 (0.00-0.02) K/uL Sodium 130 L (136-145) mmol/L Potassium 3.9 (3.5-5.1) mmol/L Chloride 98 (98-107) mmol/L Carbon Dioxide 25 (21-32) mmol/L Anion Gap 7 (3-11) BUN 11 (6-23) mg/dl Creatinine 0.73 (0.6-1.4) mg/dl Est Cr Clr Drug Dosing 84.6 ml/min Est GFR ( Amer) 105.2 ml/min Est GFR (Non-Af Amer) 90.7 ml/min BUN/Creatinine Ratio 15.1 (10-20) Glucose 150 H (70-99(Fasting)) mg/dl Lactate (0.4-2.0) mmol/L Calcium 8.5 (8.5-10.1) mg/dl Total Bilirubin 1.0 (0.2-1.0) mg/dl AST 15 (13-39) U/L ALT 16 (7-52) U/L Alkaline Phosphatase 110 H (34-104) U/L Troponin I < 0.03 (0-0.04) ng/ml Total Protein 6.3 (6.0-8.3) gm/dl Albumin 3.6 (3.4-5.0) gm/dl Globulin 2.7 (2.5-4.0) gm/dl Albumin/Globulin Ratio 1.3 (0.9-2) Lipase 24 (11-82) U/L SARS-CoV-2, RNA, NAAT NEGATIVE (NEGATIVE) 10/18/21 Range/Units 12:38 WBC (4.8-10.8) K/uL RBC (4.7-6.1) M/uL Hgb (14.0-18.0) g/dL Hct (42-52) % MCV (80-100) fL MCH (25-34) pg MCHC (32-36) g/dL RDW Std Deviation (36.4-46.3) fL RDW Coeff of Mendoza (11.5-14.5) % Plt Count (130-400) K/uL MPV (7.4-10.4) fL Immature Gran % (Auto) % Neut % (Auto) % Lymph % (Auto) % [place] % (Auto) % Eos % (Auto) % Baso % (Auto) % Neut # (Auto) (1.4-6.5) K/uL Lymph # (Auto) (1.2-3.4) K/uL [place] # (Auto) (0.11-0.59) K/uL Eos # (Auto) (0-0.5) K/uL Baso # (Auto) (0-0.2) K/uL Immature Gran # (Auto) (0.00-0.02) K/uL Sodium (136-145) mmol/L Potassium (3.5-5.1) mmol/L Chloride (98-107) mmol/L Carbon Dioxide (21-32) mmol/L Anion Gap (3-11) BUN (6-23) mg/dl Creatinine (0.6-1.4) mg/dl Est Cr Clr Drug Dosing ml/min Est GFR ( Amer) ml/min Est GFR (Non-Af Amer) ml/min BUN/Creatinine Ratio (10-20) Glucose (70-99(Fasting)) mg/dl Lactate 0.5 (0.4-2.0) mmol/L Calcium (8.5-10.1) mg/dl Total Bilirubin (0.2-1.0) mg/dl AST (13-39) U/L ALT (7-52) U/L Alkaline Phosphatase (34-104) U/L Troponin I (0-0.04) ng/ml Total Protein (6.0-8.3) gm/dl Albumin (3.4-5.0) gm/dl Globulin (2.5-4.0) gm/dl Albumin/Globulin Ratio (0.9-2) Lipase (11-82) U/L SARS-CoV-2, RNA, NAAT (NEGATIVE) Administered Medications Hydromorphone HCl (Hydromorphone Inj 0.5 Mg/0.5 Ml Syr) 0.5 mg IV Q15M PRN PRN Reason: Pain Stop: 11/01/21 11:12 Last Admin: 10/18/21 11:24 Dose: 0.5 mg Documented by: [id number] Sodium Chloride (Nss 1000ml) 1,000 mls @ 125 mls/hr IV .Q8H STA Stop: 10/18/21 19:00 Last Admin: 10/18/21 11:24 Dose: 125 mls/hr Documented by: [id number] Discontinued Medications Sodium Chloride (Nss) 500 mls @ 999 mls/hr IV .Q31M STA Stop: 10/18/21 11:31 Last Infusion: 10/18/21 12:13 Dose: 0 mls/hr Documented by: [id number] Admin: 10/18/21 11:16 Dose: 999 mls/hr Documented by: [id number] Piperacillin Sod/Tazobactam Sod (Zosyn) 4.5 gm in 120 mls @ 240 mls/hr IV NOW ONE Stop: 10/18/21 12:53 Last Admin: 10/18/21 13:00 Dose: 240 mls/hr Documented by: [id number] Ondansetron HCl (Ondansetron Inj 2 Mg/Ml 2 Ml Vial) 4 mg IV NOW STA Stop: 10/18/21 11:14 Last Admin: 10/18/21 11:24 Dose: 4 mg Documented by: [id number] Imaging Data Radiologist's Impression: Abdomen/Pelvis CT 10/18/21 11:[address] WITHOUT CONTRAST CT DOSE: 500.21 mGy.cm HISTORY: Vomiting with left lower quadrant abd pain, low BP, hx of diverticulitis TECHNIQUE: Multiaxial CT images of the abdomen and pelvis were performed without contrast. A dose lowering technique was utilized adhering to the principles of ALARA. COMPARISON STUDY: Abdomen and pelvis CT 09/06/2021. FINDINGS: Mild subpleural reticulation within the base of the right middle lobe, unchanged. This favors chronic fibrotic change. No pneumoperitoneum. No pneumatosis. No fractures within the visualized osseous structures. Small fat- containing right inguinal hernia, unchanged. There is a small hiatus hernia. Multiple duodenal diverticula are again noted. The unenhanced liver, gallbladder, pancreas, spleen, and adrenal glands are unremarkable. No renal or ureteral stones. No hydronephrosis. Bilateral perinephric edema is likely chronic. Mild calcified plaque within the normal caliber abdominal aorta. No retroperitoneal or pelvic lymphadenopathy. The bladder is unremarkable. Mild bowel wall and pericolonic fat stranding within the majority of the descending colon, proximal sigmoid colon, and rectum. This is new from the prior study. The sigmoid diverticulitis seen on the prior study has resolved in the interval. No perforation or abscess identified. Large amount well-formed stool within the cecum, ascending colon, and transverse colon. No evidence for bowel obstruction. Tiny fat-containing umbilical hernia. Normal appendix. IMPRESSION: 1. Interval development of mild bowel wall thickening and pericolonic fat stranding involving the majority of the descending colon, proximal sigmoid colon, and rectum. This favors a nonspecific colitis and may be due to an infectious process such as C. difficile colitis. A diverticulitis is considered less likely but not entirely excluded. 2. The sigmoid diverticulitis seen on the prior study has resolved in the interval. 3. Large amount well-formed stool within the proximal to mid colon. 4. No evidence for bowel obstruction. 5. Normal appendix. 6. Additional findings as described above. ACT 112: Negative or not required by law. Electronically signed by: Rex Braswell M.D. 10/18/2021 12:14 PM Discharge Plan Visit Data Chief Complaint: Lower Extremity Injury/Pain Stated Complaint: EXTREME PAIN IN PELVIC AREA/LOWER ABD ED Provider: Cesar Atkins Discharge Problem: Left sided abdominal pain, Diverticulitis large intestine, Colitis Forms Stand Alone Forms: [facility] [employer] Prescriptions Prescriptions: No Action tamsulosin [Flomax] 0.4 mg capsule 0.4 mg PO HS RF: 0 albuterol sulfate [Ventolin HFA] 90 mcg/actuation HFA aerosol inhaler 2 puff inhalation Q6H PRN (Reason: Shortness Of Breath Or Wheezing) RF: 0 nortriptyline 10 mg Capsule 10 mg PO HS RF: 0 rosuvastatin [Crestor] 20 mg Tablet 20 mg PO HS RF: 0 esomeprazole magnesium 40 mg Capsule,Delayed Release(Dr/Ec) 40 mg PO BID RF: 0 nitroglycerin 0.4 mg Tablet, Sublingual 1 dose sublingual UD PRN (Reason: Angina) RF: 0 sertraline [Zoloft] 50 mg Tablet 50 mg PO QAM RF: 0 finasteride 5 mg Tablet 5 mg PO HS RF: 0 solifenacin [Vesicare] 5 mg Tablet 5 mg PO HS RF: 0 ranolazine [Ranexa] 500 mg Tablet Extended Release 12 Hr 500 mg PO BID RF: 0 metoclopramide HCl [Reglan] 10 mg tablet 5 mg PO Q12H PRN (Reason: nausea and vomiting) Qty: 10 RF: 0 aspirin [Aspir-81] 81 mg Tablet,Delayed Release (Dr/Ec) 81 mg PO QAM RF: 0 ondansetron 4 mg tablet,disintegrating 4 mg translingual Q8H PRN (Reason: Nausea And Vomiting) RF: 0 Motegrity 2 mg tablet 2 mg PO QAM RF: 0 Citrucel Powder 1 tbsp PO DAILY PRN (Reason: Constipation) RF: 0 Anoro Ellipta 62.5-25 mcg/actuation blister with device 1 inh inhalation QAM RF: 0 Refresh Optive Noman-3 (PF) 0.5-1-0.5 % Dropperette 1 drp OPB BID PRN (Reason: Dry Eye(S)) RF: 0 Xiidra 5 % dropperette 1 drp OPB BID PRN (Reason: Dry Eye(S)) RF: 0 dicyclomine 20 mg tablet 20 mg PO TID PRN (Reason: abdominal pain) Qty: 9 RF: 0 polyethylene glycol 3350 17 gram Powder In Packet 17 g PO BID PRN (Reason: Constipation) RF: 0 prednisolone acetate 1 % drops,suspension 1 drp OPL 6XD RF: 0 Referrals Referrals: Celestino Vazquez DO [Primary Care Provider] -
[2021-10-18] MEDS ORDERED: ONDANSETRON INJ 2 MG/ML 2 ML VIAL ONE (13:31)
[2021-10-18] MEDS ORDERED: POLYETHYLENE (MIRALAX) 17 GM PACK PO PRN (15:25)
[2021-10-18] MEDS ORDERED: NITROGLYCERIN SL 0.4 MG/TAB TAB SL PRN (15:25)
[2021-10-18] MEDS ORDERED: METOCLOPRAMIDE HCL 5 MG TABLET PO PRN (15:25)
[2021-10-18 16:15] LABS: Appearance Urine Clear (Clear); Bilirubin Urine Negative (Negative); Blood Urine Negative (Negative); Color Urine Yellow; Glucose Urine UA Negative (Negative); Ketones Urine Negative (Negative); Leukocyte Esterase Urine Negative (Negative); Nitrite Urine Negative (Negative); Protein Urine Negative (Negative); Specific Gravity Urine 1.013 (1.000-1.030); Urobilinogen Urine Negative (Negative)
[2021-10-18] MEDS: [UNRECOGNIZED DRUG - REMARK] SCH ×2 (16:49→20:45)
[2021-10-18] MEDS: VESICARE: ORDER AWAITING ACTION SCH ×2 (16:49→20:45)
[2021-10-18] MEDS: prednisoLONE acetate 1% OP SUSP 5 ML BTL OP SCH (17:04)
[2021-10-18] MEDS: PIPERACILLIN/TAZOBACTAM 3.375 GM in DEXTROSE 5% 100 ML IV SCH (17:39)
[2021-10-18] MEDS: TAMSULOSIN HCL 0.4 MG CAP PO SCH (20:00)
[2021-10-18] MEDS: FINASTERIDE 5 MG TAB PO SCH (20:00)
[2021-10-18] MEDS: ROSUVASTATIN CALCIUM 20 MG TAB PO SCH (20:01)
[2021-10-18] MEDS: ENOXAPARIN INJ 40 MG/0.4 ML SYR SQ SCH (20:01)
[2021-10-18] MEDS: RANOLAZINE 500 MG ER TAB PO SCH (20:01)
[2021-10-18] MEDS: NORTRIPTYLINE HCL 10 MG CAP PO SCH (20:14)
[2021-10-18] MEDS ORDERED: ACETAMINOPHEN 325 MG TAB PO PRN (21:46)
[2021-10-19] MEDS: HYDROmorphone INJ 0.5 MG/0.5 ML SYR IV PRN ×4 (00:23→19:48)
[2021-10-19] MEDS: PIPERACILLIN/TAZOBACTAM 3.375 GM in DEXTROSE 5% 100 ML IV SCH ×3 (02:43→18:02)
[2021-10-19] MEDS: DICYCLOMINE HCL 20 MG TAB PO PRN ×2 (03:11→18:04)
[2021-10-19] MEDS: ASPIRIN 81 MG ECTAB PO SCH (07:45)
[2021-10-19] MEDS: [UNRECOGNIZED DRUG - REMARK] SCH ×2 (07:45→16:33)
[2021-10-19] MEDS: RANOLAZINE 500 MG ER TAB PO SCH ×2 (07:45→19:47)
[2021-10-19] MEDS: VESICARE: ORDER AWAITING ACTION SCH ×2 (07:45→16:33)
[2021-10-19] MEDS: UMECLIDINIUM/VILANTEROL 62.5/25MCG 7 PUFFS/INHALER INH SCH (07:46)
[2021-10-19 09:35] LABS: Basophils # (auto) 0.02 K/uL (0-0.2); Basophils % (auto) 0.2 %; Eosinophils # (auto) 0.34 K/uL (0-0.5); Eosinophils % (auto) 3.5 %; Hematocrit (blood only) 37.1 % (42-52); Hemoglobin 12.6 g/dL (14.0-18.0); Immature Granulocytes # (auto) 0.03 K/uL (0.00-0.02); Immature Granulocytes % (auto) 0.3 %; Lymphocytes # (auto) 0.86 K/uL (1.2-3.4); Lymphocytes % (auto) 8.9 %; Mean Corpuscular Hemoglobin 30.4 pg (25-34); Mean Corpuscular Volume 89.4 fL (80-100); Mean Platelet Volume 8.7 fL (7.4-10.4); Monocytes # (auto) 0.78 K/uL (0.11-0.59); Monocytes % (auto) 8.1 %; Neutrophils # (auto) 7.62 K/uL (1.4-6.5); Platelet Count 235 K/uL (130-400); RDW Coefficient of Variation 15.1 % (11.5-14.5); RDW Standard Deviation 49.7 fL (36.4-46.3); Red Blood Count 4.15 M/uL (4.7-6.1); White Blood Count 9.65 K/uL (4.8-10.8)
[2021-10-19 09:55] LABS: BUN Creatinine Ratio 15.4 (10-20); Calcium 8.1 mg/dl (8.5-10.1); Est GFR (African American) 110.3 ml/min; Est GFR (Non-African American) 95.2 ml/min; Potassium 3.5 mmol/L (3.5-5.1)
--- NOTE | 2021-10-19 11:32 | Hospitalist Progress Note ---
Date of Service October 19, 2021 Assessment & Plan (1) Abdominal pain, lower: Plan: Gena is a 76-year-old male with a past medical history of sigmoid diverticulitis, CAD, gastroparesis, BPH, depression, hyperlipidemia, hypertension, acid reflux, cough, chest pain, giardiasis was discharged 09/07/2021 following diverticulitis with giardiasis who represents with worsened abdominal pain and hypotension. Abdominal Pain ?diverticulitis vs chronic poor militlity with colitis Leukocytosis to 12.61 normalized 10/19 -Meeting hypotension had improved with fluids Outpatient stool studies pending, will attempt to obtain [place] [facility] [place]. Hyponatremic to 130 Pt with hx of intermittent hyponatremia, pending outpt colo as noted below Creatinine normal CTA/P without contrast: Interval mild bowel wall thickening and fat stranding of the descending colon, proximal sigmoid, and rectum. Favor nonspecific colitis suspect infectious. Acute diverticulosis not excluded. Previous sigmoid diverticulitis with interval resolution. No SBO. Normal appendix. Lactate 0.5, lower suspicion for bowel ischemia list cannot completely be excluded and admitting CT without contrast. Continue to follow. Troponin normal on admission Admitting EKG: Normal sinus rhythm, no ST changes/territorial changes - Recent admission with discharge 09/07/2021: Patient was admitted with diverticulitis and abdominal pain, ID was consulted for continued GI complaints and giardiasis. Was recommended to complete 7 days of Zosyn. Also suspected that chronic constipation/motility issues may contribute to recurrent diverticulosis/diverticulitis. Was recommended for follow-up with GI and endoscopy to evaluate for structural contribution/mass. Constipation Use MiraLAX up to 4 scoops twice daily Reglan as needed Consider GI consult if not improving Giardia/c diff studies pending - Continue Zosyn pending above (2) BPH (benign prostatic hyperplasia): Plan: BPH Continue Flomax Continue finasteride (3) CAD (coronary atherosclerotic disease): Plan: CAD History of LAD stent, follows with Dr. 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 Patient continues to have left lower quadrant abdominal pain without radiation which is tender to palpation. Denies fever, chills, sweats, difficulty breathing, chest pain, chest pressure. Has not had a bowel movement yet today. Does feel like he has some abdominal distention today. Has followed with [facility] in the past with motility clinic, notes that he has had some difference in opinion between various providers regarding some of his medications including his Reglan. Review of Systems Review of Systems: All systems reviewed & are unremarkable except as noted in Subjective Physical Exam Physical Exam: General: A&Ox3. NAD. Cooperative. HEENT: Atraumatic, normocephalic. Visual acuity and hearing grossly intact. Pulm: CTAB A&P. -wheezes, -rales, -rhonchi. Symmetrical chest rise. No increased work of breathing. No respiratory distress. Cardiac: RRR, -mrg. Radial pulses intact and symmetrical. Abdominal: Left lower quadrant remains tender, worsened with palpation, no radiation/rebound/guarding. Softly distended Extremities: Warm, dry. Moves all extremities equally. Core Paster strength in ankle dorsiflexion/plantarflexion intact and symmetrical. Soft touch intact in hands and feet. Radial and PT pulses intact and symmetrical. Results & Data Results & Data ([facility]) Vital Signs (Past 12 Hours) Vital Signs Temp Pulse Resp BP Pulse Ox 10/19/21 08:44 36.7 C 60 16 93/55 L 93 PG Care Time/CCT Total # of Minutes Spent Total Time Spent with Patient: Total time spent is greater than 50% in coordination of care (as documented) at patient's floor/unit and/or counseling patient: Coding Level of Care Code 19120 Subseq Hosp Care Lvl 2 Diagnoses Abdominal pain, lower R10.30 BPH (benign prostatic hyperplasia) N40.0 CAD (coronary atherosclerotic disease) I25.10 Depression F32.9 Elevated LFTs R79.89 Gastroparesis K31.84 Hyperlipidemia E78.5 Hypertension I10 Hyponatremia E87.1 Liriano's esophagus K22.70
[2021-10-19] MEDS: prednisoLONE acetate 1% OP SUSP 5 ML BTL OP SCH (16:32)
[2021-10-19] MEDS: TAMSULOSIN HCL 0.4 MG CAP PO SCH (19:45)
[2021-10-19] MEDS: ROSUVASTATIN CALCIUM 20 MG TAB PO SCH (19:46)
[2021-10-19] MEDS: FINASTERIDE 5 MG TAB PO SCH (19:46)
[2021-10-19] MEDS: NORTRIPTYLINE HCL 10 MG CAP PO SCH (19:47)
[2021-10-19] MEDS: ENOXAPARIN INJ 40 MG/0.4 ML SYR SQ SCH (19:48)
[2021-10-20] MEDS: PIPERACILLIN/TAZOBACTAM 3.375 GM in DEXTROSE 5% 100 ML IV SCH ×2 (04:51→13:06)
[2021-10-20 06:39] LABS: Basophils # (auto) 0.01 K/uL (0-0.2); Basophils % (auto) 0.1 %; Eosinophils # (auto) 0.43 K/uL (0-0.5); Eosinophils % (auto) 5.1 %; Hematocrit (blood only) 36.8 % (42-52); Hemoglobin 12.2 g/dL (14.0-18.0); Immature Granulocytes # (auto) 0.02 K/uL (0.00-0.02); Immature Granulocytes % (auto) 0.2 %; Lymphocytes # (auto) 1.31 K/uL (1.2-3.4); Lymphocytes % (auto) 15.7 %; Mean Corpuscular Hemoglobin 29.3 pg (25-34); Mean Corpuscular Hgb Conc 33.2 g/dL (32-36); Mean Corpuscular Volume 88.2 fL (80-100); Mean Platelet Volume 8.7 fL (7.4-10.4); Monocytes # (auto) 0.88 K/uL (0.11-0.59); Monocytes % (auto) 10.5 %; Neutrophils # (auto) 5.72 K/uL (1.4-6.5); Neutrophils % (auto) 68.4 %; Platelet Count 220 K/uL (130-400); RDW Coefficient of Variation 14.8 % (11.5-14.5); RDW Standard Deviation 47.6 fL (36.4-46.3); Red Blood Count 4.17 M/uL (4.7-6.1); White Blood Count 8.37 K/uL (4.8-10.8)
[2021-10-20 06:57] LABS: BUN Creatinine Ratio 12.3 (10-20); Calcium 8.4 mg/dl (8.5-10.1); Est GFR (African American) 110.3 ml/min; Est GFR (Non-African American) 95.2 ml/min
[2021-10-20] MEDS: ASPIRIN 81 MG ECTAB PO SCH (07:30)
[2021-10-20] MEDS: VESICARE: ORDER AWAITING ACTION SCH ×2 (07:30)
[2021-10-20] MEDS: [UNRECOGNIZED DRUG - REMARK] SCH ×2 (07:30)
[2021-10-20] MEDS: RANOLAZINE 500 MG ER TAB PO SCH (07:30)
[2021-10-20] MEDS: UMECLIDINIUM/VILANTEROL 62.5/25MCG 7 PUFFS/INHALER INH SCH (07:31)
[2021-10-20] MEDS: HYDROmorphone INJ 0.5 MG/0.5 ML SYR IV PRN (09:33)
--- NOTE | 2021-10-20 13:05 | Discharge Summary ---
Date of Service October 20, 2021 Admission HPI Per Admitting Provider Gena is a 76-year-old male with a past medical history of sigmoid diverticulitis, CAD, gastroparesis, BPH, depression, hyperlipidemia, hypertension, acid reflux, cough, chest pain, giardiasis was discharged 09/07/2021 following diverticulitis with giardiasis who represents with worsened abdominal pain and hypotension. After being d/c from the hospital in [place] felt improved, took 2-3 weeks to get back to full strength but feels he did well. Still had some gastroparesis. No pain at all until 2 weeks ago. Contacted PCP Dr. Vazquez who did a giardia repeat test which was negative and UA which wa snegative. 1 day ago 'massive throwing up, everything I put down came back up, a lot of dry heaving.' 6-7 episodes of emesis brownish/orange without blood. Had worsened constipation in the previous few days. 'By pushing so hard I was worried I pulled a muscle.' Pain worsened suddenly ~5am this morning. He has had a thin odorless white discharge from his rectum not always associated with stool for a few days. Last BM was 2 days very hard, dark brown, small. No melena/tarry appearance/blood. 'Not a bit' of fevers, chills, or sweats + some gerd this morning which improved with burping, otherwise No chest pain No chest pressure Endorses some baseline shortness of breath for which he takes Anoro, no recent change in shortness of breath At time of assessment +LLQ pain 7/10 up to 10/10 with pressure. No radiation. "Way off a ten and above a ten this morning." Home bowel regimen: Citrucel and miralax 2 capfuls in the morning to late morning. Had GI followup after discharge: Saw [facility] 2 weeks ago. Was scheduled for a nuclear gastric emptying study. Has used reglan every night x1 which helps. Has not had a colonoscopy followup yet, was pending the gastric study. Medical History: Reviewed Medications: Reviewed FHx: Reviewed Surgical History: Reviewed Allergies: Reviewed Social History: Reviewed Code Status: DNI/DNR Principal Diagnosis Colitis Discharge Data Allergies Allergy/AdvReac Type Severity Reaction Status Date / Time Beta-Blockers Allergy Severe "SHOOK UP Verified 02/12/22 12:34 (Beta-Adrenergic Bloc FEELING" omeprazole Allergy Mild "made my Verified 10/18/21 12:34 head spin" levofloxacin Allergy Gastrointestinal Verified 10/18/21 12:34 Upset pantoprazole AdvReac Mild HALLUCINATI Verified 10/18/21 12:34 ONS Consultations 10/18/21 13:06 ED Decision to Admit Stat Ordered Studies 10/18/21 11:13 CT abd pelvis wo con Stat Hospital Course (1) Abdominal pain, lower: Gena is a 76-year-old male with a past medical history of sigmoid diverticulitis, CAD, gastroparesis, BPH, depression, hyperlipidemia, hypertensio n, acid reflux, cough, chest pain, giardiasis was discharged 09/07/2021 following diverticulitis with giardiasis who represents with worsened abdominal pain and hypotension. Abdominal Pain ?diverticulitis vs chronic poor militlity with colitis Leukocytosis to 12.61 normalized 10/19 -Meeting hypotension had improved with fluids Outpatient stool studies pending, will attempt to obtain from [facility] records. Hyponatremic to 130 Pt with hx of intermittent hyponatremia, pending outpt colo as noted below Creatinine normal CTA/P without contrast: Interval mild bowel wall thickening and fat stranding of the descending colon, proximal sigmoid, and rectum. Favor nonspecific colitis suspect infectious. Acute diverticulosis not excluded. Previous sigmoid diverticulitis with interval resolution. No SBO. Normal appendix. Lactate 0.5, lower suspicion for bowel ischemia list cannot completely be excluded and admitting CT without contrast. Continue to follow. Troponin normal on admission Admitting EKG: Normal sinus rhythm, no ST changes/territorial changes - Recent admission with discharge 09/07/2021: Patient was admitted with diverticulitis and abdominal pain, ID was consulted for continued GI complaints and giardiasis. Was recommended to complete 7 days of Zosyn. Also suspected that chronic constipation/motility issues may contribute to recurrent diverticulosis/diverticulitis. Was recommended for follow-up with GI and endoscopy to evaluate for structural contribution/mass. Constipation Use MiraLAX up to 4 scoops twice daily Reglan as needed Consider GI consult if not improving Giardia/c diff studies pending - Treated with Zosyn. Home on augmentin (2) BPH (benign prostatic hyperplasia): BPH Continue Flomax Continue finasteride (3) CAD (coronary atherosclerotic disease): CAD History of LAD stent, follows with Dr. Dee Echo last admission with EF 65%, negative dobutamine stress echo April 2020 Normal EKG, troponin on admission No chest pain on admission (4) Depression: Depression Patient on sertraline [employer], held while on Reglan. Resume at discharge (5) Elevated LFTs: - Ast/ALT normal on this admission (6) Gastroparesis: Acid reflux/Baretts Continue PPI/H2 Convert PPI to formulary Protonix (7) Hyperlipidemia: HLD Continue Crestor (8) Hypertension: Hypertension Patient hypotensive on admission, amlodipine/hydralazine held. Restart at discharge (9) Hyponatremia: (10) Liriano's esophagus: Hiatal hernia Continue PPI, status post surgical correction previously diet: regular code status: DNR/DNI DVT PPx: lovenox Total Time Total Time Spent Total Time Spent (In Minutes): 35 minutes Discharge Plan Discharge Items Patient Disposition: Home - Self-Care Reason For Visit: ABD PAIN Discharge Diagnosis: Colitis Activity: Resume your previous activity Non-emergency contact: Primary Care Provider Call non-emergency contact if: you have any medication questions and your symptoms worsen Follow-up/Referrals: Celestino Vazquez DO [Primary Care Provider] - Diet: Regular Addtl Attending Provider Instructions: take amoxicillin/clavulinate for 1 week Pending Studies at Discharge: No Stand-Alone Forms: [employer], Smoking Cessation Medications and DC Order Prescriptions: New amoxicillin-pot clavulanate 875-125 mg tablet 1 tab PO BID Qty: 14 RF: 0 Continued tamsulosin [Flomax] 0.4 mg capsule 0.4 mg PO HS RF: 0 albuterol sulfate [Ventolin HFA] 90 mcg/actuation HFA aerosol inhaler 2 puff inhalation Q6H PRN (Reason: Shortness Of Breath Or Wheezing) RF: 0 nortriptyline 10 mg Capsule 10 mg PO HS RF: 0 rosuvastatin [Crestor] 20 mg Tablet 20 mg PO HS RF: 0 esomeprazole magnesium 40 mg Capsule,Delayed Release(Dr/Ec) 40 mg PO BID RF: 0 nitroglycerin 0.4 mg Tablet, Sublingual 1 dose sublingual UD PRN (Reason: Angina) RF: 0 sertraline [Zoloft] 50 mg Tablet 50 mg PO QAM RF: 0 finasteride 5 mg Tablet 5 mg PO HS RF: 0 solifenacin [Vesicare] 5 mg Tablet 5 mg PO HS RF: 0 ranolazine [Ranexa] 500 mg Tablet Extended Release 12 Hr 500 mg PO BID RF: 0 metoclopramide HCl [Reglan] 10 mg tablet 5 mg PO Q12H PRN (Reason: nausea and vomiting) Qty: 10 RF: 0 aspirin 81 mg Tablet,Delayed Release (Dr/Ec) 81 mg PO QAM RF: 0 ondansetron 4 mg tablet,disintegrating 4 mg translingual Q8H PRN (Reason: Nausea And Vomiting) RF: 0 Motegrity 2 mg tablet 2 mg PO QAM RF: 0 Citrucel Powder 1 tbsp PO DAILY PRN (Reason: Constipation) RF: 0 Anoro Ellipta 62.5-25 mcg/actuation blister with device 1 inh inhalation QAM RF: 0 Refresh Optive Noman-3 (PF) 0.5-1-0.5 % Dropperette 1 drp OPB BID PRN (Reason: Dry Eye(S)) RF: 0 Xiidra 5 % dropperette 1 drp OPB BID PRN (Reason: Dry Eye(S)) RF: 0 dicyclomine 20 mg tablet 20 mg PO TID PRN (Reason: abdominal pain) Qty: 9 RF: 0 polyethylene glycol 3350 17 gram Powder In Packet 17 g PO BID PRN (Reason: Constipation) RF: 0 prednisolone acetate 1 % drops,suspension 1 drp OPL 6XD RF: 0 Discharge Orders: Discharge Order (Routine); Ordered 10/20/21 Ordered By: George Wylie Admission Data Admit Date/Time: 10/18/21 13:52 Attending Provider: George Wylie Admit Provider: Alex Crockett Primary Care Provider: Celestino Vazquez Other Providers: Alex Crockett Coding Level of Care Code D/C DAY MANAGEMENT >30 MINS Diagnoses Abdominal pain, lower R10.30 BPH (benign prostatic hyperplasia) N40.0 CAD (coronary atherosclerotic disease) I25.10 Depression F32.9 Elevated LFTs R79.89 Gastroparesis K31.84 Hyperlipidemia E78.5 Hypertension I10 Hyponatremia E87.1 Liriano's esophagus K22.70
--- NOTE | 2021-10-20 21:39 | Electrocardiogram Report ---
Test Reason : Blood Pressure : / mmHG Vent. Rate : 062 BPM Atrial Rate : 062 BPM P-R Int : 170 ms QRS Dur : 096 ms QT Int : 440 ms P-R-T Axes : 041 047 050 degrees QTc Int : 446 ms Poor data quality, interpretation may be adversely affected Normal sinus rhythm Low voltage QRS Borderline ECG When compared with ECG of 30-AUG-2021 16:15, No significant change was found Confirmed by Gagan Ferguson ([id number]) on 10/20/2021 9:38:50 PM Referred By: REFERRED SELF Confirmed By:Gagan Ferguson
== END 2021-10-20 14:46 | disposition home or self-care (01) ==
LOC: 3W 10:32 → ED 10:32 → SUATTDRO 13:52 → 3W 15:37

== ENCOUNTER 2022-06-02 12:09 | Observation (INO) ==
[2022-06-02 13:14] LABS: Basophils # (auto) 0.02 K/uL (0-0.2); Basophils % (auto) 0.3 %; Eosinophils # (auto) 0.16 K/uL (0-0.50); Eosinophils % (auto) 2.5 %; Hemoglobin 14.2 g/dl (14.0-18.0); Immature Granulocytes # (auto) 0.04 K/uL (0.00-0.02); Immature Granulocytes % (auto) 0.6 %; Lymphocytes # (auto) 1.06 K/uL (1.2-3.4); Lymphocytes % (auto) 16.6 %; Mean Corpuscular Hemoglobin 32.7 pg (25.0-34.0); Mean Corpuscular Hgb Conc 35.5 g/dL (32.0-36.0); Mean Corpuscular Volume 92.2 fL (80.0-100.0); Mean Platelet Volume 8.7 fL (9.4-12.4); Monocytes # (auto) 0.51 K/uL (0.24-0.82); Neutrophils # (auto) 4.61 K/uL (1.4-6.5); Platelet Count 204 K/uL (130-400); RDW Coefficient of Variation 12.8 % (11.5-14.5); RDW Standard Deviation 42.7 fL (36.4-46.3); Red Blood Count 4.34 M/uL (4.63-6.08)
[2022-06-02 13:29] LABS: Partial Thromboplastin Ratio 1.2; Partial Thromboplastin Time 31.9 Seconds (21.0-31.0); Prothrombin Time 10.6 Seconds (9.0-12.0)
[2022-06-02 13:40] LABS: Troponin I High Sensitivity 4.5 pg/ml (0-20)
[2022-06-02 13:52] LABS: Albumin Globulin Ratio 1.4 (0.9-2); BUN Creatinine Ratio 15.5 (10-20); Bilirubin,Total 0.7 mg/dl (0.2-1.0); Calcium 9.5 mg/dl (8.5-10.1); Creatinine Clr Calc Pharmacy 70.9 ml/min; Est GFR (African American) 99.3 ml/min; Est GFR (Non-African American) 85.7 ml/min; Globulin 2.9 gm/dl (2.5-4.0); Potassium 4.2 mmol/L (3.5-5.1); Total Protein 6.9 gm/dl (6.0-8.3)
[2022-06-02] MEDS ORDERED: SODIUM CHLORIDE 0.9% 500 ML IV ONE (14:49)
[2022-06-02] MEDS ORDERED: ASPIRIN CHEW 324 MG PO STA (14:49)
--- NOTE | 2022-06-02 14:52 | Emergency Department Note ---
Impression & Plan Chest pain, Acute hypotension, Acute hyponatremia ED Provider Note NAME: JEREMIAH ARTEAGA Jr AGE: 76 SEX: M : 1945 ARRIVES VIA: Walk-In INFORMANT: Patient ED PROVIDER(S): Darnell Ko DO CHIEF COMPLAINT: chest pain HPI: 76-year-old male who presents to the ER for chest pain. Pain started in the mid chest to upper epigastric region and radiates out to the left chest. He admits to bilateral jaw pain. No shortness of breath or arm pain that he can r emember. He does have a history of previous LAD stent and previous CAD as well. He has not been cathed since about 9 years ago. Denies any belly pain, nausea, vomiting, or diarrhea. No dysuria, urgency, or frequency. No other exacerbating or remitting factors. ROS: See above HPI for pertinent positives & negatives. A total of 10 systems reviewed and were otherwise negative. PAST MEDICAL HISTORY:See Below PAST SURGICAL HISTORY:See Below FAMILY HISTORY:See Below SOCIAL HISTORY:See Below HOME MEDICATIONS:See Below ALLERGIES:See Below VITALS:See Below PHYSICAL EXAMINATION: GENERAL: Sitting up in bed, alert, well appearing, well nourished, no distress, non-toxic EYE EXAM: normal conjunctiva. OROPHARYNX: no exudate, no erythema, lips, buccal mucosa, and tongue normal and mucous membranes are moist NECK: supple, no nuchal rigidity, no adenopathy, non-tender LUNGS: Clear to auscultation. Normal chest wall mechanics HEART: no murmurs, S1 normal and S2 normal ABDOMEN: abdomen soft, non-tender, normo-active bowel sounds, no masses, no rebound or guarding. UPPER EXTREMITIES: upper extremities are grossly normal. LOWER EXTREMITIES: No pitting edema. NEURO EXAM: Normal sensorium, cranial nerves II-XII grossly intact, normal speech, no gross weakness of arms, no gross weakness of legs. MEDICAL DECISION MAKING: Patient is a 76-year-old male who presents ER for the above-stated complaint. IV was established blood work was obtained. Labs show no significant leukocytosis or anemia. INR unremarkable. BMP with mild hyponatremia at 131. LFTs bilirubin was unremarkable. COVID was negative. Troponin was negative. EKG was not significant change from previous. Patient was pain-free while in the ER. He is a moderate to high risk per heart score and was discussed with the hospitalist Ryanne Mejia for further evaluation. He was given fluids and aspirin while in the ER. Triage Nursing notes reviewed. Limited review of prior medical records performed Vital Signs: reviewed and remarkable for hypotension Differential diagnosis: Cardiac ischemia, aortic dissection, pulmonary embolism, pneumothorax, pneumonia, pericarditis, myocarditis, esophageal rupture, GERD, cholecystitis, pancreatitis, musculoskeletal, as well as other pathologies. ER treatment provided: See below Diagnostics interpreted by me: ECG: Sinus rhythm rate of 58 Normal axis No PVCs QTC 4343 Cardiac Monitoring: An order was placed for continuous cardiac monitoring. The monitor shows a rate of 60 with sinus rhythm. Laboratory studies: As stated above and show below. Imaging studies: portablel AP upright 1 view of the chest was unremarkable Consultation(s): as described abover Procedures: none Critical Care: None Past Med/Surg History Medical History Abdominal pain, RLQ Anemia Anxiety Barretts esophagus BPH (benign prostatic hyperplasia) Depression GERD (gastroesophageal reflux disease) Hearing deficit Hyperlipidemia Hypertension IBS (irritable bowel syndrome) Migraine Prediabetes Surgical History History of cardiac cath 11/2011 @ [facility], 06/2012 @ [facility] [place]--no stent History of cataract extraction with lens replacement LEFT EYE, 01/03/19 History of colonoscopy History of esophagogastroduodenoscopy (EGD) History of flexible sigmoidoscopy History of foot surgery left History of heart artery stent 11/2011 x1 @ [facility] History of hemorrhoidectomy Family History Father Family history of esophageal cancer Mother Family hx of colon cancer Other No family history of adverse response to anesthesia Social History Smoking Status: Never smoker Second Hand Exposure: Yes (parents smoked); Hx Alcohol Use: Yes Alcohol type: wine Hx Substance Use: No Preferred Language: Yakut Communication Ability: Effective Hat Maker Required: No Beliefs That Will Affect Care: None marital status: Current Living Situation: Spouse Feels Safe at Home: Yes Assistive Devices: Walker Allergies Allergies Allergy/AdvReac Type Severity Reaction Status Date / Time Beta-Blockers Allergy Severe "SHOOK UP Verified 06/02/22 15:51 (Beta-Adrenergic Bloc FEELING" omeprazole Allergy Mild "made my Verified 06/02/22 15:51 head spin" levofloxacin Allergy Gastrointestinal Verified 06/02/22 15:51 Upset pantoprazole AdvReac Mild HALLUCINATI Verified 06/02/22 15:51 ONS Home Meds Home Medications Medication Instructions Recorded Confirmed esomeprazole magnesium 40 mg 40 mg PO BID 11/23/18 06/02/22 capsule,delayed release finasteride 5 mg tablet 5 mg PO HS 11/23/18 06/02/22 nitroglycerin 0.4 mg sublingual 1 dose sublingual UD PRN Angina 11/23/18 06/02/22 tablet nortriptyline 10 mg capsule 10 mg PO HS 11/23/18 06/02/22 ranolazine 500 mg tablet,extended 500 mg PO BID 11/23/18 06/02/22 release,12 hr (Ranexa) rosuvastatin 20 mg tablet (Crestor) 20 mg PO HS 11/23/18 06/02/22 sertraline 50 mg tablet (Zoloft) 50 mg PO QAM 11/23/18 06/02/22 solifenacin 5 mg tablet (Vesicare) 5 mg PO HS 11/23/18 06/02/22 tamsulosin 0.4 mg capsule (Flomax) 0.4 mg PO HS 05/08/20 06/02/22 albuterol sulfate 90 mcg/actuation 2 puff inhalation Q6H PRN 05/13/21 06/02/22 aerosol inhaler (Ventolin HFA) Shortness Of Breath Or Wheezing carboxymethyl 0.5 %-glycerin 1 1 drp OPB BID PRN Dry Eye(S) 06/22/21 06/02/22 %-polysorb 80 0.5 %-PF eye dropperette (Refresh Optive Noman-3 (PF)) polyethylene glycol 3350 17 gram 17 g PO BID PRN Constipation 08/30/21 06/02/22 oral powder packet aspirin 81 mg tablet,delayed 81 mg PO QAM 10/18/21 06/02/22 release ondansetron 4 mg disintegrating 4 mg translingual Q8H PRN Nausea 10/18/21 06/02/22 tablet And Vomiting prucalopride 2 mg tablet 2 mg PO QAM 10/18/21 06/02/22 (Motegrity) umeclidinium 62.5 mcg-vilanterol 1 inh inhalation QAM 10/18/21 06/02/22 25 mcg/actuation powdr for inhalation (Anoro Ellipta) Motilium 10 mg PO AC 06/02/22 06/02/22 fluoride (sodium) 1.1 % dental 1 applic dental BID 06/02/22 06/02/22 paste Results & Data (ED) Vital Signs Vital Signs - 24 hr 06/02/22 12:32 06/02/22 15:02 06/02/22 15:10 Temperature 36.5 C Temperature Source Temporal Artery Scan Pulse Rate 73 55 L 52 L Pulse Rate from SpO2 Sensor 54 L 52 L Respiratory Rate 18 15 19 Respiratory Effort / Characteristics Non-Labored Spontaneous Respiratory Depth Normal Respiratory Pattern Regular Blood Pressure 88/61 L Blood Pressure Mean 70 Blood Pressure Position Sitting Pulse Oximetry 98 100 99 Oxygen Delivery Method Room Air Sepsis Recent Fever Within 48 Hours No Sepsis New/Unexplained Change in Mental Status N/A Sepsis Action Taken by Nursing No Action Required 06/02/22 15:20 06/02/22 15:30 06/02/22 15:30 Temperature Temperature Source Pulse Rate 53 L 54 L Pulse Rate from SpO2 Sensor 53 L 57 L Respiratory Rate 16 17 Respiratory Effort / Characteristics Respiratory Depth Respiratory Pattern Blood Pressure 131/75 Blood Pressure Mean 93 Blood Pressure Position Pulse Oximetry 100 99 Oxygen Delivery Method Sepsis Recent Fever Within 48 Hours Sepsis New/Unexplained Change in Mental Status Sepsis Action Taken by Nursing Laboratory Data Result diagrams: 06/02/22 12:50 06/02/22 12:50 Lab Results 06/02/22 06/02/22 06/02/22 Range/Units 12:50 12:50 12:50 WBC 6.40 (4.8-10.8) K/ul RBC 4.34 L (4.63-6.08) M/uL Hgb 14.2 (14.0-18.0) g/dl Hct 40.0 L (40.1-51.0) % MCV 92.2 (80.0-100.0) fL MCH 32.7 (25.0-34.0) pg MCHC 35.5 (32.0-36.0) g/dL RDW Std Deviation 42.7 (36.4-46.3) fL RDW Coeff of Mendoza 12.8 (11.5-14.5) % Plt Count 204 (130-400) K/uL MPV 8.7 L (9.4-12.4) fL Immature Gran % (Auto) 0.6 % Neut % (Auto) 72.0 % Lymph % (Auto) 16.6 % Stearns % (Auto) 8.0 % Eos % (Auto) 2.5 % Baso % (Auto) 0.3 % Neut # (Auto) 4.61 (1.4-6.5) K/uL Lymph # (Auto) 1.06 L (1.2-3.4) K/uL Stearns # (Auto) 0.51 (0.24-0.82) K/uL Eos # (Auto) 0.16 (0-0.50) K/uL Baso # (Auto) 0.02 (0-0.2) K/uL Immature Gran # (Auto) 0.04 H (0.00-0.02) K/uL PT 10.6 (9.0-12.0) Seconds INR 1.0 (0.9-1.1) APTT 31.9 H (21.0-31.0) Seconds PTT Ratio 1.2 Sodium 131 L (136-145) mmol/L Potassium 4.2 (3.5-5.1) mmol/L Chloride 96 L (98-107) mmol/L Carbon Dioxide 29 (21-32) mmol/L Anion Gap 6 (3-11) BUN 13 (6-23) mg/dl Creatinine 0.84 (0.6-1.4) mg/dl Est Cr Clr Drug Dosing 70.9 ml/min Est GFR ( Amer) 99.3 ml/min Est GFR (Non-Af Amer) 85.7 ml/min BUN/Creatinine Ratio 15.5 (10-20) Glucose 152 H (70-99(Fasting)) mg/dl Calcium 9.5 (8.5-10.1) mg/dl Total Bilirubin 0.7 (0.2-1.0) mg/dl AST 22 (13-39) U/L ALT 21 (7-52) U/L Alkaline Phosphatase 109 H (34-104) U/L Troponin I High Sens 4.5 (0-20) pg/ml Total Protein 6.9 (6.0-8.3) gm/dl Albumin 4.0 (3.4-5.0) gm/dl Globulin 2.9 (2.5-4.0) gm/dl Albumin/Globulin Ratio 1.4 (0.9-2) SARS-CoV-2, RNA, NAAT (NEGATIVE) 06/02/22 Range/Units 15:00 WBC (4.8-10.8) K/ul RBC (4.63-6.08) M/uL Hgb (14.0-18.0) g/dl Hct (40.1-51.0) % MCV (80.0-100.0) fL MCH (25.0-34.0) pg MCHC (32.0-36.0) g/dL RDW Std Deviation (36.4-46.3) fL RDW Coeff of Mendoza (11.5-14.5) % Plt Count (130-400) K/uL MPV (9.4-12.4) fL Immature Gran % (Auto) % Neut % (Auto) % Lymph % (Auto) % Stearns % (Auto) % Eos % (Auto) % Baso % (Auto) % Neut # (Auto) (1.4-6.5) K/uL Lymph # (Auto) (1.2-3.4) K/uL Stearns # (Auto) (0.24-0.82) K/uL Eos # (Auto) (0-0.50) K/uL Baso # (Auto) (0-0.2) K/uL Immature Gran # (Auto) (0.00-0.02) K/uL PT (9.0-12.0) Seconds INR (0.9-1.1) APTT (21.0-31.0) Seconds PTT Ratio Sodium (136-145) mmol/L Potassium (3.5-5.1) mmol/L Chloride (98-107) mmol/L Carbon Dioxide (21-32) mmol/L Anion Gap (3-11) BUN (6-23) mg/dl Creatinine (0.6-1.4) mg/dl Est Cr Clr Drug Dosing ml/min Est GFR ( Amer) ml/min Est GFR (Non-Af Amer) ml/min BUN/Creatinine Ratio (10-20) Glucose (70-99(Fasting)) mg/dl Calcium (8.5-10.1) mg/dl Total Bilirubin (0.2-1.0) mg/dl AST (13-39) U/L ALT (7-52) U/L Alkaline Phosphatase (34-104) U/L Troponin I High Sens (0-20) pg/ml Total Protein (6.0-8.3) gm/dl Albumin (3.4-5.0) gm/dl Globulin (2.5-4.0) gm/dl Albumin/Globulin Ratio (0.9-2) SARS-CoV-2, RNA, NAAT NEGATIVE (NEGATIVE) Administered Medications Discontinued Medications Aspirin (Aspirin Chew 324 Mg) 324 mg PO NOW STA Stop: 06/02/22 14:50 Last Admin: 06/02/22 15:00 Dose: 324 mg Documented By: [id number] Sodium Chloride (Nss) 500 mls @ 999 mls/hr IV .Q31M ONE Stop: 06/02/22 15:19 Last Infusion: 06/02/22 15:46 Dose: 0 mls/hr Documented By: [id number] Admin: 06/02/22 15:03 Dose: 999 mls/hr Documented By: [id number] Imaging Data Radiologist's Impression: Chest X-Ray 06/02/22 12:33 XR chest 1V portable HISTORY: 76 years-old Male Chest Pain . Acute chest pain COMPARISON: Chest radiograph 07/02/2021 TECHNIQUE: Portable AP view of the chest FINDINGS: Cardiomediastinal and hilar silhouettes are within normal limits. No pneumothorax, pleural effusion, airspace consolidation or overt pulmonary edema. Degenerative changes of the shoulders and spine. IMPRESSION: No acute process. ACT 112: Negative or not required by law. The above report was generated using voice recognition software. It may contain grammatical, syntax or spelling errors. Electronically signed by: Bradly Arias M.D. 06/02/2022 3:02 PM Discharge Plan Visit Data Chief Complaint: Chest Pain Stated Complaint: CHEST PAIN, VOMITING, ASPRIN AND NITRO NOT HELPING ED Provider: Darnell Ko Discharge Problem: Chest pain, Acute hypotension, Acute hyponatremia Patient Disposition: Admitted As Inpatient Discharge Instructions Interventions: ED Discharge Assessment Last Done: 06/02/22 19:29
--- NOTE | 2022-06-02 15:03 | XRay Report ---
XR chest 1V portable HISTORY: 76 years-old Male Chest Pain . Acute chest pain COMPARISON: Chest radiograph 07/02/2021 TECHNIQUE: Portable AP view of the chest FINDINGS: Cardiomediastinal and hilar silhouettes are within normal limits. No pneumothorax, pleural effusion, airspace consolidation or overt pulmonary edema. Degenerative changes of the shoulders and spine. IMPRESSION: No acute process. ACT 112: Negative or not required by law. The above report was generated using voice recognition software. It may contain grammatical, syntax o r spelling errors. Electronically signed by: Bradly Arias M.D. 06/02/2022 3:02 PM
--- NOTE | 2022-06-02 15:24 | History & Physical Report ---
Date of Service June 02, 2022 Assessment & Plan (1) Chest pain: Plan: - Chest pain upon awakening this morning and for the past 4 mornings, which feels different than his characteristic GI chest discomfort, minimally alleviated with Coca-Cola, modest improvement today with full dose aspirin and nitroglycerin at home. - Differential diagnosis includes unstable angina versus GI etiology. Patient does have history of CAD with an LAD stent placed 10 years ago, also has a complex GI history of gastroparesis, Liriano's esophagus and hiatal hernia now s/p repair, currently on Motilium, Motegrity, and PPI. - Initial troponin 4.5. - Serial troponin checks, EKGs, and echocardiogram. - Patient is currently chest pain-free. Given that nitroglycerin has historically caused him to become very hypotensive and ill, would advise against this as first-line should patient develop chest pain overnight. - Consult pt's reservation clerk, Dr. Leyva. to see if needs further ischemic evaluation -if noncardiac cause, would recommend outpatient f/u with his GI specialist at [facility] (2) CAD (coronary atherosclerotic disease): Plan: - Stent placed in 2011 at LAD, with areas of occlusion and small vessels unable to be stented. - Continue statin, aspirin, and Ranexa. (3) Gastroparesis: Plan: - Follows with [facility]. - Continue Motilium, Motegrity, PPI for Liriano's esophagus/GERD. -would consider stopping his nortriptyline and Vesicare as these have anticholinergic properties and would certainly worsen GI motility-he will d/w his PCP (4) Hiatal hernia: Plan: - Follows with [facility]. -is s/p surgery for this in 2020 - Continue PPI. (5) Liriano's esophagus: Plan: - Follows with [facility]. - Continue PPI. (6) Depression: Plan: - Continue nortriptyline although as above, recommend stopping this due to severe constipation and motility issues (7) BPH (benign prostatic hyperplasia): Plan: - Continue Flomax, finasteride. -is on Vesicare but as above, consider stopping due to GI side effects (8) Hyponatremia: Plan: - Sodium is 131, however this seems consistent with patient's baseline over the past several months and as far as 2016 it seems his sodium ranging 117101. - Follow on BMP. Plan - Obs to med/tele for serial troponin. - SCDs for VTE ppx. - DNR/DNI. History of Present Illness Chief Complaint: Chest pain this morning Primary Care Provider: Celestino Vazquez DO Gena Gill is a 76-year-old male with past medical history of CAD, hyperlipidemia, hypertension, BPH, depression, hiatal hernia, gastroparesis, and Liriano's esophagus who presents today with chest pain. Pain started around 10:30 this morning in the left side of his chest and did radiate to his bilateral jaw and back. He took full dose of aspirin as well as nitroglycerin which improved his symptoms but did not alleviate them entirely. After taking nitroglycerin he did experience dizziness and lightheadedness and had 1 episode of emesis. He does frequently have chest pain which he relates to his GERD and is typically alleviated by drinking Coke, however was not alleviated today. He has had this chest pain for the past 5 days, each time occurring in the morning as he is getting out of bed. Previously, the Coke had been helping somewhat, however had been taking longer for the pain to get better, estimating it had been present for an hour to an hour and a half before resolving. No acute trauma to the chest wall, however about a month ago did suffer a fall and had bruising on his chest that has since resolved, but he still has tenderness in the area. Have history of CAD with a stent placed to LAD in 2011 and takes baby aspirin daily. Aside from the chest pain that he typically relates to GI symptoms, he does not experience regular chest pain with exertion or at rest. He is mildly short of breath at baseline, however has not been any worse over the past several days in the setting of this chest pain. Presentation to the ED, BP recorded be 88/61, however this was after taken nitroglycerin at home and is now 131/90 5:05 100 cc NS bolus. Otherwise vital signs within normal limits and stable. Labs largely unrevealing, sodium is 131, however this is consistent with prior labs over the past several months. Renal function is adequate and at baseline. His initial troponin was 4.5. Chest x- ray unremarkable. EKG shows sinus bradycardia without any ST segment or T wave changes. Allergies Allergy/AdvReac Type Severity Reaction Status Date / Time Beta-Blockers Allergy Severe "SHOOK UP Verified 06/02/22 15:51 (Beta-Adrenergic Bloc FEELING" omeprazole Allergy Mild "made my Verified 06/02/22 15:51 head spin" levofloxacin Allergy Gastrointestinal Verified 06/02/22 15:51 Upset pantoprazole AdvReac Mild HALLUCINATI Verified 06/02/22 15:51 ONS Home Medications Medication Instructions Recorded Confirmed Type esomeprazole magnesium 40 mg 40 mg PO BID 11/23/18 06/02/22 History capsule,delayed release finasteride 5 mg tablet 5 mg PO HS 11/23/18 06/02/22 History nitroglycerin 0.4 mg sublingual 1 dose sublingual UD PRN Angina 11/23/18 06/02/22 History tablet nortriptyline 10 mg capsule 10 mg PO HS 11/23/18 06/02/22 History ranolazine 500 mg tablet,extended 500 mg PO BID 11/23/18 06/02/22 History release,12 hr (Ranexa) rosuvastatin 20 mg tablet (Crestor) 20 mg PO HS 11/23/18 06/02/22 History sertraline 50 mg tablet (Zoloft) 50 mg PO QAM 11/23/18 06/02/22 History solifenacin 5 mg tablet (Vesicare) 5 mg PO HS 11/23/18 06/02/22 History tamsulosin 0.4 mg capsule (Flomax) 0.4 mg PO HS 05/08/20 06/02/22 History albuterol sulfate 90 mcg/actuation 2 puff inhalation Q6H PRN 05/13/21 06/02/22 History aerosol inhaler (Ventolin HFA) Shortness Of Breath Or Wheezing carboxymethyl 0.5 %-glycerin 1 1 drp OPB BID PRN Dry Eye(S) 06/22/21 06/02/22 History %-polysorb 80 0.5 %-PF eye dropperette (Refresh Optive Noman-3 (PF)) polyethylene glycol 3350 17 gram 17 g PO BID PRN Constipation 08/30/21 06/02/22 History oral powder packet aspirin 81 mg tablet,delayed 81 mg PO QAM 10/18/21 06/02/22 History release ondansetron 4 mg disintegrating 4 mg translingual Q8H PRN Nausea 10/18/21 06/02/22 History tablet And Vomiting prucalopride 2 mg tablet 2 mg PO QAM 10/18/21 06/02/22 History (Motegrity) umeclidinium 62.5 mcg-vilanterol 1 inh inhalation QAM 10/18/21 06/02/22 History 25 mcg/actuation powdr for inhalation (Anoro Ellipta) Motilium 10 mg PO AC 06/02/22 06/02/22 History fluoride (sodium) 1.1 % dental 1 applic dental BID 06/02/22 06/02/22 History paste Past Med/Surg History Medical History Abdominal pain, RLQ Anemia Anxiety Barretts esophagus BPH (benign prostatic hyperplasia) Depression GERD (gastroesophageal reflux disease) Hearing deficit Hyperlipidemia Hypertension IBS (irritable bowel syndrome) Migraine Prediabetes Surgical History History of cardiac cath 11/2011 @ [facility], 06/2012 @ [facility] [place]--no stent History of cataract extraction with lens replacement LEFT EYE, 01/03/19 History of colonoscopy History of esophagogastroduodenoscopy (EGD) History of flexible sigmoidoscopy History of foot surgery left History of heart artery stent 11/2011 x1 @ [facility] History of hemorrhoidectomy Family History Father Family history of esophageal cancer Mother Family hx of colon cancer Other No family history of adverse response to anesthesia Social History Smoking Status: Never smoker Second Hand Exposure: Yes (parents smoked); Hx Alcohol Use: Yes Alcohol type: wine Hx Substance Use: No Preferred Language: Kazakh Communication Ability: Effective Insulation Engineman Required: No Beliefs That Will Affect Care: None marital status: Current Living Situation: Spouse Feels Safe at Home: Yes Assistive Devices: Walker Review of Systems Review of Systems: Constitutional: No fever/chills, weakness, fatigue, myalgias, anorexia, night sweats Eyes: No diplopia, no worsening or blurred vision ENT: normal hearing, no trouble swallowing Respiratory: No cough, sputum, dyspnea at rest or on exertion Cardiovascular: Left-sided chest pain with radiation to bilateral jaw and back in the a.m. x5 days; no palpitations Abdomen: No pain, nausea, vomiting, diarrhea or constipation : Denies dysuria, hematuria, increased urgency/frequency, urinary retention Musculoskeletal: No joint pain, calf pain, swelling Neurologic: No weakness, numbness/tingling, or balance problems Psychiatric: No anxiety or depression Skin: No rash or itch Physical Exam Physical Exam: General: awake, alert, no apparent distress Head: Normocephalic, atraumatic ENT: PERRL, EOMI, no pharyngeal exudate, mucous membranes moist Chest: Clear to auscultation, on room air, no adventitious breath sounds Cardiac: TTP in left chest; regular rate and rhythm, no murmur, no JVD, normal peripheral pulses, good capillary refill Abdominal: TTP in epigastric region; NABS x 4 quadrants, soft, otherwise nontender to palpation, no rebound, guarding or tenderness Extremities: Normal inspection, no peripheral edema or erythema, calfs nontender to palpation Psych: Normal mood and affect Neuro: AAO x 3, strength intact bilaterally and rated 5/5, no motor deficits, speech is clear, no peripheral sensory deficits Skin: no rash or erythema Results & Data Results & Data ([facility]) Vital Signs (Past 12 Hours) Vital Signs Temp Pulse Resp BP Pulse Ox O2 Del Method 06/02/22 12:32 36.5 C 73 18 88/61 L 98 Room Air Laboratory Results Abnormal lab results 06/02/22 06/02/22 06/02/22 Range/Units 12:50 12:50 12:50 RBC 4.34 L (4.63-6.08) M/uL Hct 40.0 L (40.1-51.0) % MPV 8.7 L (9.4-12.4) fL Lymph # (Auto) 1.06 L (1.2-3.4) K/uL Immature Gran # (Auto) 0.04 H (0.00-0.02) K/uL APTT 31.9 H (21.0-31.0) Seconds Sodium 131 L (136-145) mmol/L Chloride 96 L (98-107) mmol/L Glucose 152 H (70-99(Fasting)) mg/dl Alkaline Phosphatase 109 H (34-104) U/L Diagnostic Findings Chest X-Ray 06/02/22 12:33 XR chest 1V portable HISTORY: 76 years-old Male Chest Pain . Acute chest pain COMPARISON: Chest radiograph 07/02/2021 TECHNIQUE: Portable AP view of the chest FINDINGS: Cardiomediastinal and hilar silhouettes are within normal limits. No pneumothorax, pleural effusion, airspace consolidation or overt pulmonary edema. Degenerative changes of the shoulders and spine. IMPRESSION: No acute process. ACT 112: Negative or not required by law. The above report was generated using voice recognition software. It may contain grammatical, syntax or spelling errors. Electronically signed by: Bradly Arias M.D. 06/02/2022 3:02 PM ECG Additional Comments: Sinus bradycardia Low voltage QRS Borderline ECG When compared with ECG of 18-OCT-2021 11:00, No significant change was found. Code Status & VTE Plan Code Status DNR/DNI. Supervising Physician Co-Signing Physician Notes PA Supervision Note: I personally saw and examined the patient. I verified all corcoran points and agree with BARTOLO Ramey with the following exceptions and/or additions: S-Pt here with somewhat atypical for cardiac chest pain coming on each day for the last week in the AM at rest and initially relieved with drinking coke and burping, but then today it did not go away for almost 2 hours. NTG made him hypotensive and vomit. He did have some left sided jaw pain today as well associated with his pain. Troponin and ECG negative here, CXR normal. History and ROS reviewed as above O- Vitals reviewed Gen: [AAOx3, NAD] HEENT: [anicteric sclerae, EOMI] CV: [RRR no mgr nl S1S2] Pulm: [CTAB no wcr] Abd: [+BS soft NT ND no masses or hernias] Ext: [no edema, 2+ DP pulses] Skin: [no rashes, warm/dry] Neuro: [full strength throughout] Labs, Rads, and ECG reviewed A/P-76 yo male here with extensive GI history and with known CAD, here with chest pain that is atypical. trend trops, consult Cardiology. Would suspect with pain lasting almost 2 hours that he would have some elevation in trop if truly cardiac/ischemia. Suspect more GI source and recommend f/u with GI as an outpt advised d/w PCP about stopping vesicare and nortriptyline due to anticholinergic effects PG Care Time/CCT Total # of Minutes Spent Total Time Spent with Patient: Total time spent is greater than 50% in coordination of care (as documented) at patient's floor/unit and/or counseling patient: Coding Level of Care Code INT OBSERVATION CARE 70M LVL 3 Diagnoses Chest pain R07.9 CAD (coronary atherosclerotic disease) I25.10 Gastroparesis K31.84 Hiatal hernia K44.9 Liriano's esophagus K22.70 Depression F32.9 BPH (benign prostatic hyperplasia) N40.0 Hyponatremia E87.1
[2022-06-02] MEDS ORDERED: DICYCLOMINE HCL 20 MG TAB PO PRN (17:14)
[2022-06-02] MEDS ORDERED: POLYETHYLENE (MIRALAX) 17 GM PACK PO PRN (17:14)
[2022-06-02] MEDS ORDERED: ONDANSETRON INJ 2 MG/ML 2 ML VIAL IV PRN (17:14)
[2022-06-02] MEDS ORDERED: ACETAMINOPHEN 325 MG TAB PO PRN (17:14)
[2022-06-02] MEDS ORDERED: ALBUTEROL HFA 8 GM INHALER INH PRN (17:14)
[2022-06-02] MEDS ORDERED: FINASTERIDE 5 MG TAB PO SCH (21:00)
[2022-06-02] MEDS ORDERED: TAMSULOSIN HCL 0.4 MG CAP PO SCH (21:00)
[2022-06-02] MEDS ORDERED: ROSUVASTATIN CALCIUM 20 MG TAB PO SCH (21:00)
[2022-06-02] MEDS: RANOLAZINE 500 MG ER TAB PO SCH (21:52)
[2022-06-02] MEDS: PANTOprazole 40 MG TAB PO SCH (21:53)
[2022-06-03] MEDS: VESICARE: ORDER AWAITING ACTION SCH ×2 (01:14→07:21)
--- NOTE | 2022-06-03 06:14 | Electrocardiogram Report ---
Test Reason : Blood Pressure : / mmHG Vent. Rate : 058 BPM Atrial Rate : 058 BPM P-R Int : 182 ms QRS Dur : 094 ms QT Int : 452 ms P-R-T Axes : 040 035 054 degrees QTc Int : 443 ms Sinus bradycardia Low voltage QRS Borderline ECG When compared with ECG of 18-OCT-2021 11:00, No significant change was found Confirmed by Saul Simeon ([id number]) on 06/03/2022 6:13:51 AM Referred By: Confirmed By:Saul Simeon
[2022-06-03 07:31] LABS: Troponin I High Sensitivity 5.6 pg/ml (0-20)
[2022-06-03 07:35] LABS: Calcium 8.9 mg/dl (8.5-10.1); Est GFR (African American) 110.3 ml/min; Est GFR (Non-African American) 95.2 ml/min; Potassium 3.9 mmol/L (3.5-5.1)
[2022-06-03] MEDS: PANTOprazole 40 MG TAB PO SCH (08:04)
[2022-06-03] MEDS: RANOLAZINE 500 MG ER TAB PO SCH (08:04)
[2022-06-03] MEDS ORDERED: UMECLIDINIUM/VILANTEROL 62.5/25MCG 7 PUFFS/INHALER INH SCH (09:00)
[2022-06-03] MEDS ORDERED: SERTRALINE HCL 50 MG TABLET PO SCH (09:00)
[2022-06-03] MEDS ORDERED: ASPIRIN 81 MG ECTAB PO SCH (09:00)
--- NOTE | 2022-06-03 09:37 | Cardiology Consultation ---
Date of Consultation June 03, 2022 History of Present Illness Reason for Consultation: Chest discomfort history of GI symptoms. Attending Physician: Dash Rangel History of Present Illness He has had chest discomfort in the morning and epigastric discomfort over the last 4 to 5 days. Yesterday was the worst episode. He does usually try some Coca-Cola and his symptoms improved within about 5 minutes or so but yesterday they did not. He also has a hoarse voice and I do wonder if he is having some acid reflux on his vocal cords. He denies any palpitations or fluttering. Is able to walk 2 blocks with some dyspnea at the end but notes this is stable and denies any chest tightness or chest pressure with activity. Climb the basement stairs with some mild dyspnea at the top but does not have to stop and he denies any chest tightness or chest pressure with this. His appetite stable his weight is stable denies any further falls. He denies any orthostatic symptoms. He denies any resting chest discomfort outside of the morning episodes. He did start a new medication for his GI symptoms. Given his complex GI issues he has been followed at [facility]. He denies any orthopnea or lower extremity edema or symptoms of claudication. Denies any bleeding bruising dark stools or black stools. He has had loose stools. The rest of complete her systems otherwise negative Allergies Allergy/AdvReac Type Severity Reaction Status Date / Time Beta-Blockers Allergy Severe "SHOOK UP Verified 06/02/22 15:51 (Beta-Adrenergic Bloc FEELING" omeprazole Allergy Mild "made my Verified 06/02/22 15:51 head spin" levofloxacin Allergy Gastrointestinal Verified 06/02/22 15:51 Upset pantoprazole AdvReac Mild HALLUCINATI Verified 06/02/22 15:51 ONS Home Medications Medication Instructions Recorded Confirmed Type esomeprazole magnesium 40 mg 40 mg PO BID 11/23/18 06/02/22 History capsule,delayed release finasteride 5 mg tablet 5 mg PO HS 11/23/18 06/02/22 History nitroglycerin 0.4 mg sublingual 1 dose sublingual UD PRN Angina 11/23/18 06/02/22 History tablet nortriptyline 10 mg capsule 10 mg PO HS 11/23/18 06/02/22 History ranolazine 500 mg tablet,extended 500 mg PO BID 11/23/18 06/02/22 History release,12 hr (Ranexa) rosuvastatin 20 mg tablet (Crestor) 20 mg PO HS 11/23/18 06/02/22 History sertraline 50 mg tablet (Zoloft) 50 mg PO QAM 11/23/18 06/02/22 History solifenacin 5 mg tablet (Vesicare) 5 mg PO HS 11/23/18 06/02/22 History tamsulosin 0.4 mg capsule (Flomax) 0.4 mg PO HS 05/08/20 06/02/22 History albuterol sulfate 90 mcg/actuation 2 puff inhalation Q6H PRN 05/13/21 06/02/22 History aerosol inhaler (Ventolin HFA) Shortness Of Breath Or Wheezing carboxymethyl 0.5 %-glycerin 1 1 drp OPB BID PRN Dry Eye(S) 06/22/21 06/02/22 History %-polysorb 80 0.5 %-PF eye dropperette (Refresh Optive Noman-3 (PF)) polyethylene glycol 3350 17 gram 17 g PO BID PRN Constipation 08/30/21 06/02/22 History oral powder packet aspirin 81 mg tablet,delayed 81 mg PO QAM 10/18/21 06/02/22 History release ondansetron 4 mg disintegrating 4 mg translingual Q8H PRN Nausea 10/18/21 06/02/22 History tablet And Vomiting prucalopride 2 mg tablet 2 mg PO QAM 10/18/21 06/02/22 History (Motegrity) umeclidinium 62.5 mcg-vilanterol 1 inh inhalation QAM 10/18/21 06/02/22 History 25 mcg/actuation powdr for inhalation (Anoro Ellipta) Motilium 10 mg PO AC 06/02/22 06/02/22 History fluoride (sodium) 1.1 % dental 1 applic dental BID 06/02/22 06/02/22 History paste Patient History Medical History Abdominal pain, RLQ Anemia Anxiety Barretts esophagus BPH (benign prostatic hyperplasia) Depression GERD (gastroesophageal reflux disease) Hearing deficit Hyperlipidemia Hypertension IBS (irritable bowel syndrome) Migraine Prediabetes Surgical History History of cardiac cath 11/2011 @ [facility], 06/2012 @ [facility] [place]--no stent History of cataract extraction with lens replacement LEFT EYE, 01/03/19 History of colonoscopy History of esophagogastroduodenoscopy (EGD) History of flexible sigmoidoscopy History of foot surgery left History of heart artery stent 11/2011 x1 @ [facility] History of hemorrhoidectomy Family History Father Family history of esophageal cancer Mother Family hx of colon cancer Other No family history of adverse response to anesthesia Social History Smoking Status: Never smoker Second Hand Exposure: Yes (parents smoked); Hx Alcohol Use: No Hx Substance Use: No Preferred Language: Croatian Communication Ability: Effective Inspector Assemblies And Installations Required: No Beliefs That Will Affect Care: None marital status: Current Living Situation: Spouse Other Information That Helps Us Care for You: No Feels Safe at Home: Yes Safety Concerns: Feels Safe At This Time Assistive Devices: None and Walker Results & Data ([facility]) Vital Signs (Past 12 Hours) Vital Signs Temp Pulse Pulse Resp BP Pulse Ox O2 Del Method 06/03/22 08:01 36.4 C L 54 L 14 125/69 98 Room Air 06/03/22 07:10 57 L 06/03/22 04:14 36.4 C L 58 L 18 107/58 L 95 Room Air 06/02/22 22:15 57 L 06/02/22 22:58 36.4 C L 60 18 146/79 H 98 Room Air 06/02/22 22:23 36.5 C 60 18 159/84 H 99 Room Air He is awake alert and orient x3 is in no acute distress HEENT: 2+ carotid upstrokes no evidence of carotid bruits Lungs: Clear to auscultation bilaterally no rales rhonchi or wheezing Heart: Regular rate and rhythm no appreciable murmurs rubs or gallops Abdomen: Soft nontender distended positive bowel sounds Extremities: No clubbing cyanosis or edema psychiatric his affect appeared appropriate His inpatient studies were reviewed his troponins are negative including his delta, his EKG is normal with no acute ischemic changes, his chest x-ray is normal. IMPRESSIONS: 1. Chest discomfort which sounds noncardiac and GI in etiology with an extensive GI history number next 2. Coronary disease status post angioplasty and stenting of the mid LAD 11/23 with a drug-eluting stent 3. Repeat cardiac catheterization May 26, 2012 with a 50% narrowing in the LAD beyond the stent 4. Negative dobutamine stress echo for ischemia April 2020 with normal biventricular size and function EF in the range of 65% 5. Large hiatal hernia status post paraesophageal repair 03/25/2021 6. Gastroparesis with bowel dysmotility 7. Hypertension 8. Hyperlipidemia As I discussed with [facility] I believe his symptoms are all GI in etiology especially with his hoarse voice that he has this morning and the fact that the symptoms are occurring every morning and not with activity. He does have some chronic shortness of breath which could be an anginal equivalent. But it has been stable and he has not noted any progressive symptoms with activity. His symptoms yesterday were clearly different than any shortness of breath he may have with activity. His stress echo was negative in 2019 I do not feel it needs to be repeated. From my standpoint he can be discharged home and he needs close follow-up with the GI service. If he were to note progressive dyspnea with activity the question is how much of this is related to his paraesophageal repair versus ongoing reflux disease affecting his lungs versus the potential for progression of his coronary disease.
--- NOTE | 2022-06-03 10:34 | Discharge Summary ---
Date of Service June 03, 2022 Admission HPI Per Admitting Provider Gena Gill is a 76-year-old male with past medical history of CAD, hyperlipidemia, hypertension, BPH, depression, hiatal hernia, gastroparesis, and Liriano's esophagus who presents today with chest pain. Pain started around 10:30 this morning in the left side of his chest and did radiate to his bilateral jaw and back. He took full dose of aspirin as well as nitroglycerin which improved his symptoms but did not alleviate them entirely. After taking nitroglycerin he did experience dizziness and lightheadedness and had 1 episode of emesis. He does frequently have chest pain which he relates to his GERD and is typically alleviated by drinking Coke, however was not alleviated today. He has had this chest pain for the past 5 days, each time occurring in the morning as he is getting out of bed. Previously, the Coke had been helping somewhat, however had been taking longer for the pain to get better, estimating it had been present for an hour to an hour and a half before resolving. No acute trauma to the chest wall, however about a month ago did suffer a fall and had bruising on his chest that has since resolved, but he still has tenderness in the area. Have history of CAD with a stent placed to LAD in 2011 and takes baby aspirin daily. Aside from the chest pain that he typically relates to GI symptoms, he does not experience regular chest pain with exertion or at rest. He is mildly short of breath at baseline, however has not been any worse over the past several days in the setting of this chest pain. Presentation to the ED, BP recorded be 88/61, however this was after taken nit roglycerin at home and is now 131/90 5:05 100 cc NS bolus. Otherwise vital signs within normal limits and stable. Labs largely unrevealing, sodium is 131, however this is consistent with prior labs over the past several months. Renal function is adequate and at baseline. His initial troponin was 4.5. Chest x- ray unremarkable. EKG shows sinus bradycardia without any ST segment or T wave changes. Principal Diagnosis Chest pain, acs ruled out-suspect GI source Discharge Exam GENERAL: 76 yo Well-developed, well-nourished WM. NAD. LUNGS: Clear to auscultation bilaterally. No W/R/R. CARDIOVASCULAR: Regular rate and rhythm. ABDOMEN: Soft, non-tender and non-distended. BS normoactive x 4 quad. EXTREMITIES: No edema. Non-tender. Peripheral pulses +2/4. NEUROLOGIC: A&O x3. Nonfocal PSYCHIATRIC: Cooperative. Appropriate mood and affect. SKIN: Warm, dry, intact. No rashes or lesions. Discharge Data Allergies Allergy/AdvReac Type Severity Reaction Status Date / Time Beta-Blockers Allergy Severe "SHOOK UP Verified 06/02/22 15:51 (Beta-Adrenergic Bloc FEELING" omeprazole Allergy Mild "made my Verified 06/02/22 15:51 head spin" levofloxacin Allergy Gastrointestinal Verified 06/02/22 15:51 Upset pantoprazole AdvReac Mild HALLUCINATI Verified 06/02/22 15:51 ONS Consultations 06/02/22 14:49 ED Decision to Admit Stat 06/02/22 17:14 Consult Cardiology Routine Ordered Studies Chest X-Ray 06/02/22 12:33 XR chest 1V portable HISTORY: 76 years-old Male Chest Pain . Acute chest pain COMPARISON: Chest radiograph 07/02/2021 TECHNIQUE: Portable AP view of the chest FINDINGS: Cardiomediastinal and hilar silhouettes are within normal limits. No pneumothorax, pleural effusion, airspace consolidation or overt pulmonary edema. Degenerative changes of the shoulders and spine. IMPRESSION: No acute process. ACT 112: Negative or not required by law. The above report was generated using voice recognition software. It may contain grammatical, syntax or spelling errors. Electronically signed by: Bradly Arias M.D. 06/02/2022 3:02 PM Hospital Course (1) Chest pain: - Chest pain upon awakening this morning and for the past 4 mornings, which feels different than his characteristic GI chest discomfort, minimally alleviated with Coca-Cola, modest improvement today with full dose aspirin and nitroglycerin at home. - Differential diagnosis includes unstable angina versus GI etiology. Patient does have history of CAD with an LAD stent placed 10 years ago, also has a complex GI history of gastroparesis, Liriano's esophagus and hiatal hernia now s/p repair, currently on Motilium, Motegrity, and PPI. - HS troponins 4.5-->4.3-->7.5-->5.6 - Serial troponin checks, EKGs, and echocardiogram. - Patient is currently chest pain-free. Given that nitroglycerin has historically caused him to become very hypotensive and ill, would advise against this as first-line should patient develop chest pain overnight. - Consulted Dr. Leyva with whom pt follows, no plan for stress test as he feels that this is noncardiac - CP resolved, would advise f/u with established GI at [facility] (2) CAD (coronary atherosclerotic disease): - Stent placed in 2011 at LAD, with areas of occlusion and small vessels unable to be stented. - Continue statin, aspirin, and Ranexa. (3) Gastroparesis: - Follows with [facility] GI. - Continue Motilium, Motegrity, PPI for Liriano's esophagus/GERD. - would consider stopping his nortriptyline and Vesicare as these have anticholinergic properties and would certainly worsen GI motility-he will d/w his PCP (4) Hiatal hernia: - Follows with [facility] GI. - is s/p surgery for this in 2020 - Continue PPI. (5) Liriano's esophagus: - Follows with [facility] GI. - Continue PPI. (6) Depression: - Continue nortriptyline although as above, recommend stopping this due to severe constipation and motility issues (7) BPH (benign prostatic hyperplasia): - Continue Flomax, finasteride. - is on Vesicare but as above, consider stopping due to GI side effects (8) Hyponatremia: - Sodium is 131, however this seems consistent with patient's baseline over the past several months and as far as 2016 it seems his sodium ranging [id number]. - Follow on BMP. Plan Patient is medically and hemodynamically stable for discharge home today. Diet advanced to heart healthy this morning as he was kept NPO in event of stress test. He will be discharged home following breakfast. He can follow up with Dr. Leyva as scheduled outpatient. Recommend f/u with pcp within 1 week of discharge and contact [facility] team to schedule f/u as well. Plan has been d/w Dr. Rangel who is in agreement with aforementioned plan. Total Time Total Time Spent Total Time Spent (In Minutes): <30 minutes Discharge Plan Discharge Items Patient Disposition: Home - Self-Care Reason For Visit: CHEST PAIN Discharge Diagnosis: chest pain, suspected from esophagitis Activity: Resume your previous activity Non-emergency contact: Primary Care Provider, [facility] and Corporate Account Executive Call non-emergency contact if: you have any medication questions and your sympto ms worsen Follow-up/Referrals: Celestino Vazquez, [Primary Care Provider] - 06/05/22 9:50 am Diet: Heart Healthy Addtl Attending Provider Instructions: You were hospitalized due to chest pain. You were seen by your team assembler during your stay and your chest pain is felt to have not been related to your heart but rather from your your stomach issues. It is recommended that you follow up with your marine machinist at [facility]. It is also recommended that you follow up with your established team assembler, Dr. Leyva, as scheduled. Follow up with your pcp within 1 week of discharge from the hospital. If you have any questions or concerns after you're discharged, call the nonemergency number listed on your discharge paperwork. In the event of a medical emergency, call 911. Pending Studies at Discharge: No Stand-Alone Forms: [facility], Smoking Cessation Medications and DC Order Prescriptions: Continued tamsulosin [Flomax] 0.4 mg capsule 0.4 mg PO HS albuterol sulfate [Ventolin HFA] 90 mcg/actuation HFA aerosol inhaler 2 puff inhalation Q6H PRN (Reason: Shortness Of Breath Or Wheezing) nortriptyline 10 mg Capsule 10 mg PO HS rosuvastatin [Crestor] 20 mg Tablet 20 mg PO HS esomeprazole magnesium 40 mg Capsule,Delayed Release(Dr/Ec) 40 mg PO BID nitroglycerin 0.4 mg Tablet, Sublingual 1 dose sublingual UD PRN (Reason: Angina) sertraline [Zoloft] 50 mg Tablet 50 mg PO QAM finasteride 5 mg Tablet 5 mg PO HS solifenacin [Vesicare] 5 mg Tablet 5 mg PO HS ranolazine [Ranexa] 500 mg Tablet Extended Release 12 Hr 500 mg PO BID aspirin 81 mg Tablet,Delayed Release (Dr/Ec) 81 mg PO QAM ondansetron 4 mg tablet,disintegrating 4 mg translingual Q8H PRN (Reason: Nausea And Vomiting) Motegrity 2 mg tablet 2 mg PO QAM Anoro Ellipta 62.5-25 mcg/actuation blister with device 1 inh inhalation QAM fluoride (sodium) 1.1 % paste 1 applic dental BID Motilium 10 mg PO AC Refresh Optive Noman-3 (PF) 0.5-1-0.5 % Dropperette 1 drp OPB BID PRN (Reason: Dry Eye(S)) polyethylene glycol 3350 17 gram Powder In Packet 17 g PO BID PRN (Reason: Constipation) Discharge Orders: Discharge Order (Routine); Ordered 06/03/22 Ordered By: Radha Marroquin Admission Data Admit Date/Time: 06/02/22 15:31 Attending Provider: Dash Rangel Admit Provider: Ryanne Mejia Primary Care Provider: Celestino Vazquez Other Providers: Ryanne Mejia ; Trell Leyva Other Interventions: Discharge Summary Assessment (RN) Last Done: 06/03/22 10:54 Coding Level of Care Code 14557 OBS Care - Discharge Diagnoses Chest pain R07.9 CAD (coronary atherosclerotic disease) I25.10 Gastroparesis K31.84 Hiatal hernia K44.9 Liriano's esophagus K22.70 Depression F32.9 BPH (benign prostatic hyperplasia) N40.0 Hyponatremia E87.1
--- NOTE | 2022-06-03 17:13 | XCELERA ---
[id number]
--- NOTE | 2022-06-04 05:49 | Electrocardiogram Report ---
Test Reason : Blood Pressure : / mmHG Vent. Rate : 053 BPM Atrial Rate : 053 BPM P-R Int : 182 ms QRS Dur : 094 ms QT Int : 488 ms P-R-T Axes : 060 054 059 degrees QTc Int : 457 ms Sinus bradycardia Otherwise normal ECG When compared with ECG of 02-JUN-2022 12:37, No significant change was found Confirmed by Saul Simeon ([id number]) on 06/04/2022 5:48:43 AM Referred By: REFERRED SELF Confirmed By:Saul Simeon
== END 2022-06-03 13:51 | disposition home or self-care (01) ==
LOC: ED 12:09 → EDINP 12:09 → SUATTDRO 15:31 → EDINP 19:29 → 2N 19:42

== ENCOUNTER 2024-04-20 08:04 | Inpatient (IN) ==
--- NOTE | 2024-04-20 08:29 | Emergency Department Note ---
Impression & Plan Diverticulitis, Abdominal pain, Acute hyponatremia ED Provider Note NAME: JEREMIAH ARTEAGA Jr AGE: 78 SEX: M : 1945 ARRIVES VIA: Walk-In INFORMANT: Patient ED PROVIDER(S): Darnell Ko DO CHIEF COMPLAINT: abdominal pain HPI: Patient is a 78-year-old male with a past medical history of migraine, colitis, diverticulitis, BPH who presents to the ER for infraumbilical abdominal pain which has been present for the past 3 weeks. He notes that he has been on Augmentin for 2 weeks with no improvement and worsening symptoms and was flipped to Cipro and Flagyl. He notes the pain has been worsening as well on this. Denies any fevers. No dysuria, urgency or frequency. No other exacerbating or remitting factors. ADDITIONAL HISTORY OBTAINED: Additional history obtained from who notes that symptoms have been gradually getting worse over the past week. Chronic Medical/Social Conditions Affecting Care: Per HPI PAST MEDICAL HISTORY:See Below PAST SURGICAL HISTORY:See Below FAMILY HISTORY:See Below SOCIAL HISTORY:See Below HOME MEDICATIONS:See Below ALLERGIES:See Below VITALS:See Below PHYSICAL EXAMINATION: GENERAL: Sitting up in bed, alert, well appearing, well nourished, no distress, non-toxic EYE EXAM: normal conjunctiva. OROPHARYNX: mucous membranes are moist LUNGS: Clear to auscultation. Normal chest wall mechanics HEART: no murmurs, S1 normal and S2 normal ABDOMEN: abdomen soft, non-tender, normo-active bowel sounds, no masses, no rebound or guarding. BACK: Back is symmetrical on inspection and there is no deformity, no midline tenderness, no CVA tenderness. SKIN: no rashes and no bruising UPPER EXTREMITIES: upper extremities are grossly normal. LOWER EXTREMITIES: No pitting edema. NEURO EXAM: Normal sensorium, cranial nerves II-XII grossly intact, normal speech, no gross weakness of arms, no gross weakness of legs. MEDICAL DECISION MAKING: Patient is a 78-year-old male who presents ER for above-stated complaint. IV was established blood work is obtained. Labs show no significant leukocytosis. Mild anemia at 13. BMP with a mild hyponatremia 131. LFTs bilirubin is unremarkable. Blood sugar slightly elevated 133. Lipase is normal. UA was clean. CT abdomen pelvis with no acute pathology with the exception of a new area of diverticulitis. The old area had resolved. He was given IV Zosyn. He was updated bedside. Discussed with the hospitalist for further evaluation management and treatment. Patient was also given the dose of morphine and Zofran. Consults/Care Managements Discussions: Per MDM Triage Nursing notes reviewed. Limited review of prior medical records performed Vital Signs: reviewed and remarkable for no significant abnormalities Differential diagnosis: Differential diagnoses includes but is not limited to gastritis, peptic ulcer disease, GERD, gallbladder disease, pancreatitis, small bowel obstruction, appendicitis, diverticulitis, hernia, urinary tract infection, torsion, perforation, trauma, infectious. ER treatment provided: See below Diagnostics interpreted by me include EKG and cardiac monitoring as listed below: -Cardiac Monitoring: An order was placed for continuous cardiac monitoring. The monitor shows a rate of 60 with sinus rhythm. -ECG: none -Laboratory studies:Interpreted by me as stated above in MDM and shown below. Imaging studies: Xrays: As interpreted by me:none CTs show: CT abdomen pelvis per my preliminary interpretation showed large amount diverticulosis CT abdomen pelvis per radiologist described above Procedures:none Critical Care: None Past Med/Surg History Problem List (Updated 04/20/24 @ 14:16 by Darnell Ko DO) Acute hyponatremia (Acute) Abdominal pain (Acute) Diverticulitis (Acute) Diarrhea Diverticulitis (Acute) Constipation (Acute) Abdominal pain (Acute) Nausea (Acute) Colitis (Acute) Muscular deconditioning Vertiginous migraine Chest pain Sigmoid diverticulitis (Acute) Right inguinal hernia Abdominal pain, lower (Acute) Hiatal hernia Elevated LFTs CAD (coronary atherosclerotic disease) Gastroparesis Nausea (Acute) Hyponatremia (Acute) BPH (benign prostatic hyperplasia) Depression Hyperlipidemia Hypertension Acid reflux Cough Abnormal PFT Dyspnea Liriano's esophagus (Chronic 11/15/12) Chest pain Gastrointestinal distress Encounter for pre-operative examination Medical History Abdominal pain, RLQ IBS (irritable bowel syndrome) Barretts esophagus GERD (gastroesophageal reflux disease) Prediabetes Anemia Hearing deficit Anxiety Migraine Surgical History History of cataract extraction with lens replacement LEFT EYE, 01/03/19 History of hemorrhoidectomy History of foot surgery left History of flexible sigmoidoscopy History of colonoscopy History of esophagogastroduodenoscopy (EGD) History of heart artery stent 11/2011 x1 @ [facility] History of cardiac cath 11/2011 @ [facility], 06/2012 @ [facility]--no stent Family History Father Family history of esophageal cancer Mother Family hx of colon cancer Other No family history of adverse response to anesthesia Social History Smoking Status: Never smoker Second Hand Exposure: Yes (parents smoked); Do You Dip or Chew Tobacco: No; Hx Alcohol Use: No Hx Substance Use: No Preferred Language: Hebrew Communication Ability: Effective Hide Paster Required: No Beliefs That Will Affect Care: None marital status: Current Living Situation: Spouse Other Information That Helps Us Care for You: No Feels Safe at Home: Yes Safety Concerns: Feels Safe At This Time Assistive Devices: Cane, Glasses, Hearing Aid - Bilateral and Walker Allergies Allergies Allergy/AdvReac Type Severity Reaction Status Date / Time Beta-Blockers Allergy Severe "SHOOK UP Verified 04/13/24 18:11 (Beta-Adrenergic Bloc FEELING" omeprazole Allergy Mild "made my Verified 04/13/24 18:11 head spin" levofloxacin Allergy Gastrointestinal Verified 04/13/24 18:11 Upset pantoprazole AdvReac Mild HALLUCINATI Verified 04/13/24 18:11 ONS Home Meds Home Medications Medication Instructions Recorded Confirmed esomeprazole magnesium 40 mg 40 mg PO BID 11/23/18 04/20/24 capsule,delayed release finasteride 5 mg tablet 5 mg PO HS 11/23/18 04/20/24 nitroglycerin 0.4 mg sublingual 1 dose sublingual UD PRN Angina 11/23/18 04/20/24 tablet nortriptyline 10 mg capsule 10 mg PO HS 11/23/18 04/20/24 sertraline 50 mg tablet (Zoloft) 50 mg PO QAM 11/23/18 04/20/24 tamsulosin 0.4 mg capsule (Flomax) 0.4 mg PO HS 05/08/20 04/20/24 polyethylene glycol 3350 17 gram 17 g PO BID PRN Constipation 08/30/21 04/20/24 oral powder packet aspirin 81 mg tablet,delayed 81 mg PO QAM 10/18/21 04/20/24 release ondansetron 4 mg disintegrating 4 mg translingual Q8H PRN Nausea 10/18/21 04/20/24 tablet And Vomiting prucalopride 2 mg tablet 2 mg PO QAM 10/18/21 04/20/24 (Motegrity) Domperidone 10 mg PO TID 04/13/24 04/20/24 ranolazine 500 mg tablet,extended 500 mg PO BID 04/13/24 04/20/24 release,12 hr rosuvastatin 10 mg tablet 10 mg PO HS 04/13/24 04/20/24 Previous Rx's Medication Instructions Recorded albuterol sulfate 90 mcg/actuation 2 puff inhalation Q6H PRN 12/29/22 aerosol inhaler shortness of breath or wheezing #8.5 grams umeclidinium 62.5 mcg-vilanterol 1 inh inhalation QAM #90 puffs 10/05/23 25 mcg/actuation powdr for inhalation (Anoro Ellipta) rimegepant 75 mg disintegrating 75 mg PO Q OTHER DAY PRN migraine 02/28/24 tablet (Nurtec ODT) headache #8 tabs verapamil 120 mg 24 hr 120 mg PO QAM #30 caps 02/28/24 capsule,extended release Results & Data (ED) Vital Signs Vital Signs - 24 hr 04/20/24 08:08 04/20/24 08:18 04/20/24 08:19 Temperature 36.2 C L Temperature Source Temporal Artery Scan Pulse Rate 59 L 56 L 57 L Pulse Rate from SpO2 Sensor Respiratory Rate 20 11 L Respiratory Effort / Characteristics Non-Labored Spontaneous Respiratory Depth Normal Blood Pressure 112/69 Blood Pressure Mean 83 Pulse Oximetry 97 Oxygen Delivery Method Room Air Sepsis Recent Fever Within 48 Hours No Sepsis New/Unexplained Change in Mental Status N/A Sepsis Action Taken by Nursing No Action Required 04/20/24 08:30 04/20/24 08:51 04/20/24 08:57 Temperature Temperature Source Pulse Rate 53 L Pulse Rate from SpO2 Sensor Respiratory Rate 22 14 18 Respiratory Effort / Characteristics Non-Labored Respiratory Depth Normal Blood Pressure Blood Pressure Mean Pulse Oximetry 97 Oxygen Delivery Method Room Air Sepsis Recent Fever Within 48 Hours Sepsis New/Unexplained Change in Mental Status Sepsis Action Taken by Nursing 04/20/24 08:57 04/20/24 09:26 04/20/24 09:26 Temperature Temperature Source Pulse Rate Pulse Rate from SpO2 Sensor Respiratory Rate Respiratory Effort / Characteristics Respiratory Depth Blood Pressure 136/72 136/72 Blood Pressure Mean 107 107 Pulse Oximetry 97 Oxygen Delivery Method Room Air Sepsis Recent Fever Within 48 Hours Sepsis New/Unexplained Change in Mental Status Sepsis Action Taken by Nursing 04/20/24 09:30 04/20/24 10:06 Temperature Temperature Source Pulse Rate 52 L 53 L Pulse Rate from SpO2 Sensor 52 L Respiratory Rate 15 18 Respiratory Effort / Characteristics Respiratory Depth Blood Pressure Blood Pressure Mean Pulse Oximetry 98 Oxygen Delivery Method Sepsis Recent Fever Within 48 Hours Sepsis New/Unexplained Change in Mental Status Sepsis Action Taken by Nursing Laboratory Data 04/20/24 Unknown 04/20/24 Unknown Lab Results 04/20/24 Range/Units 08:42 POC Hgb 12.9 L (14.0-18.0) g/dl POC Hct 38 L (42-52) % POC Sodium 131 L (135-144) mmol/L POC Potassium 4.1 (3.3-5.0) mmol/L POC Chloride 98 L (101-112) mmol/L POC Total CO2 22 L (24-31) mmol/L POC Anion Gap 16.0 (16-25) mmol/L POC BUN 9 (7-18) mg/dl POC Creatinine 0.8 (0.6-1.3) mg/dl POC Glucose (other) 137 H (70-99) mg/dl POC Ioniz Calcium Mame 1.22 (1.12-1.32) mmol/l Administered Medications Hydromorphone HCl (Hydromorphone Inj 1 Mg/Ml Syringe) 1 mg IV Q4H PRN PRN Reason: Severe Pain (7,8,9,10) on NRS Stop: 05/04/24 11:42 Last Admin: 04/20/24 13:18 Dose: 1 mg Documented By: EVELIA Discontinued Medications Sodium Chloride (Nss) 500 mls @ 999 mls/hr IV .Q31M ONE Stop: 04/20/24 08:56 Last Infusion: 04/20/24 10:23 Dose: Infused Documented By: Admin: 04/20/24 08:49 Dose: 999 mls/hr Documented By: CLARISA Piperacillin Sod/Tazobactam Sod (Zosyn) 4.5 gm in 100 mls @ 200 mls/hr IV NOW ONE Stop: 04/20/24 10:41 Last Infusion: 04/20/24 13:42 Dose: Infused Documented By: Admin: 04/20/24 10:58 Dose: 200 mls/hr Documented By: CLARISA Ioversol (Optiray 320 100ml) 94 ml IV ONCE ONE Stop: 04/20/24 09:07 Last Admin: 04/20/24 09:07 Dose: 94 ml Documented By: HERMAN Morphine Sulfate (Morphine Sulfate 4 Mg/Ml 1 Ml Carp\\Vial) 4 mg IV NOW STA Stop: 04/20/24 08:27 Last Admin: 04/20/24 08:47 Dose: 4 mg Documented By: CLARISA Ondansetron HCl (Ondansetron Inj 2 Mg/Ml 2 Ml Vial) 4 mg IV NOW STA Stop: 04/20/24 08:27 Last Admin: 04/20/24 08:47 Dose: 4 mg Documented By: CLARISA Imaging Data Radiologist's Impression: Abdomen/Pelvis CT 04/20/24 08:21 CT OF THE ABDOMEN AND PELVIS WITH CONTRAST CLINICAL HISTORY: Abdominal pain ?worsening diverticulitis. COMPARISON STUDY: CT of the abdomen and pelvis April 13, 2024. TECHNIQUE: Following IV administration of 94 mL of Optiray, axial images of the abdomen and pelvis were obtained from the lung bases to the proximal femurs. Images were reviewed in the axial, sagittal, and coronal planes. IV contrast was administered without complication. Automated exposure control was utilized for the study. A dose lowering technique was utilized adhering to the principles of ALARA. CT DOSE: 1130.09 mGy.cm FINDINGS: There is a small hiatal hernia. No pneumatosis, free air or portal venous gas is present. The liver, spleen, adrenal glands and kidneys are unremarkable. There is moderate pancreatic glandular atrophy without pancreatic ductal dilatation. The gallbladder is mildly distended. There is no pericholecystic infiltration. Incidental note is made of multiple diverticula of the second portion the duodenum. There is extensive colonic diverticulosis. Mild inflammation adjacent to the proximal sigmoid colon is noted. There is no free air or abscess. The focus of wall thickening with pericolonic inflammation within the mid sigmoid colon on CT of April 13, 2024 has improved. Large amount of poorly formed stool within the colon is present. There is no evidence for a bowel obstruction. The appendix is normal. IMPRESSION: 1. Extensive sigmoid diverticulosis. Mild inflammation adjacent to the proximal sigmoid colon consistent with a new site of acute diverticulitis. The focus of diverticulitis within the mid sigmoid colon on prior CT has improved. No free air. No abscess. 2. Large amount of poorly formed stool within colon. No evidence for a bowel obstruction. 3. Small hiatal hernia. ACT 112: Negative or not required by law. Electronically signed by: Last Hughes M.D. 04/20/2024 9:31 AM Discharge Plan Visit Data Chief Complaint: Abdominal Pain Stated Complaint: DIVERTICULITIS, ABD PAIN ED Provider: Darnell Ko Discharge Problem: Diverticulitis, Abdominal pain, Acute hyponatremia Patient Disposition: Admitted As Inpatient Discharge Instructions Interventions: ED Discharge Assessment Last Done: 04/20/24 11:28 Discharge Problem: Abdominal pain Qualifiers: Abdominal location: unspecified location Qualified Code(s): R10.9 - Unspecified abdominal pain
[2024-04-20] MEDS: MoRPHine SULFATE 4 MG/ML 1 ML CARP\\VIAL IV STA (08:47)
[2024-04-20] MEDS: ONDANSETRON INJ 2 MG/ML 2 ML VIAL IV STA (08:47)
[2024-04-20] MEDS: SODIUM CHLORIDE 0.9% 500 ML IV ONE (08:49)
--- OUTSIDE RECORDS SUMMARY | 2024-04-20 08:54 | External Medical Summary | Continuity of Care Document ---
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 [employer] Name Role Phone Celestino Vazquez Jonel Primary Care Physician [phone] [id number] Date(s): 04/13/24 - 04/13/24 [facility] 0 [facility] [place] [place] [address] [facility] [address] [facility] [address] [place] [address] [place] [phone] Encounter Diagnosis Abdominal pain(Discharge Diagnosis) - 04/13/24 Discharge Disposition: Home or Self Care Attending Physician: DO Slaughter Stephanie Marie Allergies, Adverse Reactions, Alerts Substance Criticality Severity Reaction Reaction Severity Status omeprazole 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 side effects Ac tive mesalamine loss of strenght Ac tive beta blockers intolerance Acti ve Protonix hallucinations Activ e Immunizations Given and Recorded Vaccine Date Status Refusal Reason influenza virus vaccine, inactivated 06/16/23 Give n influenza virus vaccine, inactivated 06/01/23 Michael rded influenza virus vaccine, inactivated 1 06/08/20 Re corded influenza virus vaccine, inactivated 06/14/19 Give n influenza virus vaccine, inactivated 05/07/18 Michael rded influenza virus vaccine, inactivated 06/01/17 Give n influenza virus vaccine, inactivated 06/19/16 Give n influenza virus vaccine, inactivated 06/10/15 Give n influenza virus vaccine, inactivated 06/04/14 Give n influenza virus vaccine, inactivated 06/06/13 Give n SARS-CoV-2 (COVID-19) mRNA-vacc - [id number] 06/01/23 Recorded tetanus toxoids-diphtheria, Td (Adult) 06/09/21 Gi celso tetanus toxoids-diphtheria, Td (Adult) 2 10/08/05 Recorded SARS-CoV-2 (COVID-19) mRNA BNT-162b2 vax 3 11/15/20 Recorded SARS-CoV-2 (COVID-19) mRNA BNT-162b2 vax 4 10/18/20 Recorded pneumococcal 13-valent vaccine 5 12/31/14 Given pneumococcal 23-valent vaccine 09/06/11 Recorded pneumococcal 23-valent vaccine 6 07/15/11 Recorded zoster vaccine live 7 04/09/11 Recorded tetanus/diphtheria/pertuss, acel (Tdap) 8 09/30/10 Recorded influenza virus vaccine, H1N1 9 09/26/09 Recorded 1Result Comment: [facility] 2Result Comment: 2020-02-26: Historical information-source unspecified 3Result Comment: 2022-02-13: Historical information-source unspecified 4Result Comment: 2022-02-13: Historical information-source unspecified 5Early/Late Reason: Other : 6Result Comment: 2022-02-13: Historical information-source unspecified 7Result Comment: 2020-02-26: Historical information-source unspecified 8Result Comment: 2020-02-26: Historical information-source unspecified 9Result Comment: 2022-02-13: Historical information-source unspecified Medications albuterol CFC free 90 mcg/inh MDI Start: 03/25/20 9:59:00 AM EDT, 2 puff, inhaled, qid, Disp# 1 each, Refills: 3, PRN: as needed for wheezing, Pharmacy: [facility]/pharmacy #[id number] Start Date: 03/25/20 Status: Ordered Anoro Ellipta 62.5 mcg-25 mcg/inh inhalation powder 1 puff, inhaled, Daily Start Date: 09/18/20 Status: Ordered aspirin Start: 07/22/21 2:41:00 PM EST, 81 mg =, PO, Daily Start Date: 07/22/21 Status: Ordered Augmentin 875 mg-125 mg oral tablet Start: 04/04/24 5:08:00 PM EDT, amoxicillin 1 tab, PO, q12h, Disp# 20, Pharmacy: [facility]/pharmacy #[id number] Start Date: 04/04/24 Stop Date: 04/14/24 Status: Ordered betamethasone dipropionate 0.05% topical ointment Start: 12/03/22 4:04:00 PM EDT, 1 appl, topical, bid, Disp# 45 g, Refills: 1, To red rash twice a day Start Date: 12/03/22 Status: Ordered cetirizine 10 mg oral tablet Start: 03/08/24 2:18:00 PM EDT, 1 tab, PO, Daily, Disp# 90 tab, PRN: as needed for allergy symptoms, Pharmacy: [facility] Start Date: 03/08/24 Stop Date: 06/06/24 Status: Ordered Flonase 50 mcg/inh nasal spray Start: 03/08/24 2:18:00 PM EDT, 1 spray, each nostril, bid, Disp# 16 g, Refills: 2, Pharmacy: [facility] Start Date: 03/08/24 Status: Ordered gabapentin 300 mg oral capsule Start: 07/07/23 9:14:00 AM EDT, 1 cap, PO, qPM, Disp# 90 cap, Refills: 3, Pharmacy: [facility] Start Date: 07/07/23 Stop Date: 07/01/24 Status: Ordered Maxalt 10 mg oral tablet Start: 03/29/24 4:00:00 PM EDT, 1 tab, PO, ONCE, Disp# 12 tab, Refills: 1, PRN: as needed for migraine headache, Pharmacy: [facility] Start Date: 03/29/24 Status: Ordered midodrine 5 mg oral tablet Start: 01/13/24 12:39:00 PM EDT, 1 tab, PO, bid, Disp# 60 tab, Refills: 11, Pharmacy: [facility]/pharmacy #[id number] Start Date: 01/13/24 Status: Ordered Motegrity 2 mg oral tablet Start: 11/17/23 12:11:00 PM EDT, 1 tab, PO, Daily, Disp# 30 tab, Refills: 5, Pharmacy: [facility]/pharmacy #[id number] Start Date: 11/17/23 Status: Ordered MOTILIUM 10MG Tablets Start: 01/26/22 1:30:00 PM EDT, MOTILIUM 10MG Tablets, 1 tab, PO, tid Start Date: 01/26/22 Status: Ordered NexIUM 40 mg oral delayed release capsule Start: 02/09/24 2:57:00 PM EDT, 1 cap, PO, bid, Disp# 180 cap, Refills: 3, , Pharmacy:[facility] Start Date: 02/09/24 Status: Ordered nitroglycerin 0.4 mg sublingual tablet Start: 05/03/23 12:52:00 PM EDT, 1 tab, SL, q5min, Disp# 25 tab, Refills: 3, PRN: as needed for chest pain, Pharmacy: [facility] Start Date: 05/03/23 Status: Ordered nortriptyline 10 mg oral capsule Start: 03/08/23 2:18:00 PM EDT, See Instructions, Disp# 90 cap, Refills: 3, TAKE 1 CAPSULE BY MOUTH AT BEDTIME, [facility] Start Date: 03/08/23 Status: Ordered Pepcid Start: 06/05/22 12:00:00 PM EDT, 20 mg =, PO, qhs Start Date: 06/05/22 Status: Ordered Pepto-Bismol 262 mg/15 mL oral suspension Start: 07/07/18 11:19:00 AM EDT, 30 mL, PO, PRN: as needed for dyspepsia Start Date: 07/07/18 Status: Ordered Probiotic Formula Start: 03/13/20 12:51:00 PM EDT, 1 cap, PO, Daily Start Date: 03/13/20 Status: Ordered Proscar 5 mg oral tablet Start: 08/02/23 1:13:00 PM EST, 1 tab, PO, Daily, Disp# 90 tab, Refills: 3, Pharmacy: [facility] Start Date: 08/02/23 Status: Ordered ranolazine 500 mg oral tablet, extended release Start: 03/20/24 9:14:00 AM EDT, See Instructions, Disp# 180 tab, Refills: 3, TAKE 1 TABLET TWICE DAILY, Pharmacy: [facility] Start Date: 03/20/24 Status: Ordered rosuvastatin 10 mg oral tablet Start: 05/17/23 9:38:00 PM EDT, 1 tab, PO, qhs, Disp# 90 tab, Refills: 3, Pharmacy: [facility] Start Date: 05/17/23 Status: Ordered tamsulosin 0.4 mg oral capsule Start: 08/04/23 5:31:00 PM EST, See Instructions, Disp# 180 cap, Refills: 3, TAKE 2 CAPSULES BY MOUTH DAILY, Pharmacy: [facility] Start Date: 08/04/23 Status: Ordered Voltaren 1% topical gel Start: 03/31/23 8:22:00 AM EDT, 1 appl, topical, qid, Disp# 100 g, Refills: 0, Apply to shoulder 4x/day (do not exceed 8g/day/joint), Pharmacy: [id number] Start Date: 03/31/23 Stop Date: 04/30/23 Status: Ordered Zofran ODT 4 mg oral tablet, disintegrating Start: 05/03/23 1:41:00 PM EDT, 1 tab, PO, tid, Disp# 30 tab, Refills: 1, PRN: as needed for nausea/vomiting, Pharmacy: [facility] #[id number] Start Date: 05/03/23 Stop Date: 05/23/23 Status: Ordered Zoloft 50 mg oral tablet Start: 06/23/23 10:53:00 AM EDT, 1 tab, PO, Daily, Disp# 90 tab, Refills: 3, Pharmacy: [facility]#[id number] Start Date: 06/23/23 Status: Ordered Mental Status 04/13/24 Barriers to Learning one year Hearing de ficit, Other: bilateral hearing aids to both ears noted Mandatory Health Literacy Documentation Yes Health Literacy Communication Barriers N ever Primary Language Japanese Problem List Condition Confirmation Course Effective Dates Status H ealth Status Informant Abrasion Confirmed Active Urinary tract infection, acute Confirmed Active Altered bowel habits Confirmed Active Anemia Confirmed Active Anxiety Confirmed Active Xerosis cutis Confirmed Active Barretts esophagus Confirmed Active BPH (benign prostatic hyperplasia) Confirmed Active Bradycardia, unspecified Confirmed Active CAD Confirmed Active Changing skin lesion Confirmed Active Classical migraine Confirmed Active Colitis Confirmed Active Head congestion Confirmed Active Constipation Confirmed Active Diabetes mellitus with diabetic dermatitis 1 Confirmed Active Atherosclerosis of aorta Confirmed Active Diverticulosis Confirmed Active Shortness of breath Confirmed Active Dermatitis Confirmed Active Rash Confirmed Active Left foot pain Confirmed Active Right foot pain Confirmed Active Stress reaction of foot with routine healing Confirmed Active Full thickness macular hole of left eye Confirmed Active Boil Confirmed Active Gastroesophageal reflux disease Confirmed Active Gastroparesis Confirmed Active Giardiasis Confirmed Active H/O laser photocoagulation of retina Confirmed Active Hemorrhoid Confirmed Active Hiatal hernia Confirmed Active History of diverticulitis Confirmed Active History of mycosis fungoides Confirmed Active H/O vitrectomy Confirmed Active Hyperlipidemia Confirmed Active Inflamed seborrheic keratosis Confirmed Active Influenza Confirmed Active Prostate enlargement Confirmed Active Localized edema Confirmed Active Macular hole of left eye Confirmed Active Metamorphopsia Confirmed Active Metatarsalgia of both feet Confirmed Active Metatarsalgia, left foot Confirmed Active Metatarsalgia, right foot Confirmed Active Actinic keratoses Confirmed Active Mycosis fungoides Confirmed Active Open wound Confirmed Active Palpitations Confirmed Active Past history of procedure Confirmed Active Pre-op exam Confirmed Active Plantar fasciitis, left Confirmed Active Posterior vitreous detachment, right eye Confirmed Active Pseudophakia, both eyes Confirmed Active Emphysema lung Confirmed Active Major depression, recurrent, chronic Confirmed Active Type 2 diabetes mellitus with unspecified diabetic retinopathy without macular edema Confirmed Active Seborrheic keratoses Confirmed Active Right shoulder pain Confirmed Active Sinusitis Confirmed Active Subconjunctival hemorrhage Confirmed Active Dry eye syndrome of both eyes Confirmed Active Chest tightness Confirmed Active Type 2 diabetes mellitus with diabetic autonomic (poly)neuropathy Confirmed 03/08/24 Active Common wart Confirmed Active 1per script coordinator (jejc) audit 08/09/2021 Diagnosis Diagnosis Type Effective Dates Health Status Cl inical Service Informant Abdominal pain Discharge Diagnosis 04/13/24 Non-Specified Procedures Procedure Date Related Diagnosis Body Site Status Otoscopy 1 07/14/22 Completed Chest X-ray 2 06/02/22 Completed Shoulder X-ray RT min 2V routine 3 02/13/22 Completed Shave biopsy 4 12/31/21 Completed KUB X-ray 5 08/30/[address] of abdomen and pelvis 6 08/27/21 Completed PPV - Pars plana vitrectomy LE 7, 8 08/07/21 Completed Chest X-ray 9 07/02/[address] 10 07/02/21 Completed Shave biopsy and cauterization of skin 05/15/21 Completed Shave biopsy and cauterization of skin 05/07/21 Completed Hernia 03/2021 Completed EUA - Examination of eye und er anesthetic BE 11 12/27/20 Completed Laser eye surgery BE 12 12/27/20 C ompleted Colonoscopy 2020 Completed Cataract surgery, RE 13 01/17/19 C ompleted Cataract extraction and inse rtion of intraocular lens, LE 14 01/03/19 Complete d Shave biopsy of skin 11/21/18 Comp leted YAG laser capsulotomy of lens, LE 2018 Completed YAG laser capsulotomy of lens, RE 2018 Completed Endoscopy, numerous 2018 Compl eted Flexible sigmoidoscopy 2017 Completed Colonoscopy 18 02/23/17 Completed Injection, Cervical Spine 19 07/2015 Completed Hemorrhoidectomy 01/04/13 Complete d Card cath and Stent placed 05/13/12 Completed cardiac stent 20 11/05/11 Complete d Retina of right eye, lattice 2006 Completed Left foot Morales's Neurmoa surgery 1989 Completed 1clear canals with all landmarks visible, bilaterally 2Impression: No acute process. 3Impression: No evidence of acute osseous injury 4right lower leg 5Unterval improvement in the stool burden. Mildly dilated gas-filled colon without evidence for bowel obstruction. 61. Mild sigmoid colon dierticulitis without evidence for perforation or abcess. 2. Moderate to marked fecal stasis without evidence for impaction or abstruction 3. Prominent mucosal thickening involving the anorectal junction and direct visualization is recommended to exclude the presence of an obstructing mass. 71. Left pars plana vitrectomy with indirect laser (824 spots) photocoagulation. 2. Left tympanic membrane peeling. 3. Left fluid gas exchange (18% C3F8). 8LE 9Impression: No acute process 10Impression: No acute intracranial abnormality. Atrophy and microvascular ischemic changes. 11BE 12BE, bilateral indirect laser retinopexy 13right eye 14left eye cataract 15LE 16RE 17preparation of the colon was fair diverticulosis in the sigmoid colon the rectum area at 20cm proximal to the anus and area at 30cm proximal to the anus are nomral 18Colonoscopy normal- Repeat in 5 years. 19of cervical spine from pain clinic Dr Lozoya 20Drug dalia, 11/2011, mid LAD Vital Signs Most recent to oldest [Reference Range]: 1 Patient Weight 78.2 kg (04/13/24 2:59 PM) Heart Rate 63 bpm (04/13/24 2:59 PM) Blood Pressure 134/82mmHg (04/13/24 2:59 PM) Cuff Pulse Pressure 52 mmHg (04/13/24 2:59 PM) Social History Social History Type Response Smoking Status Never smoked cigaret ton Sex Male Sex Representation Male (finding) Implantable Device List Procedure Provider Procedure Date Device Type Site Unknown Unknown 03/21/21 Unknown Unknown Device Identifier Serial Number Lot or Batch Number Manufacturing Date Expiration Date Distinct Identification Code MRI Safety Implantable Status Assigning Authority Unknown Unknown n/a Unknown 11/20/23 Unknown Unknown Active Unkn own Patient Care team information Care Team Personnel Name: DO Vazquez Franklin J Position: Physician - Family Med Member Role: Primary Care Provider Address: [address] [place] [address] [place] Name: MD Nunn Kimberly A Position: Physician - Ophthalmology Member Role: Lifetime Relationship Address: [address] [place] [address] [place] Name: MD Lopes Jansie Position: Physician - Anesthesiologist Member Role: Lifetime Relationship Address: [address] [place] [address] [place] Name: DO Braden Sameer Position: Resident Member Role: Lifetime Relationship Address: [address] [place] [address] [place] Name: Saurabh Bunn Kyle Position: Pharmacist Member Role: Pharmacy - Lifetime Address: [address] [place] [address] Care Team Related Persons Name: PAU ARTEAGA
[2024-04-20 08:55] LABS: iSTAT Creatinine 0.8 mg/dl (0.6-1.3); iSTAT Hemoglobin 12.9 g/dl (14.0-18.0); iSTAT Ionized Calcium 1.22 mmol/l (1.12-1.32); iSTAT Potassium 4.1 mmol/L (3.3-5.0)
[2024-04-20 09:05] LABS: Albumin Globulin Ratio 1.4 (0.9-2); Albumin Level 3.7 gm/dl (3.4-5.0); BUN Creatinine Ratio 11.4 (10-20); Basophils # (auto) 0.03 K/uL (0.00-0.20); Basophils % (auto) 0.3 %; Bilirubin,Total 0.6 mg/dl (0.2-1.0); Calcium 9.1 mg/dl (8.6-10.3); Creatinine Clr Calc Pharmacy 75.8 ml/min; Est GFR (African American) 100.4 ml/min; Est GFR (Non-African American) 86.6 ml/min; Globulin 2.7 gm/dl (2.5-4.0); Hematocrit (blood only) 37.4 % (42.0-52.0); Hemoglobin 13.2 g/dl (14.0-18.0); Immature Granulocytes # (auto) 0.05 K/uL (0.01-0.20); Immature Granulocytes % (auto) 0.5 %; Lymphocytes # (auto) 0.91 K/uL (1.20-3.40); Lymphocytes % (auto) 9.3 %; Mean Corpuscular Hemoglobin 31.8 pg (25.0-34.0); Mean Corpuscular Hgb Conc 35.3 g/dL (32.0-36.0); Mean Corpuscular Volume 90.1 fL (80.0-100.0); Mean Platelet Volume 8.7 fL (9.4-12.4); Monocytes # (auto) 1.01 K/uL (0.11-0.59); Monocytes % (auto) 10.3 %; Neutrophils # (auto) 7.58 K/uL (1.40-6.50); Neutrophils % (auto) 77.6 %; Platelet Count 288 K/uL (130-400); RDW Coefficient of Variation 12.2 % (11.5-14.5); Red Blood Count 4.15 M/uL (4.70-6.10); Total Protein 6.4 gm/dl (6.0-8.3); White Blood Count 9.78 K/ul (4.8-10.8)
[2024-04-20] MEDS: OPTIRAY 320 100ml IV ONE (09:07)
--- NOTE | 2024-04-20 09:33 | CT Scan Report ---
CT OF THE ABDOMEN AND PELVIS WITH CONTRAST CLINICAL HISTORY: Abdominal pain ?worsening diverticulitis. COMPARISON STUDY: CT of the abdomen and pelvis April 13, 2024. TECHNIQUE: Following IV administration of 94 mL of Optiray, axial images of the abdomen and pelvis we re obtained from the lung bases to the proximal femurs. Images were reviewed in the axial, sagittal, and coronal planes. IV contrast was administered without complication. Automated exposure control wa s utilized for the study. A dose lowering technique was utilized adhering to the principles of ALARA . CT DOSE: 1130.09 mGy.cm FINDINGS: There is a small hiatal hernia. No pneumatosis, free air or portal venous gas is present. T he liver, spleen, adrenal glands and kidneys are unremarkable. There is moderate pancreatic glandular atrophy without pancreatic ductal dilatation. The gallbladder is mildly distended. There is no peric holecystic infiltration. Incidental note is made of multiple diverticula of the second portion the du odenum. There is extensive colonic diverticulosis. Mild inflammation adjacent to the proximal sigmoi d colon is noted. There is no free air or abscess. The focus of wall thickening with pericolonic infl ammation within the mid sigmoid colon on CT of April 13, 2024 has improved. Large amount of poorly fo rmed stool within the colon is present. There is no evidence for a bowel obstruction. The appendix is normal. IMPRESSION: 1. Extensive sigmoid diverticulosis. Mild inflammation adjacent to the proximal sigmoid colon consist ent with a new site of acute diverticulitis. The focus of diverticulitis within the mid sigmoid colon on prior CT has improved. No free air. No abscess. 2. Large amount of poorly formed stool within colon. No evidence for a bowel obstruction. 3. Small hiatal hernia. ACT 112: Negative or not required by law. Electronically signed by: Last Hughes M.D. 04/20/2024 9:31 AM
[2024-04-20 09:45] LABS: Appearance Urine Clear (Clear); Bilirubin Urine Negative (Negative); Blood Urine Negative (Negative); Color Urine Dark Yellow; Glucose Urine UA Negative (Negative); Ketones Urine Negative (Negative); Leukocyte Esterase Urine Negative (Negative); Nitrite Urine Negative (Negative); Protein Urine Negative (Negative); Urobilinogen Urine Negative (Negative); pH Urine 7.5 (4.5-7.5)
--- NOTE | 2024-04-20 10:32 | History & Physical Report ---
Date of Service April 20, 2024 Assessment & Plan (1) Sigmoid diverticulitis: Plan: Patient presented for LLQ abdominal pain on 04/20 Dx with acute diverticulitis 3 weeks ago No improvement, and patient reports progressing of symptoms Failure of outpatient treatment on Augmentin x 2 weeks, and ciprofloxacin and Flagyl p.o. x 2 days A/P CT on arrival revealed new site of acute diverticulitis; no free air or abscess No leukocytosis; afebrile Keep n.p.o. for now except for medications Zosyn 4.5 g IV q8h IVF with LR at 125 mL/hr x 3 L IV acetaminophen and Dilaudid as needed for pain IV antiemetics If worsening condition in 2-3 days, recommend repeat A/P CT to rule out abscess or perforation A.m. CBC, BMP (2) Diarrhea: Plan: Diarrhea began Monday 04/16 Given recent antibiotic use, will add on PCR stool/C. difficile testing (3) Gastroparesis: Plan: Per pharmacy, domperidone is not approved for use by FDA at this time; despite patient bring in medication, will hold for now (4) Constipation: Plan: Hold Motegrity (nonformulary) MiraLAX as needed (5) Depression: Plan: Continue nortriptyline (6) Hypertension: Plan: Continue verapamil (7) Hyperlipidemia: Plan: Continue rosuvastatin (8) BPH (benign prostatic hyperplasia): Plan: Continue tamsulosin Plan Disposition: Admit to [facility] DNR/DNI N.p.o. for now then advance to clear liquid diet in 24-48h VTE PPx: Lovenox 40mg SQ q24h History of Present Illness Chief Complaint: Abdominal pain, diverticulitis Primary Care Provider: DO Lauren Smithbell is a pleasant 78-year-old male with PMH of sigmoid diverticulitis, Liriano's esophagus, reflux, HTN, HLD, depression, CAD, BPH, and gastroparesis. He presented on 04/20 for abdominal pain around the umbilicus x 3 weeks. He was diagnosed with diverticulitis around 3 weeks ago and started on Augmentin outpatient. After completing a 2-week course, he saw no improvement, and was switched to ciprofloxacin and metronidazole on Wednesday 04/18. Patient reports he is still having abdominal pain. Initially he was having abdominal pain in the right lower quadrant, but reports that subsided after starting ciprofloxacin and metronidazole. The pain is now in his left lower quadrant. He describes as a sharp, constant pain that he rates 10/10 at worst, 6/10 at present. He has been taking Tylenol 500 mg as needed for the pain, as well as Aleve occasionally. No exacerbating symptoms such as movement or eating. Applying heat to his left lower quadrant helps to alleviate the pain. He has been tolerating solids, but does have a history of gastroparesis and needs to watch what he eats. He did have 1 episode of radiation of pain to the lower back last night. Patient took all of his regular morning medications today; no recent change in medications. Additionally, he notes that he fell both today and last Wednesday. No head strike. No syncope or LOC. He reports that he was walking and began to feel dizzy, and fell down. He does have a history of vertigo, and reports that this felt similar to past episodes. He also reports that he saw neurologist 8 weeks ago, and was placed on a medication to bring his blood pressure down. No sick contacts. Associated symptoms include diarrhea that began last Wednesday. Patient reports he can be on the toilet for hours at a time. He has had been having little BMs throughout the week, and reports he is still passing gas. Patient denies smoking, tobacco use, or recent alcohol use. Additional PMH includes history of Giardia 1 year ago, and a heart stent for which she takes aspirin daily. Patient is mildly bradycardic at 52 bpm at time of admission; vitals otherwise stable. ED course: Morphine sulfate 4 mg IV Zofran 4 mg IV NSS 500 mL IV ROS: Patient endorses lightheadedness and dizziness with movements, headaches/migraines (intermittent, ongoing), LLQ pain, nausea, and diarrhea (began last Wednesday). Patient denies fever, chills, night-sweats, changes in vision, chest pain, SOB, cough, vomiting, melena, blood in the urine/stool, burning with urination, dysuria, saddle anesthesia, or numbness/tingling in the arms or legs. Allergies Allergy/AdvReac Type Severity Reaction Status Date / Time Beta-Blockers Allergy Severe "SHOOK UP Verified 04/13/24 18:11 (Beta-Adrenergic Bloc FEELING" omeprazole Allergy Mild "made my Verified 04/13/24 18:11 head spin" levofloxacin Allergy Gastrointestinal Verified 04/13/24 18:11 Upset pantoprazole AdvReac Mild HALLUCINATI Verified 04/13/24 18:11 ONS Home Medications Medication Instructions Recorded Confirmed Type esomeprazole magnesium 40 mg 40 mg PO BID 11/23/18 04/20/24 History capsule,delayed release finasteride 5 mg tablet 5 mg PO HS 11/23/18 04/20/24 History nitroglycerin 0.4 mg sublingual 1 dose sublingual UD PRN Angina 11/23/18 04/20/24 History tablet nortriptyline 10 mg capsule 10 mg PO HS 11/23/18 04/20/24 History sertraline 50 mg tablet (Zoloft) 50 mg PO QAM 11/23/18 04/20/24 History tamsulosin 0.4 mg capsule (Flomax) 0.4 mg PO HS 05/08/20 04/20/24 History polyethylene glycol 3350 17 gram 17 g PO BID PRN Constipation 08/30/21 04/20/24 History oral powder packet aspirin 81 mg tablet,delayed 81 mg PO QAM 10/18/21 04/20/24 History release ondansetron 4 mg disintegrating 4 mg translingual Q8H PRN Nausea 10/18/21 04/20/24 History tablet And Vomiting prucalopride 2 mg tablet 2 mg PO QAM 10/18/21 04/20/24 History (Motegrity) albuterol sulfate 90 mcg/actuation 2 puff inhalation Q6H PRN 12/29/22 04/20/24 Rx aerosol inhaler shortness of breath or wheezing #8.5 grams umeclidinium 62.5 mcg-vilanterol 1 inh inhalation QAM #90 puffs 10/05/23 04/20/24 Rx 25 mcg/actuation powdr for inhalation (Anoro Ellipta) rimegepant 75 mg disintegrating 75 mg PO Q OTHER DAY PRN migraine 02/28/24 04/20/24 Rx tablet (Nurtec ODT) headache #8 tabs verapamil 120 mg 24 hr 120 mg PO QAM #30 caps 02/28/24 04/20/24 Rx capsule,extended release Domperidone 10 mg PO TID 04/13/24 04/20/24 History ranolazine 500 mg tablet,extended 500 mg PO BID 04/13/24 04/20/24 History release,12 hr rosuvastatin 10 mg tablet 10 mg PO HS 04/13/24 04/20/24 History Past Med/Surg History Problem List (Updated 04/20/24 @ 14:16 by Darnell Ko DO) Acute hyponatremia (Acute) Abdominal pain (Acute) Diverticulitis (Acute) Diarrhea Diverticulitis (Acute) Constipation (Acute) Abdominal pain (Acute) Nausea (Acute) Colitis (Acute) Muscular deconditioning Vertiginous migraine Chest pain Sigmoid diverticulitis (Acute) Right inguinal hernia Abdominal pain, lower (Acute) Hiatal hernia Elevated LFTs CAD (coronary atherosclerotic disease) Gastroparesis Nausea (Acute) Hyponatremia (Acute) BPH (benign prostatic hyperplasia) Depression Hyperlipidemia Hypertension Acid reflux Cough Abnormal PFT Dyspnea Liriano's esophagus (Chronic 11/15/12) Chest pain Gastrointestinal distress Encounter for pre-operative examination Medical History Abdominal pain, RLQ IBS (irritable bowel syndrome) Barretts esophagus GERD (gastroesophageal reflux disease) Prediabetes Anemia Hearing deficit Anxiety Migraine Surgical History History of cataract extraction with lens replacement LEFT EYE, 01/03/19 History of hemorrhoidectomy History of foot surgery left History of flexible sigmoidoscopy History of colonoscopy History of esophagogastroduodenoscopy (EGD) History of heart artery stent 11/2011 x1 @ [facility] History of cardiac cath 11/2011 @ [facility], 06/2012 @ [facility] [place]no stent Family History Father Family history of esophageal cancer Mother Family hx of colon cancer Other No family history of adverse response to anesthesia Social History Smoking Status: Never smoker Second Hand Exposure: Yes (parents smoked); Do You Dip or Chew Tobacco: No; Hx Alcohol Use: No Hx Substance Use: No Preferred Language: Ukrainian Communication Ability: Effective Director Federal Required: No Beliefs That Will Affect Care: None marital status: Current Living Situation: Spouse Other Information That Helps Us Care for You: No Feels Safe at Home: Yes Safety Concerns: Feels Safe At This Time Assistive Devices: Cane, Glasses, Hearing Aid - Bilateral and Walker Review of Systems Review of Systems: See HPI above Physical Exam Physical Exam: General: no acute distress; pleasant affect; non-toxic appearing; well- nourished; cooperative; SpO2 98% on RA HEENT: normocephalic, atraumatic; no scleral icterus; PERRLA; vision and hearing grossly intact Neck: supple; no lymphadenopathy; trachea midline Skin: warm, dry without signs of tenting; no cyanosis; no rashes, bruising, lesions, or erythema noted CV: chest wall NTP; RRR; S1/S2 normal; no murmurs/rubs/gallops; pulses intact and symmetric at radial, DP, and PT Lungs: no acute respiratory distress; symmetrical chest wall expansion; clear breath sounds across all lung garner w/o adventitious sounds; no wheezing ABD: RLQ and RUQ are mildly TTP; LUQ is NTP, and LLQ is very tender to palpation; BS present; no rebound/guarding; no distention; no rashes or bruising on the abdomen or flanks bilaterally MSK: no tics or fasciculations; no edema noted in the LEs b/l, nonerythematous Neuro: A&Ox3; normal mood and affect; fluent speech; no focal deficits; sensation grossly intact in the LEs b/l Results & Data Results & Data Vital Signs (Past 12 Hours) Vital Signs Temp Pulse Resp BP Pulse Ox O2 Del Method 04/20/24 10:06 53 L 18 04/20/24 09:30 52 L 15 98 04/20/24 09:26 136/72 04/20/24 09:26 136/72 04/20/24 08:57 97 Room Air 04/20/24 08:57 18 97 Room Air 04/20/24 08:51 53 L 14 04/20/24 08:30 22 04/20/24 08:19 57 L 04/20/24 08:18 56 L 11 L 04/20/24 08:08 36.2 C L 59 L 20 112/69 97 Room Air Laboratory Results Abnormal lab results 04/20/24 04/20/24 Range/Units 08:42 Unknown RBC 4.15 L (4.70-6.10) M/uL Hgb 13.2 L (14.0-18.0) g/dl POC Hgb 12.9 L (14.0-18.0) g/dl Hct 37.4 L (42.0-52.0) % POC Hct 38 L (42-52) % MPV 8.7 L (9.4-12.4) fL Neut # (Auto) 7.58 H (1.40-6.50) K/uL Lymph # (Auto) 0.91 L (1.20-3.40) K/uL Henderson # (Auto) 1.01 H (0.11-0.59) K/uL POC Sodium 131 L (135-144) mmol/L Sodium 131 L (136-145) mmol/L POC Chloride 98 L (101-112) mmol/L POC Total CO2 22 L (24-31) mmol/L Glucose 133 H (70-99(Fasting)) mg/dl POC Glucose (other) 137 H (70-99) mg/dl Diagnostic Findings Abdomen/Pelvis CT 04/20/24 08:21 CT OF THE ABDOMEN AND PELVIS WITH CONTRAST CLINICAL HISTORY: Abdominal pain ?worsening diverticulitis. COMPARISON STUDY: CT of the abdomen and pelvis April 13, 2024. TECHNIQUE: Following IV administration of 94 mL of Optiray, axial images of the abdomen and pelvis were obtained from the lung bases to the proximal femurs. Images were reviewed in the axial, sagittal, and coronal planes. IV contrast was administered without complication. Automated exposure control was utilized for the study. A dose lowering technique was utilized adhering to the principles of ALARA. CT DOSE: 1130.09 mGy.cm FINDINGS: There is a small hiatal hernia. No pneumatosis, free air or portal venous gas is present. The liver, spleen, adrenal glands and kidneys are unremarkable. There is moderate pancreatic glandular atrophy without pancreatic ductal dilatation. The gallbladder is mildly distended. There is no pericholecystic infiltration. Incidental note is made of multiple diverticula of the second portion the duodenum. There is extensive colonic diverticulosis. Mi ld inflammation adjacent to the proximal sigmoid colon is noted. There is no free air or abscess. The focus of wall thickening with pericolonic inflammation within the mid sigmoid colon on CT of April 13, 2024 has improved. Large amount of poorly formed stool within the colon is present. There is no evidence for a bowel obstruction. The appendix is normal. IMPRESSION: 1. Extensive sigmoid diverticulosis. Mild inflammation adjacent to the proximal sigmoid colon consistent with a new site of acute diverticulitis. The focus of diverticulitis within the mid sigmoid colon on prior CT has improved. No free air. No abscess. 2. Large amount of poorly formed stool within colon. No evidence for a bowel obstruction. 3. Small hiatal hernia. ACT 112: Negative or not required by law. Electronically signed by: Last Hughes M.D. 04/20/2024 9:31 AM Code Status & VTE Plan Code Status DNR/DNI VTE Prophylaxis Plan VTE Prophylaxis will be ordered: Yes Supervising Physician Co-Signing Physician Notes Patient seen and examined, chart reviewed, case discussed with Rex Morris PA-C and I agree with the assessment and plan as above except as otherwise noted Labs and images reviewed Gena is a 78-year-old male with a history of diverticulitis tx 3 weeks ago tx with 2 weeks of Augmentin with minimal to no improvement, conversion to cipro/flagyl two days ago which improved his RUQ pain but has had progressive LLQ pain. Repeat CTA/P with extensive sigmoid diverticulosis, mild inflammation at the proximal sigmoid colon consistent with new site of acute diverticulitis focus of mid sigmoid diverticulitis previously seen improving; no free air/abscess. Converted to Zosyn for worsening diverticulitis without perforation/abscess failing outpatient treatment. no underlying immune compromise. Agree with above. PG Care Time/CCT Total # of Minutes Spent Total Time Spent with Patient: Total time spent is greater than 50% in coordination of care (as documented) at patient's floor/unit and/or counseling patient: Coding [place] [address] INT INP/OBS CARE 3/75MIN Patient Type Established Medical Decision Making High Complexity Diagnoses Sigmoid diverticulitis K57.32 Diarrhea R19.7 Gastroparesis K31.84 Constipation K59.00 Constipation type: unspecified constipation type Depression F32.9 Hypertension I10 Hyperlipidemia E78.5 BPH (benign prostatic hyperplasia) N40.0 (4) Constipation Constipation type: unspecified constipation type Qualified Code(s): K59.00 - Constipation, unspecified
[2024-04-20] MEDS: PIPERACILLIN/TAZOBACTAM 4.5 GM/100 ML BAG IV ONE (10:58)
[2024-04-20] MEDS: LACTATED RINGER'S 1,000 ML IV SCH (11:30)
[2024-04-20] MEDS ORDERED: ALBUTEROL HFA 8 GM INHALER INH PRN (11:43)
[2024-04-20] MEDS ORDERED: HYDROmorphone INJ 0.5 MG/0.5 ML SYR IV PRN (11:43)
[2024-04-20] MEDS ORDERED: POLYETHYLENE (MIRALAX) 17 GM PACK PO PRN (11:43)
[2024-04-20] MEDS: HYDROmorphone INJ 1 MG/ML SYRINGE IV PRN (13:18)
[2024-04-20] MEDS ORDERED: DOMPERIDONE PO SCH (14:00)
[2024-04-20] MEDS: PIPERACILLIN/TAZOBACTAM 4.5 GM/100 ML BAG IV SCH (17:02)
[2024-04-20] MEDS: NON-FORMULARY MEDICATION PO SCH (18:39)
[2024-04-20] MEDS: PANTOprazole 40 MG TAB PO SCH (20:05)
[2024-04-20] MEDS: TAMSULOSIN HCL 0.4 MG CAP PO SCH (20:07)
[2024-04-20] MEDS: RANOLAZINE 500 MG ER TAB PO SCH (20:07)
[2024-04-20] MEDS: FINASTERIDE 5 MG TAB PO SCH (20:08)
[2024-04-20] MEDS: NORTRIPTYLINE HCL 10 MG CAP PO SCH (20:08)
[2024-04-20] MEDS: ROSUVASTATIN CALCIUM 10 MG TAB PO SCH (20:08)
[2024-04-20] MEDS: ENOXAPARIN INJ 40 MG/0.4 ML SYR SQ SCH (20:09)
[2024-04-20] MEDS: FAMOTIDINE 20 MG TAB PO SCH (21:04)
[2024-04-21 06:29] LABS: Basophils # (auto) 0.03 K/uL (0.00-0.20); Basophils % (auto) 0.4 %; Eosinophils # (auto) 0.31 K/uL (0.00-0.50); Eosinophils % (auto) 4.3 %; Hematocrit (blood only) 34.3 % (42.0-52.0); Hemoglobin 11.7 g/dl (14.0-18.0); Immature Granulocytes # (auto) 0.05 K/uL (0.01-0.20); Immature Granulocytes % (auto) 0.7 %; Lymphocytes # (auto) 1.01 K/uL (1.20-3.40); Lymphocytes % (auto) 14.1 %; Mean Corpuscular Hemoglobin 31.2 pg (25.0-34.0); Mean Corpuscular Hgb Conc 34.1 g/dL (32.0-36.0); Mean Corpuscular Volume 91.5 fL (80.0-100.0); Mean Platelet Volume 8.6 fL (9.4-12.4); Monocytes # (auto) 0.78 K/uL (0.11-0.59); Monocytes % (auto) 10.9 %; Neutrophils % (auto) 69.6 %; Platelet Count 246 K/uL (130-400); RDW Coefficient of Variation 12.4 % (11.5-14.5); RDW Standard Deviation 41.5 fL (36.4-46.3); Red Blood Count 3.75 M/uL (4.70-6.10); White Blood Count 7.18 K/ul (4.8-10.8)
[2024-04-21 06:55] LABS: Calcium 8.3 mg/dl (8.6-10.3); Creatinine Clr Calc Pharmacy 86.7 ml/min; Est GFR (African American) 106.1 ml/min; Est GFR (Non-African American) 91.6 ml/min
[2024-04-21] MEDS: ACETAMINOPHEN 1,000 MG/100 ML VIAL IV PRN (07:49)
[2024-04-21] MEDS: VERAPAMIL HCL 120 MG TABCR PO SCH (09:37)
[2024-04-21] MEDS: SERTRALINE HCL 50 MG TABLET PO SCH (09:39)
[2024-04-21] MEDS: ASPIRIN 81 MG ECTAB PO SCH (09:39)
[2024-04-21] MEDS: UMECLIDINIUM/VILANTEROL 62.5/25MCG 7 PUFFS/INHALER INH SCH (09:40)
[2024-04-21] MEDS: ONDANSETRON INJ 2 MG/ML 2 ML VIAL IV PRN (10:05)
--- NOTE | 2024-04-21 10:48 | Hospitalist Progress Note ---
Date of Service April 21, 2024 Assessment & Plan (1) Sigmoid diverticulitis: Plan: P/W worsening LLQ abdominal pain on 04/20 after being diagnosed with with acute sigmoid diverticulitis approximately 3 weeks ago, with no improvement and failure of outpatient treatment on Augmentin x 2 weeks, and ciprofloxacin and Flagyl p.o. x 2 days A/P CT on arrival revealed new site of acute diverticulitis in a different portion of the sigmoid colon without perforation or abscess. He also has significant amount of constipation throughout No leukocytosis and he has been afebrile. Pain is improved today after starting IV Zosyn but he is still not moved his bowels in 5 days I do feel his significant constipation is contributing to recurrent diverticulitis Will work on bowel regimen-start MiraLAX 17 g p.o. 3 times daily He can bring in his home Motegrity but he cannot take his domperidone here due to it not being FDA approved despite the fact that he is in a steady-okay to hold for now Stop nortriptyline which he has been on for years for IBS-this definitely contributes to constipation His verapamil can also contribute to constipation but will also be helpful in preventing migraines-can continue this Continue Zosyn Follow CBC, BMP Monitor for clinical improvement Okay to advance diet to clears today Continue IV fluids but reduce rate to 75 mL/h (2) Constipation: Plan: Severe and chronic. He does have some times where he will not go for many days and then sit on the toilet for 3 hours with loose stools after taking laxatives Discontinue nortriptyline Start MiraLAX 17 g p.o. 3 times daily Add on further laxatives as needed Cancel orders for stool studies as he does not have chronic diarrhea (3) Gastroparesis: Plan: Cannot resume home domperidone (he is in a study at [place] for this) due to it not being FDA approved Can resume home Motegrity and he will bring this in from home advised to STOP nortriptyline as this slows GI motility Low fiber diet (4) Acute hyponatremia: Plan: Na+ 131, likely from poor po intake recently with acute illness, nausea follow BMP (5) Vertiginous migraine: Plan: recently started on verapamil for prophylaxis-hold for bradycardia with heart rate less than 60 he has been on nortriptyline for years for IBS but stopping for constipation- watch for worsening of migraines although verapamil will help prevent these (6) CAD (coronary atherosclerotic disease): Plan: h/o PCI 2011 no acute issues continue home ASA, statin Plan COPD-mild, no acute issues, continue home inhaler GERD/Liriano's-he is intolerant of Protonix--> stop Pepcid here and he can bring in home Nexium BPH-no acute issues, continue FLomax, finasteride Hyperlipidemia-continue statin Depression-continue sertraline nortriptyline is for his h/o IBS but given side effect of constipation-recommend stopping this Disposition: continued stay MedSurg, place PT/OT consults for h/o falls and dizziness possibly related to migraines DNR/DNI VTE PPx: Lovenox 40mg SQ q24h Admission and Anticipated Discharge Date Admission Date: April 20, 2024 Subjective Patient has not moved his bowels in 5 days. He reports the pain in his left lower abdomen is definitely improved since yesterday. He has some chronic shortness of breath but nothing new. No chest pains. He is requesting that he be able to take his Nexium from home as he is adverse side effects to pantoprazole and the Pepcid is not helping He reports that he has been having falls but this has been ongoing for quite some time and is related to dizziness possibly from his migraines. His heart rate was low and his verapamil was held this morning Physical Exam Constitutional: WD/WN, vitals as above Neck: trachea midline, no thyromegaly Respiratory: normal respiratory effort, lungs clear to auscultation Cardiovascular: Rate/Rhythm: regular rhythm and + bradycardic Heart Sounds: no murmur Extremities: no edema Chest (Breasts): Chest: normal inspection of chest Gastrointestinal (Abdomen): Inspection/Auscultation: + abdomen distended (Mild) and normal bowel sounds Percussion/Palpation: + abdomen tender (Mild in LLQ and LUQ without guarding or rebound) and abdomen soft Musculoskeletal: Extremities: extremities normal to inspection; no cyanosis and no clubbing Skin: no rashes, warm and dry Neurologic: moves all extremities and awake; no focal motor deficits Psychiatric: A+Ox3, euthymic affect Lymphatic: no lymphedema Results & Data Results & Data Vital Signs (Past 12 Hours) Vital Signs Temp Pulse Pulse Resp BP Pulse Ox O2 Del Method 04/21/24 09:36 46 L 95 Room Air 04/21/24 08:06 36.4 C L 58 L 16 114/62 93 Room Air 04/21/24 07:58 Room Air Laboratory Results CBC, CMP reviewed PG Care Time/CCT Total # of Minutes Spent Total Time Spent with Patient: Total time spent is greater than 50% in coordination of care (as documented) at patient's floor/unit and/or counseling patient: Coding Level of Care Code 84278 SUB INP/OBS CARE 3/50MIN Diagnoses Sigmoid diverticulitis K57.32 Constipation K59.00 Constipation type: unspecified constipation type Gastroparesis K31.84 Acute hyponatremia E87.1 Vertiginous migraine G43.109 CAD (coronary atherosclerotic disease) I25.10 (2) Constipation Constipation type: unspecified constipation type Qualified Code(s): K59.00 - Constipation, unspecified
[2024-04-21] MEDS: POLYETHYLENE (MIRALAX) 17 GM PACK PO SCH (11:39)
[2024-04-21] MEDS ORDERED: NON-FORMULARY MEDICATION (Domperidone 10 MG) PO SCH (14:00)
[2024-04-21] MEDS: [UNRECOGNIZED DRUG - REMARK] SCH (17:08)
[2024-04-22 06:14] LABS: Basophils # (auto) 0.03 K/uL (0.00-0.20); Basophils % (auto) 0.6 %; Eosinophils # (auto) 0.25 K/uL (0.00-0.50); Eosinophils % (auto) 4.7 %; Hematocrit (blood only) 33.6 % (42.0-52.0); Hemoglobin 11.8 g/dl (14.0-18.0); Immature Granulocytes # (auto) 0.03 K/uL (0.01-0.20); Immature Granulocytes % (auto) 0.6 %; Lymphocytes # (auto) 1.13 K/uL (1.20-3.40); Lymphocytes % (auto) 21.1 %; Mean Corpuscular Hgb Conc 35.1 g/dL (32.0-36.0); Mean Corpuscular Volume 88.2 fL (80.0-100.0); Mean Platelet Volume 8.3 fL (9.4-12.4); Monocytes # (auto) 0.61 K/uL (0.11-0.59); Monocytes % (auto) 11.4 %; Neutrophils # (auto) 3.31 K/uL (1.40-6.50); Neutrophils % (auto) 61.6 %; Platelet Count 259 K/uL (130-400); RDW Coefficient of Variation 11.9 % (11.5-14.5); RDW Standard Deviation 38.4 fL (36.4-46.3); Red Blood Count 3.81 M/uL (4.70-6.10); White Blood Count 5.36 K/ul (4.8-10.8)
[2024-04-22 06:37] LABS: Calcium 8.5 mg/dl (8.6-10.3); Est GFR (African American) 103.7 ml/min; Est GFR (Non-African American) 89.5 ml/min; Magnesium 1.9 mg/dl (1.7-2.4); Potassium 3.7 mmol/L (3.5-5.1)
[2024-04-22] MEDS: RIZATRIPTAN BENZOATE 10 MG TAB PO ONE (11:08)
[2024-04-22 15:06] VITALS: PULSE 50; RESP 16; TEMP 97.7; O2SAT 97
--- NOTE | 2024-04-22 16:05 | Discharge Summary ---
Discharge Summary Date of Service April 22, 2024 Principal Dx & Hospital Course #1 = Principal Diagnosis (1) Sigmoid diverticulitis: P/W worsening LLQ abdominal pain on 04/20 after being diagnosed with with acute sigmoid diverticulitis approximately 3 weeks ago, with no improvement and failure of outpatient treatment on Augmentin x 2 weeks, and ciprofloxacin and Flagyl p.o. x [address] abdomen/pelvis on arrival revealed new site of acute diverticulitis in a different portion of the sigmoid colon from previous without perforation or abscess. He also has significant amount of constipation throughout No leukocytosis and he has been afebrile. He was admitted and started on IV Zosyn and placed on bowel rest with IV fluid hydration. He was improved in the first 24 hours and advance to a clear liquids diet. He was started on MiraLAX 3 times daily and had numerous (over 15) large volume bowel movements and felt much improved overall His diet was advanced to low fiber and he tolerated this without any difficulty and pain is pretty much resolved in the left lower quadrant I do feel his significant constipation is contributing to recurrent diverticulitis Stable for discharge to home to finish out 5 more days of Cipro and Flagyl for diverticulitis Continue MiraLAX 1-3 times a day as needed to keep bowels moving at least 1 or 2 times per day Discontinue nortriptyline which contributes to constipation Continue home Motegrity and domperidone for gastroparesis His verapamil can also contribute to constipation but will also be helpful in preventing migraines-can continue this He will need follow-up with GI as an outpatient and a follow-up colonoscopy in 6 to 8 weeks-I have given him a referral to [facility] (2) Constipation: Severe and chronic. He does have some times where he will not go for many days and then sit on the toilet for 3 hours with loose stools after taking laxatives Discontinue nortriptyline Continue MiraLAX 17 g p.o. 1-3 times daily as needed Follow-up with GI as an outpatient (3) Gastroparesis: Continue home domperidone (he is in a study at [place] for this) Continue home Motegrity advised to STOP nortriptyline as this slows GI motility Low fiber diet (4) Acute hyponatremia: Na+ 131, likely from poor po intake recently with acute illness, nausea Improved to 133 on the day of discharge and he is chronically low and this is around his baseline (5) Vertiginous migraine: recently started on verapamil for prophylaxis-it was held once for bradycardia but his heart rate is in the 40s and 50s and he is asymptomatic he has been on nortriptyline for years for IBS but stopping for constipation- watch for worsening of migraines (although verapamil will help prevent migraines) (6) CAD (coronary atherosclerotic disease): h/o PCI 2011 no acute issues continue home ASA, statin Plan COPD-mild, no acute issues, continue home inhaler GERD/Liriano's-continue Nexium, has surveillance EGDs BPH-no acute issues, continue FLomax, finasteride Hyperlipidemia-continue statin Depression-continue sertraline nortriptyline is for his h/o IBS but given side effect of constipation-recommend stopping this Dizzy episodes/falls-has been on midodrine for this per his transplant worker, but he is also on Flomax which could be contributing. Without Flomax, he definitely has significant urinary issues and should not stop this. He did fall while getting out of bed twice this past week because he reports he jumped out of bed quickly and tries to run to the bathroom in the middle of the night. Orthostatics here were positive with dropping from 124 to 103 systolic blood pressure from lying to standing, but he was asymptomatic with this. I do not think he needs to stay on the midodrine at this time but he can take it as needed for lightheadedness with standing. Also counseled on pumping his calves and crossing his legs and squeezing his thighs together prior to standing up. He did well with physical therapy here and does not need rehab Disposition: Stable for discharge to home. Discussed his care with his at the bedside on the day of discharge DNR/DNI VTE PPx: Lovenox 40mg SQ q24h was provided Notes For Next Care Provider Follow-up blood pressure and heart rate after discharge with discontinuing midodrine and with ongoing verapamil use and chronic bradycardia Follow-up colonoscopy and GI visit in 6 to 8 weeks-need to ensure that this gets scheduled Medication Changes From Visit See list below Admission HPI Per Admitting Provider Gena is a pleasant 78-year-old male with PMH of sigmoid diverticulitis, Liriano's esophagus, reflux, HTN, HLD, depression, CAD, BPH, and gastroparesis. He presented on 8/15 for abdominal pain around the umbilicus x 3 weeks. He was diagnosed with diverticulitis around 3 weeks ago and started on Augmentin outpatient. After completing a 2-week course, he saw no improvement, and was switched to ciprofloxacin and metronidazole on Wednesday 04/18. Patient reports he is still having abdominal pain. Initially he was having abdominal pain in the right lower quadrant, but reports that subsided after starting ciprofloxacin and metronidazole. The pain is now in his left lower quadrant. He describes as a sharp, constant pain that he rates 10/10 at worst, 6/10 at present. He has been taking Tylenol 500 mg as needed for the pain, as well as Aleve occasionally. No exacerbating symptoms such as movement or eating. Applying heat to his left lower quadrant helps to alleviate the pain. He has been tolerating solids, but does have a history of gastroparesis and needs to watch what he eats. He did have 1 episode of radiation of pain to the lower back last night. Patient took all of his regular morning medications today; no recent change in medications. Additionally, he notes that he fell both today and last Wednesday. No head strike. No syncope or LOC. He reports that he was walking and began to feel dizzy, and fell down. He does have a history of vertigo, and reports that this felt similar to past episodes. He also reports that he saw neurologist 8 weeks ago, and was placed on a medication to bring his blood pressure down. No sick contacts. Associated symptoms include diarrhea that began last Wednesday. Patient reports he can be on the toilet for hours at a time. He has had been having little BMs throughout the week, and reports he is still passing gas. Patient denies smoking, tobacco use, or recent alcohol use. Additional PMH includes history of Giardia 1 year ago, and a heart stent for which she takes aspirin daily. Patient is mildly bradycardic at 52 bpm at time of admission; vitals otherwise stable. ED course: Morphine sulfate 4 mg IV Zofran 4 mg IV NSS 500 mL IV ROS: Patient endorses lightheadedness and dizziness with movements, headaches/migraines (intermittent, ongoing), LLQ pain, nausea, and diarrhea (began last Wednesday). Patient denies fever, chills, night-sweats, changes in vision, chest pain, SOB, cough, vomiting, melena, blood in the urine/stool, burning with urination, dysuria, saddle anesthesia, or numbness/tingling in the arms or legs. Discharge Exam Constitutional WD/WN, vitals as above Neck trachea midline, no thyromegaly Respiratory normal respiratory effort, lungs clear to auscultation Cardiovascular Rate/Rhythm: regular rhythm and + bradycardic Heart Sounds: no murmur Extremities: no edema Chest (Breasts) Chest: normal inspection of chest Gastrointestinal (Abdomen) normal bowel sounds, soft, nontender, no hepatosplenomegaly Inspection/Auscultation: abdomen not distended Much improved abdominal exam Musculoskeletal Extremities: extremities normal to inspection; no cyanosis and no clubbing Skin no rashes, warm and dry Neurologic moves all extremities and awake; no focal motor deficits Psychiatric A+Ox3, euthymic affect Lymphatic no lymphedema Discharge Plan Discharge Items Patient Disposition: Home - Self-Care Reason For Visit: DIVERTICULITIS Discharge Diagnosis: Acute diverticulitis Constipation Condition on Discharge: Good Activity: Resume your previous activity Non-emergency contact: Primary Care Provider and Intensivist Call non-emergency contact if: you have any medication questions, your symptoms worsen, your pain is not controlled, you have a fever and your temperature is above 101 Follow-up/Referrals: Celestino Vazquez, [Primary Care Provider] - (Follow-up within 1 to 2 weeks after discharge.) Kal Tinajero MD [Physician] - (Call [facility] gastroenterology to schedule a colonoscopy as a new patient with Dr. Tinajero in 6 to 8 weeks) Diet: Low Fiber Addtl Attending Provider Instructions: Please finish out 1 more week of antibiotics with the Cipro and Flagyl that were already prescribed to you. Please continue to work on your bowel regimen to keep your bowels moving on a daily basis. Your nortriptyline was discontinued as this can contribute significantly to constipation. Your heart rate has naturally been low but the verapamil is likely making it a little lower than previous. This is okay as long as you are not getting lighthe aded. Please check your blood pressure and heart rate once or twice a day and let your doctor know if you are heart rates are dropping lower than 45 bpm or if your blood pressure is lower than 90 for the top number. You may not need to take the midodrine. I would only take it if you are feeling lightheaded with standing up and your blood pressure is less than 100 for the top number. Pending Studies at Discharge: No Stand-Alone Forms: My [facility], Smoking Cessation Medications and DC Order Prescriptions: Continued albuterol sulfate 90 mcg/actuation HFA aerosol inhaler 2 puff inhalation Q6H PRN (Reason: shortness of breath or wheezing) Qty: 8.5 0RF Anoro Ellipta 62.5-25 mcg/actuation blister with device 1 inh inhalation QAM Qty: 90 3RF tamsulosin [Flomax] 0.4 mg capsule 0.4 mg PO HS verapamil 120 mg capsule,ext rel. pellets 24 hr 120 mg PO QAM Qty: 30 2RF esomeprazole magnesium 40 mg Capsule,Delayed Release(Dr/Ec) 40 mg PO BID nitroglycerin 0.4 mg Tablet, Sublingual 1 dose sublingual UD PRN (Reason: Angina) sertraline [Zoloft] 50 mg Tablet 50 mg PO QAM finasteride 5 mg Tablet 5 mg PO HS aspirin 81 mg Tablet,Delayed Release (Dr/Ec) 81 mg PO QAM ondansetron 4 mg tablet,disintegrating 4 mg translingual Q8H PRN (Reason: Nausea And Vomiting) Motegrity 2 mg tablet 2 mg PO QAM polyethylene glycol 3350 17 gram Powder In Packet 17 g PO BID PRN (Reason: Constipation) ranolazine 500 mg tablet extended release 12 hr 500 mg PO BID rosuvastatin 10 mg tablet 10 mg PO HS Domperidone tablet 10 mg PO TID Rx Instructions: Takes before meals rizatriptan 10 mg tablet 10 mg PO DAILY PRN (Reason: Migraine Headache) metronidazole 500 mg tablet 500 mg PO TID ciprofloxacin HCl 500 mg tablet 500 mg PO BID Changed midodrine 5 mg tablet 5 mg PO BID PRN (Reason: For low blood pressure less than 90 systolic) Qty: 0 0RF Discontinued Nurtec ODT 75 mg tablet,disintegrating 75 mg PO Q OTHER DAY PRN (Reason: migraine headache) Qty: 8 2RF nortriptyline 10 mg Capsule 10 mg PO HS Discharge Orders: Discharge Order (Routine); Ordered 04/22/24 Ordered By: Ryanne Mejia Admission Data Admit Date/Time: 04/20/24 10:45 Attending Provider: Ryanne Mejia Admit Provider: Alex Crockett Primary Care Provider: Celestino Vazquez Other Providers: Alex Crockett Hospital Stay Data Consultations 04/20/24 10:34 ED Decision to Admit Stat Diagnostic Imagining Performed 04/20/24 08:21 CT Abd and Pelvis [CT abd pelvis IV con only] Stat Pending Results Patient Have Any Pending Studies at Discharge: No Discharge Instructions Given to Patient (Per Discharging Provider) Please finish out 1 more week of antibiotics with the Cipro and Flagyl that were already prescribed to you. Please continue to work on your bowel regimen to keep your bowels moving on a daily basis. Your nortriptyline was discontinued as this can contribute significantly to constipation. Your heart rate has naturally been low but the verapamil is likely making it a little lower than previous. This is okay as long as you are not getting light headed. Please check your blood pressure and heart rate once or twice a day and let your doctor know if you are heart rates are dropping lower than 45 bpm or if your blood pressure is lower than 90 for the top number. You may not need to take the midodrine. I would only take it if you are feeling lightheaded with standing up and your blood pressure is less than 100 for the top number. Total Time Total Time Spent Total Time Spent (In Minutes): 45 minutes Total Time Includes: Examination of the Patient, Discharge Planning and Medication Reconciliation Coding Level of Care Code 57050 INP/OBS DISCH >30 MIN Diagnoses Sigmoid diverticulitis K57.32 Constipation K59.00 Constipation type: unspecified constipation type Gastroparesis K31.84 Acute hyponatremia E87.1 Vertiginous migraine G43.109 CAD (coronary atherosclerotic disease) I25.10
--- OUTSIDE RECORDS SUMMARY | 2024-04-22 16:06 | External Medical Summary | Continuity of Care Document ---
Author Name Unknown Organization [facility] [address] [facility] [address] [place] [id number] Care Team Providers Care Supervisor Housecleaner Name Role Phone Celestino Vazquez Jonel Primary Care Physician [phone] Encounter [facility] [id number] Date(s): 04/18/24 - 04/18/24 [facility] [address] [address] [place] [phone] Encounter Diagnosis Body mass index [BMI] 25.0-25.9, adult(Discharge Diagnosis) - 04/18/24 Diverticulitis(Discharge Diagnosis) - 04/18/24 Fall at home(Discharge Diagnosis) - 04/18/24 Discharge Disposition: Home or Self Care Attending Physician: DO Slaughter Stephanie Marie Allergies, Adverse Reactions, Alerts Substance Criticality Severity Reaction Reaction Severity Status omeprazole 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 side effects Ac tive mesalamine loss of strenght Ac tive Protonix hallucinations Activ e beta blockers intolerance Acti ve Immunizations Given and Recorded Vaccine Date Status [...] 06/06/13 Give n SARS-CoV-2 (COVID-19) mRNA-vacc - [id number] 9/26/23 Recorded tetanus toxoids-diphtheria, Td (Adult) 06/09/21 Gi [...] vaccine, H1N1 9 09/26/09 Recorded 1Result Comment: [facility] Comment: 2020-02-26: Historical information-source unspecified [...] 3, PRN: as needed for wheezing, Pharmacy: [facility] #[id number] Start Date: 03/25/20 Status: Ordered Anoro Ellipta 62.5 mcg-25 mcg/inh inhalation powder 1 puff, inhaled, Daily Start Date: 09/18/20 Status: Ordered aspirin Start: 07/22/21 2:41:00 PM EST, 81 mg =, PO, Daily Start Date: 07/22/21 Status: Ordered Augmentin 875 mg-125 mg oral tablet Start: 04/04/24 5:08:00 PM EDT, amoxicillin 1 tab, PO, q12h, Disp# 20, Pharmacy: [facility]/pharmacy #[id number] Start Date: 04/04/24 Stop Date: 04/14/24 Status: Ordered betamethasone dipropionate 0.05% topical ointment Start: 12/03/22 4:04:00 PM EDT, 1 appl, topical, bid, Disp# 45 g, Refills: 1, To red rash twice a day Start Date: 12/03/22 Status: Ordered cetirizine 10 mg oral tablet Start: 03/08/24 2:18:00 PM EDT, 1 tab, PO, Daily, Disp# 90 tab, PRN: as needed for allergy symptoms, Pharmacy: [facility] Start Date: 03/08/24 Stop Date: 06/06/24 Status: Ordered ciprofloxacin 500 mg oral tablet Start: 04/18/24 4:34:00 PM EDT, 1 tab, PO, q12h, Disp# 14 tab, Pharmacy: [facility]/pharmacy #[id number] Start Date: 04/18/24 Stop Date: 04/25/24 Status: Ordered Flagyl 500 mg oral tablet Start: 04/18/24 4:35:00 PM EDT, 1 tab, PO, q8h, Disp# 21 tab, Pharmacy: [facility]/pharmacy #[id number] Start Date: 04/18/24 Stop Date: 04/25/24 Status: Ordered Flonase 50 mcg/inh nasal spray Start: 03/08/24 2:18:00 PM EDT, 1 spray, each nostril, bid, Disp# 16 g, Refills: 2, Pharmacy: [facility] Start Date: 03/08/24 Status: Ordered gabapentin 300 mg oral capsule Start: 07/07/23 9:14:00 AM EDT, 1 cap, PO, qPM, Disp# 90 cap, Refills: 3, Pharmacy: [facility] Start Date: 07/07/23 Stop Date: 07/01/24 Status: Ordered Maxalt 10 mg oral tablet Start: 03/29/24 4:00:00 PM EDT, 1 tab, PO, ONCE, Disp# 12 tab, Refills: 1, PRN: as needed for migraine headache, Pharmacy: [facility] Start Date: 03/29/24 Status: Ordered midodrine 5 mg oral tablet Start: 01/13/24 12:39:00 PM EDT, 1 tab, PO, bid, Disp# 60 tab, Refills: 11, Pharmacy: [facility]/pharmacy #[id number] Start Date: 01/13/24 Status: Ordered Motegrity 2 mg oral tablet Start: 11/17/23 12:11:00 PM EDT, 1 tab, PO, Daily, Disp# 30 tab, Refills: 5, Pharmacy: [facility]/pharmacy #[id number] Start Date: 11/17/23 Status: Ordered MOTILIUM 10MG Tablets Start: 01/26/22 1:30:00 PM EDT, MOTILIUM 10MG Tablets, 1 tab, PO, tid Start Date: 01/26/22 Status: Ordered NexIUM 40 mg oral delayed release capsule Start: 02/09/24 2:57:00 PM EDT, 1 cap, PO, bid, Disp# 180 cap, Refills: 3, , Pharmacy:[facility] Start Date: 02/09/24 Status: Ordered nitroglycerin 0.4 mg sublingual tablet Start: 05/03/23 12:52:00 PM EDT, 1 tab, SL, q5min, Disp# 25 tab, Refills: 3, PRN: as needed for chest pain, Pharmacy: [facility] Start Date: 05/03/23 Status: Ordered nortriptyline 10 mg oral capsule Start: 03/08/23 2:18:00 PM EDT, See Instructions, Disp# 90 cap, Refills: 3, TAKE 1 CAPSULE BY MOUTH AT BEDTIME, [facility] Start Date: 03/08/23 Status: Ordered Pepcid [...] Daily, Disp# 90 tab, Refills: 3, Pharmacy: [facility] Start Date: 08/02/23 Status: Ordered ranolazine 500 mg oral tablet, extended release Start: 03/20/24 9:14:00 AM EDT, See Instructions, Disp# 180 tab, Refills: 3, TAKE 1 TABLET TWICE DAILY, Pharmacy: [facility] Start Date: 03/20/24 Status: Ordered rosuvastatin 10 mg oral tablet Start: 05/17/23 9:38:00 PM EDT, 1 tab, PO, qhs, Disp# 90 tab, Refills: 3, Pharmacy: [facility] Start Date: 05/17/23 Status: Ordered tamsulosin 0.4 mg oral capsule Start: 08/04/23 5:31:00 PM EST, See Instructions, Disp# 180 cap, Refills: 3, TAKE 2 CAPSULES BY MOUTH DAILY, Pharmacy: [facility] Start Date: 08/04/23 Status: Ordered Voltaren 1% topical gel Start: 03/31/23 8:22:00 AM EDT, 1 appl, topical, qid, Disp# 100 g, Refills: 0, Apply to shoulder 4x/day (do not exceed 8g/day/joint), [id number] Start Date: 03/31/23 Stop Date: 04/30/23 Status: Ordered Zofran ODT 4 mg oral tablet, disintegrating Start: 05/03/23 1:41:00 PM EDT, 1 tab, PO, tid, Disp# 30 tab, Refills: 1, PRN: as needed for nausea/vomiting, Pharmacy: [facility]/pharmacy #[id number] Start Date: 05/03/23 Stop Date: 05/23/23 Status: Ordered Zoloft 50 mg oral tablet Start: 06/23/23 10:53:00 AM EDT, 1 tab, PO, Daily, Disp# 90 tab, Refills: 3, Pharmacy: [facility]/pharmacy#[id number] Start Date: 06/23/23 Status: Ordered Mental Status 04/18/24 Barriers to Learning one year Hearing de ficit, Other: bilateral hearing aids to both ears noted Mandatory Health Literacy Documentation Yes Health Literacy Communication Barriers N ever Primary Language Vietnamese Problem List Condition Confirmation Course Effective Dates [...] 03/08/24 Active Common wart Confirmed Active 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 08/09/2021 Diagnosis Diagnosis Type Effective Dates Health Status Clinical Service Informant Body mass index [BMI] 25.0-25.9, adult Discharge Diagnosis 04/18/24 Non-Specified Diverticulitis Discharge Diagnosis 04/18/24 Non-Specified Fall at home Discharge Diagnosis 04/18/24 Non-Specified Procedures Procedure Date Related Diagnosis Body [...] Completed YAG laser capsulotomy of lens, RE 16 2018 Completed Endoscopy, numerous 2017 Compl eted Flexible sigmoidoscopy 2017 Completed Colonoscopy 18 02/23/17 Completed Injection, Cervical Spine 07/2015 Completed Hemorrhoidectomy 01/04/13 Complete d Card [...] Most recent to oldest [Reference Range]: 1 Height 174 cm (04/18/24 3:27 PM) Patient Weight 78.5 kg (04/18/24 3:27 PM) Body Mass Index 25.93 kg/m2 (04/18/24 3:27 PM) Temperature [36.5-37.9 DegC] 36.7 DegC (04/18/24 3:27 PM) Heart Rate 52 bpm (04/18/24 3:27 PM) Respiratory Rate 12 br/min (04/18/24 3:27 PM) Blood Pressure 134/82mmHg (04/18/24 3:27 PM) Cuff Pulse Pressure 52 mmHg (04/18/24 3:27 PM) Social History Social History Type Response [...] Unknown 11/20/23 Unknown Unknown Active [facility] * Contributor_system, MUSE01: VERIFY, PERFORM Event Display: EKG Authored Date: Please click on link to see image. Patient Care team information Care Team Personnel Name: DO Vazquez Franklin J Position: Physician - Family Med Member Role: Primary Care Provider Address: [address] [address] [place] Name: MD Nunn Kimberly A Position: Physician - Ophthalmology Member Role: Lifetime Relationship Address: [address] [place] [id number] [place] Name: MD Lopes Jansie Position: Physician - Anesthesiologist Member Role: Lifetime Relationship Address: [address] [place] [id number] [place] Name: DO Braden Sameer Position: Resident Member Role: Lifetime Relationship Address: [address] [address] [place] Name: Saurabh Bunn Kyle Position: Pharmacist Member Role: Pharmacy - Lifetime Address: [address] [place], [place] [address] [id number] [place] Care Team Related Persons Name: PAU ARTEAGA
[2024-04-22 17:32] VITALS: BP 126/69
--- OUTSIDE RECORDS SUMMARY | 2024-04-28 13:05 | External Medical Summary | Continuity of Care Document ---
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 Name Role Phone Celestino Vazquez Primary Care Physician [phone] Encounter [facility] [id number] Date(s): 04/25/24 - 04/25/24 [facility] 0 [facility] 207 [facility] [address] [address] [place] [phone] Encounter Diagnosis Diverticulitis(Discharge Diagnosis) - 04/25/24 Orthostasis(Discharge Diagnosis) - 04/25/24 Discharge Disposition: Home or Self Care Attending Physician: DO Slaughter Stephanie Marie Allergies, Adverse Reactions, Alerts Substance Criticality Severity Reaction Reaction Severity Status omeprazole 3D ANIMATOR side effects Ac tive mesalamine loss of strenght Ac tive Protonix hallucinations Activ e beta blockers intolerance Acti ve Assessment and Plan Extracted from: Title:Office Visit Note Author:DO Slaughter Steph anie Marie Date:04/25/24 1.Diverticulitis Recurrent problem Goal: Resolution Data: Not in any Medical Center hospitalization discharge summary reviewed Plan:Continue Cipro and Flagyl to complete 1 week of posthospitalization p.o. antibiotic therapy. Additional 3-day prescription of Cipro and Flagyl sent to patient's pharmacytocomplete that 1 week course. Fortunately patient's symptoms are improving.Patient should have colonoscopy in 6 to 8 weeks post treatment. We discussed the importance of a routine bowel regiment and preventing constipation. Discussed appropriate titration of MiraLAX as needed. Encouraged adequate hydration. Return precautions provided. Signs or symptoms that would necessitate emergent evaluation in the emergency room discussed with patient in detail. Follow-up in 2weekor sooner as needed 2.Orthostasis Chronic condition, exacerbated Goal: Resolution Plan: Patient with history of orthostasis that has beenmanaged in the past with midodrine. He has not been taking midodrine since his hospitalization. His blood pressureisslightly low in office today with 92/62. Fortunately, he is asymptomatic and he deniesany chest pain or chest pressure. He has no significant shortness of breath. He denies any palpitations or fluttering. Recommend that patient restart taking the midodrine.He has f/u appointment scheduled with cardiology, Dr. Leyva,next week (05/01); encouraged him tof/u asscheduled.Return precautions provided. Signs/symptoms that would necessitate emergent evaluation in the ER reviewed with patient in detail including hypotensionor lightheadedness. Inclusive of time spent reviewing the medical record, [id number] time with the patient, and time spent in documentation, the total time spent on this encounter today was 45 minutes. Immunizations Given and Recorded Vaccine Date Status [...] 06/06/13 Give n SARS-CoV-2 (COVID-19) mRNA-vacc - [id number] 06/01/23 Recorded tetanus toxoids-diphtheria, Td (Adult) 06/09/21 [...] vaccine, H1N1 9 09/26/09 Recorded 1Result Comment: [facility] 2Result Comment: 2020-02-26: Historical information-source unspecified [...] 3, PRN: as needed for wheezing, Pharmacy: [facility]/pharmacy #[id number] Start Date: 03/25/20 Status: Ordered Anoro Ellipta 62.5 mcg-25 mcg/inh inhalation powder 1 puff, inhaled, Daily Start Date: 09/18/20 Status: Ordered aspirin Start: 07/22/21 2:41:00 PM EST, 81 mg =, PO, Daily Start Date: 07/22/21 Status: Ordered Augmentin 875 mg-125 mg oral tablet Start: 04/04/24 5:08:00 PM EDT, amoxicillin 1 tab, PO, q12h, Disp# 20, Pharmacy: [facility]/pharmacy #[id number] Start Date: 04/04/24 Stop Date: 04/14/24 Status: [...] Ordered ciprofloxacin 500 mg oral tablet Start: 04/25/24 12:05:00 PM EDT, 1 tab, PO, q12h, Disp# 6 tab, Take for an additional 3 days to complete 1 week of po abx therapy post hospitalization for diverticulitis., [id number] Start Date: 04/25/24 Stop Date: 04/28/24 Status: Ordered Flagyl 500 mg oral tablet Start: 04/25/24 12:06:00 PM EDT, 1 tab, PO, q8h, Disp# 9 tab, Take for an additional 3 days to complete 1 week of po abx therapy post hospitalization for diverticulitis., [id number] Start Date: 04/25/24 Stop Date: 04/28/24 Status: Ordered Flonase 50 mcg/inh nasal spray [...] bid, Disp# 60 tab, Refills: 11, [id number] Start Date: 01/13/24 Status: Ordered Motegrity 2 mg oral tablet Start: 11/17/23 12:11:00 PM EDT, 1 tab, PO, Daily, Disp# 30 tab, Refills: 5, Pharmacy: [facility]/pharmacy #[id number] Start Date: 11/17/23 Status: Ordered MOTILIUM [...] 1 CAPSULE BY MOUTH AT BEDTIME, Pharmacy: [facility] Start Date: 03/08/23 Status: Ordered Pepcid Start: [...] shoulder 4x/day (do not exceed 8g/day/joint), [id number] Start Date: 03/31/23 Stop Date: 04/30/23 Status: Ordered Zofran ODT 4 mg oral tablet, disintegrating Start: 05/03/23 1:41:00 PM EDT, 1 tab, PO, tid, Disp# 30 tab, Refills: 1, PRN: as needed for nausea/vomiting, [id number] Start Date: 05/03/23 Stop Date: 05/23/23 Status: Ordered Zoloft 50 mg oral tablet Start: 06/23/23 10:53:00 AM EDT, 1 tab, PO, Daily, Disp# 90 tab, Refills: 3, [id number] Start Date: 06/23/23 Status: Ordered Mental Status 04/25/24 Barriers to Learning one year Hearing de ficit, Other: bilateral hearing aids to both ears noted Mandatory Health Literacy Documentation Yes Health Literacy Communication Barriers N ever Primary Language Tajik Problem List Condition Confirmation Course Effective Dates [...] 03/08/24 Active Common wart Confirmed Active 1per certified procedural coder (jejc) audit 08/09/2021 Diagnosis Diagnosis Type Effective Dates Health Status Cl inical Service Informant Diverticulitis Discharge Diagnosis 04/25/24 Non-Specified Orthostasis Discharge Diagnosis 04/25/24 Non-Specified Procedures Procedure Date Related Diagnosis Body [...] lens, RE 16 2018 Completed Endoscopy, numerous 2018 Compl eted [...] to oldest [Reference Range]: 1 Patient Weight 78.7 kg (04/25/24 11:13 AM) Heart Rate 59 bpm (04/25/24 11:13 AM) Respiratory Rate 16 br/min (04/25/24 11:13 AM) Blood Pressure 92/62mmHg (04/25/24 11:13 AM) Social History Social History Type Response Smoking [...] Unknown 11/20/23 Unknown Unknown Active Unkn own FCM Outpt Note * DO Slaughter Stephanie Marie: PERFORM Event Display: FCM Outpt Note Authored Date: [id number] Chief Complaint 1 week follow up. Almost complete with medication course prescribed last week. Also has concerned with BP issues History of Present Illness Daniel a 78-year-old male presenting to the office today, accompanied by his , for 1 week follow-up of diverticulitis. At last visit, patientnotedcontinued mild persistent right lower quadrant abdominal tenderness. Hehad completed a 2-week course of Augmentin and we switched him toa 1 week course of Cipro with Flagyl. Unfortunately, patient continued to have worsening abdominal pain and, as instructed for worsening/persistent symptoms, he went to the ER on . Patient was admitted in the hospital through Wednesday. He was on IV antibiotic therapy for the diverticulitis. On dischargehe was advised to continuethe Cipro and Flagyl for 1 week. Patient presents today notingthat the abdominal pain is improving. He is continuing Cipro and Flagylas prescribed. He denies any fever, chills, nausea, or vomiting. It is noted that patient has a significant history of constipation. Suspicion that constipation is leading to the recurrent diverticulitis. During recent hospitalization, nortriptyline was discontinued due to possibility of that contributing to his constipation. He was also restarted on MiraLAX routinely in the hospital. His last bowel movement was 2 days ago. We discussed the importance of continued regular bowel regimenand preventing constipation. Patient's primary concern today ishis labile blood pressuresandrecurrent orthostasis. Patient is on both verapamil and midodrine. It is noted that he was prescribed verapamil by neurology for possible vertiginous migraines. Patient feels that the migraines were more attributed tobad prescription glasses and notes that his migraines improved/resolved after getting new prescriptionglasses.Patient denies any recent headache or migraine. He he notes that he was hypotensive at home yesterday and had associated lightheadedness. He has had no lightheadedness or dizzinesstoday. He has not been taking midodrine since discharge from the hospital.He denies any chest pain or chest pressure. He has no significant shortness of breath. He denies any palpitations or fluttering. He does have orthostatic symptoms.He has f/u appointment scheduled with cardiology, Dr. Leyva,next week (05/01). Physical Exam Vitals & Measurements HR:59(Monitored) RR:16 BP:92/62 SpO2:98% WT:78.7kg WT:78.700kg(Dosing) PHQ2 Data(Data Documented on:04/25/2024 11:13) Emotional health assessment NEGATIVE GENERAL: No acute distress. Well developed and well nourished. Vital signs reviewed as above. EYES: EOMI. Anicteric sclerae. HENT: Moist mucous membranes. RESPIRATORY: Clear to auscultation bilaterally.No wheezing, rales, orrhonchi. CARDIOVASCULAR: Regularrate and rhythm.No murmurs. ABDOMEN: Soft,lzx-upeldrqdtunf-[id number]. Normal bowel sounds. EXTREMITIES: No gross deformities. SKIN: Warm, dry. NEUROLOGIC: Alert and oriented. Normal speech. No gross focal neurological deficits. PSYCHIATRIC: Cooperative. Appropriate mood and affect. Assessment/Plan 1.Diverticulitis Recurrent problem Goal: Resolution Data: Not in any Medical Center hospitalization discharge summary reviewed Plan:Continue Cipro and Flagyl to complete 1 week of posthospitalization p.o. antibiotic therapy. Additional 3-day prescription of Cipro and Flagyl sent to patient's pharmacytocomplete that 1week course. Fortunately patient's symptoms are improving.Patient should have colonoscopy in 6 to 8 weeks post treatment. We discussed the importance of a routine bowel regiment and preventing constipation. Discussed appropriate titration of MiraLAX as needed. Encouraged adequate hydration. Return precautions provided. Signs or symptoms that would necessitate emergent evaluation in the emergency room discussed with patient in detail. Follow-up in 2weekor sooner as needed 2.Orthostasis Chronic condition, exacerbated Goal: Resolution Plan: Patient with history of orthostasis that has beenmanaged in the past with midodrine. He has not been taking midodrine since his hospitalization. His blood pressureisslightly low in office today with 92/62. Fortunately, he is asymptomatic and he deniesany chest pain or chest pressure. He has no significant shortness of breath. He denies any palpitations or fluttering. Recommend that patient restart taking the midodrine.He has f/u appointment scheduled with cardiology,Dr. Leyva,next week (05/01); encouraged him tof/u asscheduled.Return precautions provided. Signs/symptoms that would necessitate emergent evaluation in the ER reviewed with patient in detail including hypotensionor lightheadedness. Inclusive of time spent reviewing the medical record, [id number] time with the patient, and time spent in documentation, the total time spent on this encounter today was 45 minutes. Problem List/Past Medical History Ongoing Abrasion Actinic keratoses Altered bowel habits Anemia Anxiety Atherosclerosis of aorta Barretts esophagus Boil BPH (benign prostatic hyperplasia) Bradycardia, unspecified CAD Changing skin lesion Chest tightness Classical migraine Colitis Common wart Constipation Dermatitis Diabetes mellitus with diabetic dermatitis Diverticulosis Dry eye syndrome of both eyes Emphysema lung Full thickness macular hole of left eye Gastroesophageal reflux disease Gastroparesis Giardiasis H/O laser photocoagulation of retina H/O vitrectomy Head congestion Hemorrhoid Hiatal hernia History of diverticulitis History of mycosis fungoides Hyperlipidemia Inflamed seborrheic keratosis Influenza Left foot pain Localized edema Macular hole of left eye Major depression, recurrent, chronic Metamorphopsia Metatarsalgia of both feet Metatarsalgia, left foot Metatarsalgia, right foot Mycosis fungoides Open wound Palpitations Past history of procedure Plantar fasciitis, left Posterior vitreous detachment, right eye Pre-op exam Prostate enlargement Pseudophakia, both eyes Rash Right foot pain Right shoulder pain Seborrheic keratoses Shortness of breath Sinusitis Stress reaction of foot with routine healing Subconjunctival hemorrhage Type 2 diabetes mellitus with diabetic autonomic (poly)neuropathy Type 2 diabetes mellitus with unspecified diabetic retinopathy without macular edema Urinary tract infection, acute Xerosis cutis Resolved Community acquired pneumonia Conjunctivitis Diabetes mellitus with diabetic cataract Diverticulitis Major depression, single episode Petechiae Productive cough Procedure/Surgical History Otoscopy| Service Date: 2022hest X-ray| Service Date: 06/02/2022[place]oulder X-ray RT min 2V routine| Service Date: 02/13/2022have biopsy| Service Date: 12/31/2021KUB X-ray| Service Date: 08/30/2021T of abdomen and pelvis| Service Date: 08/27/2021PV - Pars plana vitrectomy LE| Service Date: 08/07/2021hest X-ray| Service Date: 07/02/2021Head CT| Service Date: 07/02/2021have biopsy and cauterization of skin| Service Date: 05/15/2021have biopsy and cauterization of skin| Service Date: 05/07/2021Hernia| Service Date: aser eye surgery BE| Service Date: 12/27/2020UA - Examination of eye under anesthetic BE| Service Date: 12/27/2020olonoscopy| Service Date: ataract surgery, RE| Service Date: 01/17/2019Cataract extraction and insertion of intraocular lens, LE| Service Date: 01/03/2019Shave biopsy of skin| Service Date: 11/21/2018YAG laser capsulotomy of lens, LE| Service Date: 2018YAG laser capsulotomy of lens, RE| Service Date: 2019Endoscopy, numerous| Service Date: 2017Flexible sigmoidoscopy| ServiceDate: 2018Colonoscopy| Service Date: 02/23/2017Injection, Cervical Spine| Service Date: 5Hemorrhoidectomy| Service Date: 01/04/2013Card cath and Stent placed| Service Date: 05/13/2012cardiac stent| Service Date: 11/05/2011Retina of right eye, lattice| Service Date: 2006Le foot Morales's Neurmoa surgery| Service Date: 1989 Medications albuterol(albuterol CFC free 90 mcg/inh MDI), 2 puff, inhaled, qid, PRN, 3 refills amoxicillin-clavulanate(Augmentin 875 mg-125 mg oral tablet), 1 tab, PO, q12h aspirin, 81 mg, PO, Daily betamethasone topical(betamethasone dipropionate 0.05% topical ointment), 1 appl, topical, bid, 1 refills bifidobacterium-lactobacillus(Probiotic Formula), 1 cap, PO, Daily bismuth subsalicylate(Pepto-Bismol 262 mg/15 mL oral suspension), 524 mg= 30 mL, PO, PRN cetirizine(cetirizine 10 mg oral tablet), 10 mg= 1 tab, PO, Daily, PRN ciprofloxacin(ciprofloxacin 500 mg oral tablet), 500 mg= 1 tab, PO, q12h diclofenac topical(Voltaren 1% topical gel), 1 appl, topical, qid esomeprazole(NexIUM 40 mg oral delayed release capsule), 40 mg= 1 cap, PO, bid, 3 refills famotidine(Pepcid), 20 mg, PO, qhs finasteride(Proscar 5 mg oral tablet), 5 mg= 1 tab, PO, Daily, 3 refills fluticasone nasal(Flonase 50 mcg/inh nasal spray), 1 spray, each nostril, bid, 2 refills gabapentin(gabapentin 300 mg oral capsule), 300 mg= 1 cap, PO, qPM, 3 refills metroNIDAZOLE(Flagyl 500 mg oral tablet), 500 mg= 1 tab, PO, q8h midodrine(midodrine 5 mg oral tablet), 5 mg= 1 tab, PO, bid, 11 refills nitroglycerin(nitroglycerin 0.4 mg sublingual tablet), 0.4 mg= 1 tab, SL, q5min, PRN, 3 refills nortriptyline(nortriptyline 10 mg oral capsule), See Instructions ondansetron(Zofran ODT 4 mg oral tablet, disintegrating), 4 mg= 1 tab, PO, tid, PRN, 1 refills prucalopride(Motegrity 2 mg oral tablet), 2 mg= 1 tab, PO, Daily, 5 refills ranolazine(ranolazine 500 mg oral tablet, extended release), See Instructions, 3 refills rizatriptan(Maxalt 10 mg oral tablet), 10 mg= 1 tab, PO, ONCE, PRN, 1 refills rosuvastatin(rosuvastatin 10 mg oral tablet), 10 mg= 1 tab, PO, qhs, 3 refills sertraline(Zoloft 50 mg oral tablet), 50 mg= 1 tab, PO, Daily, 3 refills tamSULOsin(tamsulosin 0.4 mg oral capsule), See Instructions, 3 refills umeclidinium-vilanterol(Anoro Ellipta 62.5 mcg-25 mcg/inh inhalation powder), 1 puff, inhaled, Daily unlisted medication(MOTILIUM 10MG Tablets), 1 tab, PO, tid Allergies Protonixhallucinations beta blockersintolerance mesalamineloss of strenght omeprazoleCNS side effects Social History Smoking Status Never smoked cigarettes Alcohol - Low Risk 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 Cataract: Mother and Father. Colon cancer..: Mother. Esophageal cancer..: Father. Heart disease: Father. Liver cancer..: Mother. Reflux: Father. Health Status Family Member(s) Immunizations Vaccine Date Status influenza virus vaccine, inactivated 06/16/2023 Given influenza virus vaccine, inactivated 06/01/2023 Recorded SARS-CoV-2 (COVID-19) mRNA-vacc - [id number] 06/01/2023 Recorded tetanus toxoids-diphtheria, Td (Adult) 06/09/2021 Given SARS-CoV-2 (COVID-19) mRNA BNT-162b2 vax 11/15/2020 Recorded Comments : 2022-02-13: Historical information-source unspecified SARS-CoV-2 (COVID-19) mRNA BNT-162b2 vax 10/18/2020 Recorded Comments : 2022-02-13: Historical information-source unspecified influenza virus vaccine, inactivated 06/08/2020 Recorded Comments : [facility] influenza virus vaccine, inactivated 06/14/2019 Given influenza virus vaccine, inactivated 05/07/2018 Recorded influenza virus vaccine, inactivated 06/01/2017 Given influenza virus vaccine, inactivated 06/19/2016 Given influenza virus vaccine, inactivated 06/10/2015 Given pneumococcal 13-valent vaccine 12/31/2014 Given Comments : Other : influenza virus vaccine, inactivated 06/04/2014 Given influenza virus vaccine, inactivated 06/06/2013 Given pneumococcal 23-valent vaccine 09/06/2011 Recorded pneumococcal 23-valent vaccine 07/15/2011 Recorded Comments : 2022-02-13: Historical information-source unspecified zoster vaccine live 04/09/2011 Recorded Comments : 2020-02-26: Historical information-source unspecified tetanus/diphtheria/pertuss, acel (Tdap) 09/30/2010 Recorded Comments : 2020-02-26: Historical information-source unspecified influenza virus vaccine, H1N1 09/26/2009 Recorded Comments : 2022-02-13: Historical information-source unspecified tetanus toxoids-diphtheria, Td (Adult) 10/08/2005 Recorded Comments : 2020-02-26: Historical information-source unspecified Recommendations Health Maintenance Pending(in the next year) OverDue Medicare Annual Wellness Visit due06/05/23and every 1year Adult Influenza Vaccine due03/05/24and every 1year Due Adult COVID-19 Vaccination due04/27/24Unknown Frequency Adult Social Determinants of Health Screening due04/27/24Unknown Frequency Diabetes Nephropathy Management due04/27/24Unknown Frequency Falls Plan of Care due04/27/24Unknown Frequency Shingles Vaccine due04/27/24One-time only Due In Future Diabetic Eye Exam not due until12/23/24and every 366day Diabetes Management A1c not due until03/09/25and every 366day Body Mass Index not due until04/26/25and every 366day Satisfied(in the past 1 year) Satisfied Adult Influenza Vaccine on06/16/23.Satisfied by ANDREA Barrett Cassidy Body Mass Index on04/18/24.Satisfied by MEGHA Warren Paul Diabetes Management A1c on03/08/24.Satisfied by Contributor_system, [email or web address] Lipid Screening on12/20/23.Satisfied by Contributor_system, [email or web address] Electronic Signature on File Electronically Reviewed/Signed by: Lenore Slaughter DO Author Signature Dt/Tm:04/27/2024 11:31 AM Department of Family Medicine SMB Patient Care team information Care Team Personnel Name: DO Vazquez Franklin J Position: Physician - Family Med Member Role: Primary Care Provider Address: [address] [place] [address] [place] Name: MD Nunn Kimberly A Position: Physician - Ophthalmology Member Role: Lifetime Relationship Address: [address] [place] [id number] [place] Name: MD Lopes Jansie Position: Physician - Anesthesiologist Member Role: Lifetime Relationship Address: [address] [place] [id number] [place] Name: DO Braden Sameer Position: Resident Member Role: Lifetime Relationship Address: [address] [address] [place] Name: Saurabh Bunn Kyle Position: Pharmacist Member Role: Pharmacy - Lifetime Address: [address] [place] [id number] Care Team Related Persons Name: PAU ARTEAGA"
== END 2024-04-22 17:50 | disposition home or self-care (01) | DRG 392 ==
LOC: ED 08:04 → 3W 08:04 → SUATTDRO 10:45 → OBSVTOIN 11:04 → 3W 11:28

== ENCOUNTER 2025-04-18 22:45 | Inpatient (IN) ==
--- NOTE | 2025-04-18 23:04 | Emergency Department Note ---
Impression & Plan Acute hyponatremia, Nausea, Sigmoid diverticulitis ED Provider Note Provider: Mesfin Alvaers MD CHIEF COMPLAINT: Abdominal discomfort, possible diverticulitis HISTORY OF PRESENT ILLNESS: Patient is a 79-year-old gentleman past medical history significant for gastroparesis, diverticulitis, CAD, hypertension, migraine, & BPH presenting here today with reporting that has been taking antibiotics without improvement of his symptoms. Symptoms initially started with abdominal discomfort mid lower abdomen over the weekend. Started Cipro and Flagyl on Wednesday. Since still with lower left lower abdominal discomfort. Has some ongoing issues with gastroparesis and states he is having some nausea at times. 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 No fevers. Does report a little bit of urinary frequency. States this is his third episode of diverticulitis this year but this time the Cipro and Flagyl medications are not helping. Wants to make sure nothing else is amiss. Tylenol and Advil at home have not helped much with the pain. Patient does report some constipation. PAST MEDICAL HISTORY: As noted above MEDICATIONS: Reviewed home medications SOCIAL HISTORY: PHYSICAL EXAM: GENERAL: alert and oriented in no acute distress on stretcher Head: normocephalic and atraumatic EYES: No injection, discharge or icterus. NECK: Trachea midline. ENT: Mucous membranes pink and moist. LUNGS: Airway patent. No retractions. Breath sounds clear HEART: Regular bradycardic rate and rhythm. No chest wall tenderness ABDOMEN: Soft not peritoneal or guarding with lower mid to left lower quadrant pain. No appreciable masses SKIN: Acyanotic, warm, dry, without rashes EXTREMITIES: Without swelling, tenderness or deformity NEUROLOGICAL: No focal deficits. No aphasia. No facial droop or slurred speech. Ambulatory. EK bpm sinus bradycardia. No PVC or PAC. No acute ST segment elevation or depression with a QTc of 411. CONTINUOUS CARDIAC MONITORING: was ordered and showed a heart rate of 50s bpm in sinus bradycardia Patient's laboratory studies and imaging reviewed. Differential includes Appendicitis, testicular torsion, infections, diverticulitis, UTI, obstruction, mesenteric ischemia, aortic pathology, inflammatory bowel disease, renal colic, PUD, pancreatitis, biliary pathology, hernia, volvulus, constipation, as well as other pathologies. IMPRESSION/MEDICAL DECISION MAKING: Patient well-appearing in no distress. Not tachycardic or febrile upon arrival. Some tenderness in the mid left lower quadrant. No appreciable masses. Has been on Cipro and Flagyl without improvement of symptoms. No trauma reported. Basic blood was obtained. EKG and troponin completed but seems less likely be cardiac in nature. Will obtain CT scan of the abdomen pelvis to evaluate if this is diverticulitis and possible stent or other pathology. Given some morphine and Zofran for pain and nausea. Blood work here tonight without leukocytosis or significant anemia. Patient is notable for hyponatremia of 120. This is acute but no significant renal dysfunction or other renal or electrolyte abnormality. No transaminitis or lipase elevation concerning for hepatitis or pancreatitis. CT imaging per radiology report questions colitis versus diverticulitis. No abscess or perforation noted. Given history seeming more consistent with diverticulitis. Discussed with patient given his significant hyponatremia as well as failure of outpatient antibiotics and recommend further care here at the hospital. Given a small normal saline fluid bolus 500 cc. He was agreeable to plan for care here and the hospitalist team was contacted. DIAGNOSIS: Diverticulitis, hyponatremia DISPOSITION: Hospitalist will evaluate Patient was agreeable with this plan. Past Med/Surg History Problem List (Updated 04/19/25 @ 01:41 by Mesfin Alvares M.D.) Nausea (Acute) Acute hyponatremia (Acute) Muscular deconditioning Vertiginous migraine Chest pain Right inguinal hernia Hiatal hernia Elevated LFTs CAD (coronary atherosclerotic disease) Gastroparesis Hyponatremia (Acute) Nausea (Acute) Abdominal pain, lower (Acute) Sigmoid diverticulitis (Acute) Acid reflux Cough Abnormal PFT Dyspnea Encounter for pre-operative examination BPH (benign prostatic hyperplasia) Depression Hypertension Hyperlipidemia Gastrointestinal distress Chest pain Liriano's esophagus (Chronic 11/15/12) Medical History History of COVID-19 Muscular deconditioning Hyperlipidemia Hypertension BPH (benign prostatic hyperplasia) Poor vision Depression with anxiety Dyspnea on exertion CAD (coronary artery disease) Constipation Gastroparesis Hiatal hernia Right inguinal hernia Hx of diverticulitis of colon (05/10/24) IBS (irritable bowel syndrome) Barretts esophagus GERD (gastroesophageal reflux disease) Prediabetes Anemia Hearing deficit Anxiety Migraine Surgical History Hx of eye surgery (2022) Hx of bilateral cataract extraction (2018) History of hemorrhoidectomy History of foot surgery History of flexible sigmoidoscopy History of colonoscopy History of esophagogastroduodenoscopy (EGD) History of heart artery stent (11/2011) History of cardiac cath (06/2012) Family History Father Family history of esophageal cancer Mother Family hx of colon cancer Other No family history of adverse response to anesthesia Social History Smoking Status: Never smoker Second Hand Exposure: No; Do You Dip or Chew Tobacco: No; Hx Alcohol Use: No Hx Substance Use: No Preferred Language: Moroccan Communication Ability: Effective Visual Impairment: Limited Hearing Ability: Use of Hearing Aid Language Specialist Required: No Beliefs That Will Affect Care: None marital status: Current Living Situation: Spouse Feels Safe at Home: Yes Assistive Devices: Glasses and Hearing Aid - Bilateral Allergies Allergies Allergy/AdvReac Type Severity Reaction Status Date / Time Beta-Blockers Allergy Severe "SHOOK UP Verified 02/05/25 14:08 (Beta-Adrenergic Bloc FEELING" levofloxacin Allergy Mild Gastrointestinal Verified 02/05/25 14:08 Upset omeprazole Allergy Mild "made my Verified 02/05/25 14:08 head spin" pantoprazole AdvReac Mild HALLUCINATI Verified 02/05/25 14:08 ONS Home Meds Home Medications Medication Instructions Recorded Confirmed finasteride 5 mg tablet 5 mg PO HS 11/23/18 04/18/25 nitroglycerin 0.4 mg sublingual 1 dose sublingual UD PRN Angina 11/23/18 04/18/25 tablet sertraline 50 mg tablet (Zoloft) 50 mg PO QAM 11/23/18 04/18/25 tamsulosin 0.4 mg capsule (Flomax) 0.4 mg PO QPM 05/08/20 04/18/25 polyethylene glycol 3350 17 gram 17 g PO BID PRN Constipation 08/30/21 04/18/25 oral powder packet aspirin 81 mg tablet,delayed 81 mg PO QAM 10/18/21 04/18/25 release ondansetron 4 mg disintegrating 4 mg translingual Q8H PRN Nausea 10/18/21 04/18/25 tablet And Vomiting ranolazine 500 mg tablet,extended 500 mg PO BID 04/13/24 04/18/25 release,12 hr rosuvastatin 10 mg tablet 10 mg PO HS 04/13/24 04/18/25 midodrine 5 mg tablet 5 mg PO BID PRN For low blood 06/08/24 04/18/25 pressure less than 90 systolic gabapentin 300 mg capsule 300 mg PO TID 09/09/24 04/18/25 metronidazole 500 mg tablet 500 mg PO Q8 01/02/25 04/18/25 ciprofloxacin HCl 500 mg tablet 500 mg PO Q12 04/18/25 04/18/25 famotidine 20 mg tablet 20 mg PO DAILY 04/18/25 04/18/25 lubiprostone 24 mcg capsule 24 mcg PO DAILY 04/18/25 04/18/25 Previous Rx's Medication Instructions Recorded albuterol sulfate 90 mcg/actuation 2 puff inhalation Q6H PRN 06/14/24 aerosol inhaler shortness of breath or wheezing #8.5 grams divalproex 500 mg tablet,delayed 500 mg PO BID 90 days #180 tabs 02/19/25 release topiramate 50 mg tablet 50 mg PO PM 90 days #90 tabs 02/19/25 ubrogepant 100 mg tablet (Ubrelvy) 100 mg PO .COMPLEX #10 tabs 02/19/25 umeclidinium 62.5 mcg-vilanterol 1 inh inhalation QAM #3 Inhalers 03/06/25 25 mcg/actuation powdr for inhalation (Anoro Ellipta) Results & Data (ED) Vital Signs Vital Signs - 24 hr 04/18/25 22:48 04/18/25 22:53 04/18/25 22:53 Temperature 36.8 C Temperature Source Temporal Artery Scan Pulse Rate 60 55 L Pulse Rate [Finger] 56 L Pulse Rhythm Regular Pulse Rhythm [Finger] Regular Pulse Strength [Finger] Normal Respiratory Rate 16 20 20 Respiratory Effort / Characteristics Non-Labored Spontaneous Non-Labored Spontaneous Respiratory Depth Normal Normal Respiratory Pattern Regular Regular Blood Pressure 163/71 H Blood Pressure [Right Arm] 166/84 H Blood Pressure Mean 101 Blood Pressure Mean [Right Arm] 111 Blood Pressure Position [Right Arm] Lying Pulse Oximetry 99 99 98 Oxygen Delivery Method Room Air Room Air Room Air Sepsis Recent Fever Within 48 Hours No Sepsis New/Unexplained Change in Mental Status N/A Sepsis Action Taken by Nursing No Action Required 04/18/25 23:05 04/19/25 00:45 Temperature Temperature Source Pulse Rate 56 L Pulse Rate [Finger] 52 L Pulse Rhythm Pulse Rhythm [Finger] Regular Pulse Strength [Finger] Normal Respiratory Rate 20 Respiratory Effort / Characteristics Non-Labored Respiratory Depth Normal Respiratory Pattern Blood Pressure Blood Pressure [Right Arm] 144/69 H Blood Pressure Mean Blood Pressure Mean [Right Arm] 94 Blood Pressure Position [Right Arm] Pulse Oximetry 98 Oxygen Delivery Method Room Air Sepsis Recent Fever Within 48 Hours Sepsis New/Unexplained Change in Mental Status Sepsis Action Taken by Nursing Laboratory Data 04/18/25 23:05 04/18/25 23:05 Lab Results 04/18/25 04/18/25 04/19/25 Range/Units 23:05 23:09 00:55 WBC 7.49 (4.8-10.8) K/ul RBC 4.37 L (4.70-6.10) M/uL Hgb 13.5 L (14.0-18.0) g/dl POC Hgb 13.9 L (14.0-18.0) g/dl Hct 38.3 L (42.0-52.0) % POC Hct 41 L (42-52) % MCV 87.6 (80.0-100.0) fL MCH 30.9 (25.0-34.0) pg MCHC 35.2 (32.0-36.0) g/dL RDW Std Deviation 39.8 (36.4-46.3) fL RDW Coeff of Mendoza 12.3 (11.5-14.5) % Plt Count 238 (130-400) K/uL MPV 8.7 L (9.4-12.4) fL Immature Gran % (Auto) 1.3 % Neut % (Auto) 58.6 % Lymph % (Auto) 17.6 % Hamilton % (Auto) 16.3 % Eos % (Auto) 5.7 % Baso % (Auto) 0.5 % Neut # (Auto) 4.38 (1.40-6.50) K/uL Lymph # (Auto) 1.32 (1.20-3.40) K/uL Hamilton # (Auto) 1.22 H (0.11-0.59) K/uL Eos # (Auto) 0.43 (0.00-0.50) K/uL Baso # (Auto) 0.04 (0.00-0.20) K/uL Immature Gran # (Auto) 0.10 (0.01-0.20) K/uL POC Sodium 120 L (135-144) mmol/L Sodium 120 L (136-145) mmol/L POC Potassium 3.9 (3.3-5.0) mmol/L Potassium 3.9 (3.5-5.1) mmol/L POC Chloride 85 L (101-112) mmol/L Chloride 88 L (98-107) mmol/L Carbon Dioxide 27 (21-32) mmol/L POC Total CO2 23 L (24-31) mmol/L Anion Gap 5 (3-11) POC Anion Gap 17.0 (16-25) mmol/L POC BUN 9 (7-18) mg/dl BUN 11 (6-23) mg/dl Creatinine 0.73 (0.6-1.4) mg/dl POC Creatinine 0.7 (0.6-1.3) mg/dl Est Cr Clr Drug Dosing 80.7 ml/min eGFR 93.13 BUN/Creatinine Ratio 15.1 (10-20) Glucose 139 H (70-99(Fasting)) mg/dl POC Glucose (other) 136 H (70-99) mg/dl Osmolality 256 L (280-300) mOsm/kg Calcium 8.6 (8.6-10.3) mg/dl POC Ioniz Calcium Mame 1.19 (1.12-1.32) mmol/l Magnesium 2.0 (1.7-2.4) mg/dl Total Bilirubin 0.7 (0.2-1.0) mg/dl AST 24 (13-39) U/L ALT 17 (7-52) U/L Alkaline Phosphatase 125 H (34-104) U/L Troponin I High Sens 5.7 (0-20) pg/ml Total Protein 6.4 (6.0-8.3) gm/dl Albumin 3.9 (3.4-5.0) gm/dl Globulin 2.5 (2.5-4.0) gm/dl Albumin/Globulin Ratio 1.6 (0.9-2) Lipase 61 (11-82) U/L Urine Osmolality 223 L (500-800) mOsm/kg Ur Random Sodium 23 mmol/L Urine Comment Valproic Acid 79 (50-100) mcg/ml Administered Medications Discontinued Medications Sodium Chloride (Nss) 500 mls @ 999 mls/hr IV .Q31M ONE Stop: 04/19/25 01:04 Last Infusion: 04/19/25 01:10 Dose: Infused Documented By: Admin: 04/19/25 00:43 Dose: 999 mls/hr Documented By: MAKAYLA Acetaminophen (Ofirmev) 1,000 mg in 100 mls @ 400 mls/hr IV NOW STA Stop: 04/19/25 00:48 Last Infusion: 04/19/25 01:10 Dose: Infused Documented By: Admin: 04/19/25 00:43 Dose: 400 mls/hr Documented By: MAKAYLA Piperacillin Sod/Tazobactam Sod (Zosyn) 4.5 gm in 100 mls @ 200 mls/hr IV NOW ONE; Protocol Stop: 04/19/25 01:34 Last Admin: 04/19/25 01:56 Dose: 200 mls/hr Documented By: MAKAYLA Ioversol (Optiray 320 100ml) 100 ml IV ONCE ONE Stop: 04/18/25 23:53 Last Admin: 04/18/25 23:52 Dose: 93 ml Documented By: ITA Morphine Sulfate (Morphine Sulfate 4 Mg/Ml 1 Ml Carp\\Vial) 4 mg IV NOW STA Stop: 04/18/25 23:00 Last Admin: 04/18/25 23:12 Dose: 4 mg Documented By: MAKAYLA Morphine Sulfate (Morphine Sulfate 2 Mg/Ml Carp) 2 mg IV NOW STA Stop: 04/19/25 01:49 Last Admin: 04/19/25 02:02 Dose: 2 mg Documented By: MAKAYLA Ondansetron HCl (Ondansetron Inj 2 Mg/Ml 2 Ml Vial) 4 mg IV NOW STA Stop: 04/18/25 23:00 Last Admin: 04/18/25 23:12 Dose: 4 mg Documented By: MAKAYLA Ondansetron HCl (Ondansetron Inj 2 Mg/Ml 2 Ml Vial) 4 mg IV NOW STA Stop: 04/19/25 00:35 Last Admin: 04/19/25 00:43 Dose: 4 mg Documented By: MAKAYLA Imaging Data Radiologist's Impression: Abdomen/Pelvis CT 04/18/25 22:53 EXAM: CT abd pelvis IV con only CLINICAL HISTORY: abd pain, divertic TECHNIQUE: Contiguous axial images were obtained from the level of the diaphragm to the pubic symphysis with intravenous contrast. Coronal and sagittal reconstructions were likewise performed and indicated to increase the sensitivity for detecting clinically relevant pathology. If IV contrast material had not been administered, the likelihood of detecting abnormalities relevant to the patient's condition would have been substantially decreased. CT scan was performed according to ALARA (as low as reasonable achievable). COMPARISON: None FINDINGS: The visualized lung bases are clear. Sliding hiatus hernia noted. The liver is normal in size and attenuation. No focal liver lesions are seen. There is no intra or extrahepatic biliary ductal dilatation. Hepatic vasculature is patent. The gallbladder is present. The spleen, pancreas, and adrenal glands are unremarkable. The kidneys are normal in size and attenuation. There is no hydronephrosis or perinephric fat stranding. No renal calculi or renal masses are identified. The ureters are normal in caliber and no ureteral calculi are seen. The bladder is normal in contour. Pelvic viscera are unremarkable. Uncomplicated small duodenal diverticulum is seen. Multiple small uncomplicated sigmoid colonic diverticulosis Diffuse concentric wall thickening is noted involving sigmoid colon- possibility of colitis changes likely. No focal or diffuse bowel wall thickening or evidence of bowel obstruction is identified. Abdominal and pelvic vasculature is patent. No adenopathy or fluid collections are seen. No aggressive appearing osseous lesions are identified. IMPRESSION: 1. Multiple small uncomplicated sigmoid colonic diverticulosis 2. Diffuse concentric wall thickening is noted involving sigmoid colon- possibility of colitis with diverticulitis. 3. Uncomplicated small duodenal diverticulum is seen. 4. Sliding hiatus hernia noted. Electronically signed by Desmond Trivedi 04-19-2025 01:04 AM Discharge Plan Visit Data Chief Complaint: GI Assessment Stated Complaint: DIVERTICULITIS ED Provider: Mesfin Alvares Discharge Problem: Acute hyponatremia, Nausea, Sigmoid diverticulitis Patient Disposition: Being Evaluated by Hospitalist Condition: Fair Forms Stand Alone Forms: My [facility] [employer] Prescriptions Prescriptions: No Action albuterol sulfate 90 mcg/actuation HFA aerosol inhaler 2 puff inhalation Q6H PRN (Reason: shortness of breath or wheezing) Qty: 8.5 0RF divalproex 500 mg tablet,delayed release (DR/EC) 500 mg PO BID 90 Days Qty: 180 2RF topiramate 50 mg tablet 50 mg PO PM 90 Days Qty: 90 2RF Ubrelvy 100 mg tablet 100 mg PO .COMPLEX Qty: 10 3RF Rx Instructions: 100 mg orally ONCE DAILY AT MIGRAINE ONSET. MAY REPEAT IN 2 HRS PRN; Anoro Ellipta 62.5-25 mcg/actuation blister with device 1 inh inhalation QAM Qty: 3 3RF tamsulosin [Flomax] 0.4 mg capsule 0.4 mg PO QPM metronidazole 500 mg tablet 500 mg PO Q8 Rx Instructions: ordered for 10 days on 04/18/25 nitroglycerin 0.4 mg Tablet, Sublingual 1 dose sublingual UD PRN (Reason: Angina) sertraline [Zoloft] 50 mg Tablet 50 mg PO QAM finasteride 5 mg Tablet 5 mg PO HS aspirin 81 mg Tablet,Delayed Release (Dr/Ec) 81 mg PO QAM ondansetron 4 mg tablet,disintegrating 4 mg translingual Q8H PRN (Reason: Nausea And Vomiting) polyethylene glycol 3350 17 gram Powder In Packet 17 g PO BID PRN (Reason: Constipation) ranolazine 500 mg tablet extended release 12 hr 500 mg PO BID rosuvastatin 10 mg tablet 10 mg PO HS gabapentin 300 mg capsule 300 mg PO TID ciprofloxacin HCl 500 mg tablet 500 mg PO Q12 Rx Instructions: ordered for 10 days on 04/18/25 famotidine 20 mg tablet 20 mg PO DAILY lubiprostone 24 mcg capsule 24 mcg PO DAILY midodrine 5 mg tablet 5 mg PO BID PRN (Reason: For low blood pressure less than 90 systolic) Referrals Referrals: Celestino Vazquez DO [Primary Care Provider] -
[2025-04-18] MEDS: MoRPHine SULFATE 4 MG/ML 1 ML CARP\\VIAL IV STA (23:12)
[2025-04-18] MEDS: ONDANSETRON INJ 2 MG/ML 2 ML VIAL IV STA (23:12)
[2025-04-18 23:16] LABS: Hematocrit (blood only) 38.3 % (42.0-52.0); Hemoglobin 13.5 g/dl (14.0-18.0); Immature Granulocytes # (auto) 0.10 K/uL (0.01-0.20); Immature Granulocytes % (auto) 1.3 %; Mean Corpuscular Hemoglobin 30.9 pg (25.0-34.0); Mean Corpuscular Volume 87.6 fL (80.0-100.0); Platelet Count 238 K/uL (130-400); RDW Standard Deviation 39.8 fL (36.4-46.3); Red Blood Count 4.37 M/uL (4.70-6.10); White Blood Count 7.49 K/ul (4.8-10.8)
[2025-04-18 23:33] LABS: Alanine Aminotransferase 17.0 U/L (7-52); Albumin Globulin Ratio 1.6 (0.9-2); Alkaline Phosphatase 125.0 U/L (34-104); Anion Gap 5.0 (3-11); Bilirubin,Total 0.7 mg/dl (0.2-1.0); Blood Urea Nitrogen 11.0 mg/dl (6-23); Calcium 8.6 mg/dl (8.6-10.3); Carbon Dioxide 27.0 mmol/L (21-32); Chloride 88.0 mmol/L (98-107); Creatinine Clr Calc Pharmacy 80.7 ml/min; Globulin 2.5 gm/dl (2.5-4.0); Glucose 139.0 mg/dl (70-99(Fasting)); Lipase 61.0 U/L (11-82); Potassium 3.9 mmol/L (3.5-5.1); Sodium 120.0 mmol/L (136-145); Total Protein 6.4 gm/dl (6.0-8.3)
[2025-04-18] MEDS: OPTIRAY 320 100ml IV ONE (23:52)
[2025-04-19] MEDS: ACETAMINOPHEN 1,000 MG/100 ML VIAL IV STA (00:43)
[2025-04-19] MEDS: ONDANSETRON INJ 2 MG/ML 2 ML VIAL IV STA (00:43)
[2025-04-19] MEDS: SODIUM CHLORIDE 0.9% 500 ML IV ONE (00:43)
--- NOTE | 2025-04-19 01:05 | CT Scan Report ---
EXAM: CT abd pelvis IV con only CLINICAL HISTORY: abd pain, divertic TECHNIQUE: Contiguous axial images were obtained from the level of the diaphragm to the pubic symphysis with intravenous contrast. Coronal and sagittal reconstructions were likewise performed and indicated to increase the sensitivity for detecting clinically relevant pathology. If IV contrast material had not been administered, the likelihood of detecting abnormalities relevant to the patient's condition would have been substantially decreased. CT scan was performed according to ALARA (as low as reasonable achievable). COMPARISON: None FINDINGS: The visualized lung bases are clear. Sliding hiatus hernia noted. The liver is normal in size and attenuation. No focal liver lesions are seen. There is no intra or extrahepatic biliary ductal dilatation. Hepatic vasculature is patent. The gallbladder is present. The spleen, pancreas, and adrenal glands are unremarkable. The kidneys are normal in size and attenuation. There is no hydronephrosis or perinephric fat stranding. No renal calculi or renal masses are identified. The ureters are normal in caliber and no ureteral calculi are seen. The bladder is normal in contour. Pelvic viscera are unremarkable. Uncomplicated small duodenal diverticulum is seen. Multiple small uncomplicated sigmoid colonic diverticulosis Diffuse concentric wall thickening is noted involving sigmoid colon- possibility of colitis changes likely. No focal or diffuse bowel wall thickening or evidence of bowel obstruction is identified. Abdominal and pelvic vasculature is patent. No adenopathy or fluid collections are seen. No aggressive appearing osseous lesions are identified. IMPRESSION: 1. Multiple small uncomplicated sigmoid colonic diverticulosis 2. Diffuse concentric wall thickening is noted involving sigmoid colon- possibility of colitis with diverticulitis. 3. Uncomplicated small duodenal diverticulum is seen. 4. Sliding hiatus hernia noted. Electronically signed by Desmond Trivedi 04-19-2025 01:04 AM
--- NOTE | 2025-04-19 01:36 | History & Physical Report ---
Date of Service April 19, 2025 Assessment & Plan (1) Acute hyponatremia: (2) Colitis: (3) Sigmoid diverticulitis: (4) Gastroparesis: Plan Patient is a 79-year-old male with past medical history of migraines, COPD, BPH, hyperlipidemia, IBS-C, diverticulosis. Patient presented after failing outpatient treatment of ciprofloxacin and Flagyl that he started on Monday 04/16 for diverticulitis. He has had numerous flareups this year and typically gets constipation with his flareups and significant abdominal pain. In the ED patient was found to have colitis with diverticulitis on abdominal imaging. He also was found to have a sodium of 120. Admitted for IV antibiotics and for sodium correction. #hyponatremia - hypovolemic hyponatremia with poor PO intake and vomiting. Na 120, serum osmo 256, urine osmo 223, urine na 23. Patient clinically dry. As ymptomatic. - UA pending - promote oral hydration - received 500 mL NSS bolus in ED - continue fluid resuscitation with NSS at 125 mL/hour x 2 L trend BMP - If NA fails to improve with IVF consider holding Depakote #Colitis with diverticulitis - failed out pt tx with Cipro and Flagyl. Recurrent flare ups with abd pain and constipation. AP CT showed diffuse concentric wall thickening is noted involving sigmoid colon - possibly colitis with diverticulitis. Non-septic on admission - no leukocytosis, afebrile, VSS. - Zosyn started in ED, continue - clear liquid diet, advance as tolerated - IVF as above - continue lubiprostone #gastroparesis - dx in 2019 with persistent intermittent nausea. Follows with GI. - Zofran prn - continue famotidine #anemia - Hgb 13.5, elevated from baseline, likely hemodilution with dehydration. #COPD - continue home inhalers. does not use oxygen at baseline. #migraines - follows with Neurology. Continue Depakote and topiramate. #CAD - continue asa, statin, and ranolazine #BPH - continue finasteride VTE ppx: SCDs, low risk and able to ambulate Dispo: med/tele Admission and Anticipated Discharge Date Admission Date: 04/19/25 History of Present Illness Chief Complaint: gi assessment Primary Care Provider: Celestino Vazquez DO Patient is a 79-year-old male with past medical history of migraines, COPD, BPH, hyperlipidemia, IBS-C, diverticulosis. Patient presented after failing outpatient treatment of ciprofloxacin and Flagyl that he started on Monday 04/16 for diverticulitis. He has had numerous flareups this year and typically gets constipation with his flareups and significant abdominal pain. In the ED patient was found to have colitis with diverticulitis on abdominal imaging. He also was found to have a sodium of 120. Admitted for IV antibiotics and for sodium correction. Patient seen at bedside with his present. he stated that he has had appr oximately 6 doses of his p.o. antibiotics for diverticulitis however has had persistent pain that was intolerable this evening so he came into the ED. It was unrelieved with Tylenol at home. He typically gets constipation and fatigue with his flareups which he does have, Unchanged from his typical baseline. He also reports 1-2 episodes of vomiting since Wednesday. He has had a poor appetite with low fluid intake and does feel dehydrated. Extremely dry mucous membranes on exam. He denies any headaches, dizziness, lightheadedness, chest pain, shortness of breath, fever, diarrhea, muscle aches. He did take his evening antibiotics prior to arrival however will be transitioned to IV antibiotics. He wishes to be DNR/DNI and has a living will stating this. Pain is still 6/10 at bedside after 4 mg IV morphine. Allergies Allergy/AdvReac Type Severity Reaction Status Date / Time Beta-Blockers Allergy Severe "SHOOK UP Verified 02/05/25 14:08 (Beta-Adrenergic Bloc FEELING" levofloxacin Allergy Mild Gastrointestinal Verified 02/05/25 14:08 Upset omeprazole Allergy Mild "made my Verified 02/05/25 14:08 head spin" pantoprazole AdvReac Mild HALLUCINATI Verified 02/05/25 14:08 ONS Home Medications Medication Instructions Recorded Confirmed Type finasteride 5 mg tablet 5 mg PO HS 11/23/18 04/18/25 History nitroglycerin 0.4 mg sublingual 1 dose sublingual UD PRN Angina 11/23/18 04/18/25 History tablet sertraline 50 mg tablet (Zoloft) 50 mg PO QAM 11/23/18 04/18/25 History tamsulosin 0.4 mg capsule (Flomax) 0.4 mg PO QPM 05/08/20 04/18/25 History polyethylene glycol 3350 17 gram 17 g PO BID PRN Constipation 08/30/21 04/18/25 History oral powder packet aspirin 81 mg tablet,delayed 81 mg PO QAM 10/18/21 04/18/25 History release ondansetron 4 mg disintegrating 4 mg translingual Q8H PRN Nausea 10/18/21 04/18/25 History tablet And Vomiting ranolazine 500 mg tablet,extended 500 mg PO BID 04/13/24 04/18/25 History release,12 hr rosuvastatin 10 mg tablet 10 mg PO HS 04/13/24 04/18/25 History midodrine 5 mg tablet 5 mg PO BID PRN For low blood 06/08/24 04/18/25 History pressure less than 90 systolic albuterol sulfate 90 mcg/actuation 2 puff inhalation Q6H PRN 06/14/24 04/18/25 Rx aerosol inhaler shortness of breath or wheezing #8.5 grams gabapentin 300 mg capsule 300 mg PO TID 09/09/24 04/18/25 History metronidazole 500 mg tablet 500 mg PO Q8 01/02/25 04/18/25 History divalproex 500 mg tablet,delayed 500 mg PO BID 90 days #180 tabs 02/19/25 04/18/25 Rx release topiramate 50 mg tablet 50 mg PO PM 90 days #90 tabs 02/19/25 04/18/25 Rx ubrogepant 100 mg tablet (Ubrelvy) 100 mg PO .COMPLEX #10 tabs 02/19/25 04/18/25 Rx umeclidinium 62.5 mcg-vilanterol 1 inh inhalation QAM #3 Inhalers 03/06/25 04/18/25 Rx 25 mcg/actuation powdr for inhalation (Anoro Ellipta) ciprofloxacin HCl 500 mg tablet 500 mg PO Q12 04/18/25 04/18/25 History famotidine 20 mg tablet 20 mg PO DAILY 04/18/25 04/18/25 History lubiprostone 24 mcg capsule 24 mcg PO DAILY 04/18/25 04/18/25 History Past Med/Surg History Problem List (Updated 04/19/25 @ 02:27 by Shilpi Johnson PA-C) Colitis Nausea (Acute) Acute hyponatremia (Acute) Muscular deconditioning Vertiginous migraine Chest pain Right inguinal hernia Hiatal hernia Elevated LFTs CAD (coronary atherosclerotic disease) Gastroparesis Hyponatremia (Acute) Nausea (Acute) Abdominal pain, lower (Acute) Sigmoid diverticulitis (Acute) Acid reflux Cough Abnormal PFT Dyspnea Encounter for pre-operative examination BPH (benign prostatic hyperplasia) Depression Hypertension Hyperlipidemia Gastrointestinal distress Chest pain Liriano's esophagus (Chronic 11/15/12) Medical History History of COVID-19 Muscular deconditioning Hyperlipidemia Hypertension BPH (benign prostatic hyperplasia) Poor vision Depression with anxiety Dyspnea on exertion CAD (coronary artery disease) Constipation Gastroparesis Hiatal hernia Right inguinal hernia Hx of diverticulitis of colon (05/10/24) IBS (irritable bowel syndrome) Barretts esophagus GERD (gastroesophageal reflux disease) Prediabetes Anemia Hearing deficit Anxiety Migraine Surgical History Hx of eye surgery (2022) Hx of bilateral cataract extraction (2018) History of hemorrhoidectomy History of foot surgery History of flexible sigmoidoscopy History of colonoscopy History of esophagogastroduodenoscopy (EGD) History of heart artery stent (11/2011) History of cardiac cath (06/2012) Family History Father Family history of esophageal cancer Mother Family hx of colon cancer Other No family history of adverse response to anesthesia Social History Smoking Status: Never smoker Second Hand Exposure: No; Do You Dip or Chew Tobacco: No; Hx Alcohol Use: No Hx Substance Use: No Preferred Language: Latvian Communication Ability: Effective Visual Impairment: Limited Hearing Ability: Use of Hearing Aid Proof Clerk Required: No Beliefs That Will Affect Care: None marital status: Current Living Situation: Spouse Feels Safe at Home: Yes Safety Concerns: Feels Safe At This Time Assistive Devices: Glasses and Hearing Aid - Bilateral Review of Systems Review of Systems: see HPI Physical Exam Physical Exam: The patient is awake, alert and oriented 3, well developed and well nourished, normocephalic and atraumatic, in no acute distress. Non-toxic appearing. HEENT- EOMI, mucous membranes dry. Hearing grossly intact. Heart-normal S1 and S2. No murmurs, rubs or gallops. Lungs-clear bilaterally, no respiratory distress, no accessory muscle use. Abdomen-normal bowel sounds and soft. No ascites noted. Tender LLQ. Extremities- no clubbing, cyanosis, or edema. Rheumatologic-normal range of motion. Psychiatric-normal affect. Results & Data Results & Data Vital Signs (Past 12 Hours) Vital Signs Temp Pulse Pulse Resp BP BP Pulse Ox 04/19/25 00:45 52 L 20 144/69 H 98 04/18/25 23:05 56 L 04/18/25 22:53 55 L 20 98 04/18/25 22:53 56 L 20 166/84 H 99 04/18/25 22:48 36.8 C 60 16 163/71 H 99 O2 Del Method 04/19/25 00:45 Room Air 04/18/25 23:05 04/18/25 22:53 Room Air 04/18/25 22:53 Room Air 04/18/25 22:48 Room Air Laboratory Results Reviewed CBC, CMP, magnesium, troponin, lipase, UA, serum osmole, urine osmole, urine sodium, valproic acid Diagnostic Findings reviewed abdomen pelvis CT Medications Administered edZosyn 4.5 twice daily, Zofran 4 Mg IV x 2, morphine 4 Mg IV, 500 mL NSS bolus, 1G IV tylenol ECG Additional Comments: sinus bradycardia, rate 56 QTc 411 Code Status & VTE Plan Code Status 04/19/25 VTE Prophylaxis Plan VTE Prophylaxis will be ordered: Yes Supervising Physician Co-Signing Physician Notes Attending addendum: I have physically seen this patient, have supervised the AURELIA's activities, and agree with the H&P unless as otherwise noted. Assessment and Plan: The patient is a 79-year-old male with a past medical history including migraines, COPD, BPH, hyperlipidemia, IBS-C, diverticulosis, muscular deconditioning, hiatal hernia, CAD, hyponatremia, BPH, depression, and Liriano's esophagus. He was seen in the outpatient office and started ciprofloxacin and Flagyl orally for diverticulitis on 04/16. He reports having had numerous flareups this year, and symptoms were not significantly improved after 2 days of antibiotics, and thus presents to the ED for assessment. CT scan of abdomen pelvis was significant for sigmoid colon colitis/diverticulitis. The patient was then referred for evaluation for admission Colitis with diverticulitis- Failure of outpatient treatment with oral Cipro and Flagyl Several flareups this year CT scan abdomen pelvis showed diffuse concentric wall thickening involving the sigmoid colon, possibly colitis with diverticulitis. Zosyn 4.5 g IV every 8 hours Clear liquid diet advance as tolerated NSS at 125 mL/h x 2 L Hyponatremia- Sodium 120 on admission Status post 500 mL normal saline bolus in the ED Patient appears significantly dehydrated, will place on NSS at 125 mL/h x 2 L Follow serial BMP CAD- Continue aspirin, ranolazine Migraines/mood disorder- Continue divalproex, gabapentin, midodrine, sertraline, and topiramate COPD- Continue usual inhalers BPH-continue finasteride Hyperlipidemia- Continue rosuvastatin PG Care Time/CCT Total # of Minutes Spent Total Time Spent with Patient: Total time spent is greater than 50% in coordination of care (as documented) at patient's floor/unit and/or counseling patient: Coding Level of Care Code 28704 INT INP/OBS CARE 3/75MIN Diagnoses Acute hyponatremia E87.1 Colitis K52.9 Sigmoid diverticulitis K57.32 Gastroparesis K31.84
[2025-04-19 01:55] LABS: Magnesium 2.0 mg/dl (1.7-2.4)
[2025-04-19] MEDS: PIPERACILLIN/TAZOBACTAM 4.5 GM/100 ML BAG IV ONE (01:56)
[2025-04-19] MEDS: MoRPHine SULFATE 2 MG/ML CARP IV STA (02:02)
[2025-04-19] MEDS ORDERED: ACETAMINOPHEN 325 MG TAB PO PRN (02:23)
[2025-04-19] MEDS ORDERED: DOCUSATE SODIUM 100 MG CAP PO PRN (02:23)
[2025-04-19] MEDS ORDERED: ALBUTEROL HFA 8 GM INHALER INH PRN (02:23)
[2025-04-19] MEDS ORDERED: MIDODRINE HCL 2.5 MG TAB PO PRN (02:23)
[2025-04-19] MEDS ORDERED: ONDANSETRON INJ 2 MG/ML 2 ML VIAL IV PRN (02:23)
[2025-04-19 04:50] LABS: Hematocrit (blood only) 35.4 % (42.0-52.0); Hemoglobin 12.9 g/dl (14.0-18.0); Immature Granulocytes # (auto) 0.07 K/uL (0.01-0.20); Immature Granulocytes % (auto) 0.9 %; Mean Corpuscular Hemoglobin 31.9 pg (25.0-34.0); Mean Corpuscular Volume 87.4 fL (80.0-100.0); Platelet Count 208 K/uL (130-400); RDW Standard Deviation 38.8 fL (36.4-46.3); Red Blood Count 4.05 M/uL (4.70-6.10); White Blood Count 7.40 K/ul (4.8-10.8)
[2025-04-19 05:27] LABS: Anion Gap 4.0 (3-11); Blood Urea Nitrogen 10.0 mg/dl (6-23); Calcium 8.5 mg/dl (8.6-10.3); Carbon Dioxide 25.0 mmol/L (21-32); Chloride 92.0 mmol/L (98-107); Creatinine Clr Calc Pharmacy 87.9 ml/min; Glucose 116.0 mg/dl (70-99(Fasting)); Potassium 4.1 mmol/L (3.5-5.1); Sodium 121.0 mmol/L (136-145)
[2025-04-19] MEDS: SODIUM CHLORIDE 0.9% 1,000 ML IV SCH (05:39)
[2025-04-19 06:31] LABS: Appearance Urine Clear (Clear); Glucose Urine UA Negative (Negative)
[2025-04-19] MEDS: PIPERACILLIN/TAZOBACTAM 4.5 GM/100 ML BAG IV SCH (08:04)
[2025-04-19] MEDS: ACETAMINOPHEN 1,000 MG/100 ML VIAL IV PRN (08:04)
[2025-04-19] MEDS: LUBIPROSTONE 8 MCG CAP PO SCH (08:11)
[2025-04-19] MEDS: ASPIRIN 81 MG ECTAB PO SCH (08:11)
[2025-04-19] MEDS: GABAPENTIN 300 MG CAP PO SCH (08:11)
[2025-04-19] MEDS: SERTRALINE HCL 50 MG TABLET PO SCH (08:12)
[2025-04-19] MEDS: FAMOTIDINE 20 MG TAB PO SCH (08:12)
[2025-04-19] MEDS: RANOLAZINE 500 MG ER TAB PO SCH (08:12)
[2025-04-19] MEDS: UMECLIDINIUM/VILANTEROL 62.5/25MCG 7 PUFFS/INHALER INH SCH (08:13)
[2025-04-19] MEDS: DIVALPROEX DELAY RELEASE 500 MG TAB PO SCH (08:13)
--- NOTE | 2025-04-19 10:54 | Electrocardiogram Report ---
Test Reason : Blood Pressure : */* mmHG Vent. Rate : 56 BPM Atrial Rate : 56 BPM P-R Int : 186 ms QRS Dur : 94 ms QT Int : 426 ms P-R-T Axes : 63 33 53 degrees QTcB Int : 411 ms Sinus bradycardia Low voltage QRS Borderline ECG When compared with ECG of 03-Jun-2022 06:25, No significant change was found Confirmed by Judah Brunson ([id number]) on 04/19/2025 10:54:06 AM Referred By: REFERRED SELF Confirmed By: Judah Brunson
[2025-04-19] MEDS: MoRPHine SULFATE 2 MG/ML CARP IV PRN (11:34)
[2025-04-19 12:53] LABS: Anion Gap 5.0 (3-11); Blood Urea Nitrogen 8.0 mg/dl (6-23); Calcium 8.2 mg/dl (8.6-10.3); Carbon Dioxide 27.0 mmol/L (21-32); Chloride 93.0 mmol/L (98-107); Creatinine Clr Calc Pharmacy 87.9 ml/min; Glucose 99.0 mg/dl (70-99(Fasting)); Potassium 3.7 mmol/L (3.5-5.1); Sodium 125.0 mmol/L (136-145)
[2025-04-19 13:34] VITALS: RESP 18
[2025-04-19] MEDS: ACETAMINOPHEN 1,000 MG/100 ML VIAL IV SCH (14:01)
--- NOTE | 2025-04-19 18:02 | Hospitalist Progress Note ---
Date of Service April 19, 2025 Assessment & Plan (1) Acute hyponatremia: (2) Colitis: Plan Patient is a 79-year-old male with past medical history of migraines, COPD, BPH, hyperlipidemia, IBS-C, diverticulosis. Patient presented after failing outpatient treatment of ciprofloxacin and Flagyl that he started on Monday 04/16 for diverticulitis. He has had numerous flareups this year and typically gets constipation with his flareups and significant abdominal pain. In the ED patient was found to have colitis with diverticulitis on abdominal imaging. He also was found to have a sodium of 120. Admitted for IV antibiotics and for sodium correction. #hyponatremia - hypovolemic hyponatremia with poor PO intake and vomiting. Na 120 on presentation. elevated to 21 this morning, serum osmo 256, urine osmo 223, urine na 23. Patient clinically dry. Asymptomatic. - promote oral hydration - Continue NSS @ 80ml/hr trend BMP q4hr - If NA fails to improve with IVF consider holding Depakote #Colitis with diverticulitis - -Stop Zosyn -Started on Ceftriaxone and Metronidazole -Advanced diet to regular diet #gastroparesis - dx in 2019 with persistent intermittent nausea. Follows with GI. - Zofran prn - continue famotidine #anemia - Hgb 13.5, elevated from baseline, likely hemodilution with dehydration. #COPD - continue home inhalers. does not use oxygen at baseline. #migraines - follows with Neurology. Continue Depakote and topiramate. #CAD - continue asa, statin, and ranolazine #BPH - continue finasteride VTE ppx: SCDs, low risk and able to ambulate Dispo: med/tele Admission and Anticipated Discharge Date Admission Date: April 19, 2025 Supervising Physician Co-Signing Physician Notes I personally examined the patient and verified all corcoran points of history and exam, discussed case, and agree with decision making with Dr Pardeep Rush feeling better. Tolerated regular food. Discussed case with his PCP. Discussed sodium with patient and . vitals noted nad heent nc at mmm breathing unlabored no accessory muscles good effort skin no rashes no pallor or icterus. diverticulitis - improving. continue current care hyponatremia - almost certainly from poor PO intake acutely. chronically more mild but etiology less clear. More than likely some low-grade degree of SIADH or reset osmostat. Does not seem to bother him chronically and his baseline of [id number]. Stop IV fluids tonight, check serum and urine awesome's as well as urine sodium in the morning to help establish a baseline. DVT proph - SCDs Hopefully home tomorrow with ongoing improvement. Subjective This morning patient reported abdominal pain controlled with current pain meds. Denies nausea, vomiting currently. His last Bowel Movement was 4 days ago. Denied any new concerns. Review of Systems Review of Systems: As per HPI Physical Exam 2 Physical Exam: The patient is awake, alert and oriented 3, well developed and well nourished, normocephalic and atraumatic, in no acute distress. Non-toxic appearing. HEENT- EOMI, mucous membranes dry. Hearing grossly intact. Heart-normal S1 and S2. No murmurs, rubs or gallops. Lungs-clear bilaterally, no respiratory distress, no accessory muscle use. Abdomen-normal bowel sounds and soft. No ascites noted. Tender LLQ. Extremities- no clubbing, cyanosis, or edema. Rheumatologic-normal range of motion. Psychiatric-normal affect. Results & Data Results & Data Vital Signs (Past 12 Hours) Vital Signs Temp Pulse Pulse Resp BP BP Pulse Ox 04/19/25 09:59 52 L 20 139/76 98 04/19/25 08:33 53 L 04/19/25 05:51 50 L 17 130/68 99 04/19/25 02:36 95 04/19/25 00:45 52 L 20 144/69 H 98 04/18/25 23:05 56 L 04/18/25 22:53 55 L 20 98 04/18/25 22:53 56 L 20 166/84 H 99 04/18/25 22:48 36.8 C 60 16 163/71 H 99 O2 Del Method 04/19/25 09:59 Room Air 04/19/25 08:33 04/19/25 05:51 Room Air 04/19/25 02:36 Room Air 04/19/25 00:45 Room Air 04/18/25 23:05 04/18/25 22:53 Room Air 04/18/25 22:53 Room Air 04/18/25 22:48 Room Air Resident Activity Tracking Resident Involvement: Resident Care Provided Care Provided: Adult Hospital Medicine
--- NOTE | 2025-04-19 18:11 | Billing Data ---
Date of Service April 19, 2025 Coding Level of Care Code 45125 SUB INP/OBS CARE 3MIN
[2025-04-19 19:39] LABS: Anion Gap 7.0 (3-11); Blood Urea Nitrogen 8.0 mg/dl (6-23); Calcium 8.1 mg/dl (8.6-10.3); Carbon Dioxide 24.0 mmol/L (21-32); Chloride 95.0 mmol/L (98-107); Creatinine Clr Calc Pharmacy 78.5 ml/min; Glucose 125.0 mg/dl (70-99(Fasting)); Potassium 4.3 mmol/L (3.5-5.1); Sodium 126.0 mmol/L (136-145)
[2025-04-19] MEDS: MELATONIN 3 MG TAB PO PRN (19:40)
[2025-04-19] MEDS: metroNIDAZOLE 500 MG TAB PO SCH (19:41)
[2025-04-19] MEDS: FINASTERIDE 5 MG TAB PO SCH (19:42)
[2025-04-19] MEDS: TOPIRAMATE 50 MG TAB PO SCH (19:44)
[2025-04-19] MEDS: ROSUVASTATIN CALCIUM 10 MG TAB PO SCH (19:44)
[2025-04-19] MEDS: TAMSULOSIN HCL 0.4 MG CAP PO SCH (19:45)
[2025-04-19 23:46] LABS: Anion Gap 5.0 (3-11); Blood Urea Nitrogen 10.0 mg/dl (6-23); Calcium 8.3 mg/dl (8.6-10.3); Carbon Dioxide 26.0 mmol/L (21-32); Chloride 95.0 mmol/L (98-107); Creatinine Clr Calc Pharmacy 66.9 ml/min; Glucose 109.0 mg/dl (70-99(Fasting)); Potassium 4.4 mmol/L (3.5-5.1); Sodium 126.0 mmol/L (136-145)
[2025-04-20 03:09] LABS: Hematocrit (blood only) 36.1 % (42.0-52.0); Hemoglobin 12.9 g/dl (14.0-18.0); Immature Granulocytes # (auto) 0.06 K/uL (0.01-0.20); Immature Granulocytes % (auto) 0.9 %; Mean Corpuscular Hemoglobin 31.2 pg (25.0-34.0); Mean Corpuscular Volume 87.4 fL (80.0-100.0); Platelet Count 223 K/uL (130-400); RDW Standard Deviation 40.5 fL (36.4-46.3); Red Blood Count 4.13 M/uL (4.70-6.10); White Blood Count 6.54 K/ul (4.8-10.8)
[2025-04-20 03:26] LABS: Anion Gap 6.0 (3-11); Blood Urea Nitrogen 10.0 mg/dl (6-23); Calcium 8.5 mg/dl (8.6-10.3); Carbon Dioxide 23.0 mmol/L (21-32); Chloride 97.0 mmol/L (98-107); Creatinine Clr Calc Pharmacy 70.1 ml/min; Glucose 111.0 mg/dl (70-99(Fasting)); Potassium 4.5 mmol/L (3.5-5.1); Sodium 126.0 mmol/L (136-145)
[2025-04-20] MEDS: SODIUM CHLORIDE 0.9% 1,000 ML IV SCH (04:58)
[2025-04-20] MEDS: cefTRIAXone SODIUM 2,000 MG/50 ML BAG IV SCH (08:24)
--- NOTE | 2025-04-20 10:17 | Hospitalist Progress Note ---
Date of Service April 20, 2025 Assessment & Plan (1) Acute hyponatremia: (2) Colitis: Plan Patient is a 79-year-old male with past medical history of migraines, COPD, BPH, hyperlipidemia, IBS-C, diverticulosis. Patient presented after failing outpatient treatment of ciprofloxacin and Flagyl that he started on Monday 04/16 for diverticulitis. He has had numerous flareups this year and typically gets constipation with his flareups and significant abdominal pain. In the ED patient was found to have colitis with diverticulitis on abdominal imaging. He also was found to have a sodium of 120. Admitted for IV antibiotics and for sodium correction. #hyponatremia - hypovolemic hyponatremia with poor PO intake and vomiting. Na 120 on presentation. elevated to 21 this morning, serum osmo 256, urine osmo 223, urine na 23. Patient clinically dry. Asymptomatic. - promote oral hydration - Continue NSS @ 80ml/hr for now. Stop at 11 PM - Urine sodium, urine osmolality and serum osmolality in the AM trend BMP q4hr - If continue to improve and Sodium around 132; then hopefully home tomorrow. #Colitis with diverticulitis - -Continue Ceftriaxone and Metronidazole -Advanced diet to regular diet #gastroparesis - dx in 2019 with persistent intermittent nausea. Follows with GI. - Zofran prn - continue famotidine #anemia - Hgb 13.5, elevated from baseline, likely hemodilution with dehydration. #COPD - continue home inhalers. does not use oxygen at baseline. #migraines - follows with Neurology. Continue Depakote and topiramate. #CAD - continue asa, statin, and ranolazine #BPH - continue finasteride VTE ppx: SCDs, low risk and able to ambulate Dispo: med/tele Admission and Anticipated Discharge Date Admission Date: April 19, 2025 Subjective This morning patient reported abdominal pain controlled with current pain meds. Pain overall better compared to yesterday but still persistent. Denies nausea, vomiting currently. His last Bowel Movement was 4 days ago. Denied any new concerns. Review of Systems Review of Systems: As per HPI Physical Exam Physical Exam: The patient is awake, alert and oriented 3, well developed and well nourished, normocephalic and atraumatic, in no acute distress. Non-toxic appearing. HEENT- EOMI, mucous membranes dry. Hearing grossly intact. Heart-normal S1 and S2. No murmurs, rubs or gallops. Lungs-clear bilaterally, no respiratory distress, no accessory muscle use. Abdomen-normal bowel sounds and soft. No ascites noted. Tender LLQ. Extremities- no clubbing, cyanosis, or edema. Rheumatologic-normal range of motion. Psychiatric-normal affect. Results & Data Results & Data Vital Signs (Past 12 Hours) Vital Signs Temp Pulse Pulse Resp BP BP Pulse Ox 04/20/25 07:54 36.5 C 52 L 18 103/66 96 04/20/25 07:32 46 L 04/20/25 02:39 36.5 C 49 L 18 140/66 96 04/19/25 22:19 36.5 C 52 L 18 125/72 96 O2 Del Method 04/20/25 07:54 Room Air 04/20/25 07:32 04/20/25 02:39 Room Air 04/19/25 22:19 Room Air Resident Activity Tracking Resident Involvement: Resident Care Provided Care Provided: Adult Hospital Medicine
--- NOTE | 2025-04-20 11:58 | Billing Data ---
Date of Service April 20, 2025 Coding Level of Care Code 77067 SUB INP/OBS CARE 3MIN
[2025-04-21 07:35] VITALS: O2SAT 97
[2025-04-21 08:44] LABS: Anion Gap 5.0 (3-11); Blood Urea Nitrogen 13.0 mg/dl (6-23); Calcium 8.2 mg/dl (8.6-10.3); Carbon Dioxide 24.0 mmol/L (21-32); Chloride 99.0 mmol/L (98-107); Creatinine Clr Calc Pharmacy 71.8 ml/min; Glucose 109.0 mg/dl (70-99(Fasting)); Potassium 4.0 mmol/L (3.5-5.1); Sodium 128.0 mmol/L (136-145)
--- NOTE | 2025-04-21 10:31 | Hospitalist Progress Note ---
Date of Service April 21, 2025 Assessment & Plan (1) Acute hyponatremia: (2) Colitis: Plan Patient is a 79-year-old male with past medical history of migraines, COPD, BPH, hyperlipidemia, IBS-C, diverticulosis. Patient presented after failing outpatient treatment of ciprofloxacin and Flagyl that he started on Monday 04/16 for diverticulitis. He has had numerous flareups this year and typically gets constipation with his flareups and significant abdominal pain. In the ED patient was found to have colitis with diverticulitis on abdominal imaging. He also was found to have a sodium of 120. Admitted for IV antibiotics and for sodium correction. #hyponatremia - hypovolemic hyponatremia with poor PO intake and vomiting. Na 120 on presentation. elevated to 21 this morning, serum osmo 256, urine osmo 223, urine na 23. Patient clinically dry. Asymptomatic. - promote oral hydration - Continue NSS @ 80ml/hr for now. Stop at 11 PM - Urine sodium, urine osmolality and serum osmolality in the AM trend BMP q4hr - If continue to improve and Sodium around 132; then hopefully home tomorrow. #Colitis with diverticulitis - -Continue Ceftriaxone and Metronidazole -Advanced diet to regular diet #gastroparesis - dx in 2019 with persistent intermittent nausea. Follows with GI. - Zofran prn - continue famotidine #anemia - Hgb 13.5, elevated from baseline, likely hemodilution with dehydration. #COPD - continue home inhalers. does not use oxygen at baseline. #migraines - follows with Neurology. Continue Depakote and topiramate. #CAD - continue asa, statin, and ranolazine #BPH - continue finasteride VTE ppx: SCDs, low risk and able to ambulate Dispo: med/tele Admission and Anticipated Discharge Date Admission Date: April 19, 2025 Subjective This morning patient reported abdominal pain controlled with current pain meds. Pain overall better compared to yesterday but still persistent. Denies nausea, vomiting currently. His last Bowel Movement was 4 days ago. Denied any new concerns. Results & Data Results & Data Vital Signs (Past 12 Hours) Vital Signs Temp Pulse Pulse Resp BP BP Pulse Ox 04/21/25 09:00 48 L 04/21/25 07:34 36.3 C L 45 L 18 100/62 97 04/21/25 03:21 36.5 C 48 L 18 113/70 96 08/15/25 23:43 50 L 04/20/25 23:18 36.6 C 51 L 18 125/66 98 O2 Del Method 04/21/25 09:00 04/21/25 07:34 Room Air 04/21/25 03:21 Room Air 04/20/25 23:43 04/20/25 23:18 Room Air
[2025-04-21 11:19] VITALS: TEMP 97.7
--- NOTE | 2025-04-21 12:18 | Discharge Summary ---
Date of Service April 21, 2025 Admission HPI Per Admitting Provider Patient is a 79-year-old male with past medical history of migraines, COPD, BPH, hyperlipidemia, IBS-C, diverticulosis. Patient presented after failing outpatient treatment of ciprofloxacin and Flagyl that he started on Monday 04/16 for diverticulitis. He has had numerous flareups this year and typically gets constipation with his flareups and significant abdominal pain. In the ED patient was found to have colitis with diverticulitis on abdominal imaging. He also was found to have a sodium of 120. Admitted for IV antibiotics and for sodium correction. Patient seen at bedside with his present. he stated that he has had approximately 6 doses of his p.o. antibiotics for diverticulitis however has had persistent pain that was intolerable this evening so he came into the ED. It was unrelieved with Tylenol at home. He typically gets constipation and fatigue with his flareups which he does have, Unchanged from his typical baseline. He also reports 1-2 episodes of vomiting since Wednesday. He has had a poor appetite with low fluid intake and does feel dehydrated. Extremely dry mucous membranes on exam. He denies any headaches, dizziness, lightheadedness, chest pain, shortness of breath, fever, diarrhea, muscle aches. He did take his evening antibiotics prior to arrival however will be transitioned to IV antibiotics. He wishes to be DNR/DNI and has a living will stating this. Pain is still 6/10 at bedside after 4 mg IV morphine. Admission Exam Per Admitting Provider The patient is awake, alert and oriented 3, well developed and well nourished, normocephalic and atraumatic, in no acute distress. Non-toxic appearing. HEENT- EOMI, mucous membranes dry. Hearing grossly intact. Heart-normal S1 and S2. No murmurs, rubs or gallops. Lungs-clear bilaterally, no respiratory distress, no accessory muscle use. Abdomen-normal bowel sounds and soft. No ascites noted. Tender LLQ. Extremities- no clubbing, cyanosis, or edema. Rheumatologic-normal range of motion. Psychiatric-normal affect. Principal Diagnosis Diverticulitis, Hyponatremia Discharge Exam General: patient resting comfortably, NAD, non-toxic in appearance, answers questions appropriately. Skin: warm, dry, intact HEENT: NC/AT, anicteric sclera, conjunctiva without injection, moist mucus membranes. Heart: +S1/S2, regular, no m/r/g Lungs: equal air entry bilaterally, no rales/rhonchi/wheezes Abd: +BS, soft, NT/ND Ext: warm, no clubbing/cyanosis or edema Neuro: nonfocal, speech intact, no facial droop, moving all extremities. Discharge Data Allergies Allergy/AdvReac Type Severity Reaction Status Date / Time Beta-Blockers Allergy Severe "SHOOK UP Verified 02/05/25 14:08 (Beta-Adrenergic Bloc FEELING" levofloxacin Allergy Mild Gastrointestinal Verified 02/05/25 14:08 Upset omeprazole Allergy Mild "made my Verified 02/05/25 14:08 head spin" pantoprazole AdvReac Mild HALLUCINATI Verified 02/05/25 14:08 ONS Consultations 04/19/25 01:10 ED Decision to Admit Stat Ordered Studies 04/18/25 22:53 CT abd pelvis IV con only Stat Hospital Course (1) Acute hyponatremia: (2) Colitis: Plan Patient is a 79-year-old male with past medical history of migraines, COPD, BPH, hyperlipidemia, IBS-C, diverticulosis. Patient presented after presenting with severe abdominal pain related to diverticulitis after outpatient treatment with ciprofloxacin and Flagyl that he started on Monday 04/16 for diverticulitis. He has had numerous flareups this year and typically gets constipation with his flareups and significant abdominal pain. In the ED patient was found to have colitis with diverticulitis on abdominal imaging. He also was found to have a sodium of 120. Admitted for IV antibiotics and for sodium correction. #hyponatremia - hypovolemic hyponatremia with poor PO intake and vomiting. Na 120 on presentation. elevated to 21 this morning, serum osmo 256, urine osmo 223, urine na 23. Patient clinically dry. Asymptomatic. - promote oral hydration - Continue NSS @ 80ml/hr for now. Stop at 11 PM - Urine sodium, urine osmolality and serum osmolality in the AM trend BMP q4hr - If sodium continue to improve; then hopefully home tomorrow. #Colitis with diverticulitis - -Continue Ceftriaxone and Metronidazole -Advanced diet to regular diet #gastroparesis - dx in 2019 with persistent intermittent nausea. Follows with GI. - Zofran prn - continue famotidine #anemia - Hgb 13.5, elevated from baseline, likely hemodilution with dehydration. #COPD - continue home inhalers. does not use oxygen at baseline. #migraines - follows with Neurology. Continue Depakote and topiramate. #CAD - continue asa, statin, and ranolazine #BPH - continue finasteride Total Time Total Time Spent Total Time Spent (In Minutes): less than 30 Discharge Plan Discharge Items Patient Disposition: Home - Self-Care Reason For Visit: HYPONATREMIA, DIVERTICULITIS Discharge Diagnosis: Hyponatremia, Diverticulitis Condition on Discharge: Fair Activity: Per Instructions section Non-emergency contact: Primary Care Provider Call non-emergency contact if: your symptoms worsen Follow-up/Referrals: Celestino Vazquez, [Primary Care Provider] - Diet: Regular Addtl Attending Provider Instructions: You were admitted to the hospital for recurrent diverticulitis with severe abdominal pain and hyponatremia or low sodium levels. You were treated with IV ceftriaxone and metronidazole while admitted to the hospital and your pain quickly resolved. While at the hospital you were able to tolerate food and fluids well and today when seen your pain had reduced to about a 1/10. It will be important to continue antibiotic therapy for your diverticulitis for a total antibiotic course of 10 days, this course should end on WednesdayApril 27. You will be prescribed an antibiotic called Cefdinir and another antibiotic you are familiar with called Flagyl or metronidazole, both to be taken by mouth. You will take Cefdinir twice per day and Metronidazole 3 times per day for a total course lasting through WednesdayApril 27. The details of this course of antibiotics will be detailed in bold below. It is likely that your hyponatremia or low sodium levels were due to poor oral intake. As this slowly began to resolve back to your baseline with consistent food intake, it will be important moving forward for you to try to eat 3 meals per day as able. You normally have a lower baseline sodium level around 132 and as this infection clears and you are able to continue tolerating oral intake I expect that your sodium level will normalize quickly. Please continue to try to eat meals consistently and you may use your medication for gastroparesis and motility to help you achieve proper oral intake. A discharge summary will be sent to your primary care physician to ensure continuity of care. Please bring this discharge summary with you to your next office appointment so that your provider can review it at that time. Follow-up appointments: Make a follow-up appointment with your PCP within the next week. It is very important that you follow up with them shortly after discharge from the hospital. Medications: Your medication list has been reviewed and reconciled upon discharge to ensure accuracy and continuity of care. An updated list of all your medications is included with your hospital discharge paperwork. Please review this list closely, and make note of any changes. We sent a new medication called Metronidazole to your pharmacy. Take Metronidazole (Flagyl) 500mg one tablet 3 times daily for the next 6 days for a total 10 day course. Please take tablets approximately 6-8 hours apart and with food to avoid GI symptoms. You will receive a total of 18 tablets to be completed in 6 days. Please take 1 pill tonight and begin the rest of the regimen tomorrow. We sent a new medication called Cefdinir to your pharmacy. Take Cefdinir 300mg one tablet 2 times daily for the next 6 days. Please take these tablets approximately 8-12 hours apart and with food to avoid GI symptoms. You will receive a total of 12 tablets to be completed in 6 days. Please begin this regimen tomorrow. Take your medications as instructed; do not skip a dose of your medicines. Make sure all of your doctors know every medicine you are taking (including [id number] medicines, vitamins, and supplements). Call your primary care provider before taking any new medicines (including [id number] medicines, vitamins, and supplements), because some of these may interact with your current medications, or may make your symptoms worse. Tell your primary care provider if you cannot afford your medications. CONTACT YOUR PRIMARY CARE PROVIDER if you experience any of the following: Difficulty following your treatment plan, or difficulty taking medications CALL 911 OR GO TO THE EMERGENCY DEPARTMENT if you experience any of the following: Sudden, severe abdominal pain or nausea/vomiting Severe chest pain, or chest pain that radiates (moves) to your jaw or arm Sudden, severe shortness of breath or difficulty breathing Thank you for allowing us to participate in your care. Pending Studies at Discharge: No Stand-Alone Forms: My [facility], Smoking Cessation Medications and DC Order Prescriptions: New metronidazole 500 mg tablet 500 mg PO TID Qty: 18 0RF cefdinir 300 mg capsule 300 mg PO BID Qty: 12 0RF Continued albuterol sulfate 90 mcg/actuation HFA aerosol inhaler 2 puff inhalation Q6H PRN (Reason: shortness of breath or wheezing) Qty: 8.5 0RF divalproex 500 mg tablet,delayed release (DR/EC) 500 mg PO BID 90 Days Qty: 180 2RF topiramate 50 mg tablet 50 mg PO PM 90 Days Qty: 90 2RF Ubrelvy 100 mg tablet 100 mg PO .COMPLEX Qty: 10 3RF Rx Instructions: 100 mg orally ONCE DAILY AT MIGRAINE ONSET. MAY REPEAT IN 2 HRS PRN; Anoro Ellipta 62.5-25 mcg/actuation blister with device 1 inh inhalation QAM Qty: 3 3RF tamsulosin [Flomax] 0.4 mg capsule 0.4 mg PO QPM nitroglycerin 0.4 mg Tablet, Sublingual 1 dose sublingual UD PRN (Reason: Angina) sertraline [Zoloft] 50 mg Tablet 50 mg PO QAM finasteride 5 mg Tablet 5 mg PO HS aspirin 81 mg Tablet,Delayed Release (Dr/Ec) 81 mg PO QAM ondansetron 4 mg tablet,disintegrating 4 mg translingual Q8H PRN (Reason: Nausea And Vomiting) polyethylene glycol 3350 17 gram Powder In Packet 17 g PO BID PRN (Reason: Constipation) ranolazine 500 mg tablet extended release 12 hr 500 mg PO BID rosuvastatin 10 mg tablet 10 mg PO HS gabapentin 300 mg capsule 300 mg PO TID famotidine 20 mg tablet 20 mg PO DAILY lubiprostone 24 mcg capsule 24 mcg PO DAILY midodrine 5 mg tablet 5 mg PO BID PRN (Reason: For low blood pressure less than 90 systolic) Discontinued metronidazole 500 mg tablet 500 mg PO Q8 Rx Instructions: ordered for 10 days on 04/18/25 ciprofloxacin HCl 500 mg tablet 500 mg PO Q12 Rx Instructions: ordered for 10 days on 04/18/25 Discharge Orders: Discharge Order (Routine); Ordered 04/21/25 Ordered By: Jeremi Braden Admission Data Admit Date/Time: 04/19/25 02:04 Attending Provider: Darnell Gaitan Admit Provider: Jeffery Franco Primary Care Provider: Celestino Vazquez Other Providers: Jeffery Franco Other Interventions: Discharge Summary Assessment (RN) Last Done: 04/21/25 14:46 Supervising Physician Co-Signing Physician Notes I personally examined the patient and verified all corcoran points of history and exam, discussed case, and agree with decision making with Dr Braden Eating well belly feels better and feels up to going home. In discussion of the further workup of his hyponatremia appearing most consistent with hypotonic hyponatremia, he does admit to some struggles with adequate p.o. intake at home. vitals noted nad heent nc at mmm breathing unlabored no accessory muscles good effort skin no rashes no pallor or icterus. diverticulitis - improving. Safe/stable for home, finish out antibiotics p.o. hyponatremia - almost certainly from poor PO intake acutely. 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 When we discussed his p.o. intake at home, he does note that he struggles some with getting enough to eat, struggles to do predominantly to gastroparesis issues. We discussed generally looking at nutritional intake with calories kind of like a budget, and then also discussed more specifically ways to increase his solute intake, as well as strategies to get enough nutrition in spite of his gastroparesis symptoms. He expressed a good understanding. Safe/stable for home, close PCP follow-up on this as well DVT proph - SCDs Home today Resident Activity Tracking Resident Involvement: Resident Care Provided Care Provided: Adult Hospital Medicine
[2025-04-21 14:48] VITALS: BP 100/62
--- NOTE | 2025-04-21 15:46 | Billing Data ---
Date of Service April 21, 2025 Coding Level of Care Code 21221 IN/OBS DISCH 30 MIN/LESS
[2025-04-21 17:25] VITALS: PULSE 60
== END 2025-04-21 15:12 | disposition home or self-care (01) | DRG 392 ==
LOC: ED 22:45 → SUATTDRO 04-19 02:04 → EDINP 04-19 02:04 → 2N 04-19 12:47

== ENCOUNTER 2025-08-20 14:12 | Observation (INO) ==
[2025-08-20] MEDS: ASPIRIN CHEW 324 MG PO STA (14:43)
[2025-08-20 14:55] LABS: Hematocrit (blood only) 39.4 % (42.0-52.0); Hemoglobin 13.8 g/dL (14.0-18.0); Immature Granulocytes # (auto) 0.06 K/uL (0.01-0.20); Immature Granulocytes % (auto) 0.9 %; Mean Corpuscular Hemoglobin 31.4 pg (25.0-34.0); Mean Corpuscular Volume 89.5 fL (80.0-100.0); Platelet Count 214 K/uL (130-400); RDW Standard Deviation 43.0 fL (36.4-46.3); Red Blood Count 4.40 M/uL (4.70-6.10); White Blood Count 6.74 K/ul (4.8-10.8)
--- NOTE | 2025-08-20 15:02 | Emergency Department Note ---
History of Present Illness General Chief complaint: Cardiac Assessment Stated complaint: REF BY DOC, CARDIAC ASSESSMENT Time Seen by Provider: 08/20/25 14:31 History of Present Illness Provider complaint: Weakness 80-year-old male presents emergency department for weakness.Patient reports he has been feeling lightheaded. Patient reports he fell on Wednesday. Patient states he feels like his sodium was low. Patient denies any headache neck pain chest pain difficulty breathing or abdominal pain. Patient states he was seen by his supervisor [employer] today and referred to the emergency department for evaluation. Home Medications Medication Instructions Recorded Confirmed Type finasteride 5 mg tablet 5 mg PO HS 11/23/18 08/11/25 History nitroglycerin 0.4 mg sublingual 1 dose sublingual UD PRN Angina 11/23/18 08/11/25 History tablet sertraline 50 mg tablet (Zoloft) 50 mg PO QAM 11/23/18 08/11/25 History tamsulosin 0.4 mg capsule (Flomax) 0.4 mg PO QPM 05/08/20 08/11/25 History polyethylene glycol 3350 17 gram 17 g PO BID PRN Constipation 08/30/21 08/11/25 History oral powder packet aspirin 81 mg tablet,delayed 81 mg PO QAM 10/18/21 08/11/25 History release ondansetron 4 mg disintegrating 4 mg translingual Q8H PRN Nausea 10/18/21 08/11/25 History tablet And Vomiting ranolazine 500 mg tablet,extended 500 mg PO BID 04/13/24 08/11/25 History release,12 hr rosuvastatin 10 mg tablet 10 mg PO HS 04/13/24 08/11/25 History midodrine 5 mg tablet 5 mg PO BID PRN For low blood 06/08/24 08/11/25 History pressure less than 90 systolic albuterol sulfate 90 mcg/actuation 2 puff inhalation Q6H PRN 06/14/24 08/11/25 Rx aerosol inhaler shortness of breath or wheezing #8.5 grams gabapentin 300 mg capsule 300 mg PO TID 09/09/24 08/11/25 History umeclidinium 62.5 mcg-vilanterol 1 inh inhalation QAM #3 Inhalers 03/06/25 08/11/25 Rx 25 mcg/actuation powdr for inhalation (Anoro Ellipta) famotidine 20 mg tablet 20 mg PO DAILY 04/18/25 08/11/25 History lubiprostone 24 mcg capsule 24 mcg PO DAILY 04/18/25 08/11/25 History metronidazole 500 mg tablet 500 mg PO TID #18 tabs 04/21/25 08/11/25 Rx atogepant 60 mg tablet (Qulipta) 60 mg PO DAILY #90 tabs 07/04/25 08/11/25 Rx divalproex 500 mg tablet,delayed 500 mg PO TID 90 days #270 tabs 07/04/25 08/11/25 Rx release ubrogepant 100 mg tablet (Ubrelvy) 100 mg PO .COMPLEX #10 tabs 07/04/25 08/11/25 Rx amoxicillin 875 mg-potassium 1 tab PO BID 10 days #20 tabs 08/11/25 08/11/25 Rx clavulanate 125 mg tablet Allergies Allergy/AdvReac Type Severity Reaction Status Date / Time Beta-Blockers Allergy Severe "SHOOK UP Verified 08/11/25 12:47 (Beta-Adrenergic Bloc FEELING" levofloxacin Allergy Mild Gastrointestinal Verified 08/11/25 12:47 Upset omeprazole Allergy Mild "made my Verified 08/11/25 12:47 head spin" pantoprazole AdvReac Mild HALLUCINATI Verified 08/11/25 12:47 ONS Past Med/Surg History Problem List (Updated 08/20/25 @ 16:20 by Alireza Jo MD) Fall (Acute) Syncope (Acute) Low serum cortisol level SIADH (syndrome of inappropriate ADH production) Colitis Nausea (Acute) Acute hyponatremia (Acute) Muscular deconditioning Vertiginous migraine Chest pain Right inguinal hernia Hiatal hernia Elevated LFTs CAD (coronary atherosclerotic disease) Gastroparesis Hyponatremia (Acute) Nausea (Acute) Abdominal pain, lower (Acute) Sigmoid diverticulitis (Acute) Acid reflux Cough Abnormal PFT Dyspnea Encounter for pre-operative examination BPH (benign prostatic hyperplasia) Depression Hypertension Hyperlipidemia Gastrointestinal distress Chest pain Liriano's esophagus (Chronic 11/15/12) Medical History History of COVID-19 Muscular deconditioning Hyperlipidemia Hypertension BPH (benign prostatic hyperplasia) Poor vision Depression with anxiety Dyspnea on exertion CAD (coronary artery disease) Constipation Gastroparesis Hiatal hernia Right inguinal hernia Hx of diverticulitis of colon (05/10/24) IBS (irritable bowel syndrome) Barretts esophagus GERD (gastroesophageal reflux disease) Prediabetes Anemia Hearing deficit Anxiety Migraine Surgical History Hx of eye surgery (2022) Hx of bilateral cataract extraction (2018) History of hemorrhoidectomy History of foot surgery History of flexible sigmoidoscopy History of colonoscopy History of esophagogastroduodenoscopy (EGD) History of heart artery stent (11/2011) History of cardiac cath (06/2012) Family History Father Family history of esophageal cancer Mother Family hx of colon cancer Other No family history of adverse response to anesthesia Social History Smoking Status: Never smoker Second Hand Exposure: No; Do You Dip or Chew Tobacco: No; Hx Alcohol Use: No Hx Substance Use: No Preferred Language: Malaysian Communication Ability: Effective Visual Impairment: Limited Hearing Ability: Use of Hearing Aid [employer] Required: No Beliefs That Will Affect Care: None marital status: Current Living Situation: Spouse Feels Safe at Home: Yes Assistive Devices: Cane Physical Exam Vital Signs Vital Signs - 24 hr 08/20/25 14:21 08/20/25 14:42 08/20/25 15:11 Temperature 36.4 C L Temperature Source Oral Pulse Rate 50 L 48 L Pulse Rate [Apical] Respiratory Rate 18 Respiratory Effort / Characteristics Non-Labored Respiratory Depth Normal Blood Pressure 132/73 Blood Pressure [Left Arm] Blood Pressure Mean 92 Blood Pressure Mean [Left Arm] Pulse Oximetry 100 99 Oxygen Delivery Method Room Air Room Air Sepsis Recent Fever Within 48 Hours No Sepsis New/Unexplained Change in Mental Status No Sepsis Action Taken by Nursing No Action Required 08/20/25 15:15 08/20/25 16:00 Temperature Temperature Source Pulse Rate Pulse Rate [Apical] 49 L 48 L Respiratory Rate 18 18 Respiratory Effort / Characteristics Respiratory Depth Blood Pressure Blood Pressure [Left Arm] 129/61 138/63 Blood Pressure Mean Blood Pressure Mean [Left Arm] 83 88 Pulse Oximetry 99 98 Oxygen Delivery Method Room Air Room Air Sepsis Recent Fever Within 48 Hours Sepsis New/Unexplained Change in Mental Status Sepsis Action Taken by Nursing Physical Exam GENERAL: oriented to person, place, and time. appears well-developed and well- nourished. HENT: Exam performed. - Head: Normocephalic and atraumatic. EYES: Conjunctivae and EOM are normal. Right eye exhibits no discharge. Left eye exhibits no discharge. No scleral icterus. NECK: Normal range of motion. Neck supple. No JVD present. CV: Normal rate, regular rhythm, normal heart sounds and intact distal pulses. There is no peripheral edema. Palpable radial pulses bue. - Chest Wall: No tenderness to palpation bilaterally or crepitus bilaterally. PULM/CHEST: Effort normal and breath sounds normal. No respiratory distress. No stridor. no wheezes. no rales. ABD: The abdomen is soft. There is no tenderness. NEURO: Motor and sensation grossly intact. SKIN: Skin is warm and dry. He is not diaphoretic. PSYCH: normal mood and affect. Behavior is normal. Judgment and thought content normal. Course Course 1431: The patient was evaluated in room C10. A complete history and physical exam was performed Cardiac monitoring: An order was placed for continuous cardiac monitoring. The monitor shows a rate of 50 with sinus bradycardia rhythm interpreted by me 1606: Vital signs stable. Labs are unremarkable with the exception of a serum sodium of 126 patient has chronically low sodium levels. Imaging is unremarkable with age indeterminant rib fractures. Patient has no pain on palpation of his bilateral ribs. Medical records reviewed. There is a consult note from endocrinology Dr. Méndez. According to his note there is suspicion for adrenal insufficiency with sodium levels constantly low. The patient serum cortisol level was normal but his ACTH levels were elevated. The brain MRI showed a partially empty sella. Dr. Méndez's plan was to repeat the ACTH and DHEA test between 6 AM and 9 AM and 2 free samples. Discussed the case with on- call endocrinology Dr. Cornejo. He reviewed Dr. Méndez's plans and recommended at this time to give the patient hydrocortisone 100 mg IV and then begin the patient on hydrocortisone 20 mg in the a.m. and hydrocortisone 10 mg in the p.m. He states that the patient's hyponatremia resolved that the patient probably does have adrenal insufficiency. Will admit the patient to the hospitalist team and Dr. Cornejo says that endocrinology can be on consult and they came contacted Dr. Méndez to evaluate the patient also. He states he will make Dr. Méndez aware that the patient is being admitted. Administered Medications Discontinued Medications Aspirin (Aspirin Chew 324 Mg) 324 mg PO NOW STA Stop: 08/20/25 14:32 Last Admin: 08/20/25 14:43 Dose: Not Given Documented By: QGV Medical Decision Making Laboratory Data Attestation: I reviewed the patient's lab results. 08/20/25 14:44 08/20/25 14:44 Lab Results 08/20/25 Range/Units 14:44 WBC 6.74 (4.8-10.8) K/ul RBC 4.40 L (4.70-6.10) M/uL Hgb 13.8 L (14.0-18.0) g/dL Hct 39.4 L (42.0-52.0) % MCV 89.5 (80.0-100.0) fL MCH 31.4 (25.0-34.0) pg MCHC 35.0 (32.0-36.0) g/dL RDW Std Deviation 43.0 (36.4-46.3) fL RDW Coeff of Mendoza 13.2 (11.5-14.5) % Plt Count 214 (130-400) K/uL MPV 8.3 L (9.4-12.4) fL Immature Gran % (Auto) 0.9 % Neut % (Auto) 65.4 % Lymph % (Auto) 18.1 % [place] % (Auto) 12.5 % Eos % (Auto) 2.7 % Baso % (Auto) 0.4 % Neut # (Auto) 4.41 (1.40-6.50) K/uL Lymph # (Auto) 1.22 (1.20-3.40) K/uL [place] # (Auto) 0.84 H (0.11-0.59) K/uL Eos # (Auto) 0.18 (0.00-0.50) K/uL Baso # (Auto) 0.03 (0.00-0.20) K/uL Immature Gran # (Auto) 0.06 (0.01-0.20) K/uL PT 10.3 (9.0-12.0) Seconds INR 1.0 (0.9-1.1) APTT 31 (21-31) Seconds PTT Ratio 1.1 Sodium 126 L (136-145) mmol/L Potassium 4.3 (3.5-5.1) mmol/L Chloride 94 L (98-107) mmol/L Carbon Dioxide 26 (21-32) mmol/L Anion Gap 6 (3-11) BUN 9 (6-23) mg/dl Creatinine 0.63 (0.6-1.4) mg/dl Est Cr Clr Drug Dosing 92.0 ml/min eGFR 96.76 BUN/Creatinine Ratio 14.3 (10-20) Glucose 106 H (70-99(Fasting)) mg/dl Calcium 9.2 (8.6-10.3) mg/dl Magnesium 2.0 (1.7-2.4) mg/dl Troponin I High Sens 4.6 (0-20) pg/ml Lipase 29 (11-82) U/L Imaging Data Attestation: I personally reviewed and interpreted this imaging study as follows: My Impression: CT head: No ICH Radiologist's Impression: Chest X-Ray 08/20/25 14:31 XR chest 1V portable CLINICAL HISTORY: Chest pain, nonspecific COMPARISON STUDY: Chest radiograph August 11, 2025. Chest CT December 08, 2018. FINDINGS: Lung volumes are normal. There is no pneumothorax or pleural effusion. There is an age indeterminate mild displaced fracture of the anterior left sixth rib. There are also probable fractures anterior left fifth and seventh ribs. No airspace opacities are present. Pulmonary vascularity is normal. IMPRESSION: 1. No pneumothorax. 2. Age indeterminate fractures of the anterior left fifth, sixth and seventh ribs. ACT 112: Negative or not required by law. Electronically signed by: Last Hughes M.D. 08/20/2025 3:[address] 08/20/25 14:42 CT SCAN OF THE CERVICAL SPINE CLINICAL HISTORY: Fall. COMPARISON STUDY: Cervical spine CT dated 02/20/2015 TECHNIQUE: CT scan of the cervical spine is performed from the skull base to the upper thoracic spine. Images are reviewed in the axial, sagittal, and coronal planes. IV contrast was not administered for this examination. A dose lowering technique was utilized adhering to the principles of ALARA. CT DOSE: 1187.07 mGy.cm FINDINGS: Skeletal structures: The skeletal structures are osteopenia. There is no evidence of fracture or subluxation involving the cervical spine. Vertebral body height and alignment are maintained. Anterior osteophytes are seen throughout. The odontoid process and lateral masses are intact. The atlantoaxial articulation is preserved noting productive degenerative change. The spinous processes appear intact. There is mild multilevel facet arthropathy. Intervertebral discs: There is minimal degenerative disc space narrowing. Central canal: A posterior disc osteophyte complex at C3-C4 may contribute to mild acquired compromise of the central canal. Soft tissues: The prevertebral and paraspinous soft tissues are within normal limits. There is atherosclerotic calcification of the carotid bulbs. Calvarium: The visualized calvarium at the skull base appears intact. Brain parenchyma: Partially visualized brain parenchyma at the skull base is within normal limits. Sinuses and mastoids: The visualized paranasal sinuses are clear. There is a small left mastoid effusion. The right mastoid air cells are well pneumatized. Lung apices: Emphysematous change is noted at the apices. Apical lung parenchyma is otherwise clear as visualized. IMPRESSION: 1. There is no evidence of cervical spine fracture or subluxation. 2. Osteopenia and mild spondylotic changes above. 3. Emphysema. ACT 112: Negative or not required by law. Electronically signed by: Oscar Isbell M.D. 08/20/2025 3:[address] 08/20/25 14:42 CT SCAN OF THE BRAIN WITHOUT IV CONTRAST CLINICAL HISTORY: Fall COMPARISON STUDY: CT of the brain dated 01/12/2024. MRI of the brain dated 08/07/2025 TECHNIQUE: Unenhanced CT scan of the brain is performed from the vertex to the skull base. Images are reviewed in the axial, sagittal, coronal planes. A dose lowering technique was utilized adhering to the principles of ALARA. FINDINGS: Brain parenchyma: There is age-related involutional change noting mild subcortical and periventricular microangiopathic disease. There is no hemorrhage, mass effect, or evidence of acute territorial ischemia by CT criteria. Barriga-white matter differentiation is preserved. No extra-axial fluid collection is seen. Ventricles, sulci, cisterns: Prominent secondary to involutional change. Intracranial vasculature: There is atherosclerotic calcification of the cavernous carotid and vertebral arteries. Calvarium: Unremarkable. Sinuses and mastoids: There is mild mucosal thickening within the left maxillary antrum. The remaining paranasal sinuses are clear. There is a small left mastoid effusion. The right mastoid air cells are well pneumatized. Orbits: The bony orbits are grossly intact. There are bilateral ocular lens implants. IMPRESSION: There is no hemorrhage, mass effect, or evidence of acute territorial ischemia by CT criteria. ACT 112: Negative or not required by law. Electronically signed by: Oscar Isbell M.D. 08/20/2025 3:49 PM ECG Data Attestation: I personally reviewed and interpreted this ECG as follows: Rate (beats per minute): 49 Rhythm: + sinus bradycardia ECG Intervals/blocks: + Normal QRS, + Normal WA and + Normal QT-c ECG ST segments: + Normal ST segments MDM Narrative 1431: The patient was evaluated in room C10. A complete history and physical exam was performed Cardiac monitoring: An order was placed for continuous cardiac monitoring. The monitor shows a rate of 50 with sinus bradycardia rhythm interpreted by me 1606: Vital signs stable. Labs are unremarkable with the exception of a serum sodium of 126 patient has chronically low sodium levels. Imaging is unremarkable with age indeterminant rib fractures. Patient has no pain on palpation of his bilateral ribs. Medical records reviewed. There is a consult note from endocrinology Dr. Méndez. According to his note there is suspicion for adrenal insufficiency with sodium levels constantly low. The patient serum cortisol level was normal but his ACTH levels were elevated. The brain MRI showed a partially empty sella. Dr. Méndez's plan was to repeat the ACTH and DHEA test between 6 AM and 9 AM and 2 free samples. Discussed the case with on- call endocrinology Dr. Cornejo. He reviewed Dr. Méndez's plans and recommended at this time to give the patient hydrocortisone 100 mg IV and then begin the patient on hydrocortisone 20 mg in the a.m. and hydrocortisone 10 mg in the p.m. He states that the patient's hyponatremia resolved that the patient probably does have adrenal insufficiency. Will admit the patient to the hospitalist team and Dr. Cornejo says that endocrinology can be on consult and they came contacted Dr. Méndez to evaluate the patient also. He states he will make Dr. Méndez aware that the patient is being admitted. Impression & Plan Acute hyponatremia, Syncope, Fall Discharge Plan Visit Data Chief Complaint: Cardiac Assessment Stated Complaint: REF BY DOC, CARDIAC ASSESSMENT ED Provider: Alireza Jo Discharge Problem: Acute hyponatremia, Syncope, Fall Patient Disposition: Admitted As Inpatient Condition: Fair Forms Stand Alone Forms: My [facility] Prescriptions Prescriptions: No Action albuterol sulfate 90 mcg/actuation HFA aerosol inhaler 2 puff inhalation Q6H PRN (Reason: shortness of breath or wheezing) Qty: 8.5 0RF Anoro Ellipta 62.5-25 mcg/actuation blister with device 1 inh inhalation QAM Qty: 3 3RF tamsulosin [Flomax] 0.4 mg capsule 0.4 mg PO QPM amoxicillin-pot clavulanate 875-125 mg tablet 1 tab PO BID 10 Days Qty: 20 0RF divalproex 500 mg tablet,delayed release (DR/EC) 500 mg PO TID 90 Days Qty: 270 1RF Ubrelvy 100 mg tablet 100 mg PO .COMPLEX Qty: 10 5RF Rx Instructions: 100 mg orally ONCE DAILY AT MIGRAINE ONSET. MAY REPEAT IN 2 HRS PRN; Qulipta 60 mg tablet 60 mg PO DAILY Qty: 90 3RF nitroglycerin 0.4 mg Tablet, Sublingual 1 dose sublingual UD PRN (Reason: Angina) sertraline [Zoloft] 50 mg Tablet 50 mg PO QAM finasteride 5 mg Tablet 5 mg PO HS aspirin 81 mg Tablet,Delayed Release (Dr/Ec) 81 mg PO QAM ondansetron 4 mg tablet,disintegrating 4 mg translingual Q8H PRN (Reason: Nausea And Vomiting) polyethylene glycol 3350 17 gram Powder In Packet 17 g PO BID PRN (Reason: Constipation) ranolazine 500 mg tablet extended release 12 hr 500 mg PO BID rosuvastatin 10 mg tablet 10 mg PO HS gabapentin 300 mg capsule 300 mg PO TID famotidine 20 mg tablet 20 mg PO DAILY lubiprostone 24 mcg capsule 24 mcg PO DAILY metronidazole 500 mg tablet 500 mg PO TID Qty: 18 0RF midodrine 5 mg tablet 5 mg PO BID PRN (Reason: For low blood pressure less than 90 systolic) Referrals Referrals: Celestino Vazquez DO [Primary Care Provider] -
[2025-08-20 15:12] LABS: Anion Gap 6.0 (3-11); Blood Urea Nitrogen 9.0 mg/dl (6-23); Calcium 9.2 mg/dl (8.6-10.3); Carbon Dioxide 26.0 mmol/L (21-32); Chloride 94.0 mmol/L (98-107); Creatinine Clr Calc Pharmacy 92.0 ml/min; Glucose 106.0 mg/dl (70-99(Fasting)); Lipase 29.0 U/L (11-82); Potassium 4.3 mmol/L (3.5-5.1); Sodium 126.0 mmol/L (136-145)
[2025-08-20 15:13] LABS: Magnesium 2.0 mg/dl (1.7-2.4)
--- NOTE | 2025-08-20 15:16 | XRay Report ---
XR chest 1V portable CLINICAL HISTORY: Chest pain, nonspecific COMPARISON STUDY: Chest radiograph August 11, 2025. Chest CT December 08, 2018. FINDINGS: Lung volumes are normal. There is no pneumothorax or pleural effusion. There is an age inde terminate mild displaced fracture of the anterior left sixth rib. There are also probable fractures a nterior left fifth and seventh ribs. No airspace opacities are present. Pulmonary vascularity is norm al. IMPRESSION: 1. No pneumothorax. 2. Age indeterminate fractures of the anterior left fifth, sixth and seventh ribs. ACT 112: Negative or not required by law. Electronically signed by: Last Hughes M.D. 08/20/2025 3:15 PM
[2025-08-20 15:29] LABS: INR 1.0 (0.9-1.1); Partial Thromboplastin Time 31 Seconds (21-31); Prothrombin Time 10.3 Seconds (9.0-12.0)
--- NOTE | 2025-08-20 15:51 | CT Scan Report ---
CT SCAN OF THE BRAIN WITHOUT IV CONTRAST CLINICAL HISTORY: Fall COMPARISON STUDY: CT of the brain dated 01/12/2024. MRI of the brain dated 08/07/2025 TECHNIQUE: Unenhanced CT scan of the brain is performed from the vertex to the skull base. Images are reviewed in the axial, sagittal, coronal planes. A dose lowering technique was utilized adhering to the principles of ALARA. FINDINGS: Brain parenchyma: There is age-related involutional change noting mild subcortical and periventricula r microangiopathic disease. There is no hemorrhage, mass effect, or evidence of acute territorial isc hemia by CT criteria. Barriga-white matter differentiation is preserved. No extra-axial fluid collection is seen. Ventricles, sulci, cisterns: Prominent secondary to involutional change. Intracranial vasculature: There is atherosclerotic calcification of the cavernous carotid and vertebr al arteries. Calvarium: Unremarkable. Sinuses and mastoids: There is mild mucosal thickening within the left maxillary antrum. The remainin g paranasal sinuses are clear. There is a small left mastoid effusion. The right mastoid air cells ar e well pneumatized. Orbits: The bony orbits are grossly intact. There are bilateral ocular lens implants. IMPRESSION: There is no hemorrhage, mass effect, or evidence of acute territorial ischemia by CT galileo villar. ACT 112: Negative or not required by law. Electronically signed by: Oscar Isbell M.D. 08/20/2025 3:49 PM
--- NOTE | 2025-08-20 15:55 | CT Scan Report ---
CT SCAN OF THE CERVICAL SPINE CLINICAL HISTORY: Fall. COMPARISON STUDY: Cervical spine CT dated 02/20/2015 TECHNIQUE: CT scan of the cervical spine is performed from the skull base to the upper thoracic spine . Images are reviewed in the axial, sagittal, and coronal planes. IV contrast was not administered fo r this examination. A dose lowering technique was utilized adhering to the principles of ALARA. CT DOSE: 1187.07 mGy.cm FINDINGS: Skeletal structures: The skeletal structures are osteopenia. There is no evidence of fracture or subl uxation involving the cervical spine. Vertebral body height and alignment are maintained. Anterior o steophytes are seen throughout. The odontoid process and lateral masses are intact. The atlantoaxial articulation is preserved noting productive degenerative change. The spinous processes appear intact. There is mild multilevel facet arthropathy. Intervertebral discs: There is minimal degenerative disc space narrowing. Central canal: A posterior disc osteophyte complex at C3-C4 may contribute to mild acquired compromis e of the central canal. Soft tissues: The prevertebral and paraspinous soft tissues are within normal limits. There is athero sclerotic calcification of the carotid bulbs. Calvarium: The visualized calvarium at the skull base appears intact. Brain parenchyma: Partially visualized brain parenchyma at the skull base is within normal limits. Sinuses and mastoids: The visualized paranasal sinuses are clear. There is a small left mastoid effus ion. The right mastoid air cells are well pneumatized. Lung apices: Emphysematous change is noted at the apices. Apical lung parenchyma is otherwise clear a s visualized. IMPRESSION: 1. There is no evidence of cervical spine fracture or subluxation. 2. Osteopenia and mild spondylotic changes above. 3. Emphysema. ACT 112: Negative or not required by law. Electronically signed by: Oscar Isbell M.D. 08/20/2025 3:53 PM
[2025-08-20] MEDS: HYDROCORTISONE SOD SUCCINATE 100 MG/2 ML VIAL IV STA (16:24)
--- NOTE | 2025-08-20 16:32 | History & Physical Report ---
Date of Service August 20, 2025 Assessment & Plan (1) Fall: (2) Syncope: (3) Adrenal insufficiency: (4) Sinus bradycardia: Plan 80 year old male presents to the ER from cardiology clinic due to concerns for generalized weakness, fatigue, presyncope and bradycardia #Adrenal insufficiency Possible diagnosis per endocrinollogy Will follow endocrine plan with hydrocortisone 100mg IV now then 20mg #Hyponatremia Urine Osm/Na pending Will defer any specific treatment for this to understand how the hydrocortisone effects the sodium Likely some degree of reset osmostat as mentioned in prior notes #Sinus bradycardia This does not appear to be new with similar rates recorded in April but sent from cardiology clinic for this per patient for full workup Monitor on telemetry Further recommendations per cardiology review #Generalized weakness No focal motor neurology although progressive weakness with peripheral neuropathy is concerning and will consult his neurologist PT/OT #Peripheral neuropathy Continue gabapentin #Migraines Continue depakote and atogepant #GERD Continue esomeprazole - patient to bring in his from home #BPH Continue finasteride and tamulsoin #Constipation Continue lubiprostone and MiraLAX #Anxiety Patient reports taking sertaline 25mg rather than 50mg listed #COPD Continue anoro ellipta VTE Prophylaxis - low risk, encourage ambulation Disposition - admit to PCU Admission and Anticipated Discharge Date Admission Date: August 20, 2025 History of Present Illness Chief Complaint: Lower extremity weakness Dizziness Primary Care Provider: DO Gena Smith is a 80 year old male who presents to the ER on advice of his moveman due to dizziness and generalized weakness. In his moveman office he was also noted to have a sinus bradycardia and per patient he was advised to come to the ER for a full workup. He reports feeling dizziness from thanksgiving although some less severe episodes before this. He describes this as both ambulatory dysfunction and lightheadedness. No room spinnin sensation. He fell last on Wednesday after losing his balance. Last Wednesday he was having difficulty getting his legs to clint. He notes having a peripheral neuropathy in his feet for which he takes gabapentin and has been progressively much worse over the last 2 months. He is notably currently on Augmentin for lower respiratory infection and sinusitis - 2 pills left. Allergies Allergy/AdvReac Type Severity Reaction Status Date / Time Beta-Blockers Allergy Severe "SHOOK UP Verified 08/11/25 12:47 (Beta-Adrenergic Bloc FEELING" levofloxacin Allergy Mild Gastrointestinal Verified 08/11/25 12:47 Upset omeprazole Allergy Mild "made my Verified 08/11/25 12:47 head spin" pantoprazole AdvReac Mild HALLUCINATI Verified 08/11/25 12:47 ONS Home Medications Medication Instructions Recorded Confirmed Type finasteride 5 mg tablet 5 mg PO HS 11/23/18 08/20/25 History nitroglycerin 0.4 mg sublingual 1 dose sublingual UD PRN Angina 11/23/18 08/20/25 History tablet sertraline 50 mg tablet (Zoloft) 50 mg PO QAM 11/23/18 08/20/25 History polyethylene glycol 3350 17 gram 17 g PO BID PRN Constipation 08/30/21 08/20/25 History oral powder packet aspirin 81 mg tablet,delayed 81 mg PO QAM 10/18/21 08/20/25 History release ondansetron 4 mg disintegrating 4 mg translingual Q8H PRN Nausea 10/18/21 08/20/25 History tablet And Vomiting ranolazine 500 mg tablet,extended 500 mg PO BID 04/13/24 08/20/25 History release,12 hr rosuvastatin 10 mg tablet 10 mg PO HS 04/13/24 08/20/25 History midodrine 5 mg tablet 5 mg PO BID PRN For low blood 06/08/24 08/20/25 History pressure less than 90 systolic albuterol sulfate 90 mcg/actuation 2 puff inhalation Q6H PRN 06/14/24 08/20/25 Rx aerosol inhaler shortness of breath or wheezing #8.5 grams gabapentin 300 mg capsule 300 mg PO QID 09/09/24 08/21/25 History umeclidinium 62.5 mcg-vilanterol 1 inh inhalation QAM #3 Inhalers 03/06/25 08/20/25 Rx 25 mcg/actuation powdr for inhalation (Anoro Ellipta) famotidine 20 mg tablet 20 mg PO DAILY 04/18/25 08/20/25 History lubiprostone 24 mcg capsule 24 mcg PO DAILY 04/18/25 08/20/25 History metronidazole 500 mg tablet 500 mg PO TID #18 tabs 04/21/25 08/20/25 Rx atogepant 60 mg tablet (Qulipta) 60 mg PO DAILY #90 tabs 07/04/25 08/20/25 Rx divalproex 500 mg tablet,delayed 500 mg PO TID 90 days #270 tabs 07/04/25 08/20/25 Rx release ubrogepant 100 mg tablet (Ubrelvy) 100 mg PO .COMPLEX #10 tabs 07/04/25 08/20/25 Rx amoxicillin 875 mg-potassium 1 tab PO BID 10 days #20 tabs 08/11/25 08/20/25 Rx clavulanate 125 mg tablet esomeprazole magnesium 40 mg 40 mg PO BID 08/20/25 08/20/25 History capsule,delayed release tamsulosin 0.4 mg capsule 0.8 mg PO HS 08/20/25 08/20/25 History Past Med/Surg History Problem List (Updated 08/20/25 @ 18:40 by Quinn Ashton MD) Sinus bradycardia Adrenal insufficiency Fall (Acute) Syncope (Acute) Low serum cortisol level SIADH (syndrome of inappropriate ADH production) Colitis Nausea (Acute) Acute hyponatremia (Acute) Muscular deconditioning Vertiginous migraine Chest pain Right inguinal hernia Hiatal hernia Elevated LFTs CAD (coronary atherosclerotic disease) Gastroparesis Hyponatremia (Acute) Nausea (Acute) Abdominal pain, lower (Acute) Sigmoid diverticulitis (Acute) Acid reflux Cough Abnormal PFT Dyspnea Encounter for pre-operative examination BPH (benign prostatic hyperplasia) Depression Hypertension Hyperlipidemia Gastrointestinal distress Chest pain Liriano's esophagus (Chronic 11/15/12) Medical History History of COVID-19 Muscular deconditioning Hyperlipidemia Hypertension BPH (benign prostatic hyperplasia) Poor vision Depression with anxiety Dyspnea on exertion CAD (coronary artery disease) Constipation Gastroparesis Hiatal hernia Right inguinal hernia Hx of diverticulitis of colon (05/10/24) IBS (irritable bowel syndrome) Barretts esophagus GERD (gastroesophageal reflux disease) Prediabetes Anemia Hearing deficit Anxiety Migraine Surgical History Hx of eye surgery (2022) Hx of bilateral cataract extraction (2018) History of hemorrhoidectomy History of foot surgery History of flexible sigmoidoscopy History of colonoscopy History of esophagogastroduodenoscopy (EGD) History of heart artery stent (11/2011) History of cardiac cath (06/2012) Family History Father Family history of esophageal cancer Mother Family hx of colon cancer Other No family history of adverse response to anesthesia Social History Smoking Status: Never smoker Second Hand Exposure: No; Do You Dip or Chew Tobacco: No; Hx Alcohol Use: No Hx Substance Use: No Preferred Language: Barbadian Communication Ability: Effective Visual Impairment: Limited Hearing Ability: Use of Hearing Aid Stenocaptioner Required: No Beliefs That Will Affect Care: None marital status: Current Living Situation: Spouse Feels Safe at Home: Yes Safety Concerns: Feels Safe At This Time Assistive Devices: Cane, Glasses, Hearing Aid - Bilateral and Walker Review of Systems Review of Systems: All systems reviewed & are unremarkable except as noted in HPI & below Physical Exam Constitutional: WD/WN, vitals as above Eyes: + anicteric sclerae; normal pupil size Respiratory: normal respiratory effort, lungs clear to auscultation Cardiovascular: Rate/Rhythm: regular rhythm and + bradycardic Heart Sounds: no murmur Extremities: normal capillary refill and + pedal edema (1+ bilateral equal); no calf tenderness Gastrointestinal (Abdomen): normal bowel sounds, soft, nontender, no hepatosplenomegaly Musculoskeletal: no cyanosis or clubbing, extremities motor strength 5/5 Skin: Trauma: + evidence of skin trauma (skin tears to both elbows) Neurologic: moves all extremities and awake; no focal motor deficits and not confused Speech / Cognition: normal speech Motor/Sensory: + sensory deficit (feet bilateral numbness); no tremor and no pronator drift Results & Data Results & Data Vital Signs (Past 12 Hours) Vital Signs Temp Pulse Pulse Resp BP BP Pulse Ox 08/20/25 16:00 48 L 18 138/63 98 08/20/25 15:15 49 L 18 129/61 99 08/20/25 15:11 99 08/20/25 14:42 48 L 08/20/25 14:21 36.4 C L 50 L 18 132/73 100 O2 Del Method 08/20/25 16:00 Room Air 08/20/25 15:15 Room Air 08/20/25 15:11 Room Air 08/20/25 14:42 08/20/25 14:21 Room Air Laboratory Results Abnormal lab results 08/20/25 Range/Units 14:44 RBC 4.40 L (4.70-6.10) M/uL Hgb 13.8 L (14.0-18.0) g/dL Hct 39.4 L (42.0-52.0) % MPV 8.3 L (9.4-12.4) fL Maverick # (Auto) 0.84 H (0.11-0.59) K/uL Sodium 126 L (136-145) mmol/L Chloride 94 L (98-107) mmol/L Glucose 106 H (70-99(Fasting)) mg/dl Diagnostic Findings CT SCAN OF THE BRAIN WITHOUT IV CONTRAST CLINICAL HISTORY: Fall COMPARISON STUDY: CT of the brain dated 01/12/2024. MRI of the brain dated 08/07/2025 TECHNIQUE: Unenhanced CT scan of the brain is performed from the vertex to the skull base. Images are reviewed in the axial, sagittal, coronal planes. A dose lowering technique was utilized adhering to the principles of ALARA. FINDINGS: Brain parenchyma: There is age-related involutional change noting mild subcortical and periventricular microangiopathic disease. There is no hemorrhage, mass effect, or evidence of acute territorial ischemia by CT criteria. Barriga-white matter differentiation is preserved. No extra-axial fluid collection is seen. Ventricles, sulci, cisterns: Prominent secondary to involutional change. Intracranial vasculature: There is atherosclerotic calcification of the cavernous carotid and vertebral arteries. Calvarium: Unremarkable. Sinuses and mastoids: There is mild mucosal thickening within the left maxillary antrum. The remaining paranasal sinuses are clear. There is a small left mastoid effusion. The right mastoid air cells are well pneumatized. Orbits: The bony orbits are grossly intact. There are bilateral ocular lens implants. IMPRESSION: There is no hemorrhage, mass effect, or evidence of acute territorial ischemia by CT criteria. CT SCAN OF THE CERVICAL SPINE CLINICAL HISTORY: Fall. COMPARISON STUDY: Cervical spine CT dated 02/20/2015 TECHNIQUE: CT scan of the cervical spine is performed from the skull base to the upper thoracic spine. Images are reviewed in the axial, sagittal, and coronal planes. IV contrast was not administered for this examination. A dose lowering technique was utilized adhering to the principles of ALARA. CT DOSE: 1187.07 mGy.cm FINDINGS: Skeletal structures: The skeletal structures are osteopenia. There is no evidence of fracture or subluxation involving the cervical spine. Vertebral body height and alignment are maintained. Anterior osteophytes are seen throughout. The odontoid process and lateral masses are intact. The atlantoaxial articulation is preserved noting productive degenerative change. The spinous processes appear intact. There is mild multilevel facet arthropathy. Intervertebral discs: There is minimal degenerative disc space narrowing. Central canal: A posterior disc osteophyte complex at C3-C4 may contribute to mild acquired compromise of the central canal. Soft tissues: The prevertebral and paraspinous soft tissues are within normal limits. There is atherosclerotic calcification of the carotid bulbs. Calvarium: The visualized calvarium at the skull base appears intact. Brain parenchyma: Partially visualized brain parenchyma at the skull base is within normal limits. Sinuses and mastoids: The visualized paranasal sinuses are clear. There is a small left mastoid effusion. The right mastoid air cells are well pneumatized. Lung apices: Emphysematous change is noted at the apices. Apical lung parenchyma is otherwise clear as visualized. IMPRESSION: 1. There is no evidence of cervical spine fracture or subluxation. 2. Osteopenia and mild spondylotic changes above. 3. Emphysema. XR chest 1V portable CLINICAL HISTORY: Chest pain, nonspecific COMPARISON STUDY: Chest radiograph August 11, 2025. Chest CT December 08, 2018. FINDINGS: Lung volumes are normal. There is no pneumothorax or pleural effusion. There is an age indeterminate mild displaced fracture of the anterior left sixth rib. There are also probable fractures anterior left fifth and seventh ribs. No airspace opacities are present. Pulmonary vascularity is normal. IMPRESSION: 1. No pneumothorax. 2. Age indeterminate fractures of the anterior left fifth, sixth and seventh ribs. Medications Administered ER Medications Given: Aspirin 324mg PO Hydrocortisone 100mg IV ECG Rate (beats per minute): 49 Rhythm: sinus bradycardia Findings: no acute ischemic change Comparison ECG Date: from (April 18, 2025) Change: no significant change Code Status & VTE Plan Code Status DNR/DNI per patient wishes VTE Prophylaxis Plan VTE Prophylaxis will be ordered: No PG Care Time/CCT Total # of Minutes Spent Total Time Spent with Patient: Total time spent is greater than 50% in coordination of care (as documented) at patient's floor/unit and/or counseling patient: Coding Level of Care Code 62064 INT INP/OBS CARE MIN Diagnoses Fall W19.XXXA Syncope R55 Adrenal insufficiency E27.40 Sinus bradycardia R00.1
[2025-08-20] MEDS: DIVALPROEX DELAY RELEASE 500 MG TAB PO SCH (20:10)
[2025-08-20] MEDS: AMOXICILLIN/CLAVULANATE 875 MG TAB PO SCH (20:10)
[2025-08-20] MEDS: FINASTERIDE 5 MG TAB PO SCH (20:11)
[2025-08-20] MEDS: RANOLAZINE 500 MG ER TAB PO SCH (20:12)
[2025-08-20] MEDS: ROSUVASTATIN CALCIUM 10 MG TAB PO SCH (20:12)
[2025-08-20] MEDS: TAMSULOSIN HCL 0.4 MG CAP PO SCH (20:12)
[2025-08-20] MEDS: GABAPENTIN 300 MG CAP PO SCH (20:25)
[2025-08-20 21:50] LABS: Appearance Urine Clear (Clear); Bacteria Urine Automated None Seen (None Seen); Cast Urine Automated 0-2 /lpf (0-2); Epithelial Cell Urine Auto 0-2 /hpf (0-2); Glucose Urine UA 1+ (Negative); WBC Urine Automated 0-5 /hpf (0-5)
[2025-08-21 06:10] LABS: Hematocrit (blood only) 32.8 % (42.0-52.0); Hemoglobin 12.0 g/dL (14.0-18.0); Mean Corpuscular Hemoglobin 32.0 pg (25.0-34.0); Mean Corpuscular Volume 87.5 fL (80.0-100.0); Platelet Count 229 K/uL (130-400); RDW Standard Deviation 40.4 fL (36.4-46.3); Red Blood Count 3.75 M/uL (4.70-6.10); White Blood Count 7.31 K/ul (4.8-10.8)
[2025-08-21 06:34] LABS: Alanine Aminotransferase 11.0 U/L (7-52); Albumin Globulin Ratio 1.4 (0.9-2); Albumin Level 3.2 gm/dl (3.4-5.0); Alkaline Phosphatase 68.0 U/L (34-104); Anion Gap 7.0 (3-11); Bilirubin,Total 0.5 mg/dl (0.2-1.0); Blood Urea Nitrogen 12.0 mg/dl (6-23); Calcium 8.6 mg/dl (8.6-10.3); Carbon Dioxide 24.0 mmol/L (21-32); Chloride 95.0 mmol/L (98-107); Creatinine Clr Calc Pharmacy 87.8 ml/min; Globulin 2.3 gm/dl (2.5-4.0); Glucose 124.0 mg/dl (70-99(Fasting)); Potassium 4.0 mmol/L (3.5-5.1); Sodium 126.0 mmol/L (136-145); Total Protein 5.5 gm/dl (6.0-8.3)
[2025-08-21] MEDS: MIDODRINE HCL 2.5 MG TAB PO SCH (07:36)
[2025-08-21] MEDS: HYDROCORTISONE 10 MG TAB PO SCH ×2 (08:03→16:35)
[2025-08-21] MEDS: LUBIPROSTONE 8 MCG CAP PO SCH (08:03)
[2025-08-21] MEDS: GABAPENTIN 300 MG CAP PO SCH (08:04)
[2025-08-21] MEDS: SERTRALINE HCL 50 MG TABLET PO SCH (08:04)
[2025-08-21] MEDS: ASPIRIN 81 MG ECTAB PO SCH (08:05)
[2025-08-21] MEDS: UMECLIDINIUM/VILANTEROL 62.5/25MCG 7 PUFFS/INHALER INH SCH (08:06)
[2025-08-21] MEDS: POLYETHYLENE (MIRALAX) 17 GM PACK PO SCH (08:06)
[2025-08-21] MEDS: FAMOTIDINE 20 MG TAB PO SCH (08:07)
[2025-08-21] MEDS ORDERED: SERTRALINE HCL 50 MG TABLET PO SCH (09:00)
--- NOTE | 2025-08-21 09:58 | Cardiology Consultation ---
Date of Consultation August 21, 2025 Assessment & Plan (1) Idiopathic polyneuropathy: (2) Leg weakness: (3) Sinus bradycardia: (4) SIADH (syndrome of inappropriate ADH production): Plan Past cardiac history: Impression: 1. Coronary disease status post angioplasty and stenting of the mid LAD 11/06/2011 with a drug-eluting stent. 2. 30% lesion in the mid RCA. 3. 50% lesion in the LAD beyond the stent with a negative FFR by repeat catheterization at [facility] 05/13/2012. 4. 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 5. Negative dobutamine stress echo 04/25/20; echocardiogram with normal biventricular size and function, EF 65% and normal left atrial pressures. 6. Hyperlipidemia. 7. Hypertension. 8. Chronic stable angina. Mr. Gill was bradycardic in the cardiology clinic yesterday with a heart rate of 49 bmp. He has been in the 50s and 60s on the monitor. I don't think at this point that his bradycardia is having a significant impact on his symptoms and overall his weakness is secondary to endocrine/neuro issue rather than a cardiac one. He has been having more hypotension. He continues on midodrine. His blood pressure looks a little better today following steroid administration recommended by endocrinology. His high sensitivity troponin was normal on admission. He is not having any concerning anginal symptoms. History of Present Illness Attending Physician: Quinn Ashton MD History of Present Illness Mr. Gill presented to the cardiology clinic yesterday for complaints of lower extremity weakness and a fall on Wednesday where he hit his head. He described his legs being so weak on Wednesday that he couldn't get out of bed. He has been experiencing ongoing hyponatremia and was undergoing workup with endocrinology. He was referred to the emergency department. Allergies Allergy/AdvReac Type Severity Reaction Status Date / Time Beta-Blockers Allergy Severe "SHOOK UP Verified 08/11/25 12:47 (Beta-Adrenergic Bloc FEELING" levofloxacin Allergy Mild Gastrointestinal Verified 08/11/25 12:47 Upset omeprazole Allergy Mild "made my Verified 08/11/25 12:47 head spin" pantoprazole AdvReac Mild HALLUCINATI Verified 08/11/25 12:47 ONS Home Medications Medication Instructions Recorded Confirmed Type finasteride 5 mg tablet 5 mg PO HS 11/23/18 08/20/25 History nitroglycerin 0.4 mg sublingual 1 dose sublingual UD PRN Angina 11/23/18 08/20/25 History tablet sertraline 50 mg tablet (Zoloft) 50 mg PO QAM 11/23/18 08/20/25 History polyethylene glycol 3350 17 gram 17 g PO BID PRN Constipation 08/30/21 08/20/25 History oral powder packet aspirin 81 mg tablet,delayed 81 mg PO QAM 10/18/21 08/20/25 History release ondansetron 4 mg disintegrating 4 mg translingual Q8H PRN Nausea 10/18/21 08/20/25 History tablet And Vomiting ranolazine 500 mg tablet,extended 500 mg PO BID 04/13/24 08/20/25 History release,12 hr rosuvastatin 10 mg tablet 10 mg PO HS 04/13/24 08/20/25 History midodrine 5 mg tablet 5 mg PO BID PRN For low blood 06/08/24 08/20/25 History pressure less than 90 systolic albuterol sulfate 90 mcg/actuation 2 puff inhalation Q6H PRN 06/14/24 08/20/25 Rx aerosol inhaler shortness of breath or wheezing #8.5 grams gabapentin 300 mg capsule 300 mg PO QID 09/09/24 08/21/25 History umeclidinium 62.5 mcg-vilanterol 1 inh inhalation QAM #3 Inhalers 03/06/25 Rx 25 mcg/actuation powdr for inhalation (Anoro Ellipta) famotidine 20 mg tablet 20 mg PO DAILY 04/18/25 08/20/25 History lubiprostone 24 mcg capsule 24 mcg PO DAILY 04/18/25 08/20/25 History atogepant 60 mg tablet (Qulipta) 60 mg PO DAILY #90 tabs 07/04/25 08/20/25 Rx divalproex 500 mg tablet,delayed 500 mg PO TID 90 days #270 tabs 07/04/25 08/20/25 Rx release ubrogepant 100 mg tablet (Ubrelvy) 100 mg PO .COMPLEX #10 tabs 07/04/25 08/20/25 Rx amoxicillin 875 mg-potassium 1 tab PO BID 10 days #20 tabs 08/11/25 08/20/25 Rx clavulanate 125 mg tablet esomeprazole magnesium 40 mg 40 mg PO BID 08/20/25 08/20/25 History capsule,delayed release tamsulosin 0.4 mg capsule 0.8 mg PO HS 08/20/25 08/20/25 History Patient History Medical History History of COVID-19 06/12/24 positive covid test at [facility]. patient experienced generalized fatigue, muscle weakness, cough and sinus congestion - states symptoms lasted the majority of June 2024, states he is doing better and the fatigue and weakness has subsided, but still does have mild cough and sinus congestion at the time. denies fever/sore throat. no further testing has been done per patient. Muscular deconditioning Hyperlipidemia Hypertension BPH (benign prostatic hyperplasia) Poor vision left eye Depression with anxiety Dyspnea on exertion follows with dr. saleem CAD (coronary artery disease) Constipation Gastroparesis Hiatal hernia Right inguinal hernia Hx of diverticulitis of colon (05/10/24) required admit to [facility] x 2 days IBS (irritable bowel syndrome) Barretts esophagus GERD (gastroesophageal reflux disease) Prediabetes no issues now, no longer takes metformin Anemia Hearing deficit Anxiety Migraine frequent, having an MRI on 06/09/24 Surgical History Hx of eye surgery (2022) left retina surgery Hx of bilateral cataract extraction (2018) History of hemorrhoidectomy History of foot surgery right big toe, layne neuroma History of flexible sigmoidoscopy History of colonoscopy had to have a pediatric scope due to tortuous colon, prior to this had to have a barium enema due to tortuous History of esophagogastroduodenoscopy (EGD) History of heart artery stent (11/2011) 11/2011 x1 @ [facility] History of cardiac cath (06/2012) 11/2011 @ [facility]- 1 stent, 06/2012 @ [facility] [place]--no stent Family History Father , age 79 after complications from hip surgery Family history of esophageal cancer Mother , age 76 of metastatic colon cancer Family hx of colon cancer Other No family history of adverse response to anesthesia Social History Smoking Status: Never smoker Second Hand Exposure: No; Do You Dip or Chew Tobacco: No; Hx Alcohol Use: No Hx Substance Use: No Preferred Language: British Communication Ability: Effective Visual Impairment: Limited Hearing Ability: Use of Hearing Aid Production Pattern Maker Required: No Beliefs That Will Affect Care: None marital status: Current Living Situation: Spouse current occupational status: retired 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57, 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 Feels Safe at Home: Yes Safety Concerns: Feels Safe At This Time Assistive Devices: Cane and Walker Review of Systems Review of Systems: All systems reviewed & are unremarkable except as noted in HPI & below Physical Exam Constitutional: WD/WN, vitals as above Respiratory: normal respiratory effort, lungs clear to auscultation Cardiovascular: RRR, no murmur, no edema Skin: no rashes, warm and dry Neurologic: moves all extremities and awake Psychiatric: A+Ox3, euthymic affect Results & Data Vital Signs (Past 12 Hours) Vital Signs Temp Pulse Pulse Resp BP BP Pulse Ox 08/21/25 07:51 08/21/25 07:13 63 91/54 L 08/21/25 07:05 36.7 C 64 18 87/48 L 93 08/21/25 02:30 37.0 C 68 18 100/58 L 93 08/21/25 00:00 58 L 08/20/25 23:55 36.9 C 63 18 112/67 95 O2 Del Method 08/21/25 07:51 Room Air 08/21/25 07:13 08/21/25 07:05 Room Air 08/21/25 02:30 Room Air 08/21/25 00:00 08/20/25 23:55 Room Air
--- NOTE | 2025-08-21 10:33 | Neurology Consultation ---
Date of Consultation August 21, 2025 Assessment & Plan (1) Hyponatremia: (2) Migraine: (3) Leg weakness: (4) Tremor: (5) Idiopathic polyneuropathy: Plan This patient has a history of intermittent migraine headaches for years. He has had improvement with Qulipta daily to prevent headaches and Ubrelvy to use as needed. The patient has had a very low-grade hyponatremia for years (low to mid 130s), which has worsened to the 120s noted first in the summer of this year. In addition the patient has had an increase in tremor over the last year. Since Depakote was initiated in November 2024, this medication may be responsible for increasing tremor (which notoriously I can do) and worsen his hyponatremia. Depakote can give SIADH-like side effects The patient has leg weakness but this is nonspecific. He does not have any actual focal weakness on exam today nor does he have any other focal neurologic signs, meningeal signs, or encephalopathy. He does have signs of his symptoms consistent with a polyneuropathy involving predominantly sensory fibers. This gives him a sensory ataxia and gait disturbance. Interestingly, gabapentin can cause hyponatremia but typically will not cause increased tremor Recommendations: 1. Decrease Depakote to twice daily for 2 days, then daily for 2 days, then discontinue. 2. Continue Qulipta 60 mg a day 3. Continue Ubrelvy 100 mg as needed for migraines (maximum 2/week or 8/month) 4. Physical therapy for gait training and strengthening 5. I see no need for additional neurologic testing at this time. Normally I would have recommended a Depakote level, but since we are tapering this patient off, there is no need for a level at this time. 6. The patient follows with cardiology and endocrinology for other issues. 7. For now, continue gabapentin at the same dose 8. After discharge follow-up with neurology ([place]) 2 to 3 weeks after discharge Overall, I spent a total of 75 minutes with this case including review of records, review of MRI films, direct evaluation of the patient, report generation, and discussion of the case with the patient and RN at bedside, and Dr. Ashton including differential diagnosis and treatment options. History of Present Illness Reason for Consultation: Patient is a 80-year-old, who I was asked to see at the request of Dr. Ashton, for neurologic evaluation regarding weakness and other issues Requesting Physician: Dr. Ashton Attending Physician: Quinn Ashton MD History of Present Illness Patient tells me that he started getting headaches in his 50s. He really did not have headaches in years prior. He was followed for many years by Dr. Aaron but then transferred to Dr. Wise in February 2024. At that time he was getting migraine headaches about 4-5 times a month. Typical migraine would have the onset of an aura which consisted of some spinning flashing vision off to the left lasting 15 minutes or so. This would resolve and would be followed by a left temporal headache. More recently it is bifrontal. It is a steady sharp pressure pain and would last 30 to 60 minutes. Typically there would be no nausea, vomiting, photophobia, or photophobia. Over the years he has tried nortriptyline, sertraline, beta-blockers, rizatriptan, and [id number] medications with varying success. More recently he has tried verapamil, topiramate, gabapentin, and valproic acid. Because of headaches the patient was initiated on valproic acid in November 2024 at 500 mg twice a day. In June [address] Wise who increase Depakote to 500 mg 3 times a day, discontinue topiramate, and initiated Qulipta 60 mg a day for headache prevention. He also takes Ubrelvy as needed for headaches which helps. He tends to take the Ubrelvy during the aura and the headache does not come anymore. Since initiating Qulipta at the end of November of this year, he has had much less in the way of headaches. According to the records, the patient has had mild hyponatremia (low to mid 30s) as far back as 2016 up until a most recent reading in September 2024. In April 2025 his sodium was 120. He has had readings in the 120s ever since (up until present). Interestingly, Depakote was initiated in November 2024 and this can cause hyponatremia and SIADH type symptoms. Patient has had neuropathy symptoms for the last couple of years and has been on gabapentin which helps his discomfort. It was increased to 300 mg 4 times a day earlier this fall. The patient has told me that he has developed a tremor over the last year and this interferes with his ability to do fine motor skills, and can affect his ability to hold a utensil and eat as well as hold a drinking glass. Tremor waxes and wanes. He feels it is getting a little bit worse more recently. Patient has had some weakness in his lower extremities as well as some lightheadedness. He fell August 18 (he believes because his blood pressure was low. He sees Dr. Leyva for his blood pressure. He has been seeing Dr. Méndez, endocrinology for hyponatremia. There is a suspicion for adrenal insufficiency. He is undergoing testing for this. MRI of the brain and pituitary with and without contrast was obtained August 07, 2025. I reviewed these films and it shows moderate generalized cerebral atrophy and moderate old small vessel ischemic disease. There was no enhancement. There was no obvious pituitary lesion seen (although there was some mild motion degradation). The patient came to the emergency room August 20 with the weakness. Blood pressure was 132/73 with a pulse around 50. Respiratory rate 18, he was afebrile at 36.4 and O2 saturation was 100%. Neurologic examination was considered unremarkable/normal. He does need some support or cane to help walk and keep his balance. CBC was unremarkable. Sodium was 126 and glucose 106. The rest of the CHEM pr ofile was normal. Magnesium was 2.0. CT scan of the head was unremarkable CT cervical spine showed some degenerative changes and no fractures Chest x-ray showed old left 5th, 6th, and 7th rib fractures. This morning the patient feels well. He does not believe his legs are weak this morning and he has been walking some. He has no new numbness or dysesthesias in her feet (but chronically has numbness from his neuropathy) his arms are asymptomatic. His tremor is about the same. Allergies Allergy/AdvReac Type Severity Reaction Status Date / Time Beta-Blockers Allergy Severe "SHOOK UP Verified 08/11/25 12:47 (Beta-Adrenergic Bloc FEELING" levofloxacin Allergy Mild Gastrointestinal Verified 08/11/25 12:47 Upset omeprazole Allergy Mild "made my Verified 08/11/25 12:47 head spin" pantoprazole AdvReac Mild HALLUCINATI Verified 08/11/25 12:47 ONS Home Medications Medication Instructions Recorded Confirmed Type finasteride 5 mg tablet 5 mg PO HS 11/23/18 08/20/25 History nitroglycerin 0.4 mg sublingual 1 dose sublingual UD PRN Angina 11/23/18 08/20/25 History tablet sertraline 50 mg tablet (Zoloft) 50 mg PO QAM 11/23/18 08/20/25 History polyethylene glycol 3350 17 gram 17 g PO BID PRN Constipation 08/30/21 08/20/25 History oral powder packet aspirin 81 mg tablet,delayed 81 mg PO QAM 10/18/21 08/20/25 History release ondansetron 4 mg disintegrating 4 mg translingual Q8H PRN Nausea 10/18/21 08/20/25 History tablet And Vomiting ranolazine 500 mg tablet,extended 500 mg PO BID 04/13/24 08/20/25 History release,12 hr rosuvastatin 10 mg tablet 10 mg PO HS 04/13/24 08/20/25 History midodrine 5 mg tablet 5 mg PO BID PRN For low blood 06/08/24 08/20/25 History pressure less than 90 systolic albuterol sulfate 90 mcg/actuation 2 puff inhalation Q6H PRN 06/14/24 08/20/25 Rx aerosol inhaler shortness of breath or wheezing #8.5 grams gabapentin 300 mg capsule 300 mg PO QID 09/09/24 08/21/25 History umeclidinium 62.5 mcg-vilanterol 1 inh inhalation QAM #3 Inhalers 03/06/25 08/20/25 Rx 25 mcg/actuation powdr for inhalation (Anoro Ellipta) famotidine 20 mg tablet 20 mg PO DAILY 04/18/25 08/20/25 History lubiprostone 24 mcg capsule 24 mcg PO DAILY 04/18/25 08/20/25 History metronidazole 500 mg tablet 500 mg PO TID #18 tabs 04/21/25 08/20/25 Rx atogepant 60 mg tablet (Qulipta) 60 mg PO DAILY #90 tabs 07/04/25 08/20/25 Rx divalproex 500 mg tablet,delayed 500 mg PO TID 90 days #270 tabs 07/04/25 08/20/25 Rx release ubrogepant 100 mg tablet (Ubrelvy) 100 mg PO .COMPLEX #10 tabs 07/04/25 08/20/25 Rx amoxicillin 875 mg-potassium 1 tab PO BID 10 days #20 tabs 08/11/25 08/20/25 Rx clavulanate 125 mg tablet esomeprazole magnesium 40 mg 40 mg PO BID 08/20/25 08/20/25 History capsule,delayed release tamsulosin 0.4 mg capsule 0.8 mg PO HS 08/20/25 08/20/25 History Patient History Medical History History of COVID-19 06/12/24 positive covid test at [facility]. patient experienced generalized fatigue, muscle weakness, cough and sinus congestion - states symptoms lasted the majority of June 2024, states he is doing better and the fatigue and weakness has subsided, but still does have mild cough and sinus congestion at the time. denies fever/sore throat. no further testing has been done per patient. Muscular deconditioning Hyperlipidemia Hypertension BPH (benign prostatic hyperplasia) Poor vision left eye Depression with anxiety Dyspnea on exertion follows with dr. saleem CAD (coronary artery disease) Constipation Gastroparesis Hiatal hernia Right inguinal hernia Hx of diverticulitis of colon (05/10/24) required admit to [facility] x 2 days IBS (irritable bowel syndrome) Barretts esophagus GERD (gastroesophageal reflux disease) Prediabetes no issues now, no longer takes metformin Anemia Hearing deficit Anxiety Migraine frequent, having an MRI on 06/09/24 Surgical History Hx of eye surgery (2022) left retina surgery Hx of bilateral cataract extraction (2018) History of hemorrhoidectomy History of foot surgery right big toe, layne neuroma History of flexible sigmoidoscopy History of colonoscopy had to have a pediatric scope due to tortuous colon, prior to this had to have a barium enema due to tortuous History of esophagogastroduodenoscopy (EGD) History of heart artery stent (11/2011) 11/2011 x1 @ [facility] History of cardiac cath (06/2012) 11/2011 @ [facility]- 1 stent, 06/2012 @ [facility] [place]--no stent Family History (Updated 08/21/25 @ 10:21 by Enzo Sinha MD) Father , age 79 after complications from hip surgery Family history of esophageal cancer Mother , age 76 of metastatic colon cancer Family hx of colon cancer Other No family history of adverse response to anesthesia Social History (Updated 08/21/25 @ 10:22 by Enzo Sinha MD) Smoking Status: Never smoker Second Hand Exposure: No; Do You Dip or Chew Tobacco: No; Hx Alcohol Use: No Hx Substance Use: No Preferred Language: Korean Communication Ability: Effective Visual Impairment: Limited Hearing Ability: Use of Hearing Aid 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 Press 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 Required: No Beliefs That Will Affect Care: None marital status: Current Living Situation: Spouse current occupational status: retired 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57, 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 Feels Safe at Home: Yes Assistive Devices: Cane, Glasses, Hearing Aid - Bilateral and Walker Review of Systems Constitutional: no fever, no fatigue and no weakness Eyes: no diplopia, no eye pain and no worsening vision Ear, Nose, Mouth, Throat: no ear pain, no tinnitus, no hearing loss, no dizziness, no snoring, no hoarseness and no dysphagia Respiratory: no cough and no dyspnea Cardiovascular: no chest pain, no palpitations and no lightheadedness Gastrointestinal: no abdominal pain, no nausea and no vomiting Musculoskeletal: + neck pain; no back pain, no radicular pain, no joint pain and no myalgia Integumentary: no rash and no lesions Neurologic: + gait abnormality, + localized weakness , + numbness and + headache(s); no generalized weakness, no tingling, no tremor(s), no abnormal movements, no abnormal speech, no confusion and no memory loss Psychiatric: no depression, no irritability, no anxiety, no difficulty concentrating, no confusion and no hallucinations Endocrine: no fatigue and no flushing Hematologic / Lymphatic: no easy bleeding and no easy bruising Allergy / Immunological: no urticaria and no problem reported Exam (Neuro) Physical Exam: The patient is right-handed. The patient is awake, alert, and attentive. Speech is normal without any aphasia or dysarthria. Mentation and thought processes are intact, with full orientation and normal fund of knowledge. Mood and affect are normal and appropriate. Appearance and grooming are normal. Short and long-term memory are intact to conversation. Pupils are 3 mm bilaterally and reactive to light. Extraocular eye muscles are intact without nystagmus. Visual acuity and visual garner seem normal grossly to confrontation. There are no deficits to sensation in the face in all 3 distributions of the fifth cranial nerve bilaterally. Corneal reflexes are positive bilaterally. Facial strength and symmetry was normal bilaterally. Hearing seems intact grossly to voice and finger rub bilaterally. Palate moves well without asymmetry. There is normal sternocleidomastoid and trapezius strength bilaterally. Tongue is midline with good strength bilaterally. Neck has a full range of motion without discomfort. Cervical, thoracic, and lumbar spine are nontender to palpation. Gait is narrow based, slow and very cautious. He had a little difficulty getting up from sitting to standing but he did it on his own. Stands with feet together and eyes open is shaky and deteriorates more with eyes closed. He has good arm swing. With outstretched arms there is no drift. There are no resting tremors. There is no ataxia with finger to nose testing. He has mild action tremor bilaterally. There is good facility in the hands. No other abnormal involuntary movements are noted. Motor strength is 5/5 diffusely in the arms bilaterally including deltoids, biceps, triceps, brachioradialis, wrist flexors and extensors, patrol community service officer, and intrinsic hand muscles. Motor strength is 5/5 diffusely in the legs bilaterally including hip flexors, quadriceps, hamstrings, gastrocnemius, tibialis anterior, tibialis posterior, and Peroneii muscles bilaterally. Toe extensors are normal and there is good bulk in the extensor digitorum brevis muscles bilaterally. When encouraged, he actually does not have any specific muscle weakness. The limbs have good tone without rigidity or spasticity. There is no atrophy noted in the muscles. Muscle bulk is normal, there is no tenderness to palpation, no myotonia to percussion, and no fasciculations seen. Sensory examination reveals mild decreased pinprick in a stocking distribution to the mid lower legs bilaterally. Reflexes are 2/4 in the biceps, triceps, and quadriceps tendons bilaterally. Brachioradialis tendon reflexes are 1/4 and Achilles tendon reflexes are 0/4 bilaterally. Toes are downgoing with plantar stimulation bilaterally. Peripheral pulses are present and of normal quality distally in all 4 limbs. There is no peripheral edema noted in the limbs. Results & Data Vital Signs (Past 12 Hours) Vital Signs Temp Pulse Pulse Resp BP BP Pulse Ox 08/21/25 07:51 08/21/25 07:13 63 91/54 L 08/21/25 07:05 36.7 C 64 18 87/48 L 93 08/21/25 02:30 37.0 C 68 18 100/58 L 93 08/21/25 00:00 58 L 08/20/25 23:55 36.9 C 63 18 112/67 95 O2 Del Method 08/21/25 07:51 Room Air 08/21/25 07:13 08/21/25 07:05 Room Air 08/21/25 02:30 Room Air 08/21/25 00:00 08/20/25 23:55 Room Air PG Care Time/CCT Total # of Minutes Spent Total Time Spent with Patient: Total time spent is greater than 50% in coordination of care (as documented) at patient's floor/unit and/or counseling patient: Coding Level of Care Code 15695 INT INP/OBS CARE 3/75MIN Diagnoses Hyponatremia E87.1 Migraine G43.909 Leg weakness R29.898 Tremor R25.1 Idiopathic polyneuropathy G60.9 Time Spent (min) 75
[2025-08-21 11:18] VITALS: O2SAT 97
--- NOTE | 2025-08-21 13:33 | Hospitalist Progress Note ---
Date of Service August 21, 2025 Assessment & Plan (1) Fall: (2) Syncope: (3) Adrenal insufficiency: (4) Sinus bradycardia: Plan 80 year old male presents to the ER from cardiology clinic due to concerns for generalized weakness, fatigue, presyncope and bradycardia #Adrenal insufficiency Possible diagnosis per endocrinollogy Will follow endocrine plan with hydrocortisone 100mg IV now then 20mg #Hyponatremia Urine Osm/Na pending Will defer any specific treatment for this to understand how the hydrocortisone effects the sodium Likely some degree of reset osmostat as mentioned in prior notes #Sinus bradycardia This does not appear to be new with similar rates recorded in April but sent from cardiology clinic for this per patient for full workup Monitor on telemetry Further recommendations per cardiology review #Generalized weakness No focal motor neurology although progressive weakness with peripheral neuropathy is concerning and will consult his neurologist PT/OT #Peripheral neuropathy Continue gabapentin #Migraines Continue depakote and atogepant #GERD Continue esomeprazole - patient to bring in his from home #BPH Continue finasteride and tamulsoin #Constipation Continue lubiprostone and MiraLAX #Anxiety Patient reports taking sertaline 25mg rather than 50mg listed #COPD Continue anoro ellipta VTE Prophylaxis - low risk, encourage ambulation Disposition - admit to PCU Admission and Anticipated Discharge Date Admission Date: August 20, 2025 Results & Data Results & Data Vital Signs (Past 12 Hours) Vital Signs Temp Pulse Resp BP BP Pulse Ox O2 Del Method 08/21/25 11:17 36.7 C 65 18 117/68 97 Room Air 08/21/25 07:51 Room Air 08/21/25 07:13 63 91/54 L 08/21/25 07:05 36.7 C 64 18 87/48 L 93 Room Air 08/21/25 02:30 37.0 C 68 18 100/58 L 93 Room Air PG Care Time/CCT Total # of Minutes Spent Total Time Spent with Patient: Total time spent is greater than 50% in coordination of care (as documented) at patient's floor/unit and/or counseling patient: Coding Diagnoses Fall W19.XXXA Syncope R55 Adrenal insufficiency E27.40 Sinus bradycardia R00.1
[2025-08-21] MEDS ORDERED: HYDROCORTISONE 10 MG TAB PO SCH (14:00)
[2025-08-21 15:42] VITALS: TEMP 97.9
[2025-08-21] MEDS: SODIUM CHLORIDE 1 GM TABLET PO STA (17:58)
--- NOTE | 2025-08-21 17:58 | Discharge Summary ---
Discharge Summary Date of Service August 21, 2025 Principal Dx & Hospital Course #1 = Principal Diagnosis (1) Fall: (2) Syncope: (3) Adrenal insufficiency: (4) Sinus bradycardia: (5) Hyponatremia: Plan Gena Gill is a 80 year old male admitted to [facility] from August 20 - 2024 due to hyponatremia, generalized weakness and low heart rate. There was some concern for adrenal insufficiency as an outpatient therefore he was started on hydrocortisone 100mg IV. However this did not make a difference to his blood pressure and hyponatremia therefore this diagnosis is less likely and no further hydrocortisone is needed on discharge. He will follow up with endocrinology for ongoing investigations for this as needed but does not appear to be causing his hyponatremia. 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 Therefore recommend weaning off this medication to twice daily for 2 days, then daily for 2 days, then discontinue. He will also start sodium chloride 1g PO twice a day for treatment of SIADH and follow up with his primary care physician for ongoing labs and management of this. Hopefully the salt tablets are just temporary as he stops depakote. He was seen by physical therapy and not a candidate for inpatient physical therapy at this time He should follow up with neurology for lower extremity weakness and peripheral neuropathy. We will attempt to arrange home health for home physical therapy for him. If this is unable to be arranged through the hospital recommend he follows up with his primary care physician for this. Notes For Next Care Provider Follow up with neurology for EMG/NCS and lower extremity weakness and ambulatory dysfunction Medication Changes From Visit Sertraline dose was just changed to what he said he was taking this dose is different on your [facility] drug list therefore recommend clarifying dose with his primary care physician. Midodrine 5mg three times a day - advised scheduled use for his ongoing hypotension. This can be increased to 10mg three times a day if he continues to feel lightheaded. 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 He reports feeling dizziness from thanksgiving although some less severe episodes before this. He describes this as both ambulatory dysfunction and lightheadedness. No room spinnin sensation. He fell last on Wednesday after losing his balance. Last Wednesday he was having difficulty getting his legs to clint. He notes having a peripheral neuropathy in his feet for which he takes gabapentin and has been progressively much worse over the last 2 months. He is notably currently on Augmentin for lower respiratory infection and sinusitis - 2 pills left. Discharge Exam Constitutional WD/WN, vitals as above Eyes + anicteric sclerae; normal pupil size Respiratory normal respiratory effort, lungs clear to auscultation Cardiovascular Rate/Rhythm: regular rhythm and + bradycardic Heart Sounds: no murmur Extremities: normal capillary refill and + pedal edema (1+ bilateral equal); no calf tenderness Gastrointestinal (Abdomen) normal bowel sounds, soft, nontender, no hepatosplenomegaly Musculoskeletal no cyanosis or clubbing, extremities motor strength 5/5 Skin Trauma: + evidence of skin trauma (skin tears to both elbows) Neurologic moves all extremities and awake; no focal motor deficits and not confused Speech / Cognition: normal speech Motor/Sensory: + sensory deficit (feet bilateral numbness); no tremor and no pronator drift Discharge Plan Discharge Items Patient Disposition: Home - Home Health Services Reason For Visit: ADRENAL INSUFFICIENCY,BRADYCARDIA,HYPONATREMIA Discharge Diagnosis: Bradycardia, hyponatremia (suspected SIADH) Condition on Discharge: Fair Activity: Resume your previous activity Non-emergency contact: Primary Care Provider Call non-emergency contact if: you have any medication questions and your symptoms worsen Follow-up/Referrals: Enzo Sinha MD [Physician] - (Follow up peripheral neuropathy) Celestino Vazquez DO [Primary Care Provider] - Diet: Regular Addtl Attending Provider Instructions: You were admitted to [facility] from August 20 - 2024 due to low sodium, generalized weakness and low heart rate. There was some concern for adrenal insufficiency as an outpatient therefore you were started on hydrocortisone 100mg IV. However this did not make a difference to your blood pressure and sodium levels therefore making this diagnosis less likely and no further hydrocortisone is needed on discharge. On review by neurology and urine studies suspect you low sodium concentration is due to SIADH. This is possibly caused by Depokate. Therefore recommend weaning off this medication to twice daily for 2 days, then daily for 2 days, then discontinue. Recommend also taking a sodium chloride 1g tablet twice a day for treatment of SIADH and following up with your primary care physician for ongoing labs and management of this. Hopefully the salt tablets are just temporary as you come off the depakote. Recommend following up with neurology for your generalized weakness and peripheral neuropathy. We will attempt to arrange home health for home physical therapy for you. If this is unable to be arranged through the hospital recommend follow up with your primary care physician for this. Recommend using your midodrine 5mg three times a day regularly for your low blood pressure. This can be increased to 10mg three times a day if you continue to feel lightheaded. Sertraline dose was just changed to what you told us you were taking however this dose is different on your [facility] list therefore recommend clarifying dose with your primary care physician. Kind regards, Dr Quinn Ashton Pending Studies at Discharge: No Stand-Alone Forms: My [facility] [employer], Smoking Cessation Medications and DC Order Prescriptions: New sodium chloride 1,000 mg tablet,soluble 1,000 mg PO BID Qty: 60 0RF Continued albuterol sulfate 90 mcg/actuation HFA aerosol inhaler 2 puff inhalation Q6H PRN (Reason: shortness of breath or wheezing) Qty: 8.5 0RF Anoro Ellipta 62.5-25 mcg/actuation blister with device 1 inh inhalation QAM Qty: 3 3RF Ubrelvy 100 mg tablet 100 mg PO .COMPLEX Qty: 10 5RF Rx Instructions: 100 mg orally ONCE DAILY AT MIGRAINE ONSET. MAY REPEAT IN 2 HRS PRN; Qulipta 60 mg tablet 60 mg PO DAILY Qty: 90 3RF nitroglycerin 0.4 mg Tablet, Sublingual 1 dose sublingual UD PRN (Reason: Angina) finasteride 5 mg Tablet 5 mg PO HS aspirin 81 mg Tablet,Delayed Release (Dr/Ec) 81 mg PO QAM ondansetron 4 mg tablet,disintegrating 4 mg translingual Q8H PRN (Reason: Nausea And Vomiting) polyethylene glycol 3350 17 gram Powder In Packet 17 g PO BID PRN (Reason: Constipation) ranolazine 500 mg tablet extended release 12 hr 500 mg PO BID rosuvastatin 10 mg tablet 10 mg PO HS gabapentin 300 mg capsule 300 mg PO QID famotidine 20 mg tablet 20 mg PO DAILY lubiprostone 24 mcg capsule 24 mcg PO DAILY tamsulosin 0.4 mg capsule 0.8 mg PO HS esomeprazole magnesium 40 mg capsule,delayed release(DR/EC) 40 mg PO BID Changed midodrine 5 mg tablet 5 mg PO TID Qty: 0 0RF sertraline [Zoloft] 50 mg Tablet 25 mg PO QAM Qty: 0 0RF Discontinued amoxicillin-pot clavulanate 875-125 mg tablet 1 tab PO BID 10 Days Qty: 20 0RF divalproex 500 mg tablet,delayed release (DR/EC) 500 mg PO TID 90 Days Qty: 270 1RF Discharge Orders: Discharge Order (Routine); Ordered 08/21/25 Ordered By: Quinn Ashton Admission Data Admit Date/Time: 08/20/25 16:24 Attending Provider: Quinn Ashton Admit Provider: Quinn Ashton Primary Care Provider: Celestino Vazquez Other Providers: Quinn Ashton; Trell Leyva; Enzo Sinha; [facility],Home Healthcare Other Interventions: Discharge Summary Assessment (RN) Last Done: 08/21/25 17:39 Hospital Stay Data Consultations 08/20/25 16:11 ED Decision to Admit Stat 08/20/25 18:39 Consult Cardiology Routine 08/21/25 07:30 Consult Neurology Routine 08/21/25 17:[address] [facility] mold filler Routine Diagnostic Imagining Performed 08/20/25 14:42 CT cervical spine wo con Stat CT head/brain wo con Stat Pending Results Patient Have Any Pending Studies at Discharge: No Discharge Instructions Given to Patient (Per Discharging Provider) You were admitted to [facility] from August 20 - 2024 due to low sodium, generalized weakness and low heart rate. There was some concern for adrenal insufficiency as an outpatient therefore you were started on hydrocortisone 100mg IV. However this did not make a difference to your blood pressure and sodium levels therefore making this diagnosis less likely and no further hydrocortisone is needed on discharge. On review by neurology and urine studies suspect you low sodium concentration is due to SIADH. This is possibly caused by Depokate. Therefore recommend weaning off this medication to twice daily for 2 days, then daily for 2 days, then discontinue. Recommend also taking a sodium chloride 1g tablet twice a day for treatment of SIADH and following up with your primary care physician for ongoing labs and management of this. Hopefully the salt tablets are just temporary as you come off the depakote. Recommend following up with neurology for your generalized weakness and peripheral neuropathy. We will attempt to arrange home health for home physical therapy for you. If this is unable to be arranged through the hospital recommend follow up with your primary care physician for this. Recommend using your midodrine 5mg three times a day regularly for your low blood pressure. This can be increased to 10mg three times a day if you continue to feel lightheaded. Sertraline dose was just changed to what you told us you were taking however this dose is different on your [facility] list therefore recommend clarifying dose with your primary care physician. Kind regards, Dr Quinn Ashton Total Time Total Time Spent Total Time Spent (In Minutes): 60 Total Time Includes: Examination of the Patient, Discharge Planning, Medication Reconciliation and Communication With Other Providers Coding Level of Care Code 99927 INP/OBS DISCH >30 MIN Diagnoses Fall W19.XXXA Syncope R55 Adrenal insufficiency E27.40 Sinus bradycardia R00.1 Hyponatremia E87.1 Home Health Attestation I certify that this patient is under my care and that I, or a physicians assistant director of admissions working with me, had a face to-face encounter that meets the home health [id number] encounter requirements with this patient. The encounter with the patient was in whole, or in part, for the following medical condition, which is the primary reason for home health care (list medical condition): hyponatremia-weakness I certify that, based on my findings, the following services are medically necessary home health services: My clinical findings support the need for the above services because: OT Assess ADL Status and Restore Function w ADLs PT Assessment for Endurance / Balance / Strength PT Eval for Safety and Mobility PT Eval for Safety, Gait Training, Assistive Devices PT Gait and Balance Training, Strengthening and Safety Skilled Nsg Assessment Further, I certify that my clinical findings support that this patient is homebound (i.e. absences from home require considerable and taxing effort and are for medical reasons or bahai services or infrequently or of short duration when for other reasons) because: Transportation Assistance/Unable to Leave Home Unassisted Certification for Home Health Services: Based on the above findings, I certify that this patient is confined to the home and needs intermittent fdc care, physical therapy and/or speech therapy or continues to need occupational therapy. The patient is under my care, and I have initiated the establishment of the plan of care. This patient will be followed by a physician who will periodically review the plan of care.
[2025-08-21 18:01] VITALS: BP 113/55; PULSE 62; RESP 16
[2025-08-21] MEDS ORDERED: DIVALPROEX DELAY RELEASE 500 MG TAB PO SCH (21:00)
--- NOTE | 2025-08-22 06:36 | Electrocardiogram Report ---
Test Reason : Blood Pressure : */* mmHG Vent. Rate : 49 BPM Atrial Rate : 49 BPM P-R Int : 180 ms QRS Dur : 86 ms QT Int : 438 ms P-R-T Axes : 45 17 37 degrees QTcB Int : 395 ms Sinus bradycardia Low voltage QRS Borderline ECG When compared with ECG of 18-Apr-2025 23:18, No significant change was found Confirmed by Saul Simeon ([id number]) on 08/22/2025 6:35:58 AM Referred By: Confirmed By: Saul Simeon
[2025-08-22] MEDS ORDERED: ATOGEPANT (QULIPTA) 60 MG TAB PO SCH (09:00)
== END 2025-08-21 18:27 | disposition home health service (06) | DRG 309 ==
LOC: ED 14:12 → 4W 16:24 → INTOOBSV 16:24 → 4W 17:54